=== PATIENT | female | born 1955 | race Caucasian/White ===

== ENCOUNTER → 2019-03-02 | Outpatient (CLI) | payer MEDICARE ==
--- NOTE | 2019-03-03 09:03 | P.ARTDOP ---
Arterial Doppler LOWER EXTREMITY ARTERIAL DOPPLER: DATE OF SERVICE: 03/02/2019 Reason for study: Right foot ulcer. Doppler waveforms: Multiphasic bilaterally throughout. Pulse volume recording: Normal configuration. Pressure gradients: None. Ankle-brachial indices: Greater than 1 bilaterally. Toe pressures: 148 on the right, 104 on the left Impression: Normal study.
== END | disposition home or self-care (01) ==
LOC: RADUSWWP 09:14
PROVIDERS: ATTEND Thoracic Surgery (Cardiothoracic Vascular Surgery)
DX: L89.892 Pressure ulcer of other site, stage 2 (principal); E66.09 Other obesity due to excess calories
CPT/HCPCS: 93923

== ENCOUNTER → 2019-03-11 | Outpatient (CLI) | payer MEDICARE ==
--- NOTE | 2019-03-11 15:10 | XR ---
EXAMINATION TYPE: XR foot complete RT DATE OF EXAM: 03/11/2019 CLINICAL HISTORY: Mid foot right ulcer. Cast material overlying the right foot. TECHNIQUE: Frontal, lateral, and oblique images of the right foot are obtained. COMPARISON: None FINDINGS: There is extremely limited exam of the right foot given overlying casting material. Evaluat ion for subcutaneous emphysema is nondiagnostic. No osseous erosion is grossly seen. Degenerative ainsley nges of the talonavicular joint with opposing surface sclerosis and bony proliferative change. Flexio n deformities of the digits also makes evaluation suboptimal. There appears to be mild diffuse osseou s demineralization. No gross evidence of displaced fracture. Subtalar joint arthropathy is also seen. Small plantar calcaneal enthesophyte. IMPRESSION: Overlying casting material extremely limits the examination. Examination for subcutaneous emphysema is nondiagnostic. No gross evidence of osseous laceration in this patient with mid foot ul cer. No displaced fracture.
== END | disposition home or self-care (01) ==
LOC: RADXRMAIN 14:13
PROVIDERS: ATTEND Nurse Practitioner Family
DX: L89.892 Pressure ulcer of other site, stage 2 (principal); E66.09 Other obesity due to excess calories

== ENCOUNTER 2019-09-03 19:08 | Observation (INO) | payer MEDICARE ==
--- NOTE | 2019-09-03 19:45 | ED ---
General Adult HPI - General Stated complaint: Weakness Time Seen by Provider: 09/03/19 19:10 Source: RN notes reviewed, old records reviewed - History of Present Illness Initial comments: This is a 63-year-old female with past medical history significant for bilateral knee replacements morbid obesity and high blood pressure. Patient states today she sat down BUT 1:00 and after that she was unable to get up from the couch. Patient states her legs were too weak. Patient denies any injury or trauma. Patient denies any areas of pain. Patient denies any areas of redness. Patient denies fever chills or cough per patient denies being lightheaded or dizzy. Patient denies any chest pain difficulty breathing shortness of breath. Patient denies any palpitations. Patient denies any abdominal pain patient denies any recent nausea vomiting or diarrhea. Patient states she normally gets up and uses a walker but today she was unable to even get to a standing position. Patient denies any upper body weakness she states it felt like was all in both of her legs. Patient states she's always had problems with both of her knees but it felt like his couldn't hold her today. Review of Systems ROS Statement: Those systems with pertinent positive or pertinent negative responses have been documented in the HPI. ROS Other: All systems not noted in ROS Statement are negative. General Exam - General Exam Comments Initial Comments: GENERAL: Patient is well-developed and well-nourished. Patient is nontoxic and well- hydrated and is in no acute distress. ENT: Neck is soft and supple. No significant lymphadenopathy is noted. Oropharynx is clear. Moist mucous membranes. Neck has full range of motion without eliciting any pain. EYES: The sclera were anicteric and conjunctiva were pink and moist. Extraocular movements were intact and pupils were equal round and reactive to light. Eyelids were unremarkable. PULMONARY: Unlabored respirations. Good breath sounds bilaterally. No audible rales rhonchi or wheezing was noted. CARDIOVASCULAR: Patient has an irregular heart rate ABDOMEN: patient is morbidly obese SKIN: Patient is stage I decubitus ulcer on her buttocks. Patient's right foot on the plantar surface has a chronic lesion no signs of infection noted NEUROLOGIC: Patient is alert and oriented x3. Cranial nerves II through XII are grossly intact. Motor and sensory are also intact. Normal speech, volume and content. Symmetrical smile. MUSCULOSKELETAL: Normal extremities with adequate strength and full range of motion. This full range of motion was according to the patient she stated she could still move her legs while lying bed normally and she denied any pain in any of the joints. LYMPHATICS: No significant lymphadenopathy is noted PSYCHIATRIC: Normal psychiatric evaluation. Course Vital Signs 09/03/19 19:33 Temperature 98.4 F Pulse Rate 98 Respiratory 20 Rate Blood Pressure 103/71 O2 Sat by Pulse 98 Oximetry Medical Decision Making - Medical Decision Making Patient's EKG shows atrial fibrillation with occasional PVC at a rate of 90 bpm QRS is 86 QT interval 360 QTC is 459. Patient's EKG shows no ST segment daniel vation or depression. Chest x-ray shows no acute abnormality. I spoke with Dr. Guzman she agreed to admit the patient admitted the patient wrote admitting orders. - Lab Data Result diagrams: 09/03/19 19:55 09/03/19 19:55 Lab Results 09/03/19 09/03/19 09/03/19 Range/Units 19:55 19:55 19:55 WBC 12.3 H (3.8-10.6) k/uL RBC 4.62 (3.80-5.40) m/uL Hgb 14.2 (11.4-16.0) gm/dL Hct 44.7 (34.0-46.0) % MCV 96.7 (80.0-100.0) fL MCH 30.8 (25.0-35.0) pg MCHC 31.8 (31.0-37.0) g/dL RDW 13.0 (11.5-15.5) % Plt Count 256 (150-450) k/uL Neutrophils % 83 % Lymphocytes % 10 % Monocytes % 5 % Eosinophils % 1 % Basophils % 1 % Neutrophils # 10.2 H (1.3-7.7) k/uL Lymphocytes # 1.2 (1.0-4.8) k/uL Monocytes # 0.6 (0-1.0) k/uL Eosinophils # 0.1 (0-0.7) k/uL Basophils # 0.1 (0-0.2) k/uL PT 11.0 (9.0-12.0) sec INR 1.1 (<1.2) APTT 26.3 (22.0-30.0) sec Sodium 140 (137-145) mmol/L Potassium 4.2 (3.5-5.1) mmol/L Chloride 104 (98-107) mmol/L Carbon Dioxide 29 (22-30) mmol/L Anion Gap 7 mmol/L BUN 13 (7-17) mg/dL Creatinine 0.61 (0.52-1.04) mg/dL Est GFR (CKD-EPI)AfAm >90 (>60 ml/min/1.73 sqM) Est GFR (CKD-EPI)NonAf >90 (>60 ml/min/1.73 sqM) Glucose 121 H (74-99) mg/dL Plasma Lactic Acid Oleg (0.7-2.0) mmol/L Calcium 9.4 (8.4-10.2) mg/dL Magnesium 1.9 (1.6-2.3) mg/dL Total Bilirubin 0.5 (0.2-1.3) mg/dL AST 22 (14-36) U/L ALT 13 (4-34) U/L Alkaline Phosphatase 53 (38-126) U/L Troponin I (0.000-0.034) ng/mL Total Protein 7.1 (6.3-8.2) g/dL Albumin 4.0 (3.5-5.0) g/dL Urine Color Urine Appearance (Clear) Urine pH (5.0-8.0) Ur Specific [place] (1.001-1.035) Urine Protein (Negative) Urine Glucose (UA) (Negative) Urine Ketones (Negative) Urine Blood (Negative) Urine Nitrite (Negative) Urine Bilirubin (Negative) Urine Urobilinogen (<2.0) mg/dL Ur Leukocyte Esterase (Negative) Urine RBC (0-5) /hpf Urine WBC (0-5) /hpf 09/03/19 09/03/19 09/03/19 Range/Units 19:55 19:55 19:55 WBC (3.8-10.6) k/uL RBC (3.80-5.40) m/uL Hgb (11.4-16.0) gm/dL Hct (34.0-46.0) % MCV (80.0-100.0) fL MCH (25.0-35.0) pg MCHC (31.0-37.0) g/dL RDW (11.5-15.5) % Plt Count (150-450) k/uL Neutrophils % % Lymphocytes % % Monocytes % % Eosinophils % % Basophils % % Neutrophils # (1.3-7.7) k/uL Lymphocytes # (1.0-4.8) k/uL Monocytes # (0-1.0) k/uL Eosinophils # (0-0.7) k/uL Basophils # (0-0.2) k/uL PT (9.0-12.0) sec INR (<1.2) APTT (22.0-30.0) sec Sodium (137-145) mmol/L Potassium (3.5-5.1) mmol/L Chloride (98-107) mmol/L Carbon Dioxide (22-30) mmol/L Anion Gap mmol/L BUN (7-17) mg/dL Creatinine (0.52-1.04) mg/dL Est GFR (CKD-EPI)AfAm (>60 ml/min/1.73 sqM) Est GFR (CKD-EPI)NonAf (>60 ml/min/1.73 sqM) Glucose (74-99) mg/dL Plasma Lactic Acid Oleg 1.1 (0.7-2.0) mmol/L Calcium (8.4-10.2) mg/dL Magnesium (1.6-2.3) mg/dL Total Bilirubin (0.2-1.3) mg/dL AST (14-36) U/L ALT (4-34) U/L Alkaline Phosphatase (38-126) U/L Troponin I 0.013 (0.000-0.034) ng/mL Total Protein (6.3-8.2) g/dL Albumin (3.5-5.0) g/dL Urine Color Yellow Urine Appearance Clear (Clear) Urine pH 6.5 (5.0-8.0) Ur Specific [place] 1.023 (1.001-1.035) Urine Protein Negative (Negative) Urine Glucose (UA) Negative (Negative) Urine Ketones Negative (Negative) Urine Blood Negative (Negative) Urine Nitrite Negative (Negative) Urine Bilirubin Negative (Negative) Urine Urobilinogen <2.0 (<2.0) mg/dL Ur Leukocyte Esterase Small H (Negative) Urine RBC 4 (0-5) /hpf Urine WBC <1 (0-5) /hpf Disposition Clinical Impression: Generalized weakness, New onset a-fib, Morbid obesity Disposition: ADMITTED IP TO THIS HOSP Referrals: Alvaro Roldan MD [Primary Care Provider] - 1-2 days Time of Disposition: 22:00
[2019-09-03 20:24] LABS: Basophils # (A) 0.1 k/uL (0-0.2); Basophils % (A) 1 %; Eosinophils # (A) 0.1 k/uL (0-0.7); Eosinophils % (A) 1 %; HCT 44.7 % (34.0-46.0); HGB 14.2 gm/dL (11.4-16.0); Lymphocytes # (A) 1.2 k/uL (1.0-4.8); Lymphocytes % (A) 10 %; MCH 30.8 pg (25.0-35.0); MCHC 31.8 g/dL (31.0-37.0); MCV 96.7 fL (80.0-100.0); Mean Platelet Volume 9.8; Monocytes # (A) 0.6 k/uL (0-1.0); Monocytes % (A) 5 %; Neutrophils # (A) 10.2 k/uL (1.3-7.7); Neutrophils % (A) 83 %; Platelet Count 256 k/uL (150-450); RBC 4.62 m/uL (3.80-5.40); WBC 12.3 k/uL (3.8-10.6)
[2019-09-03 20:25] LABS: Appearance,Urine Clear (Clear); Bilirubin,Urine Negative (Negative); Blood,Urine Negative (Negative); Color,Urine Yellow; Glucose,Urine (UA) Negative (Negative); Ketones,Urine Negative (Negative); Leukocyte Esterase,Urine Small (Negative); Nitrite,Urine Negative (Negative); PH, Urine 6.5 (5.0-8.0); Protein,Urine Negative (Negative); RBC,Urine 4 /hpf (0-5); Specific Gravity,Urine 1.023 (1.001-1.035); Urobilinogen,Urine <2.0 mg/dL (<2.0); WBC,Urine <1 /hpf (0-5)
[2019-09-03 20:32] LABS: INR 1.1 (<1.2); Partial Thromboplastin Time 26.3 sec (22.0-30.0)
[2019-09-03 20:36] LABS: ALT 13 U/L (4-34); AST 22 U/L (14-36); African American GFR (CKD) >90 (>60 ml/min/1.73 sqM); Alkaline Phosphatase 53 U/L (38-126); Anion Gap 7 mmol/L; Blood Urea Nitrogen 13 mg/dL (7-17); Calcium 9.4 mg/dL (8.4-10.2); Carbon Dioxide 29 mmol/L (22-30); Chloride 104 mmol/L (98-107); Glucose 121 mg/dL (74-99); Magnesium 1.9 mg/dL (1.6-2.3); Non-African American GFR(CKD) >90 (>60 ml/min/1.73 sqM); Potassium 4.2 mmol/L (3.5-5.1); Sodium 140 mmol/L (137-145); Total Bilirubin 0.5 mg/dL (0.2-1.3); Total Protein 7.1 g/dL (6.3-8.2)
--- NOTE | 2019-09-03 21:50 | XR ---
EXAMINATION TYPE: XR chest 2V DATE OF EXAM: 09/03/2019 COMPARISON: NONE HISTORY: Weakness TECHNIQUE: 2 views FINDINGS: There is no heart failure nor confluent pneumonic infiltrate. There is probably mild bilate ral subsegmental atelectasis. There is no pleural effusion. There are chest leads. Bony thorax appear s intact. IMPRESSION: There is probably a mild subsegmental atelectasis. No heart failure.
[2019-09-03] MEDS ORDERED: HEPARIN SODIUM,PORCINE 5,000 UNIT/ML 1 ML VIAL IV ONE (22:07)
[2019-09-03] MEDS ORDERED: HEPARIN SOD,PORK IN 0.45% NACL 25,000 UNIT in 0.45% NACL 1 250ML.BAG IV SCH (22:15)
[2019-09-04] MEDS: FUROSEMIDE 40 MG TAB PO SCH ×2 (08:47→16:15)
[2019-09-04] MEDS: PRAVASTATIN SODIUM 40 MG TAB PO SCH (08:47)
[2019-09-04] MEDS: ACETAMINOPHEN TAB 325 MG TAB PO PRN ×2 (08:47→16:19)
[2019-09-04] MEDS: APIXABAN 5 MG TAB PO SCH ×2 (08:57→20:12)
[2019-09-04] MEDS: METOPROLOL TARTRATE 50 MG TAB PO SCH (08:57)
[2019-09-04] MEDS ORDERED: METOPROLOL TARTRATE 25 MG TAB PO SCH (09:00)
[2019-09-04] MEDS ORDERED: LOSARTAN 50 MG TAB PO SCH (09:00)
[2019-09-04 11:07] VITALS: RESP 18
--- NOTE | 2019-09-04 11:43 | P.HPIM ---
History of Present Illness H&P Date: 09/04/19 Chief Complaint: Generalized weakness This is a 63-year-old female with past medical history of osteoarthritis status post bilateral knee replacement, hypertension. Patient states that she was in the living room sitting on the couch yesterday and wanted to get up to the bathroom but was unable to lift herself up. She sat on the couch for about 3 hours and then called EMS. She states sometimes her knees locked but this was different. She denies having any lightheadedness or dizziness. She denies any falls. She denies any lower extremity edema. 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 She currently lives at home with a sister and her mother lives next door. She uses a walker to ambulate. Patient came in in Hospital emergency center was found to be in atrial fibrillation at a heart rate of 98. Chest x-ray showed no heart failure no infiltrate. Probable mild atelectasis. WBC 12.3, electrolytes and renal function within normal limits, blood sugar 121. Patient denies history of diabetes. Liver function tests normal. Coban 19 testing negative. Urinalysis negative for infection. TSH 1.130. Patient was started on heparin drip and initially given dose of Lopressor 25 mg which was subsequently increased to 50 g by cardiology this morning. We have decreased her losartan dose for low blood pressure readings. Patient has been placed on the cardiac stepdown unit. Heparin has been transitioned to eliquis. Review of Systems Constitutional: Reports weakness, Denies anorexia, Denies chills, Denies fatigue, Denies fever, Denies lethargy, Denies malaise, Denies poor appetite, Denies weight loss Eyes: denies blurred vision, denies pain Ears, nose, mouth and throat: Denies headache, Denies nasal congestion, Denies nasal discharge, Denies sore throat Cardiovascular: Denies chest pain, Denies dyspnea on exertion, Denies edema, Denies leg edema, Denies lightheadedness, Denies shortness of breath, Denies syncope Respiratory: Denies cough, Denies cough with sputum, Denies dyspnea, Denies excessive sputum, Denies hemoptysis, Denies home oxygen, Denies sleep apnea, Denies wheezing Gastrointestinal: Denies abdominal pain, Denies diarrhea, Denies loss of appetite, Denies nausea, Denies vomiting Genitourinary: Denies dysuria, Denies hematuria, Denies urgency, Denies urinary frequency Musculoskeletal: Reports muscle weakness, Denies myalgias Integumentary: Reports wounds, Denies pruritus, Denies rash Neurological: Denies change in mentation, Denies change in speech, Denies numbness, Denies weakness Psychiatric: Denies anxiety, Denies depression Endocrine: Denies fatigue, Denies weight change Past Medical History Past Medical History: Hypertension History of Any Multi-Drug Resistant Organisms: None Reported Additional Past Surgical History / Comment(s): R shoulder, bilat knee replacement Smoking Status: Former smoker Additional Past Alcohol Use History / Comment(s): Patient was smoker as a teen ager only. No alcohol use or street drug use. Patient was at home with her sister and her mother lives next-door. She uses a walker for ambulation. - Past Family History Father Additional Family Medical History / Comment(s): Father from prostate cancer. Mother Additional Family Medical History / Comment(s): Mother is alive with history of PFO. Brother(s) Additional Family Medical History / Comment(s): Patient has one brother with history of gout. Patient's 2 sisters one with no major medical problems and one with generalized osteoarthritis. Patient does not have any children. Medications and Allergies Home Medications Medication Instructions Recorded Confirmed Type Baclofen 10 mg PO HS 09/03/19 09/03/19 History Furosemide [Lasix] 40 mg PO BID 09/03/19 09/03/19 History Losartan [Cozaar] 50 mg PO DAILY 09/03/19 09/03/19 History Meloxicam [Mobic] 7.5 mg PO DAILY 09/03/19 09/03/19 History Metoprolol Tartrate 25 mg PO DAILY 09/03/19 09/03/19 History Multivitamins, Thera [Multivitamin 1 tab PO DAILY 09/03/19 09/03/19 History (formulary)] Pravastatin Sodium [Pravachol] 40 mg PO DAILY 09/03/19 09/03/19 History Turmeric Root Extract [Turmeric] 500 mg PO DAILY 09/03/19 09/03/19 History Allergies Allergy/AdvReac Type Severity Reaction Status Date / Time morphine Allergy Nausea & Verified 09/03/19 22:09 Vomiting Poultry [Grulla] Allergy Swelling Verified 09/03/19 22:09 Sulfa (Sulfonamide Allergy Swelling Verified 09/03/19 22:09 Antibiotics) walnut Allergy Swelling Verified 09/03/19 22:09 Physical Exam Vitals: Vital Signs Temp Pulse Pulse Resp BP BP Pulse Ox 09/04/19 04:00 98.5 F 90 18 132/65 97 09/04/19 00:40 98.6 F 97 18 126/67 98 09/04/19 00:00 98.7 F 93 16 116/80 97 09/03/19 23:50 103 H 17 116/80 96 09/03/19 23:40 86 19 116/80 98 09/03/19 23:30 93 16 116/80 95 09/03/19 23:20 90 17 116/80 96 09/03/19 23:10 96 17 116/80 97 09/03/19 23:00 19 106/74 99 09/03/19 22:50 17 106/74 94 L 09/03/19 22:40 89 18 106/74 97 09/03/19 22:30 105 H 21 106/74 97 09/03/19 22:20 101 H 19 106/74 91 L 09/03/19 22:10 98 19 106/74 97 09/03/19 22:00 95 18 96/62 97 09/03/19 21:50 92 19 96/62 98 09/03/19 21:40 96/62 09/03/19 21:30 92 19 96/62 97 09/03/19 21:20 100 17 96/62 98 09/03/19 21:10 92 18 96/62 97 09/03/19 21:00 101 H 20 115/75 94 L 09/03/19 20:50 97 21 115/75 95 09/03/19 20:40 92 20 09/03/19 20:37 107 H 20 09/03/19 19:33 98.4 F 98 20 103/71 98 Intake and Output 09/03/19 09/04/19 09/04/19 22:59 06:59 14:59 Intake Total 67.595 Balance 67.595 Intake: Intake, IV Titration 67.595 Amount Heparin Sod,Pork in 0.45% 67.595 NaCl 25,000 unit In 0.45 % NaCl 1 250ml.bag @ 5.21 UNITS/KG/HR 10.014 mls/ hr IV .Q24H [facility] Rx#: [id number] Other: # Voids 1 Weight 192.2 kg 189.9 kg Gen: This is a 63-year-old morbidly obese female. She is sitting up in bed and appears to be comfortable and in no acute distress HEENT: Head is atraumatic, normocephalic. Pupils equal, round. Sclerae is anicteric. NECK: Supple. No JVD. No lymphadenopathy. No thyromegaly. LUNGS: Clear to auscultation. No wheezes or rhonchi. No intercostal retractions. HEART: Irregularly irregular rate and rhythm. No murmur. ABDOMEN: Morbidly obese Soft. Bowel sounds are present. No masses. No tenderness. EXTREMITIES: No pedal edema. No calf tenderness. NEUROLOGICAL: Patient is awake, alert and oriented x3. Cranial nerves 2 through 12 are grossly intact. Results CBC & Chem 7: 09/03/19 19:55 09/03/19 19:55 Labs: Abnormal Lab Results - Last 24 Hours (Table) 09/03/19 09/03/19 09/03/19 Range/Units 19:55 19:55 19:55 WBC 12.3 H (3.8-10.6) k/uL Neutrophils # 10.2 H (1.3-7.7) k/uL APTT (22.0-30.0) sec Glucose 121 H (74-99) mg/dL Ur Leukocyte Esterase Small H (Negative) 09/04/19 Range/Units 05:59 WBC (3.8-10.6) k/uL Neutrophils # (1.3-7.7) k/uL APTT 34.1 H (22.0-30.0) sec Glucose (74-99) mg/dL Ur Leukocyte Esterase (Negative) Thrombosis Risk Factor Assmnt - DVT/VTE Prophylaxis DVT/VTE Prophylaxis: Pharmacologic Prophylaxis ordered - Choose All That Apply Any of the Below Risk Factors Present?: Yes Each Factor Represents 1 point: Medical pt on bed rest, Obesity (BMI >25), Swollen legs (current) Other Risk Factors: Yes Each Risk Factor Represents 2 Points: Age 61-74 years Thrombosis Risk Factor Assessment Total Risk Factor Score: 5 Thrombosis Risk Factor Assessment Level: High Risk Assessment and Plan Plan: 1. New onset atrial fibrillation, recent and RVR, most likely paroxysmal atrial fibrillation. Cardiology consult appreciated. Patient's been on a heparin drip and transitioned to eliquis. Lopressor was started at 25 mg increased to 50 mg this morning for heart rate control. Echocardiogram is pending. 2. Hypertension. Continue Lasix 40 mg oral twice daily, Lopressor. 3. Hyperlipidemia. Continue pravastatin 40 mg daily. 4. Generalized osteoarthritis. Continue baclofen. 5. DVT prophylaxis. Eliquis. 6. GI prophylaxis. Pepcid. 7. COVID-19 infection not present. 8. Morbid obesity with BMI of 63. Patient placed as an observation status. Discharge plan: home tomorrow. PT and OT added. Impression and plan of care have been directed as dictated by the signing vijaya mondragon. Amrita Alfonso nurse practitioner acting as scribe for signing physician.
--- NOTE | 2019-09-04 11:56 | ECHOF ---
Referral Reason:New-onset A. fib MEASUREMENTS -------- HEIGHT: 172.7 cm WEIGHT: 189.6 kg BP: 132/65 LA Diam: 3.1 cm (2.7 - 3.8) IVSd: 1.5 cm (0.6 - 1.1) LVIDd: 5.9 cm (3.9 - 5.3) LVPWd: 1.3 cm (0.6 - 1.1) IVSs: 2.3 cm LVIDs: 4.3 cm LVPWs: 2.0 cm EDV(Teich): 170 ml ESV(Teich): 82 ml EF(Teich): 52 % %FS: 27 % SV(Teich): 88 ml Ao Diam: 3.0 cm (2.0 - 3.7) AV Cusp: 1.9 cm (1.5 - 2.6) MV E Hi: 0.71 m/s MV DecT: 182 ms MV A Hi: 0.77 m/s MV E/A Ratio: 0.91 FINDINGS -------- Sinus rhythm with extra systolic beats. This was a technically difficult study with suboptimal views. Morbid Obesity The left ventricular size is normal. There is moderate concentric left ventricular hypertrophy. O verall left ventricular systolic function is mild-moderately impaired with, an EF between 40 - 45 %. The RV was not well visualized. The left atrial size is normal. The right atrium was not well visualized. 5.0mg of Lumason was utilized for enhancement of images Interatrial and interventricular septum intact. The aortic valve was not well visualized. There is no evidence of aortic regurgitation. There is no evidence of aortic stenosis. The mitral valve was not well visualized. Mild mitral regurgitation is present. The tricuspid valve was not well visualized. Unable to estimate RVSP due to inadequate TR jet spect ral doppler profile. The pulmonic valve was not well visualized. The aortic root size is normal. IVC Not well visulized. There is no pericardial effusion. CONCLUSIONS -------- 1. Sinus rhythm with extra systolic beats. 2. This was a technically difficult study with suboptimal views. 3. Morbid Obesity 4. The left ventricular size is normal. 5. There is moderate concentric left ventricular hypertrophy. 6. Overall left ventricular systolic function is mild-moderately impaired with, an EF between 40 - 45 %. 7. The RV was not well visualized. 8. The left atrial size is normal. 9. The right atrium was not well visualized. 10. 5.0mg of Lumason was utilized for enhancement of images 11. Interatrial and interventricular septum intact. 12. The aortic valve was not well visualized. 13. There is no evidence of aortic regurgitation. 14. There is no evidence of aortic stenosis. 15. The mitral valve was not well visualized. 16. Mild mitral regurgitation is present. 17. The tricuspid valve was not well visualized. 18. Unable to estimate RVSP due to inadequate TR jet spectral doppler profile. 19. The pulmonic valve was not well visualized. 20. The aortic root size is normal. 21. IVC Not well visulized. 22. There is no pericardial effusion. E [employer] ARCHITECT: Linda Mcneil RDCS
--- NOTE | 2019-09-04 12:50 | P.CRDCN ---
History of Present Illness Consult date: 09/04/19 Requesting physician: Lawanda Guzman Consult reason: atrial fibrillation Chief complaint: Extreme weakness History of present illness: This is a pleasant 63-year-old female with documented history of hypertension, hyperlipidemia, morbid obesity, bilateral knee replacement, who presented to the hospital mainly with symptoms of extreme weakness, she states that she was sitting on the couch and so weak that she was unable to get up. She denied any palpitations or shortness of breath or chest discomfort. Her chest x-ray on presentation here showed mild atelectasis, EKG showed atrial fibrillation with a heart rate in the 90s, occasional PVC. Blood pressure 132/60 with a heart rate 90-106, respirations 18, 97% on room air. White blood cell count 12.3, hemoglobin 14.2, platelet count 256. Sodium 140, potassium 4.2, BUN 13, creatinine 0.6. Magnesium 1.9. Troponin 0.013, alas virus not detected. Patient was initiated here on IV heparin. She is also on Lasix 40 mg one tablet by mouth twice a day, losartan 50 mg daily, metoprolol 25 mg one tablet daily and Pravachol 40 mg daily. Past Medical History Past Medical History: Hypertension History of Any Multi-Drug Resistant Organisms: None Reported Additional Past Surgical History / Comment(s): R shoulder, bilat knee replacement Smoking Status: Former smoker Additional Past Alcohol Use History / Comment(s): Patient was smoker as a teenager only. No alcohol use or street drug use. Patient was at home with her sister and her mother lives next-door. She uses a walker for ambulation. - Past Family History Father Additional Family Medical History / Comment(s): Father from prostate cancer. Mother Additional Family Medical History / Comment(s): Mother is alive with history of PFO. Brother(s) Additional Family Medical History / Comment(s): Patient has one brother with history of gout. Patient's 2 sisters one with no major medical problems and one with generalized osteoarthritis. Patient does not have any children. Medications and Allergies Home Medications Medication Instructions Recorded Confirmed Type Baclofen 10 mg PO HS 09/03/19 09/03/19 History Furosemide [Lasix] 40 mg PO BID 09/03/19 09/03/19 History Losartan [Cozaar] 50 mg PO DAILY 09/03/19 09/03/19 History Meloxicam [Mobic] 7.5 mg PO DAILY 09/03/19 09/03/19 History Metoprolol Tartrate 25 mg PO DAILY 09/03/19 09/03/19 History Multivitamins, Thera [Multivitamin 1 tab PO DAILY 09/03/19 09/03/19 History (formulary)] Pravastatin Sodium [Pravachol] 40 mg PO DAILY 09/03/19 09/03/19 History Turmeric Root Extract [Turmeric] 500 mg PO DAILY 09/03/19 09/03/19 History Allergies Allergy/AdvReac Type Severity Reaction Status Date / Time morphine Allergy Nausea & Verified 09/03/19 22:09 Vomiting Poultry [[place]] Allergy Swelling Verified 09/03/19 22:09 Sulfa (Sulfonamide Allergy Swelling Verified 09/03/19 22:09 Antibiotics) walnut Allergy Swelling Verified 09/03/19 22:09 Physical Exam Vitals: Vital Signs Temp Pulse Pulse Resp BP BP Pulse Ox 09/04/19 11:03 98.2 F 68 18 99/66 99 09/04/19 08:00 98.4 F 92 20 96/61 96 09/04/19 04:00 98.5 F 90 18 132/65 97 09/04/19 00:40 98.6 F 97 18 126/67 98 09/04/19 00:00 98.7 F 93 16 116/80 97 09/03/19 23:50 103 H 17 116/80 96 09/03/19 23:40 86 19 116/80 98 09/03/19 23:30 93 16 116/80 95 09/03/19 23:20 90 17 116/80 96 09/03/19 23:10 96 17 116/80 97 09/03/19 23:00 19 106/74 99 09/03/19 22:50 17 106/74 94 L 09/03/19 22:40 89 18 106/74 97 09/03/19 22:30 105 H 21 106/74 97 09/03/19 22:20 101 H 19 106/74 91 L 09/03/19 22:10 98 19 106/74 97 09/03/19 22:00 95 18 96/62 97 09/03/19 21:50 92 19 96/62 98 09/03/19 21:40 96/62 09/03/19 21:30 92 19 96/62 97 09/03/19 21:20 100 17 96/62 98 09/03/19 21:10 92 18 96/62 97 09/03/19 21:00 101 H 20 115/75 94 L 09/03/19 20:50 97 21 115/75 95 09/03/19 20:40 92 20 09/03/19 20:37 107 H 20 09/03/19 19:33 98.4 F 98 20 103/71 98 Intake and Output 09/03/19 09/04/19 09/04/19 22:59 06:59 14:59 Intake Total 67.595 Balance 67.595 Intake: Intake, IV Titration 67.595 Amount Heparin Sod,Pork in 0.45% 67.595 NaCl 25,000 unit In 0.45 % NaCl 1 250ml.bag @ 5.21 UNITS/KG/HR 10.014 mls/ hr IV .Q24H [facility] Rx#: [id number] Other: # Voids 1 1 # Bowel Movements 1 Weight 192.2 kg 189.9 kg PHYSICAL EXAMINATION: GENERAL: 63-year-old morbidly obese female in no acute distress at the time of our examination. HEENT: Head is atraumatic, normocephalic. Pupils equal, round. Sclera anicteric. Conjunctiva are clear. Mucous membranes of the mouth are moist. Neck is supple. There is no elevated jugular venous pressure. No carotid bruit is heard. HEART EXAMINATION: S1 and S2 irregularly irregular CHEST EXAMINATION: Lungs are clear to auscultation and precussion. No chest wall tenderness is noted on palpation or with deep breathing. ABDOMEN: Soft, obese, nontender. Bowel sounds are heard. No organomegaly noted. EXTREMITIES: 2+ peripheral pulses with no evidence of peripheral edema and no calf tenderness noted. NEUROLOGIC patient is awake, alert and oriented 3 . . Results 09/03/19 19:55 09/03/19 19:55 Cardiac Enzymes 09/03/19 09/03/19 Range/Units 19:55 19:55 AST 22 (14-36) U/L Troponin I 0.013 (0.000-0.034) ng/mL Coagulation 09/03/19 09/04/19 Range/Units 19:55 05:59 PT 11.0 (9.0-12.0) sec APTT 26.3 34.1 H (22.0-30.0) sec CBC 09/03/19 Range/Units 19:55 WBC 12.3 H (3.8-10.6) k/uL RBC 4.62 (3.80-5.40) m/uL Hgb 14.2 (11.4-16.0) gm/dL Hct 44.7 (34.0-46.0) % Plt Count 256 (150-450) k/uL Comprehensive Metabolic Panel 09/03/19 Range/Units 19:55 Sodium 140 (137-145) mmol/L Potassium 4.2 (3.5-5.1) mmol/L Chloride 104 (98-107) mmol/L Carbon Dioxide 29 (22-30) mmol/L BUN 13 (7-17) mg/dL Creatinine 0.61 (0.52-1.04) mg/dL Glucose 121 H (74-99) mg/dL Calcium 9.4 (8.4-10.2) mg/dL AST 22 (14-36) U/L ALT 13 (4-34) U/L Alkaline Phosphatase 53 (38-126) U/L Total Protein 7.1 (6.3-8.2) g/dL Albumin 4.0 (3.5-5.0) g/dL Current Medications Generic Name Dose Route Start Last Admin Trade Name Freq PRN Reason Stop Dose Admin Acetaminophen 650 mg 09/04/19 08:32 09/04/19 08:47 Tylenol Tab PO 650 mg Q6HR PRN Administration Fever and/ or Pain Apixaban 5 mg 09/04/19 09:00 09/04/19 08:57 Eliquis PO 5 mg BID [facility] Administration Baclofen 10 mg 09/04/19 21:00 Lioresal PO HS [facility] Furosemide 40 mg 09/04/19 09:00 09/04/19 08:47 Lasix PO 40 mg BID@0900,1600 [facility] Administration Losartan Potassium 25 mg 09/05/19 09:00 Cozaar PO DAILY [facility] Metoprolol Tartrate 50 mg 09/04/19 09:00 09/04/19 08:57 Lopressor PO 50 mg DAILY [facility] Administration Pravastatin Sodium 40 mg 09/04/19 09:00 09/04/19 08:47 Pravachol PO 40 mg DAILY [facility] Administration Intake and Output 09/03/19 09/04/19 09/04/19 22:59 06:59 14:59 Intake Total 67.595 Balance 67.595 Intake: Intake, IV Titration 67.595 Amount Heparin Sod,Pork in 0.45% 67.595 NaCl 25,000 unit In 0.45 % NaCl 1 250ml.bag @ 5.21 UNITS/KG/HR 10.014 mls/ hr IV .Q24H [facility] Rx#: [id number] Other: # Voids 1 1 # Bowel Movements 1 Weight 192.2 kg 189.9 kg 09/03/19 19:55 09/03/19 19:55 EKG Interpretations (text) EKG shows atrial fibrillation with occasional PVC Assessment and Plan Plan: Assessment and plan #1 atrial fibrillation, appears to be of new onset, currently on IV heparin. #2 hypertension #3 hyperlipidemia #4 morbid obesity Plan We will discontinue the IV heparin and start the patient on Eliquis, we did check on coverage for Eliquis this morning and the patient's cost is approximately $40. We will also order an echocardiogram with Doppler study as well as a TSH level. Add metoprolol 50 mg by mouth daily to her medication regime. If the patient is discharged home today we will make her a follow-up appointment to see Dr. Pierce in the office post discharge. DNP note has been reviewed, I agree with a documented findings and plan of care. Patient was seen and examined.
[2019-09-04] MEDS ORDERED: BACLOFEN 10 MG TAB PO SCH (21:00)
[2019-09-05] MEDS: METOPROLOL TARTRATE 50 MG TAB PO SCH (08:50)
[2019-09-05] MEDS: FUROSEMIDE 40 MG TAB PO SCH (08:50)
[2019-09-05] MEDS: APIXABAN 5 MG TAB PO SCH (08:50)
[2019-09-05] MEDS: PRAVASTATIN SODIUM 40 MG TAB PO SCH (08:50)
[2019-09-05] MEDS ORDERED: LOSARTAN 25 MG TAB PO SCH (09:00)
[2019-09-05 09:01] VITALS: BP 100/73; PULSE 101; TEMP 98.2
--- NOTE | 2019-09-05 09:51 | P.DS ---
Providers Date of admission: 09/03/19 22:08 Expected date of discharge: 09/05/19 Attending physician: Lawanda Guzman Consults: 09/03/19 22:00 Consult Physician Urgent Consulting Provider: [facility] Consult Reason/Comments: New-onset A. fib Do you want consulting provider notified?: Yes Primary care physician: [facility] Course: This is a 63-year-old female with past medical history of osteoarthritis status post bilateral knee replacement, hypertension. Patient states that she was in the living room sitting on the couch yesterday and wanted to get up to the bathroom but was unable to lift herself up. She sat on the couch for about 3 hours and then called EMS. She states sometimes her knees locked but this was different. She denies having any lightheadedness or dizziness. She denies any falls. She denies any lower extremity edema. 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 She currently lives at home with a sister and her mother lives next door. She uses a walker to ambulate. Patient came in in Hospital emergency center was found to be in atrial fibrillation at a heart rate of 98. Chest x-ray showed no heart failure no infiltrate. Probable mild atelectasis. WBC 12.3, electrolytes and renal function within normal limits, blood sugar 121. Patient denies history of diabetes. Liver function tests normal. Coban 19 testing negative. Urinalysis negative for infection. TSH 1.130. Patient was started on heparin drip and initially given dose of Lopressor 25 mg which was subsequently increased to 50 g by cardiology this morning. We have decreased her losartan dose for low blood pressure readings. Patient has been placed on the cardiac stepdown unit. Heparin has been transitioned to eliquis. 09/04: Patient has been cleared for discharge by cardiology. Heart rate is currently controlled. Afebrile, heart rate mostly in the 60s and 70s. One reading this morning of 101. Blood pressure 132/71, pulse ox 95% on room air. Patient will be discharged home today in stable condition. Discharge diagnoses: 1. New onset atrial fibrillation, presented with RVR, most likely paroxysmal atrial fibrillation. 2. Hypertension. 3. Hyperlipidemia. 4. Generalized osteoarthritis. 5. COVID-19 infection not present. 6. Morbid obesity with BMI of 63. 7. Possible obstructive sleep apnea. Patient would benefit form outpatient sleep study. Discharge plan: home Impression and plan of care have been directed as dictated by the signing physician. Amrita Alfonso nurse practitioner acting as scribe for signing physician. Plan - Discharge Summary New Discharge Prescriptions: New Losartan [Cozaar] 25 mg PO DAILY #30 tab Apixaban [Eliquis] 5 mg PO BID tab Metoprolol Tartrate [Lopressor] 50 mg PO DAILY #30 tab Continue Meloxicam [Mobic] 7.5 mg PO DAILY Furosemide [Lasix] 40 mg PO BID Baclofen 10 mg PO HS Pravastatin Sodium [Pravachol] 40 mg PO DAILY Multivitamins, Thera [Multivitamin (formulary)] 1 tab PO DAILY Turmeric Root Extract [Turmeric] 500 mg PO DAILY Discontinued Losartan [Cozaar] 50 mg PO DAILY Metoprolol Tartrate 25 mg PO DAILY Discharge Medication List Baclofen 10 mg PO HS 09/03/19 [History] Furosemide [Lasix] 40 mg PO BID 09/03/19 [History] Meloxicam [Mobic] 7.5 mg PO DAILY 09/03/19 [History] Multivitamins, Thera [Multivitamin (formulary)] 1 tab PO DAILY 09/03/19 [History] Pravastatin Sodium [Pravachol] 40 mg PO DAILY 09/03/19 [History] Turmeric Root Extract [Turmeric] 500 mg PO DAILY 09/03/19 [History] Apixaban [Eliquis] 5 mg PO BID tab 09/05/19 [Rx] Losartan [Cozaar] 25 mg PO DAILY #30 tab 09/05/19 [Rx] Metoprolol Tartrate [Lopressor] 50 mg PO DAILY #30 tab 09/05/19 [Rx] Follow up Appointment(s)/Referral(s): Alvaro Roldan MD [Primary Care Provider] - 1 Week Grace Pierce MD [STAFF PHYSICIAN] - 2 Weeks Alphonso Noguera MD [STAFF PHYSICIAN] - 1 Week (OP sleep study) Activity/Diet/Wound Care/Special Instructions: Eliquis is in [facility] pharmacy, copay is $45 and free 30 day supply is applied. Discharge Disposition: HOME SELF-CARE
--- NOTE | 2019-09-05 12:19 | P.PN ---
Subjective Progress Note Date: 09/05/19 This is a pleasant 63-year-old female with documented history of hypertension, hyperlipidemia, morbid obesity, bilateral knee replacement, who presented to the hospital mainly with symptoms of extreme weakness, she states that she was sitting on the couch and so weak that she was unable to get up. She denied any palpitations or shortness of breath or chest discomfort. Her chest x-ray on presentation here showed mild atelectasis, EKG showed atrial fibrillation with a heart rate in the 90s, occasional PVC. Blood pressure 132/60 with a heart rate 90-106, respirations 18, 97% on room air. White blood cell count 12.3, hemoglobin 14.2, platelet count 256. Sodium 140, potassium 4.2, BUN 13, creatinine 0.6. Magnesium 1.9. Troponin 0.013, alas virus not detected. Patient was initiated here on IV heparin. She is also on Lasix 40 mg one tablet by mouth twice a day, losartan 50 mg daily, metoprolol 25 mg one tablet daily and Pravachol 40 mg daily. 09/05/2019 Patient seen and examined this morning, overall doing well. Echocardiogram with Doppler study revealed an ejection fraction of 44 -45%. Hemodynamically stable. Objective - Vital Signs Vital signs: Vital Signs Temp 98.2 F 09/05/19 08:00 Pulse 101 H 09/05/19 08:00 Resp 18 09/05/19 08:00 BP 100/73 09/05/19 08:00 Pulse Ox 93 L 09/05/19 08:00 Intake & Output 09/04/19 09/05/19 09/05/19 18:59 06:59 18:59 Intake Total 97.595 100 Balance 97.595 100 Weight 182 kg Intake: Intake, IV Titration 67.595 Amount Heparin Sod,Pork in 0.45% 67.595 NaCl 25,000 unit In 0.45 % NaCl 1 250ml.bag @ 5.21 UNITS/KG/HR 10.014 mls/ hr IV .Q24H [facility] Rx#: [id number] Oral 30 100 Other: # Voids 1 # Bowel Movements 1 - Exam PHYSICAL EXAMINATION: GENERAL: 63-year-old morbidly obese female in no acute distress at the time of our examination. HEENT: Head is atraumatic, normocephalic. Pupils equal, round. Sclera anicteric. Conjunctiva are clear. Mucous membranes of the mouth are moist. Neck is supple. There is no elevated jugular venous pressure. No carotid bruit is heard. HEART EXAMINATION: S1 and S2 irregularly irregular CHEST EXAMINATION: Lungs are clear to auscultation and precussion. No chest wall tenderness is noted on palpation or with deep breathing. ABDOMEN: Soft, obese, nontender. Bowel sounds are heard. No organomegaly noted. EXTREMITIES: 2+ peripheral pulses with no evidence of peripheral edema and no calf tenderness noted. NEUROLOGIC patient is awake, alert and oriented 3 . - Labs CBC & Chem 7: 09/03/19 19:55 09/03/19 19:55 Assessment and Plan Plan: Assessment and plan #1 atrial fibrillation, appears to be of new onset, currently on IV heparin. #2 hypertension #3 hyperlipidemia #4 morbid obesity Plan Echocardiogram with Doppler study was reviewed, revealed an ejection fraction of 40-45%. From our perspective the patient may be able to be discharged home today and follow-up with Dr. Pierce in the office post discharge. Continue current medications. DNP note has been reviewed, I agree with a documented findings and plan of care. Patient was seen and examined.
== END 2019-09-04 14:40 | disposition home or self-care (01) ==
LOC: EC 19:08 → 3SCARD 22:08
PROVIDERS: ADMIT Family Medicine; ATTEND Family Medicine
DX: I48.0 Paroxysmal atrial fibrillation (principal); E66.01 Morbid (severe) obesity due to excess calories; E78.5 Hyperlipidemia, unspecified; I10 Essential (primary) hypertension; I49.3 Ventricular premature depolarization; J98.11 Atelectasis; M15.9 Polyosteoarthritis, unspecified; Z68.44 Body mass index [BMI] 60.0-69.9, adult; L89.301 Pressure ulcer of unspecified buttock, stage 1; L98.9 Disorder of the skin and subcutaneous tissue, unspecified; Z79.1 Long term (current) use of non-steroidal anti-inflammatories (NSAID); Z79.899 Other long term (current) drug therapy; Z87.891 Personal history of nicotine dependence; Z96.653 Presence of artificial knee joint, bilateral; Z03.818 Encounter for observation for suspected exposure to other biological agents ruled out; R03.1 Nonspecific low blood-pressure reading; Z88.5 Allergy status to narcotic agent; Z91.018 Allergy to other foods; Z88.2 Allergy status to sulfonamides
CPT/HCPCS: 96365; 96366; 96376; 99285; 36415; 93005; 80053; 83605; 83735; 84443; 84484; 85025; 85610; 85730 ×2; 81001; 87635; 71046; G0378 ×2; C8929; J1644 ×2; Q9950; 93306; 96375

== ENCOUNTER 2019-09-25 05:15 | Inpatient (IN) | payer MEDICARE ==
[2019-09-25] MEDS ORDERED: SODIUM CHLORIDE 0.9% 1,000 ML IV ONE (06:28)
[2019-09-25] MEDS ORDERED: ORPHENADRINE 30 MG/ML 2 ML VIAL IVP STA (06:28)
[2019-09-25] MEDS ORDERED: KETOROLAC 30 MG/ML 1 ML VIAL IVP STA (06:28)
--- NOTE | 2019-09-25 06:37 | ED ---
Back Pain HPI - General Source: patient, EMS, RN notes reviewed, old records reviewed Limitations: physical limitation <KarlieqiansaúlRadha - Last Filed: 09/25/19 08:09> <Daniella Couch - Last Filed: 09/28/19 00:41> - General Chief Complaint: Back Pain/Injury Stated Complaint: Muscle Spasms Time Seen by Provider: 09/25/19 05:17 - History of Present Illness Initial Comments: Patient is a 63-year-old female who presents emergency Department via EMS with chief complaint of lower back muscle spasms. She reports that she has been having back spasms and reports that it was difficult for her to ambulate with her walker. She reports that her knees gave out and she fell onto her knee. Patient states that she was down for 15-20 minutes before EMS arrived to give the Patient a lift assist. Patient reports that she has a wound over her right plantar aspect of her foot. Patient states that she was told to be nonweightbearing however on her last hospital admission and wound care however this is very difficult for her age she is morbidly obese. Patient states that she has no loss of control of her urine or bowel habits. Patient denies any recent nausea or vomiting shortness of breath. Patient states that she is hoping to be placed in a detention as she has a difficult time taking care of herself and being nonambulatory with this right foot wound. She states she's not on any antibiotics currently. (Radha Underwood) - Related Data Home Medications Medication Instructions Recorded Confirmed Baclofen 10 mg PO HS 09/03/19 09/25/19 Furosemide [Lasix] 40 mg PO BID 09/03/19 09/25/19 Multivitamins, Thera [Multivitamin 1 tab PO DAILY 09/03/19 09/25/19 (formulary)] Pravastatin Sodium [Pravachol] 40 mg PO DAILY 09/03/19 09/25/19 Turmeric Root Extract [Turmeric] 500 mg PO DAILY 09/03/19 09/25/19 Collagenase [Santyl] 1 applic TOPICAL DAILY PRN 09/25/19 09/25/19 Previous Rx's Medication Instructions Recorded Apixaban [Eliquis] 5 mg PO BID #60 tab 09/05/19 Losartan [Cozaar] 25 mg PO DAILY #30 tab 09/05/19 Metoprolol Tartrate [Lopressor] 50 mg PO DAILY #30 tab 09/05/19 Allergies Allergy/AdvReac Type Severity Reaction Status Date / Time morphine Allergy Nausea & Verified 09/25/19 08:20 Vomiting Poultry [[place]] Allergy Swelling Verified 09/25/19 08:20 Sulfa (Sulfonamide Allergy Swelling Verified 09/25/19 08:20 Antibiotics) walnut Allergy Swelling Verified 09/25/19 08:20 Review of Systems ROS Other: All systems not noted in ROS Statement are negative. <Radha Underwood - Last Filed: 09/25/19 08:09> ROS Other: All systems not noted in ROS Statement are negative. <Daniella Couch - Last Filed: 09/28/19 00:41> ROS Statement: Those systems with pertinent positive or pertinent negative responses have been documented in the HPI. Past Medical History Past Medical History: Hypertension History of Any Multi-Drug Resistant Organisms: None Reported Additional Past Surgical History / Comment(s): R shoulder, bilat knee replacement Past Psychological History: No Psychological Hx Reported Smoking Status: Former smoker Past Alcohol Use History: None Reported Past Drug Use History: None Reported - Past Family History Father Additional Family Medical History / Comment(s): Father from prostate cancer. Mother Additional Family Medical History / Comment(s): Mother is alive with history of PFO. Brother(s) Additional Family Medical History / Comment(s): Patient has one brother with history of gout. Patient's 2 sisters one with no major medical problems and one with generalized osteoarthritis. Patient does not have any children. <Zaira Underwoodily - Last Filed: 09/25/19 08:09> General Exam Limitations: physical limitation General appearance: alert, in no apparent distress Head exam: Present: atraumatic, normocephalic, normal inspection Eye exam: Present: normal appearance, PERRL, EOMI. Absent: scleral icterus, conjunctival injection, periorbital swelling ENT exam: Present: mucous membranes moist. Absent: normal exam, normal oropharynx Neck exam: Present: normal inspection. Absent: tenderness, meningismus, lymphadenopathy Respiratory exam: Present: normal lung sounds bilaterally. Absent: respiratory distress, wheezes, rales, rhonchi, stridor Cardiovascular Exam: Present: regular rate, normal rhythm, normal heart sounds. Absent: systolic murmur, diastolic murmur, rubs, gallop, clicks GI/Abdominal exam: Present: soft, normal bowel sounds. Absent: distended, tenderness, guarding, rebound, rigid Extremities exam: Present: normal inspection, full ROM, normal capillary refill. Absent: tenderness, pedal edema, joint swelling, calf tenderness Back exam: Present: normal inspection, tenderness Neurological exam: Present: alert, oriented X3, CN II-XII intact Psychiatric exam: Present: normal affect, normal mood Skin exam: Present: warm, dry, intact, normal color. Absent: rash <KjRadha - Last Filed: 09/25/19 08:09> - General Exam Comments Initial Comments: Patient is a 63-year-old femal, appears deconditioned. Patient is morbidly obese. (Radha Underwood) Course Vital Signs 09/25/19 09/25/19 09/25/19 05:17 06:56 08:39 Temperature 98.2 F Pulse Rate 102 H 95 76 Respiratory 20 20 16 Rate Blood Pressure 135/80 119/73 136/86 O2 Sat by Pulse 94 L 98 99 Oximetry Medical Decision Making - Lab Data Result diagrams: 09/25/19 06:35 09/25/19 06:35 - Radiology Data Radiology results: report reviewed <Radha Underwood - Last Filed: 09/25/19 08:09> - Lab Data Result diagrams: 09/27/19 07:07 09/27/19 07:07 <Daniella Couch - Last Filed: 09/28/19 00:41> - Medical Decision Making 63 year old female presents today for R foot wound, , complains of back spasms and fall. Patient's right foot wound has been there for months. She reports that she's been following wound care however was told to be nonweightbearing. Due to patient's physical status she is having a difficult time remaining non- weightbearing. When she arrived her wound was covered but the dressing was soiled and Patient has a difficult time managing her own wound care at home. She is feeling better after the Norflex and Toradol for her back spasms. Due to general deconditioning weakness lab work is obtained. Blood work was otherwise unremarkable. I discussed the case with Dr. Couch recommended putting the Patient on antibiotic for the wound and discussed with Dr. Ziegler who agrees to admit. (Radha Underwood) I was available for consultation in the emergency department. The history and physical exam were done by the midlevel provider. I was consulted for this patients care. I reviewed the case with the midlevel provider and based on their presentation of the patient, I agree with the assessment, medical decision making and plan of care as documented. Chart was dictated using [employer] dictation software. Attempts were made to correct any dictation errors however some typographical errors may persist. Patient was seen during a national state of emergency due to the Covid-19 pandemic. (Daniella Couch) - Lab Data Lab Results 09/25/19 09/25/19 09/25/19 Range/Units 06:35 06:35 06:35 WBC 7.7 (3.8-10.6) k/uL RBC 4.66 (3.80-5.40) m/uL Hgb 14.0 (11.4-16.0) gm/dL Hct 44.3 (34.0-46.0) % MCV 95.1 (80.0-100.0) fL MCH 30.1 (25.0-35.0) pg MCHC 31.7 (31.0-37.0) g/dL RDW 13.1 (11.5-15.5) % Plt Count 189 (150-450) k/uL Neutrophils % 70 % Lymphocytes % 20 % Monocytes % 7 % Eosinophils % 2 % Basophils % 1 % Neutrophils # 5.4 (1.3-7.7) k/uL Lymphocytes # 1.5 (1.0-4.8) k/uL Monocytes # 0.5 (0-1.0) k/uL Eosinophils # 0.2 (0-0.7) k/uL Basophils # 0.0 (0-0.2) k/uL PT 11.0 (9.0-12.0) sec INR 1.1 (<1.2) APTT 29.1 (22.0-30.0) sec Sodium 140 (137-145) mmol/L Potassium 3.8 (3.5-5.1) mmol/L Chloride 102 (98-107) mmol/L Carbon Dioxide 31 H (22-30) mmol/L Anion Gap 7 mmol/L BUN 16 (7-17) mg/dL Creatinine 0.66 (0.52-1.04) mg/dL Est GFR (CKD-EPI)AfAm >90 (>60 ml/min/1.73 sqM) Est GFR (CKD-EPI)NonAf >90 (>60 ml/min/1.73 sqM) Glucose 118 H (74-99) mg/dL Plasma Lactic Acid Oleg (0.7-2.0) mmol/L Calcium 9.2 (8.4-10.2) mg/dL Magnesium 2.1 (1.6-2.3) mg/dL Total Bilirubin 0.6 (0.2-1.3) mg/dL AST 27 (14-36) U/L ALT 18 (4-34) U/L Alkaline Phosphatase 50 (38-126) U/L Troponin I (0.000-0.034) ng/mL NT-Pro-B Natriuret Pep pg/mL Total Protein 6.6 (6.3-8.2) g/dL Albumin 3.6 (3.5-5.0) g/dL Urine Color Urine Appearance (Clear) Urine pH (5.0-8.0) Ur Specific [place] (1.001-1.035) Urine Protein (Negative) Urine Glucose (UA) (Negative) Urine Ketones (Negative) Urine Blood (Negative) Urine Nitrite (Negative) Urine Bilirubin (Negative) Urine Urobilinogen (<2.0) mg/dL Ur Leukocyte Esterase (Negative) Urine RBC (0-5) /hpf Urine WBC (0-5) /hpf Urine Bacteria (None) /hpf 09/25/19 09/25/19 09/25/19 Range/Units 06:35 06:35 06:35 WBC (3.8-10.6) k/uL RBC (3.80-5.40) m/uL Hgb (11.4-16.0) gm/dL Hct (34.0-46.0) % MCV (80.0-100.0) fL MCH (25.0-35.0) pg MCHC (31.0-37.0) g/dL RDW (11.5-15.5) % Plt Count (150-450) k/uL Neutrophils % % Lymphocytes % % Monocytes % % Eosinophils % % Basophils % % Neutrophils # (1.3-7.7) k/uL Lymphocytes # (1.0-4.8) k/uL Monocytes # (0-1.0) k/uL Eosinophils # (0-0.7) k/uL Basophils # (0-0.2) k/uL PT (9.0-12.0) sec INR (<1.2) APTT (22.0-30.0) sec Sodium (137-145) mmol/L Potassium (3.5-5.1) mmol/L Chloride (98-107) mmol/L Carbon Dioxide (22-30) mmol/L Anion Gap mmol/L BUN (7-17) mg/dL Creatinine (0.52-1.04) mg/dL Est GFR (CKD-EPI)AfAm (>60 ml/min/1.73 sqM) Est GFR (CKD-EPI)NonAf (>60 ml/min/1.73 sqM) Glucose (74-99) mg/dL Plasma Lactic Acid Oleg 1.1 (0.7-2.0) mmol/L Calcium (8.4-10.2) mg/dL Magnesium (1.6-2.3) mg/dL Total Bilirubin (0.2-1.3) mg/dL AST (14-36) U/L ALT (4-34) U/L Alkaline Phosphatase (38-126) U/L Troponin I <0.012 (0.000-0.034) ng/mL NT-Pro-B Natriuret Pep pg/mL Total Protein (6.3-8.2) g/dL Albumin (3.5-5.0) g/dL Urine Color Yellow Urine Appearance Cloudy H (Clear) Urine pH 5.5 (5.0-8.0) Ur Specific [place] 1.021 (1.001-1.035) Urine Protein Negative (Negative) Urine Glucose (UA) Negative (Negative) Urine Ketones Negative (Negative) Urine Blood Negative (Negative) Urine Nitrite Negative (Negative) Urine Bilirubin Negative (Negative) Urine Urobilinogen <2.0 (<2.0) mg/dL Ur Leukocyte Esterase Negative (Negative) Urine RBC 3 (0-5) /hpf Urine WBC 2 (0-5) /hpf Urine Bacteria Rare H (None) /hpf 05/23/20 Range/Units 06:35 WBC (3.8-10.6) k/uL RBC (3.80-5.40) m/uL Hgb (11.4-16.0) gm/dL Hct (34.0-46.0) % MCV (80.0-100.0) fL MCH (25.0-35.0) pg MCHC (31.0-37.0) g/dL RDW (11.5-15.5) % Plt Count (150-450) k/uL Neutrophils % % Lymphocytes % % Monocytes % % Eosinophils % % Basophils % % Neutrophils # (1.3-7.7) k/uL Lymphocytes # (1.0-4.8) k/uL Monocytes # (0-1.0) k/uL Eosinophils # (0-0.7) k/uL Basophils # (0-0.2) k/uL PT (9.0-12.0) sec INR (<1.2) APTT (22.0-30.0) sec Sodium (137-145) mmol/L Potassium (3.5-5.1) mmol/L Chloride (98-107) mmol/L Carbon Dioxide (22-30) mmol/L Anion Gap mmol/L BUN (7-17) mg/dL Creatinine (0.52-1.04) mg/dL Est GFR (CKD-EPI)AfAm (>60 ml/min/1.73 sqM) Est GFR (CKD-EPI)NonAf (>60 ml/min/1.73 sqM) Glucose (74-99) mg/dL Plasma Lactic Acid O[place] (0.7-2.0) mmol/L Calcium (8.4-10.2) mg/dL Magnesium (1.6-2.3) mg/dL Total Bilirubin (0.2-1.3) mg/dL AST (14-36) U/L ALT (4-34) U/L Alkaline Phosphatase (38-126) U/L Troponin I (0.000-0.034) ng/mL NT-Pro-B Natriuret Pep 255 pg/mL Total Protein (6.3-8.2) g/dL Albumin (3.5-5.0) g/dL Urine Color Urine Appearance (Clear) Urine pH (5.0-8.0) Ur Specific [place] (1.001-1.035) Urine Protein (Negative) Urine Glucose (UA) (Negative) Urine Ketones (Negative) Urine Blood (Negative) Urine Nitrite (Negative) Urine Bilirubin (Negative) Urine Urobilinogen (<2.0) mg/dL Ur Leukocyte Esterase (Negative) Urine RBC (0-5) /hpf Urine WBC (0-5) /hpf Urine Bacteria (None) /hpf 09/25/19 06:57 EKG shows atrial fibrillation with a specific T wave abnormality. Ventricular rate 90 bpm. HI interval is undetectable. QRS duration is 92 ms. QT QTc is 392/508 ms. (Radha Underwood) - Radiology Data Chest x-ray is negative for any acute cardiac primary process. Likely borderline enlarged heart. No pneumothorax or pleural effusion. No evident pneumonia. Postop changes and right shoulder. General changes and lumbar spine. Scoliosis postop changes. (Radha Underwood) Disposition Is patient prescribed a controlled substance at d/c from ED?: No Time of Disposition: 08:16 <Radha Underwood - Last Filed: 09/25/19 08:09> <Daniella Couch - Last Filed: 09/28/19 00:41> Clinical Impression: Morbid obesity, Ulcer of right foot with fat layer exposed, Generalized weakness, Back spasm Disposition: ADMITTED IP TO THIS HOSP Condition: Stable
[2019-09-25] MEDS: SODIUM CHLORIDE 0.9% 1,000 ML IV SCH ×2 (06:54→18:22)
[2019-09-25 06:55] LABS: Basophils % (A) 1 %; Eosinophils # (A) 0.2 k/uL (0-0.7); Eosinophils % (A) 2 %; HCT 44.3 % (34.0-46.0); Lymphocytes # (A) 1.5 k/uL (1.0-4.8); Lymphocytes % (A) 20 %; MCH 30.1 pg (25.0-35.0); MCHC 31.7 g/dL (31.0-37.0); MCV 95.1 fL (80.0-100.0); Mean Platelet Volume 10.1; Monocytes # (A) 0.5 k/uL (0-1.0); Monocytes % (A) 7 %; Neutrophils # (A) 5.4 k/uL (1.3-7.7); Neutrophils % (A) 70 %; Platelet Count 189 k/uL (150-450); RBC 4.66 m/uL (3.80-5.40); RDW 13.1 % (11.5-15.5); WBC 7.7 k/uL (3.8-10.6)
[2019-09-25 06:59] LABS: Appearance,Urine Cloudy (Clear); Bacteria,Urine Rare /hpf; Bilirubin,Urine Negative (Negative); Blood,Urine Negative (Negative); Color,Urine Yellow; Glucose,Urine (UA) Negative (Negative); Ketones,Urine Negative (Negative); Leukocyte Esterase,Urine Negative (Negative); Nitrite,Urine Negative (Negative); PH, Urine 5.5 (5.0-8.0); Protein,Urine Negative (Negative); RBC,Urine 3 /hpf (0-5); Specific Gravity,Urine 1.021 (1.001-1.035); Urobilinogen,Urine <2.0 mg/dL (<2.0); WBC,Urine 2 /hpf (0-5)
[2019-09-25 07:04] LABS: INR 1.1 (<1.2); Partial Thromboplastin Time 29.1 sec (22.0-30.0)
[2019-09-25 07:05] LABS: ALT 18 U/L (4-34); AST 27 U/L (14-36); African American GFR (CKD) >90 (>60 ml/min/1.73 sqM); Albumin 3.6 g/dL (3.5-5.0); Alkaline Phosphatase 50 U/L (38-126); Anion Gap 7 mmol/L; Blood Urea Nitrogen 16 mg/dL (7-17); Calcium 9.2 mg/dL (8.4-10.2); Carbon Dioxide 31 mmol/L (22-30); Chloride 102 mmol/L (98-107); Glucose 118 mg/dL (74-99); Magnesium 2.1 mg/dL (1.6-2.3); Non-African American GFR(CKD) >90 (>60 ml/min/1.73 sqM); Potassium 3.8 mmol/L (3.5-5.1); Sodium 140 mmol/L (137-145); Total Bilirubin 0.6 mg/dL (0.2-1.3); Total Protein 6.6 g/dL (6.3-8.2)
--- NOTE | 2019-09-25 07:48 | XR ---
EXAMINATION TYPE: XR chest 2V DATE OF EXAM: 09/25/2019 COMPARISON: Prior chest x-ray 09/03/2019 HISTORY: Weakness, low back spasm, abnormal chest x-ray TECHNIQUE: Frontal and lateral views of the chest are obtained. FINDINGS: Heart is stable accounting for differences in technique, likely borderline enlarged. There is no pneumothorax or pleural effusion. There are overlying cardiac leads. No evident pneumonia. The re is likely some improvement in aeration. Postop changes are noted to the right shoulder. IMPRESSION: No acute cardiopulmonary process. Additional findings above.
--- NOTE | 2019-09-25 07:49 | XR ---
Lumbar spine HISTORY: Low back pain, spasm 4 views of lumbar spine There is a levoscoliosis present. Multilevel spondylosis is present. There is loss of disc height at intervertebral levels, multilevel vacuum phenomenon is present. Lumbar vertebral bodies show preserve d height. Bone mineralization is maintained. Lateral band is present. Exam somewhat limited by patien t body habitus. IMPRESSION: Degenerative disc disease, scoliosis. Postop changes.
[2019-09-25] MEDS ORDERED: PIPERACILLIN-TAZOBACTAM 3.375 GM in SODIUM CHLORIDE 0.9% 100 ML IVPB STA (08:16)
[2019-09-25] MEDS ORDERED: ONDANSETRON 4 MG/2 ML VIAL IVP PRN (08:16)
[2019-09-25] MEDS ORDERED: NALOXONE 0.4 MG/ML 1 ML VIAL IV PRN (08:16)
[2019-09-25] MEDS ORDERED: KETOROLAC 30 MG/ML 1 ML VIAL IVP PRN (08:16)
[2019-09-25] MEDS ORDERED: IBUPROFEN 400 MG TAB PO PRN (08:16)
[2019-09-25] MEDS ORDERED: oxyCODONE-APAP 5-325MG 1 EACH TAB PO PRN (08:16)
[2019-09-25] MEDS ORDERED: MELOXICAM 7.5 MG TAB PO SCH (09:00)
[2019-09-25] MEDS ORDERED: NON FORMULARY DRUG (Turmeric Root Extract [Turmeric] 500 MG) PO SCH (09:00)
[2019-09-25] MEDS: APIXABAN 5 MG TAB PO SCH ×2 (09:57→19:49)
[2019-09-25] MEDS: METOPROLOL TARTRATE 50 MG TAB PO SCH (09:59)
[2019-09-25] MEDS: MULTIVITAMINS, THERA 1 EACH TAB PO SCH (09:59)
[2019-09-25] MEDS: FUROSEMIDE 40 MG TAB PO SCH ×2 (09:59→17:38)
[2019-09-25] MEDS: LOSARTAN 25 MG TAB PO SCH (09:59)
[2019-09-25] MEDS: PRAVASTATIN SODIUM 40 MG TAB PO SCH (09:59)
[2019-09-25] MEDS ORDERED: COLLAGENASE 250 UNIT/GM OINTMENT 30 GM TUBE TOPICAL PRN (11:24)
[2019-09-25 11:49] VITALS: BMI 45.6
--- NOTE | 2019-09-25 14:37 | P.HPIM ---
History of Present Illness H&P Date: 09/25/19 Chief Complaint: Nonhealing ulcer on the right foot, severe debility, notable fall, A. fib w 63-year-old female one of Dr. Alvaro Roldan's patient with the past medical history of morbid obesity, severe arthritis, lymphedema, chronic anasarca, recent history of A. fib with RVR was hospitalized in September 02 till 09/05/2019 and treated has been doing well. Patient had nonhealing ulcer in the right foot has been for over year developed to have severe pain and discomfort with worsening infection has affected her mobility to ambulate and walk for the last few months. Apparently patient was seen podiatry was treated with the topical along with debridement not improving ended up going to see Dr. Daily orthopedic and conservative management had feel as well. Patient was referred to the wound clinic and was seen vascular as well and through all the management continue to have nonhealing ulcer affected her are she and mobility to ambulate and walk has been having significant difficulty time with walking and multiple fall in the last few weeks with significant worsening lymphedema and anasarca lately. She presented to the emergency department today she's not able to manage her infection at home and through the limited visit to the wound clinic. Patient is having worsening pain and discomfort and had recent fall had affected her back pick time with worsening spasm and discomfort. Patient was started on Zosyn consult infectious disease along with 1 to clinic she'll be hospitalized was start PTOT treat her back pain at this point continue to manage her A. fib as well. Review of Systems CONSTITUTIONAL: Well-developed no acute respiratory distress. EYES: No icterus sclerae, no conjunctivitis. EARS, NOSE, MOUTH, THROAT, and FACE: No sore throat, lymphadenopathy, carotid bruits or deformity. RESPIRATORY: No SOB cough or wheezes. CARDIOVASCULAR: No CP, Palpitation, PND, Orthopnea, or angina. A. fib with RVR GASTROINTESTINAL: No Abd pain, Nausea or vomiting, no Diarrhea or constipation, No GI Bleed, no distention or masses. GENITOURINARY: Negative for Hematuria or UTI, no kidney stones. Frequency and urgency INTEGUMENT/BREAST: Negative for any muscular injury with mild osteoarthritis.. HEMATOLOGIC/LYMPHATIC: Negative for bleed or purpura. MUSCULOSKELTAL: Negative for Myalgia or arthralgia. Nonhealing ulcer and infection of the right foot area along with worsening anasarca and lymphedema. NEURLOGICAL: No LOC, Sz or syncope, blurred vision dizziness or abnormality.. BEHAVIORAL/PSYCH: Negative. ENDOCRINE: Negative. Past Medical History Past Medical History: Hypertension History of Any Multi-Drug Resistant Organisms: None Reported Additional Past Surgical History / Comment(s): R shoulder, bilat knee replacement Past Psychological History: No Psychological Hx Reported Smoking Status: Former smoker Past Alcohol Use History: None Reported Additional Past Alcohol Use History / Comment(s): Patient was smoker as a teenager only. No alcohol use or street drug use. Patient was at home with her sister and her mother lives next-door. She uses a walker for ambulation. Past Drug Use History: None Reported - Past Family History Father Additional Family Medical History / Comment(s): Father from prostate cancer. Mother Additional Family Medical History / Comment(s): Mother is alive with history of PFO. Brother(s) Additional Family Medical History / Comment(s): Patient has one brother with history of gout. Patient's 2 sisters one with no major medical problems and one with generalized osteoarthritis. Patient does not have any children. Medications and Allergies Home Medications Medication Instructions Recorded Confirmed Type Baclofen 10 mg PO HS 09/03/19 09/25/19 History Furosemide [Lasix] 40 mg PO BID 09/03/19 09/25/19 History Multivitamins, Thera [Multivitamin 1 tab PO DAILY 09/03/19 09/25/19 History (formulary)] Pravastatin Sodium [Pravachol] 40 mg PO DAILY 09/03/19 09/25/19 History Turmeric Root Extract [Turmeric] 500 mg PO DAILY 09/03/19 09/25/19 History Apixaban [Eliquis] 5 mg PO BID #60 tab 09/05/19 09/25/19 Rx Losartan [Cozaar] 25 mg PO DAILY #30 tab 09/05/19 09/25/19 Rx Metoprolol Tartrate [Lopressor] 50 mg PO DAILY #30 tab 09/05/19 09/25/19 Rx Collagenase [Santyl] 1 applic TOPICAL DAILY PRN 09/25/19 09/25/19 History Allergies Allergy/AdvReac Type Severity Reaction Status Date / Time morphine Allergy Nausea & Verified 09/25/19 08:20 Vomiting Poultry [[place]] Allergy Swelling Verified 09/25/19 08:20 Sulfa (Sulfonamide Allergy Swelling Verified 09/25/19 08:20 Antibiotics) [place] Allergy Swelling Verified 09/25/19 08:20 Physical Exam Vitals: Vital Signs Temp Pulse Pulse Resp BP BP Pulse Ox 09/25/19 09:02 97.9 F 95 20 111/77 97 09/25/19 08:39 76 16 136/86 99 09/25/19 06:56 95 20 119/73 98 09/25/19 05:17 98.2 F 102 H 20 135/80 94 L Intake and Output 09/24/19 09/25/19 09/25/19 22:59 06:59 14:59 Other: Weight 136.078 kg 136.078 kg General Appearance: Alert, cooperative, no distress, appears stated age. Morbidly obese laying in bed in no distress. Neck HEENT: Supple, no lymphadenopathy, no thyroid enlargement, no carotid bruits. Lungs: Clear to auscultation without crackles or wheezes no rhonchi, no deformity. Chest Wall: decrease expansion with deep inspiration no tenderness and no deformity was found on exam, no costochondral pain or discomfort. Heart: Irregular rate and rhythm, S1, S2 positive S3 positive JVD. . Back: Symmetric, no curvature, ROM normal, no CVA tenderness. Significant spasm and discomfort in the L-spine area with no sign of injury with mild bruise. Abdomen: Soft, non-tender, bowel sounds active all four quadrants, no masses, no organomegaly. Extremities: Severe edema and anasarca with significant discoloration and vascular cellulitis from the knee down worsening carotene change on the surface part of the skin with worsening lymphedema as well slight cellulitis change on the lower extremity 5 inches below the knee all the way to the ankle area bilaterally. The sole part of the right foot had stage II ulcer with measurement of 0.75 time 1 inch with slight drainage around it with slight discoloration and Pulses: 2+ and symmetric. Skin: Skin color, texture, tugor normal, no rashes or lesions. Neurologic: Alert oriented x3 cranial nerves II through XII intact, no motor deficit, no abnormal balance or gait. Results CBC & Chem 7: 09/25/19 06:35 09/25/19 06:35 Labs: Abnormal Lab Results - Last 24 Hours (Table) 09/25/19 09/25/19 Range/Units 06:35 06:35 Carbon Dioxide 31 H (22-30) mmol/L Glucose 118 H (74-99) mg/dL Urine Appearance Cloudy H (Clear) Urine Bacteria Rare H (None) /hpf Microbiology - Last 24 Hours (Table) 09/25/19 06:35 Wound Culture - Preliminary Foot - Right Thrombosis Risk Factor Assmnt - DVT/VTE Prophylaxis DVT/VTE Prophylaxis: Pharmacologic Prophylaxis ordered, Mechanical Prophylaxis ordered - Choose All That Apply Any of the Below Risk Factors Present?: Yes Each Factor Represents 1 point: Obesity (BMI >25), Swollen legs (current) Other Risk Factors: Yes Each Risk Factor Represents 2 Points: Age 61-74 years Thrombosis Risk Factor Assessment Total Risk Factor Score: 4 Thrombosis Risk Factor Assessment Level: Moderate Risk Assessment and Plan Assessment: 1 nonhealing ulcer in the right foot area with prediabetic the patient and severe anasarca with lymphedema, patient will be seen in the wound clinic, with see infectious disease and continue management with Zosyn and topical care for now will have patient to take pressure off the area and 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 2 severe cellulitis and lymphangitis of the right foot and bilateral lower ext remity will continue to use topical products such as of the dynamic cream along with Zosyn for now infectious disease was consulted. 3 severe lymphedema and anasarca: Continue patient on furosemide 40 mg twice a day we will add spironolactone 25 mg daily. 4 A. fib with RVR: Continue anticoagulation and still on metoprolol. 5 cardiopathy: With ejection fraction of 40-45% only most likely A. fib related cardiopathy continue losartan and metoprolol furosemide and will add Aldactone for now. 6 most likely severe sleep apnea: Patient will need to have sleep study as an outpatient which is more stable and might benefit from CPAP down the road if observed to have any trouble watch his the hospital BiPAP can be supportive. 7 chronic lower back pain with worsening back discomfort post fall continue baclofen and add smaller dose of Tylenol No. 3. 8 hypertension: Remain on losartan and metoprolol continue both medication. 9 Hyperglycemia: Continue Accu-Chek with sliding scales coverage. 10 GI prophylaxis: Patient be on Pepcid 20 mg daily. 11 DVT prophylaxis: Patient is on anticoagulation already. CODE STATUS: DO NOT RESUSCITATE. Admit patient to inpatient status for more than 2 nights.
[2019-09-25] MEDS: SPIRONOLACTONE 25 MG TAB PO SCH (17:38)
[2019-09-25] MEDS: PIPERACILLIN-TAZOBACTAM 3.375 GM in SODIUM CHLORIDE 0.9% 100 ML IVPB SCH (17:38)
[2019-09-25] MEDS: BACLOFEN 10 MG TAB PO SCH (19:50)
[2019-09-26] MEDS: PIPERACILLIN-TAZOBACTAM 3.375 GM in SODIUM CHLORIDE 0.9% 100 ML IVPB SCH (00:22)
--- NOTE | 2019-09-26 01:40 | P.CONS ---
History of Present Illness - Reason for Consult Consult date: 09/25/19 right foot wound and leg cellulitis Requesting physician: Zain Ziegler - Chief Complaint fall and non healing wound to right foot - History of Present Illness Patient is a 63-year-old female morbidly obese with a history of lymphedema and chronic nonhealing wound on the plantar aspect of the right foot with the patient has for more than a year now and has been seen at the wound care center, patient has been brought into the ER by EMS after apparently the patient did have a fall at home patient mention there is difficult for her to ambulate with her walker she reports her knees give out and she fell onto her knee and was down for about 1520-minute before EMS came and brought her to the hospital patient did have chronic swelling to the lower extremity and some erythema she did have some dull aching pain to the right leg intensity 5-6 alert and had no radiation. No significant purulent drainage from her right foot wound area though patient was evaluated by ER physician on arrival to the ER patient has been afebrile patient did have a normal white count patient did have a chest x-ray that was negative for any acute findings also have x-rays of the l umbar spine which shows degenerative disc disease patient has been started on Zosyn has been admitted to the hospital infectious disease has been consulted for further management of antibiotic therapy. Review of Systems Positive point has been mentioned in HPI rest of the systems are negative Past Medical History Past Medical History: Hypertension History of Any Multi-Drug Resistant Organisms: None Reported Additional Past Surgical History / Comment(s): R shoulder, bilat knee replacement Past Psychological History: No Psychological Hx Reported Smoking Status: Former smoker Past Alcohol Use History: None Reported Additional Past Alcohol Use History / Comment(s): Patient was smoker as a teenager only. No alcohol use or street drug use. Patient was at home with her sister and her mother lives next-door. She uses a walker for ambulation. Past Drug Use History: None Reported - Past Family History Father Additional Family Medical History / Comment(s): Father from prostate cancer. Mother Additional Family Medical History / Comment(s): Mother is alive with history of PFO. Brother(s) Additional Family Medical History / Comment(s): Patient has one brother with history of gout. Patient's 2 sisters one with no major medical problems and one with generalized osteoarthritis. Patient does not have any children. Medications and Allergies Home Medications Medication Instructions Recorded Confirmed Type Baclofen 10 mg PO HS 09/03/19 09/25/19 History Furosemide [Lasix] 40 mg PO BID 09/03/19 09/25/19 History Multivitamins, Thera [Multivitamin 1 tab PO DAILY 09/03/19 09/25/19 History (formulary)] Pravastatin Sodium [Pravachol] 40 mg PO DAILY 09/03/19 09/25/19 History Turmeric Root Extract [Turmeric] 500 mg PO DAILY 09/03/19 09/25/19 History Apixaban [Eliquis] 5 mg PO BID #60 tab 09/05/19 09/25/19 Rx Losartan [Cozaar] 25 mg PO DAILY #30 tab 09/05/19 09/25/19 Rx Metoprolol Tartrate [Lopressor] 50 mg PO DAILY #30 tab 09/05/19 09/25/19 Rx Collagenase [Santyl] 1 applic TOPICAL DAILY PRN 09/25/19 09/25/19 History Allergies Allergy/AdvReac Type Severity Reaction Status Date / Time morphine Allergy Nausea & Verified 09/25/19 08:20 Vomiting Poultry [Jermyn] Allergy Swelling Verified 09/25/19 08:20 Sulfa (Sulfonamide Allergy Swelling Verified 09/25/19 08:20 Antibiotics) walnut Allergy Swelling Verified 09/25/19 08:20 Physical Exam Vitals: Vital Signs Temp Pulse Pulse Resp BP BP Pulse Ox 09/25/19 09:02 97.9 F 95 20 111/77 97 09/25/19 08:39 76 16 136/86 99 09/25/19 06:56 95 20 119/73 98 09/25/19 05:17 98.2 F 102 H 20 135/80 94 L Intake and Output 09/24/19 09/25/19 09/25/19 22:59 06:59 14:59 Other: Weight 136.078 kg 136.078 kg GENERAL DESCRIPTION: Middle-agedfe male lying in bed, no distress. No tachypnea or accessory muscle of respiration use. HEENT: Shows Pallor , no scleral icterus. Oral mucous membrane is dry. NECK: Trachea central, no thyromegaly. LUNGS: Unlabored breathing. Clear to auscultation anteriorly. No wheeze or crackle. HEART: S1, S2, regular rate and rhythm. ABDOMEN: Soft, no tenderness , guarding or rigidity EXTREMITIES: Bilateral lower extremity lymphedema with chronic nonhealing wound on the plantar aspect of the right foot with no significant slough tissue minimal erythema to the right leg slightly warm to touch no foul-smelling drainage sKIN: No rash, no masses palpable. NEUROLOGICAL: The patient is awake, alert, oriented x3, mood and affect normal. Results CBC & Chem 7: 09/25/19 06:35 09/25/19 06:35 Labs: Abnormal Lab Results - Last 24 Hours (Table) 09/25/19 09/25/19 Range/Units 06:35 06:35 Carbon Dioxide 31 H (22-30) mmol/L Glucose 118 H (74-99) mg/dL Urine Appearance Cloudy H (Clear) Urine Bacteria Rare H (None) /hpf Microbiology - Last 24 Hours (Table) 09/25/19 06:35 Wound Culture - Preliminary Foot - Right Assessment and Plan Assessment: 1-patient with a chronic nonhealing wound on the plantar aspect of the right foot now present to the hospital her with more swelling and redness to the right leg and pain with concern for possible secondary cellulitis and likely from gram-positive skin evy. 2-patient with antibiotic allergies that would limit the number of antibiotics safe to use (1) Cellulitis of right leg Current Visit: Yes Status: Acute Code(s): L03.115 - CELLULITIS OF RIGHT LOWER LIMB SNOMED Code(s): 440589422 (2) Ulcer of right foot with fat layer exposed Current Visit: Yes Status: Acute Code(s): L97.512 - NON-PRS CHRONIC ULCER OTH PRT RIGHT FOOT W FAT LAYER EXPOSED SNOMED Code(s): 68860139 Plan: 1-discontinue Zosyn 2-start the patient on Unasyn 3 g every 6 hours 3-local wound care to the right foot wound with a dry Aquacel silver dressing and then Cheo wrap from just above the toe to below the knee We will follow on clinical condition and cultures to further adjust medication if needed Thank you for this consultation we will follow the patient along with you Time with Patient: Greater than 30
[2019-09-26] MEDS: SODIUM CHLORIDE 0.9% 1,000 ML IV SCH ×3 (05:11→22:34)
[2019-09-26] MEDS: AMPICILLIN-SULBACTAM 3 GM in SODIUM CHLORIDE 0.9% 100 ML IVPB SCH ×3 (07:09→18:40)
[2019-09-26 08:44] LABS: Basophils # (A) 0.1 k/uL (0-0.2); Basophils % (A) 1 %; Eosinophils # (A) 0.3 k/uL (0-0.7); Eosinophils % (A) 5 %; HCT 40.3 % (34.0-46.0); HGB 12.6 gm/dL (11.4-16.0); Lymphocytes # (A) 1.6 k/uL (1.0-4.8); Lymphocytes % (A) 27 %; MCH 30.1 pg (25.0-35.0); MCHC 31.1 g/dL (31.0-37.0); MCV 96.7 fL (80.0-100.0); Monocytes # (A) 0.3 k/uL (0-1.0); Monocytes % (A) 6 %; Neutrophils # (A) 3.6 k/uL (1.3-7.7); Neutrophils % (A) 59 %; Platelet Count 182 k/uL (150-450); RBC 4.17 m/uL (3.80-5.40); RDW 13.3 % (11.5-15.5)
[2019-09-26 08:52] LABS: Calcium 8.3 mg/dL (8.4-10.2); Total Bilirubin 0.6 mg/dL (0.2-1.3); Total Protein 5.9 g/dL (6.3-8.2)
[2019-09-26] MEDS: FAMOTIDINE 20 MG TAB PO SCH (08:59)
[2019-09-26] MEDS: FUROSEMIDE 40 MG TAB PO SCH ×2 (08:59→16:26)
[2019-09-26] MEDS: MULTIVITAMINS, THERA 1 EACH TAB PO SCH (08:59)
[2019-09-26] MEDS: METOPROLOL TARTRATE 50 MG TAB PO SCH (08:59)
[2019-09-26] MEDS: LOSARTAN 25 MG TAB PO SCH (08:59)
[2019-09-26] MEDS: SPIRONOLACTONE 25 MG TAB PO SCH (08:59)
[2019-09-26] MEDS: PRAVASTATIN SODIUM 40 MG TAB PO SCH (08:59)
[2019-09-26] MEDS: APIXABAN 5 MG TAB PO SCH ×2 (08:59→22:33)
[2019-09-26 09:33] LABS: Erythrocyte Sedimentation Rate 15 mm/hr (0-20)
--- NOTE | 2019-09-26 12:33 | P.PN ---
Subjective Progress Note Date: 09/26/19 Principal diagnosis: Nonhealing ulcer on the right foot, severe debility, notable fall, A. fib w 63-year-old female one of Dr. Alvaro Roldan's patient with the past medical history of morbid obesity, severe arthritis, lymphedema, chronic anasarca, recent history of A. fib with RVR was hospitalized in September 02 till 09/05/2019 and treated has been doing well. Patient had nonhealing ulcer in the right foot has been for over year developed to have severe pain and discomfort with worsening infection has affected her mobility to ambulate and walk for the last few months. Apparently patient was seen podiatry was treated with the topical along with debridement not improving ended up going to see Dr. Daily orthopedic and conservative management had feel as well. Patient was referred to the wound clinic and was seen vascular as well and through all the management continue to have nonhealing ulcer affected her are she and mobility to ambulate and walk has been having significant difficulty time with walking and multiple fall in the last few weeks with significant worsening lymphedema and anasarca lately. She presented to the emergency department today she's not able to manage her infection at home and through the limited visit to the wound clinic. Patient is having worsening pain and discomfort and had recent fall had affected her back pick time with worsening spasm and discomfort. Patient was started on Zosyn consult infectious disease along with 1 to clinic she'll be hospitalized was start PTOT treat her back pain at this point continue to manage her A. fib as well. 09/25: Patient is doing much better she was seen infectious disease antibiotic was switched to Unasyn patient edema has improved some Aldactone was added and patient is feeling slightly better heart failure mcgraw. Patient will be doing PTOT continue wound care and consult social service assistant for possible intermediate rehab on Friday. Objective - Vital Signs Vital signs: Vital Signs Temp 98.1 F 09/26/19 07:15 Pulse 101 H 09/26/19 07:15 Resp 18 09/26/19 07:15 BP 109/70 09/26/19 07:15 Pulse Ox 93 L 09/26/19 07:15 Intake & Output 09/25/19 09/26/19 09/26/19 18:59 06:59 18:59 Intake Total 400 Balance 400 Weight 136.078 kg Intake: Oral 400 Other: Voiding Method Bedside Commode # Voids 1 1 - Exam Review of Systems CONSTITUTIONAL: Well-developed no acute respiratory distress. EYES: No icterus sclerae, no conjunctivitis. EARS, NOSE, MOUTH, THROAT, and FACE: No sore throat, lymphadenopathy, carotid bruits or deformity. RESPIRATORY: No SOB cough or wheezes. CARDIOVASCULAR: No CP, Palpitation, PND, Orthopnea, or angina. A. fib with RVR GASTROINTESTINAL: No Abd pain, Nausea or vomiting, no Diarrhea or constipation, No GI Bleed, no distention or masses. GENITOURINARY: Negative for Hematuria or UTI, no kidney stones. Frequency and urgency INTEGUMENT/BREAST: Negative for any muscular injury with mild osteoarthritis.. HEMATOLOGIC/LYMPHATIC: Negative for bleed or purpura. MUSCULOSKELTAL: Negative for Myalgia or arthralgia. Nonhealing ulcer and infection of the right foot area along with worsening anasarca and lymphedema. NEURLOGICAL: No LOC, Sz or syncope, blurred vision dizziness or abnormality.. BEHAVIORAL/PSYCH: Negative. ENDOCRINE: Negative. Physical Exam Vitals: General Appearance: Alert, cooperative, no distress, appears stated age. Morbidly obese laying in bed in no distress. Neck HEENT: Supple, no lymphadenopathy, no thyroid enlargement, no carotid bruits. Lungs: Clear to auscultation without crackles or wheezes no rhonchi, no deformity. Chest Wall: decrease expansion with deep inspiration no tenderness and no deformity was found on exam, no costochondral pain or discomfort. Heart: Irregular rate and rhythm, S1, S2 positive S3 positive JVD. . Back: Symmetric, no curvature, ROM normal, no CVA tenderness. Significant spasm and discomfort in the L-spine area with no sign of injury with mild bruise. Abdomen: Soft, non-tender, bowel sounds active all four quadrants, no masses, no organomegaly. Extremities: Severe edema and anasarca with significant discoloration and vascular cellulitis from the knee down worsening carotene change on the surface part of the skin with worsening lymphedema as well slight cellulitis change on the lower extremity 5 inches below the knee all the way to the ankle area bilaterally. The sole part of the right foot had stage II ulcer with measurement of 0.75 time 1 inch with slight drainage around it with slight discoloration and Pulses: 2+ and symmetric. Skin: Skin color, texture, tugor normal, no rashes or lesions. Neurologic: Alert oriented x3 cranial nerves II through XII intact, no motor deficit, no abnormal balance or gait. - Labs CBC & Chem 7: 09/26/19 08:31 09/26/19 08:31 Labs: Abnormal Lab Results - Last 24 Hours (Table) 09/26/19 Range/Units 08:31 Glucose 101 H (74-99) mg/dL Calcium 8.3 L (8.4-10.2) mg/dL Alkaline Phosphatase 34 L (38-126) U/L Total Protein 5.9 L (6.3-8.2) g/dL Albumin 3.0 L (3.5-5.0) g/dL Microbiology - Last 24 Hours (Table) 09/25/19 06:35 Blood Culture - Preliminary Blood No Growth after 24 hours 09/25/19 06:35 Gram Stain - Preliminary Foot - Right Wound Culture - Preliminary Assessment and Plan Assessment: 1 nonhealing ulcer in the right foot area with prediabetic the patient and severe anasarca with lymphedema, patient will be seen in the wound clinic, antibiotic was changed to Unasyn from Zosyn and continue topical care as well.. 2 severe cellulitis and lymphangitis of the right foot and bilateral lower extremity will continue to use topical products such as of the dynamic cream along with Unasyn IV. 3 severe lymphedema and anasarca: Continue patient on furosemide 40 mg twice a day we will add spironolactone 25 mg daily. 4 A. fib with RVR: Continue anticoagulation and still on metoprolol. 5 cardiopathy: With ejection fraction of 40-45% only most likely A. fib related cardiopathy continue losartan and metoprolol furosemide and will add Aldactone for now. 6 most likely severe sleep apnea: Patient will need to have sleep study as an outpatient which is more stable and might benefit from CPAP down the road if observed to have any trouble watch his the hospital BiPAP can be supportive. 7 chronic lower back pain with worsening back discomfort post fall continue baclofen and add smaller dose of Tylenol No. 3. 8 hypertension: Remain on losartan and metoprolol continue both medication. 9 Hyperglycemia: Continue Accu-Chek with sliding scales coverage. 10 GI prophylaxis: Patient be on Pepcid 20 mg daily. 11 DVT prophylaxis: Patient is on anticoagulation already. Debility: Patient will start PTOT and prepare for rehab when she is ready in the next 48 hours.
--- NOTE | 2019-09-26 22:17 | PN ---
PROGRESS NOTE DATE OF SERVICE: 09/26/2019 REASON FOR FOLLOWUP: Right foot plantar wound, right lower extremity cellulitis. INTERVAL HISTORY: The patient is currently afebrile. She is breathing comfortably. Denies having any chest pain. No shortness of breath or cough. Erythema to right leg has decreased. No nausea, vomiting or diarrhea. PHYSICAL EXAMINATION: Blood pressure 99/61, pulse of 77, temperature 98.2. She is 96% on room air. General description is a middle-aged female lying in bed in no distress. Respiratory system: Unlabored breathing, clear to auscultation anteriorly. Heart S1, S2. Regular rate and rhythm. Abdomen soft, no tenderness. Right leg did have some swelling. Erythema slightly decreased. Right foot plantar wound with slough tissue. LABS: Hemoglobin is 12.4, WBC 6.0. Wound cultures currently pending. DIAGNOSTIC IMPRESSION AND PLAN: Patient with chronic nonhealing wound to the right foot with secondary right lower extremity cellulitis. Continue with Unasyn. Local wound care with dry Aquacel dressing and Cheo wrap. Continue supportive care. MMODL / IJN: [id number] /
[2019-09-26] MEDS: BACLOFEN 10 MG TAB PO SCH (22:33)
[2019-09-27] MEDS: AMPICILLIN-SULBACTAM 3 GM in SODIUM CHLORIDE 0.9% 100 ML IVPB SCH ×5 (00:53→23:16)
[2019-09-27] MEDS: ACETAMINOPHEN TAB 325 MG TAB PO PRN (00:53)
[2019-09-27 07:39] LABS: Basophils # (A) 0.1 k/uL (0-0.2); Basophils % (A) 1 %; Eosinophils # (A) 0.4 k/uL (0-0.7); Eosinophils % (A) 5 %; HCT 40.2 % (34.0-46.0); HGB 12.4 gm/dL (11.4-16.0); Lymphocytes # (A) 1.8 k/uL (1.0-4.8); Lymphocytes % (A) 26 %; MCH 29.7 pg (25.0-35.0); MCHC 30.9 g/dL (31.0-37.0); MCV 96.1 fL (80.0-100.0); Monocytes # (A) 0.5 k/uL (0-1.0); Monocytes % (A) 7 %; Neutrophils # (A) 4.1 k/uL (1.3-7.7); Neutrophils % (A) 59 %; Platelet Count 179 k/uL (150-450); RBC 4.19 m/uL (3.80-5.40); RDW 13.2 % (11.5-15.5); WBC 6.9 k/uL (3.8-10.6)
[2019-09-27 07:56] LABS: ALT 15 U/L (4-34); AST 23 U/L (14-36); African American GFR (CKD) >90 (>60 ml/min/1.73 sqM); Albumin 3.1 g/dL (3.5-5.0); Alkaline Phosphatase 42 U/L (38-126); Anion Gap 7 mmol/L; Blood Urea Nitrogen 16 mg/dL (7-17); Calcium 8.6 mg/dL (8.4-10.2); Carbon Dioxide 30 mmol/L (22-30); Chloride 100 mmol/L (98-107); Glucose 93 mg/dL (74-99); Non-African American GFR(CKD) 82 (>60 ml/min/1.73 sqM); Potassium 3.8 mmol/L (3.5-5.1); Sodium 137 mmol/L (137-145); Total Bilirubin 0.5 mg/dL (0.2-1.3)
[2019-09-27] MEDS: FAMOTIDINE 20 MG TAB PO SCH (08:08)
[2019-09-27] MEDS: MULTIVITAMINS, THERA 1 EACH TAB PO SCH (08:08)
[2019-09-27] MEDS: METOPROLOL TARTRATE 50 MG TAB PO SCH (08:08)
[2019-09-27] MEDS: APIXABAN 5 MG TAB PO SCH ×2 (08:08→20:28)
[2019-09-27] MEDS: SPIRONOLACTONE 25 MG TAB PO SCH (08:08)
[2019-09-27] MEDS: FUROSEMIDE 40 MG TAB PO SCH ×2 (08:08→17:56)
[2019-09-27] MEDS: SODIUM CHLORIDE 0.9% 1,000 ML IV SCH ×2 (08:09→20:29)
[2019-09-27] MEDS: LOSARTAN 25 MG TAB PO SCH (08:09)
[2019-09-27] MEDS: PRAVASTATIN SODIUM 40 MG TAB PO SCH (08:09)
--- NOTE | 2019-09-27 11:11 | P.PN ---
Subjective Progress Note Date: 09/27/19 Principal diagnosis: Nonhealing ulcer on the right foot, severe debility, notable fall, A. fib w 63-year-old female one of Dr. Alvaro Roldan's patient with the past medical history of morbid obesity, severe arthritis, lymphedema, chronic anasarca, recent history of A. fib with RVR was hospitalized in September 02 till 09/05/2019 and treated has been doing well. Patient had nonhealing ulcer in the right foot has been for over year developed to have severe pain and discomfort with worsening infection has affected her mobility to ambulate and walk for the last few months. Apparently patient was seen podiatry was treated with the topical along with debridement not improving ended up going to see Dr. Daily orthopedic and conservative management had feel as well. Patient was referred to the wound clinic and was seen vascular as well and through all the management continue to have nonhealing ulcer affected her are she and mobility to ambulate and walk has been having significant difficulty time with walking and multiple fall in the last few weeks with significant worsening lymphedema and anasarca lately. She presented to the emergency department today she's not able to manage her infection at home and through the limited visit to the wound clinic. Patient is having worsening pain and discomfort and had recent fall had affected her back pick time with worsening spasm and discomfort. Patient was started on Zosyn consult infectious disease along with 1 to clinic she'll be hospitalized was start PTOT treat her back pain at this point continue to manage her A. fib as well. 09/25: Patient is doing much better she was seen infectious disease antibiotic was switched to Unasyn patient edema has improved some Aldactone was added and patient is feeling slightly better heart failure mcgraw. Patient will be doing PTOT continue wound care and consult social professionals for possible detention rehab on Friday. 09/26: Patient is doing slightly but better had more tiredness and fatigue today did well with Aldactone has not affected her kidney function so far, still on topical care and still on IV antibiotics continue wound care as well and infectious disease and prepare for rehab possibly tomorrow. Objective - Vital Signs Vital signs: Vital Signs Temp 98.4 F 09/27/19 07:19 Pulse 94 09/27/19 07:19 Resp 16 09/27/19 07:19 BP 122/75 09/27/19 07:19 Pulse Ox 95 09/27/19 07:19 Intake & Output 09/26/19 09/27/19 09/27/19 18:59 06:59 18:59 Intake Total 240 Balance 240 Intake: Oral 240 Other: Voiding Method Bedside Commode # Voids 2 3 - Exam Review of Systems CONSTITUTIONAL: Well-developed no acute respiratory distress. EYES: No icterus sclerae, no conjunctivitis. EARS, NOSE, MOUTH, THROAT, and FACE: No sore throat, lymphadenopathy, carotid bruits or deformity. RESPIRATORY: No SOB cough or wheezes. CARDIOVASCULAR: No CP, Palpitation, PND, Orthopnea, or angina. A. fib with RVR GASTROINTESTINAL: No Abd pain, Nausea or vomiting, no Diarrhea or constipation, No GI Bleed, no distention or masses. GENITOURINARY: Negative for Hematuria or UTI, no kidney stones. Frequency and urgency INTEGUMENT/BREAST: Negative for any muscular injury with mild osteoarthritis.. HEMATOLOGIC/LYMPHATIC: Negative for bleed or purpura. MUSCULOSKELTAL: Negative for Myalgia or arthralgia. Nonhealing ulcer and infection of the right foot area along with worsening anasarca and lymphedema. NEURLOGICAL: No LOC, Sz or syncope, blurred vision dizziness or abnormality.. BEHAVIORAL/PSYCH: Negative. ENDOCRINE: Negative. Physical Exam Vitals: General Appearance: Alert, cooperative, no distress, appears stated age. Morbidly obese laying in bed in no distress. Neck HEENT: Supple, no lymphadenopathy, no thyroid enlargement, no carotid bruits. Lungs: Clear to auscultation without crackles or wheezes no rhonchi, no deformity. Chest Wall: decrease expansion with deep inspiration no tenderness and no deformity was found on exam, no costochondral pain or discomfort. Heart: Irregular rate and rhythm, S1, S2 positive S3 positive JVD. . Back: Symmetric, no curvature, ROM normal, no CVA tenderness. Significant spasm and discomfort in the L-spine area with no sign of injury with mild bruise. Abdomen: Soft, non-tender, bowel sounds active all four quadrants, no masses, no organomegaly. Extremities: Severe edema and anasarca with significant discoloration and vascular cellulitis from the knee down worsening carotene change on the surface part of the skin with worsening lymphedema as well slight cellulitis change on the lower extremity 5 inches below the knee all the way to the ankle area bilaterally. The sole part of the right foot had stage II ulcer with measurement of 0.75 time 1 inch with slight drainage around it with slight discoloration and Pulses: 2+ and symmetric. Skin: Skin color, texture, tugor normal, no rashes or lesions. Neurologic: Alert oriented x3 cranial nerves II through XII intact, no motor deficit, no abnormal balance or gait. - Labs CBC & Chem 7: 09/27/19 07:07 09/27/19 07:07 Labs: Abnormal Lab Results - Last 24 Hours (Table) 09/26/19 09/27/19 09/27/19 Range/Units 08:31 07:07 07:07 MCHC 30.9 L (31.0-37.0) g/dL Glucose 101 H (74-99) mg/dL Calcium 8.3 L (8.4-10.2) mg/dL Alkaline Phosphatase 34 L (38-126) U/L Total Protein 5.9 L 6.0 L (6.3-8.2) g/dL Albumin 3.0 L 3.1 L (3.5-5.0) g/dL Microbiology - Last 24 Hours (Table) 09/25/19 06:35 Blood Culture - Preliminary Blood No Growth after 24 hours Assessment and Plan Assessment: 1 nonhealing ulcer in the right foot area with prediabetic the patient and severe anasarca with lymphedema, patient will be seen in the wound clinic, antibiotic was changed to Unasyn and possibly will be on IV antibiotic for 2 w eeks then oral and continue topical care patient will require probably longer term wound care follow-up whether it's in detention or [address] [place] [address]. 2 severe cellulitis and lymphangitis of the right foot and bilateral lower extremity will continue to use topical products such as of the dynamic cream along with Unasyn IV. 3 severe lymphedema and anasarca: Continue patient on furosemide 40 mg twice a day we will add spironolactone 25 mg daily. 4 A. fib with RVR: Continue anticoagulation and still on metoprolol. 5 cardiopathy: With ejection fraction of 40-45% only most likely A. fib related cardiopathy continue losartan and metoprolol furosemide and will add Aldactone for now. 6 most likely severe sleep apnea: Patient will need to have sleep study as an outpatient which is more stable and might benefit from CPAP down the road if observed to have any trouble watch his the hospital BiPAP can be supportive. 7 chronic lower back pain with worsening back discomfort post fall continue bacl ofen and add smaller dose of Tylenol No. 3. 8 hypertension: Remain on losartan and metoprolol continue both medication. 9 Hyperglycemia: Continue Accu-Chek with sliding scales coverage. 10 GI prophylaxis: Patient be on Pepcid 20 mg daily. 11 DVT prophylaxis: Patient is on anticoagulation already. Debility: Patient will start PTOT and prepare for rehab when she is ready in the next 48 hours.
--- NOTE | 2019-09-27 18:30 | PN ---
PROGRESS NOTE DATE OF SERVICE: 09/27/2019 REASON FOR FOLLOWUP: Right foot wound and lower extremity cellulitis. INTERVAL HISTORY: The patient is currently afebrile. She has been complaining of feeling weak today. The patient denies having any chest pain or shortness of breath or cough. No abdominal pain, vomiting or any diarrhea. PHYSICAL EXAMINATION: Blood pressure 110/70 with a pulse of 73, temperature 98. She is 94% on room air. General description: The patient is a middle-aged female lying in bed in no distress. Respiratory system: Unlabored breathing. Clear to auscultation anteriorly. HEART: S1, S2. Regular rate and rhythm. Right leg swelling and redness minimally decreased. LABS: Hemoglobin 12.4, white count 6.9, BUN of 16, creatinine 0.78. Wound culture with presumptive Staph aureus. DIAGNOSTIC IMPRESSION AND PLAN: Patient with right foot wound with secondary cellulitis, culture represent possibly. The patient is covered with Zosyn to continue. Will discharge on Meropenem depending upon the culture report. Continue supportive care. MMODL / IJN: [id number] /
[2019-09-27] MEDS: BACLOFEN 10 MG TAB PO SCH (20:28)
[2019-09-28] MEDS: SODIUM CHLORIDE 0.9% 1,000 ML IV SCH (05:55)
[2019-09-28 07:45] VITALS: BP 107/72; PULSE 85; RESP 16; TEMP 97.9
[2019-09-28] MEDS: MULTIVITAMINS, THERA 1 EACH TAB PO SCH (08:11)
[2019-09-28] MEDS: APIXABAN 5 MG TAB PO SCH (08:11)
[2019-09-28] MEDS: LOSARTAN 25 MG TAB PO SCH (08:11)
[2019-09-28] MEDS: SPIRONOLACTONE 25 MG TAB PO SCH (08:11)
[2019-09-28] MEDS: ACETAMINOPHEN TAB 325 MG TAB PO PRN (08:11)
[2019-09-28] MEDS: PRAVASTATIN SODIUM 40 MG TAB PO SCH (08:11)
[2019-09-28] MEDS: AMPICILLIN-SULBACTAM 3 GM in SODIUM CHLORIDE 0.9% 100 ML IVPB SCH (08:11)
[2019-09-28] MEDS: FAMOTIDINE 20 MG TAB PO SCH (08:11)
[2019-09-28] MEDS: FUROSEMIDE 40 MG TAB PO SCH (08:12)
[2019-09-28] MEDS: METOPROLOL TARTRATE 50 MG TAB PO SCH (08:12)
--- NOTE | 2019-09-28 09:41 | P.DS ---
Providers Date of admission: 09/25/19 08:00 Attending physician: Zain Ziegler Consults: 09/25/19 08:01 Consult Physician Stat Consulting Provider: Nando Leonardo Consult Reason/Comments: R foot wound Do you want consulting provider notified?: Yes Primary care physician: Alvaro Roldan [facility] Course: Principal diagnosis: Nonhealing ulcer on the right foot, severe debility, notable fall, A. fib w 63-year-old female one of Dr. Alvaro Roldan's patient with the past medical history of morbid obesity, severe arthritis, lymphedema, chronic anasarca, recent history of A. fib with RVR was hospitalized in September 02 till 09/05/2019 and treated has been doing well. Patient had nonhealing ulcer in the right foot has been for over year developed to have severe pain and discomfort with worsening infection has affected her mobility to ambulate and walk for the last few months. Apparently patient was seen podiatry was treated with the topical along with debridement not improving ended up going to see Dr. Daily orthopedic and conservative management had feel as well. Patient was referred to the wound clinic and was seen vascular as well and through all the management continue to have nonhealing ulcer affected her are she and mobility to ambulate and walk has been having significant difficulty time with walking and multiple fall in the last few weeks with significant worsening lymphedema and anasarca lately. She presented to the emergency department today she's not able to manage her infection at home and through the limited visit to the wound clinic. Patient is having worsening pain and discomfort and had recent fall had affected her back pick time with worsening spasm and discomfort. Patient was started on Zosyn consult infectious disease along with 1 to clinic she'll be hospitalized was start PTOT treat her back pain at this point continue to manage her A. fib as well. 09/25: Patient is doing much better she was seen infectious disease antibiotic was switched to Unasyn patient edema has improved some Aldactone was added and patient is feeling slightly better heart failure mcgraw. Patient will be doing PTOT continue wound care and consult social media campaign manager for possible halfway rehab on Friday. 09/26: Patient is doing slightly but better had more tiredness and fatigue today did well with Aldactone has not affected her kidney function so far, still on topical care and still on IV antibiotics continue wound care as well and infectious disease and prepare for rehab possibly tomorrow. Objective - Vital Signs Vital signs: Vital Signs Temp 98.4 F 09/27/19 07:19 Pulse 94 09/27/19 07:19 Resp 16 09/27/19 07:19 BP 122/75 09/27/19 07:19 Pulse Ox 95 09/27/19 07:19 Intake & Output 09/26/19 09/27/19 09/27/19 18:59 06:59 18:59 Intake Total 240 Balance 240 Intake: Oral 240 Other: Voiding Method Bedside Commode # Voids 2 3 - Exam Review of Systems CONSTITUTIONAL: Well-developed no acute respiratory distress. EYES: No icterus sclerae, no conjunctivitis. EARS, NOSE, MOUTH, THROAT, and FACE: No sore throat, lymphadenopathy, carotid bruits or deformity. RESPIRATORY: No SOB cough or wheezes. CARDIOVASCULAR: No CP, Palpitation, PND, Orthopnea, or angina. A. fib with RVR GASTROINTESTINAL: No Abd pain, Nausea or vomiting, no Diarrhea or constipation, No GI Bleed, no distention or masses. GENITOURINARY: Negative for Hematuria or UTI, no kidney stones. Frequency and urgency INTEGUMENT/BREAST: Negative for any muscular injury with mild osteoarthritis.. HEMATOLOGIC/LYMPHATIC: Negative for bleed or purpura. MUSCULOSKELTAL: Negative for Myalgia or arthralgia. Nonhealing ulcer and infection of the right foot area along with worsening anasarca and lymphedema. NEURLOGICAL: No LOC, Sz or syncope, blurred vision dizziness or abnormality.. BEHAVIORAL/PSYCH: Negative. ENDOCRINE: Negative. Physical Exam Vitals: General Appearance: Alert, cooperative, no distress, appears stated age. Morbidly obese laying in bed in no distress. Neck HEENT: Supple, no lymphadenopathy, no thyroid enlargement, no carotid bruits. Lungs: Clear to auscultation without crackles or wheezes no rhonchi, no deformity. Chest Wall: decrease expansion with deep inspiration no tenderness and no deformity was found on exam, no costochondral pain or discomfort. Heart: Irregular rate and rhythm, S1, S2 positive S3 positive JVD. . Back: Symmetric, no curvature, ROM normal, no CVA tenderness. Significant spasm and discomfort in the L-spine area with no sign of injury with mild bruise. Abdomen: Soft, non-tender, bowel sounds active all four quadrants, no masses, no organomegaly. Extremities: Severe edema and anasarca with significant discoloration and vascular cellulitis from the knee down worsening carotene change on the surface part of the skin with worsening lymphedema as well slight cellulitis change on the lower extremity 5 inches below the knee all the way to the ankle area bilaterally. The sole part of the right foot had stage II ulcer with measurement of 0.75 time 1 inch with slight drainage around it with slight discoloration and Pulses: 2+ and symmetric. Skin: Skin color, texture, tugor normal, no rashes or lesions. Neurologic: Alert oriented x3 cranial nerves II through XII intact, no motor deficit, no abnormal balance or gait. - Labs CBC & Chem 7: 09/27/19 07:07 09/27/19 07:07 Labs: Abnormal Lab Results - Last 24 Hours (Table) 09/26/19 09/27/19 09/27/19 Range/Units 08:31 07:07 07:07 MCHC 30.9 L (31.0-37.0) g/dL Glucose 101 H (74-99) mg/dL Calcium 8.3 L (8.4-10.2) mg/dL Alkaline Phosphatase 34 L (38-126) U/L Total Protein 5.9 L 6.0 L (6.3-8.2) g/dL Albumin 3.0 L 3.1 L (3.5-5.0) g/dL Microbiology - Last 24 Hours (Table) 09/25/19 06:35 Blood Culture - Preliminary Blood No Growth after 24 hours Assessment and Plan Assessment: 1 nonhealing ulcer in the right foot area with prediabetic the patient and severe anasarca with lymphedema, patient will be seen in the wound clinic, antibiotic was changed to Unasyn and possibly will be on IV antibiotic for 2 weeks then oral and continue topical care patient will require probably longer term wound care follow-up whether it's in halfway or [address] [place] [address]. 2 severe cellulitis and lymphangitis of the right foot and bilateral lower extremity will continue to use topical products such as of the dynamic cream along with Unasyn IV. 3 severe lymphedema and anasarca: Continue patient on furosemide 40 mg twice a day we will add spironolactone 25 mg daily. 4 A. fib with RVR: Continue anticoagulation and still on metoprolol. 5 cardiopathy: With ejection fraction of 40-45% only most likely A. fib related cardiopathy continue losartan and metoprolol furosemide and will add Aldactone for now. 6 most likely severe sleep apnea: Patient will need to have sleep study as an outpatient which is more stable and might benefit from CPAP down the road if observed to have any trouble watch his the hospital BiPAP can be supportive. 7 chronic lower back pain with worsening back discomfort post fall continue baclofen and add smaller dose of Tylenol No. 3. 8 hypertension: Remain on losartan and metoprolol continue both medication. 9 Hyperglycemia: Continue Accu-Chek with sliding scales coverage. 10 GI prophylaxis: Patient be on Pepcid 20 mg daily. 11 DVT prophylaxis: Patient is on anticoagulation already. Debility: Patient will start PTOT and prepare for rehab when she is ready in the next 48 hours. Switch patient to oral medication seen one to clinic for her nonhealing right foot ulcer continue 1 care in the halfway patient will be discharged to [facility] today. Patient Condition at Discharge: Stable Plan - Discharge Summary New Discharge Prescriptions: New Spironolactone [Aldactone] 25 mg PO DAILY tab Famotidine [Pepcid] 20 mg PO DAILY tab oxyCODONE-APAP 5-325MG [Percocet 5-325 mg] 1 each PO Q4HR PRN #12 tab PRN Reason: Severe Pain Acetaminophen Tab [Tylenol] 650 mg PO Q6HR PRN tab PRN Reason: Mild Pain Or Fever > 100.5 Amoxic-Pot Clav 875-125Mg [Augmentin 875-125] 1 tab PO Q12HR 7 Days #14 tab Continue Furosemide [Lasix] 40 mg PO BID Baclofen 10 mg PO HS Pravastatin Sodium [Pravachol] 40 mg PO DAILY Multivitamins, Thera [Multivitamin (formulary)] 1 tab PO DAILY Turmeric Root Extract [Turmeric] 500 mg PO DAILY Losartan [Cozaar] 25 mg PO DAILY #30 tab Metoprolol Tartrate [Lopressor] 50 mg PO DAILY #30 tab Apixaban [Eliquis] 5 mg PO BID #60 tab Collagenase [Santyl] 1 applic TOPICAL DAILY PRN PRN Reason: right foot Discharge Medication List Baclofen 10 mg PO HS 09/03/19 [History] Furosemide [Lasix] 40 mg PO BID 09/03/19 [History] Multivitamins, Thera [Multivitamin (formulary)] 1 tab PO DAILY 09/03/19 [History] Pravastatin Sodium [Pravachol] 40 mg PO DAILY 09/03/19 [History] Turmeric Root Extract [Turmeric] 500 mg PO DAILY 09/03/19 [History] Apixaban [Eliquis] 5 mg PO BID #60 tab 09/05/19 [Rx] Losartan [Cozaar] 25 mg PO DAILY #30 tab 09/05/19 [Rx] Metoprolol Tartrate [Lopressor] 50 mg PO DAILY #30 tab 09/05/19 [Rx] Collagenase [Santyl] 1 applic TOPICAL DAILY PRN 09/25/19 [History] Acetaminophen Tab [Tylenol] 650 mg PO Q6HR PRN tab 09/28/19 [Rx] Amoxic-Pot Clav 875-125Mg [Augmentin 875-125] 1 tab PO Q12HR 7 Days #14 tab 09/28/19 [Rx] Famotidine [Pepcid] 20 mg PO DAILY tab 09/28/19 [Rx] Spironolactone [Aldactone] 25 mg PO DAILY tab 09/28/19 [Rx] oxyCODONE-APAP 5-325MG [Percocet 5-325 mg] 1 each PO Q4HR PRN #12 tab 09/28/19 [Rx] Follow up Appointment(s)/Referral(s): MarceloLomaryjane núñez Oconto, [NON-STAFF] - As Needed Alvaro Roldan MD [Primary Care Provider] - 1-2 days Discharge Disposition: TRANSFER TO SNF/ECF
--- NOTE | 2019-09-28 13:02 | CDI ---
Documentation Clarification Form Date: 09/28/2019 12:52:22 PM From: Merry Hearn CCS, CCDS Admit Date: 09/25/2019 08:00:00 AM Patient Name: Beatriz Pena Visit Number: [id number] Discharge Date: ATTENTION: The Clinical Documentation Specialists (CDI) and [facility] Coding Staff appreciate your assistance in clarifying documentation. Please respond to the clarification below the line at the bottom and electronically sign. The CDI & [facility] Coding staff will review the response and follow-up if needed. Please note: Queries are made part of the Legal Health Record. If you have any questions, please contact the author of this message via ITS. Dr. Zain Ziegler: Per the 09/25 & 09/26 Progress Notes & the 09/27 Discharge Summary: " Patient is doing much better she was seen infectious disease antibiotic was switched to Unasyn patient edema has improved some Aldactone was added and patient is feeling slightly better heart failure mcgraw." Heart failure is not specified in the documentation. History/Risk Factors: Non-healing ulcer on right foot, Severe cellulitis & lymphangitis of the right foot, Severe Lymphedema & Anasarca, Atrial Fibrillation w/RVR on Metoprolol, Cardiomyopathy with documented EF 40-45%. Clinical Indicators: Presented from home via EMS on 09/24 after a fall at home with inability to walk due to non-healing ulcer on right foot & cellulitis & lymphangitis & severe lymphedema & anasarca as described above. VS 09/24: P 102^, R 20, BP 135/80, PO 94 RA BNP 09/24: 255 Echocardiogram Results (09/04/2019): Moderate concentric LVH, Left ventricular systolic function mild-moderately impaired w/EF 40-45%. Chest X Ray 09/24: No acute cardiopulmonary process. Treatment: IV Toradol, IV Norflex, IV fluid 1,000 mls @ 999 mls/hr, IV zosyn, po Eliquis, po Lasix 40 mg, po Lopressor. In your professional opinion, can you please clarify the acuity and type of CHF if known? Heart Failure ruled out Systolic Heart Failure: o Acute XXo Chronic o Acute on Chronic Unable to Determine Other, please specify (Last Revision: August 2017) MTDD
--- NOTE | 2019-09-28 16:54 | PN ---
PROGRESS NOTE DATE OF SERVICE: 09/28/2019 REASON FOR FOLLOWUP: Right heel wound with lower extremity cellulitis. INTERVAL HISTORY: The patient is currently afebrile, patient is breathing comfortably. The patient denies having any chest pain or shortness of breath. No nausea, vomiting, abdominal pain, overall discomfort to the leg has improved. PHYSICAL EXAMINATION: Blood pressure 107/72 with a pulse of 85, temperature 97.9. She is 94% on room air. General description is a middle-aged female lying in bed in no distress. RESPIRATORY SYSTEM: Unlabored breathing, clear to auscultation anteriorly. HEART: S1, S2. Regular rate and rhythm. ABDOMEN: Soft, no tenderness. Right leg swelling persists, redness has improved. LABS: Wound culture with MSSA. DIAGNOSTIC IMPRESSION AND PLAN: Patient with right heel wound with secondary cellulitis right lower extremity. Culture positive for MSSA. She did well on Unasyn to finish a short course of oral Augmentin. Local wound care with dry Aquacel dressing to the wound and Cheo wrap: Close outpatient followup. MMODL / IJN: [id number] /
== END 2019-09-28 13:39 | DRG 593 ==
LOC: EC 05:15 → 4SSUR 08:00
PROVIDERS: ADMIT Internal Medicine Geriatric Medicine; ATTEND Internal Medicine Geriatric Medicine
DX: L97.512 Non-pressure chronic ulcer of other part of right foot with fat layer exposed (principal); L03.115 Cellulitis of right lower limb; Z68.42 Body mass index [BMI] 45.0-49.9, adult; I42.9 Cardiomyopathy, unspecified; I50.22 Chronic systolic (congestive) heart failure; R73.03 Prediabetes; E66.01 Morbid (severe) obesity due to excess calories; G47.30 Sleep apnea, unspecified; I11.0 Hypertensive heart disease with heart failure; I48.91 Unspecified atrial fibrillation; R73.9 Hyperglycemia, unspecified; M54.5 Low back pain; W19.XXXA Unspecified fall, initial encounter; Y92.009 Unspecified place in unspecified non-institutional (private) residence as the place of occurrence of the external cause; Z66 Do not resuscitate; Z79.01 Long term (current) use of anticoagulants; Z79.899 Other long term (current) drug therapy; Z87.891 Personal history of nicotine dependence; Z88.5 Allergy status to narcotic agent; Z88.2 Allergy status to sulfonamides; Z11.59 Encounter for screening for other viral diseases; Z96.653 Presence of artificial knee joint, bilateral; Z88.1 Allergy status to other antibiotic agents; Z96.611 Presence of right artificial shoulder joint; Z82.49 Family history of ischemic heart disease and other diseases of the circulatory system; Z80.42 Family history of malignant neoplasm of prostate; Z82.61 Family history of arthritis; G89.29 Other chronic pain; Z91.018 Allergy to other foods; M19.90 Unspecified osteoarthritis, unspecified site
CPT/HCPCS: 36415; 71046; 72100; 80053; 81001; 83605; 83735; 83880; 84484; 85025; 85610; 85652; 85730; 87040; 87070; 87077; 87186; 87205; 87635; 93005; 96361; 96374; 96375; 99285

== ENCOUNTER 2020-09-19 10:16 | Inpatient (IN) | payer MEDICARE ==
[2020-09-19] MEDS ORDERED: ACETAMINOPHEN TAB 325 MG TAB PO STA (11:02)
--- NOTE | 2020-09-19 11:10 | ED ---
General Adult HPI - General Chief complaint: Extremity Injury, Lower Stated complaint: Rash Time Seen by Provider: 09/19/20 10:28 Source: patient, EMS, RN notes reviewed Mode of arrival: EMS Limitations: no limitations - History of Present Illness Initial comments: 64-year-old white female patient presents to the emergency room with complaints of bilateral extremity edema. Patient states has had this swelling for over a year after her right knee surgery. Patient states that the right side has weeping wounds and has been seen by wound care in the past. There are dried plaques noted to the right anterior surface of the right lower leg the patient is picking at. Also there is dried calluses that have been cut away patient states has had blisters or painful. Patient states that he has bilateral calf pain as well this past year. Patient has a history of A. fib and hypertension, surgical history of. To surgery in 2014, bilateral knees and right shoulder. Patient does take 40 mg Lasix twice a day. States is able to ambulate at home with a walker. -: year(s) (1) Location: left, right, lower extremity Radiation: non-radiation Severity scale (1-10): 5 Quality: aching Consistency: constant Improves with: none Worsens with: other (Weightbearing) Associated Symptoms: other (Blistering to right lower extremity and foot) Treatments Prior to Arrival: none - Related Data Home Medications Medication Instructions Recorded Confirmed Baclofen 10 mg PO HS@189909/03/19 09/19/20 Furosemide [Lasix] 40 mg PO BID@0700,189909/03/19 09/19/20 Pravastatin Sodium [Pravachol] 40 mg PO DAILY@69909/03/19 09/19/20 Apixaban [Eliquis] 5 mg PO BID@0700,189909/19/20 09/19/20 Biotin 5 mg PO DAILY@69909/19/20 09/19/20 Cranberry Fruit Concentrate [Azo 250 mg PO BID@0700,189909/19/20 09/19/20 Cranberry] Losartan [Cozaar] 25 mg PO DAILY@69909/19/20 09/19/20 Metoprolol Tartrate [Lopressor] 50 mg PO DAILY@69909/19/20 09/19/20 Previous Rx's Medication Instructions Recorded Cephalexin [Keflex] 500 mg PO Q6HR 1 Days #4 cap 09/19/20 Allergies Allergy/AdvReac Type Severity Reaction Status Date / Time morphine Allergy Nausea & Verified 09/25/19 08:20 Vomiting Poultry [[place]] Allergy Swelling Verified 09/25/19 08:20 Sulfa (Sulfonamide Allergy Swelling Verified 09/25/19 08:20 Antibiotics) walnut Allergy Swelling Verified 09/25/19 08:20 Review of Systems ROS Statement: Those systems with pertinent positive or pertinent negative responses have been documented in the HPI. ROS Other: All systems not noted in ROS Statement are negative. Past Medical History Past Medical History: Atrial Fibrillation, Hypertension History of Any Multi-Drug Resistant Organisms: None Reported Past Surgical History: Bariatric Surgery, Joint Replacement Additional Past Surgical History / Comment(s): R shoulder, bilat knee replacement, bariatric surgery 2014 Past Psychological History: No Psychological Hx Reported Smoking Status: Never smoker Past Alcohol Use History: None Reported Past Drug Use History: None Reported - Past Family History Father Additional Family Medical History / Comment(s): Father from prostate ca ncer. Mother Additional Family Medical History / Comment(s): Mother is alive with history of PFO. Brother(s) Additional Family Medical History / Comment(s): Patient has one brother with history of gout. Patient's 2 sisters one with no major medical problems and one with generalized osteoarthritis. Patient does not have any children. General Exam Limitations: no limitations General appearance: alert, in no apparent distress Head exam: Present: atraumatic, normocephalic, normal inspection Eye exam: Present: normal appearance, PERRL, EOMI. Absent: scleral icterus, conjunctival injection, periorbital swelling ENT exam: Present: normal exam, normal oropharynx, mucous membranes moist Neck exam: Present: normal inspection. Absent: tenderness, meningismus, lymphadenopathy Respiratory exam: Present: normal lung sounds bilaterally, decreased breath sounds (Diminished at left base). Absent: respiratory distress, wheezes, rales, rhonchi, stridor Cardiovascular Exam: Present: regular rate, irregular rhythm GI/Abdominal exam: Present: soft, normal bowel sounds. Absent: distended, tenderness, guarding, rebound, rigid Rectal exam: Present: deferred Extremities exam: Present: normal inspection, full ROM, normal capillary refill. Absent: tenderness, pedal edema, joint swelling, calf tenderness Left Lower Leg exam: Present: tenderness, swelling, erythema Ankle exam: Present: swelling (Thick calluses noted to calcaneus) Right Lower Leg exam: Present: tenderness, swelling, erythema (2 embolisms to the right lower extremity anterior surface approximately 2 cm with dry plaques the patient has been peeling off; blistering to the bottom of the right foot patient has been peeling dried) Back exam: Present: normal inspection, full ROM. Absent: tenderness, paraspinal tenderness, vertebral tenderness Neurological exam: Present: alert, oriented X3, CN II-XII intact Psychiatric exam: Present: normal affect, normal mood Skin exam: Present: warm, erythema (Bilateral lower extremities). Absent: intact, cyanosis, diaphoretic, urticaria, vesicles, pallor, mottled, abrasion Course Vital Signs 09/19/20 09/19/20 09/19/20 10:20 13:00 14:00 Temperature 98.0 F Pulse Rate 85 77 Respiratory 18 16 16 Rate Blood Pressure 119/72 120/80 O2 Sat by Pulse 98 98 Oximetry Medical Decision Making - Medical Decision Making Patient is negative for DVT to bilateral lower extremities, WBC count of 7.3. Patient will be treated for cellulitis of the right lower extremity with Keflex. Will ncrease dose of Lasix 40mg to 3 times a day for swelling. Dr. Packer at bedside to examine the patient. Will discharge patient home to follow up with primary care doctor this week. - Lab Data Result diagrams: 09/19/20 11:50 09/19/20 11:50 Lab Results 09/19/20 09/19/20 Range/Units 11:50 11:50 WBC 7.3 (3.8-10.6) k/uL RBC 4.59 (3.80-5.40) m/uL Hgb 13.8 (11.4-16.0) gm/dL Hct 43.7 (34.0-46.0) % MCV 95.2 (80.0-100.0) fL MCH 30.2 (25.0-35.0) pg MCHC 31.7 (31.0-37.0) g/dL RDW 13.2 (11.5-15.5) % Plt Count 208 (150-450) k/uL MPV 9.6 Neutrophils % 77 % Lymphocytes % 16 % Monocytes % 4 % Eosinophils % 1 % Basophils % 1 % Neutrophils # 5.6 (1.3-7.7) k/uL Lymphocytes # 1.2 (1.0-4.8) k/uL Monocytes # 0.3 (0-1.0) k/uL Eosinophils # 0.1 (0-0.7) k/uL Basophils # 0.1 (0-0.2) k/uL Sodium 140 (137-145) mmol/L Potassium 3.9 (3.5-5.1) mmol/L Chloride 104 (98-107) mmol/L Carbon Dioxide 29 (22-30) mmol/L Anion Gap 7 mmol/L BUN 19 H (7-17) mg/dL Creatinine 0.64 (0.52-1.04) mg/dL Est GFR (CKD-EPI)AfAm >90 (>60 ml/min/1.73 sqM) Est GFR (CKD-EPI)NonAf >90 (>60 ml/min/1.73 sqM) Glucose 119 H (74-99) mg/dL Calcium 9.0 (8.4-10.2) mg/dL Total Bilirubin 0.5 (0.2-1.3) mg/dL AST 23 (14-36) U/L ALT 12 (4-34) U/L Alkaline Phosphatase 56 (38-126) U/L Total Protein 7.1 (6.3-8.2) g/dL Albumin 3.9 (3.5-5.0) g/dL Disposition Clinical Impression: Cellulitis Disposition: HOME SELF-CARE Condition: Fair Instructions (If sedation given, give patient instructions): Cellulitis (ED) Additional Instructions: Increase your Lasix 40mg to 3 times a day (every 8 hours). Take antibiotics as prescribed. Follow-up with your primary care doctor next week. Prescriptions: Cephalexin [Keflex] 500 mg PO Q6HR 1 Days #4 cap Is patient prescribed a controlled substance at d/c from ED?: No Referrals: Alvaro Roldan MD [Primary Care Provider] - 1-2 days Time of Disposition: 15:25
[2020-09-19 11:56] LABS: Basophils # (A) 0.1 k/uL (0-0.2); Basophils % (A) 1 %; Eosinophils # (A) 0.1 k/uL (0-0.7); Eosinophils % (A) 1 %; HCT 43.7 % (34.0-46.0); HGB 13.8 gm/dL (11.4-16.0); Lymphocytes # (A) 1.2 k/uL (1.0-4.8); Lymphocytes % (A) 16 %; MCH 30.2 pg (25.0-35.0); MCHC 31.7 g/dL (31.0-37.0); MCV 95.2 fL (80.0-100.0); Mean Platelet Volume 9.6; Monocytes # (A) 0.3 k/uL (0-1.0); Monocytes % (A) 4 %; Neutrophils # (A) 5.6 k/uL (1.3-7.7); Neutrophils % (A) 77 %; Platelet Count 208 k/uL (150-450); RBC 4.59 m/uL (3.80-5.40); RDW 13.2 % (11.5-15.5); WBC 7.3 k/uL (3.8-10.6)
[2020-09-19 12:22] LABS: ALT 12 U/L (4-34); AST 23 U/L (14-36); African American GFR (CKD) >90 (>60 ml/min/1.73 sqM); Albumin 3.9 g/dL (3.5-5.0); Alkaline Phosphatase 56 U/L (38-126); Anion Gap 7 mmol/L; Blood Urea Nitrogen 19 mg/dL (7-17); Carbon Dioxide 29 mmol/L (22-30); Chloride 104 mmol/L (98-107); Glucose 119 mg/dL (74-99); Non-African American GFR(CKD) >90 (>60 ml/min/1.73 sqM); Potassium 3.9 mmol/L (3.5-5.1); Sodium 140 mmol/L (137-145); Total Bilirubin 0.5 mg/dL (0.2-1.3); Total Protein 7.1 g/dL (6.3-8.2)
--- NOTE | 2020-09-19 14:32 | US ---
EXAMINATION TYPE: US venous doppler duplex LE DATE OF EXAM: 09/19/2020 2:20 PM COMPARISON: Prior bilateral venous ultrasound 2013 CLINICAL HISTORY: pain swelling. SIDE PERFORMED: Bilateral TECHNIQUE: The lower extremity deep venous system is examined utilizing real time linear array sonog jorge with graded compression, doppler sonography and color-flow sonography. VESSELS IMAGED: Common Femoral Vein Deep Femoral Vein Greater Saphenous Vein * Femoral Vein Popliteal Vein Small Saphenous Vein * Proximal Calf Veins (* superficial vessels) Right Leg: Negative for DVT Left Leg: Negative for DVT Suboptimal exam overall due to patient large size. Grayscale, color doppler, spectral doppler imaging performed of the deep veins of the bilateral lower extremities. There is normal flow, compressibility, vascular waveforms. Mild distal subcutaneous e [place] noted bilaterally. IMPRESSION: Suboptimal study without acute DVT identified in either lower extremity.
[2020-09-19] MEDS ORDERED: NALOXONE 0.4 MG/ML 1 ML VIAL IV PRN (16:46)
--- NOTE | 2020-09-19 20:26 | XR ---
Result: History: Low back pain. Comparison: 09/25/2019. Technique: 3 views of the lumbar spine. Findings: The bone mineralization is normal. Images of the lumbar spine demonstrate 5 lumbar-type vertebrae. There is no acute fracture or sublux ation. The vertebral body heights are preserved. There is multilevel moderate to severe disc height narrowing with facet arthropathy. There is moderate levoconvex scoliosis centered at L2-L3. Partially imaged catheter with port overlying the left upper quadrant seen. Impression: Moderate to severe degenerative changes with levoconvex scoliosis and without acute osseous abnormal ity. No significant interval change.
[2020-09-19] MEDS: ACETAMINOPHEN TAB 325 MG TAB PO PRN (21:33)
[2020-09-20] MEDS ORDERED: FUROSEMIDE 10 MG/ML 4 ML VIAL IV SCH (09:00)
[2020-09-20] MEDS: PRAVASTATIN SODIUM 40 MG TAB PO SCH (09:31)
[2020-09-20] MEDS: METOPROLOL TARTRATE 50 MG TAB PO SCH (09:31)
[2020-09-20] MEDS: LOSARTAN 25 MG TAB PO SCH (09:31)
[2020-09-20] MEDS: APIXABAN 5 MG TAB PO SCH ×2 (09:31→18:19)
--- NOTE | 2020-09-20 11:30 | ECHOF ---
Referral Reason:BLLE edema MEASUREMENTS -------- HEIGHT: 172.7 cm WEIGHT: 182.3 kg BP: 92/53 RVIDd: 4.3 cm (< 3.3) IVSd: 1.5 cm (0.6 - 1.1) LVIDd: 4.4 cm (3.9 - 5.3) LVPWd: 1.3 cm (0.6 - 1.1) IVSs: 1.9 cm LVIDs: 3.3 cm LVPWs: 1.8 cm LA Diam: 3.4 cm (2.7 - 3.8) LAESV Index (A-L): 23.58 ml/m Ao Diam: 3.4 cm (2.0 - 3.7) AV Cusp: 2.1 cm (1.5 - 2.6) MV EXCURSION: 34.013 mm (> 18.000) MV EF SLOPE: 252 mm/s (70 - 150) EPSS: 1.3 cm RAP: 5.00 mmHg RVSP: 38.81 mmHg TAPSE: 23.43 mm FINDINGS -------- Atrial fibrillation. This was a technically adequate study. The left ventricular size is normal. There is moderate concentric left ventricular hypertrophy. O verall left ventricular systolic function is mildly impaired with, an EF between 45 - 50 %. The right ventricle is severely enlarged. The left atrium is normal in size. The right atrium is normal in size. The aortic valve is trileaflet, and appears structurally normal. No aortic stenosis or regurgitation. Mild mitral regurgitation is present. Mild tricuspid regurgitation present. There is mild pulmonary hypertension. The right ventricular systolic pressure, as measured by Doppler, is 38.81mmHg. Trace/mild (physiologic) pulmonic regurgitation. The aortic root size is normal. IVC Not well visulized. There is no pericardial effusion. CONCLUSIONS -------- 1. The left ventricular size is normal. 2. There is moderate concentric left ventricular hypertrophy. 3. The right ventricle is severely enlarged. 4. The aortic valve is trileaflet, and appears structurally normal. No aortic stenosis or regurgitati on. 5. Mild mitral regurgitation is present. 6. Mild tricuspid regurgitation present. 7. There is mild pulmonary hypertension. 8. The right ventricular systolic pressure, as measured by Doppler, is 38.81mmHg. 9. Trace/mild (physiologic) pulmonic regurgitation. 10. There is no pericardial effusion. [employer]CH[employer]ICAL ENGINEER: Bing Curry RDCS
--- NOTE | 2020-09-20 12:26 | P.HPIM ---
History of Present Illness H&P Date: 09/20/20 Chief Complaint: Weakness HISTORY OF PRESENT ILLNESS This is a 64-year-old female with past medical history of osteoarthritis status post bilateral knee replacement, hypertension, paroxysmal atrial fibrillation, morbid obesity. Patient is complaining of lower extremity edema, blisters on the bottom of the right foot, she states her right foot bleeds and gentle skin come off. She usually puts a 4 x 4 on her foot with her sock. She complains of right hip pain that has been going on for a couple years since she had a fall with no fracture at the time. Pain is on the right lateral hip. She complains of bilateral ankle pain. Patient complains of right lower extremity edema worse this been going on for one year. She states that ever since she had a partial knee arthroplasty done a year ago. She denies any shortness of breath, known nausea. No numbness or tingling. She states she occasionally have back pain. She usually walks with a walker. Patient came in in Hospital emergency center for further evaluation. 85, blood pressure 119/72, pulse ox 90% on room air. Afebrile. CBC was unremarkable. Sodium 140, potassium 3.9, chloride 104, CO2 29, BUN 19 and creatinine 0.64. Blood sugar 119. Liver function tests were normal. ProBNP 251. Echocardiogram reveals EF of 45-50%, moderate concentric left ventricular hypertrophy, mild mitral regurgitation, mild tricuspid regurgitation, mild pulmonary hypertension. Ultrasound of bilateral lower extremities negative for DVT. Lumbar x-ray showed moderate to severe degenerative changes with levoconvex scoliosis and without acute osseous abnormality. No significant interval change. Bilateral ankle and right ordered. Patient admitted to the [facility] floor. Consults in place with cardiology and podiatry added. Discussed discharge plan with the patient and she has been in contact with [facility] and would like to go there at the time of discharge. REVIEW OF SYSTEMS Constitutional: No fever, no chills, no night sweats. No weight change. Reports weakness, no fatigue or lethargy. No daytime sleepiness. EENT: No headache. No blurred vision or double vision, no loss of vision. No dizziness. No nasal drainage or congestion. No epistaxis. No sore throat. Lungs: No shortness of breath, cough, no sputum production. No wheezing. Cardiovascular: No chest pain, Reports lower extremity edema. No palpitations. No paroxysmal nocturnal dyspnea. No orthopnea. No lightheadedness or dizziness. No syncopal episodes. Abdominal: No abdominal pain. No nausea, vomiting. No diarrhea. No constipation. No bloody or tarry stools. No loss of appetite. Genitourinary: No dysuria, increased frequency, urgency. No urinary retention. Musculoskeletal: No myalgias. Reports muscle weakness, Reports gait dysfunction, no frequent falls. Occasional back pain. No neck pain. Integumentary: Reports wounds, no lesions. No rash or pruritus. No unusual bruising. No change in hair or nails. Neurologic: No aphasia. No facial droop. No change in mentation. No head injury. No headache. No paralysis. No paresthesia. Psychiatric: No depression. No anxiety. No mood swings. Endocrine: No abnormal blood sugars. SOCIAL HISTORY Patient was smoker as a teenager only. No alcohol use or street drug use. Patient was at home with her mother. She uses a walker for ambulation.. FAMILY HISTORY Father from prostate cancer. Mother is alive with history of PFO. Patient has one brother with history of gout. Patient's 2 sisters one with no major medical problems and one with generalized osteoarthritis. Patient does not have any children. PHYSICAL EXAMINATION Gen: This is a 64-year-old morbidly obese female. She is sitting up in bed and appears to be comfortable and in no acute distress. HEENT: Head is atraumatic, normocephalic. Pupils equal, round. Sclerae is anicteric. NECK: Supple. No JVD. No lymphadenopathy. No thyromegaly. LUNGS: Clear to auscultation. No wheezes or rhonchi. No intercostal retractions. HEART: Regular rate and rhythm. No murmur. ABDOMEN: Soft. Bowel sounds are present. No masses. No tenderness. EXTREMITIES: Bilat 2+ pedal edema and lymphedema. No calf tenderness. NEUROLOGICAL: Patient is awake, alert and oriented x3. Cranial nerves 2 through 12 are grossly intact. ASSESSMENT AND PLAN 1. Bilateral lower extremity cellulitis with edema and lymphedema. Patient started on ceftriaxone 1 g IV piggyback daily, continue Lasix 40 mg IV every 12 hours, local wound care with Silvadene wraps and elevation. Midodrine 10mg three times daily added due to low blood pressure in order to administer Lasix. 2. Paroxysmal atrial fibrillation. Continue eliquis 5 mg twice daily, Lopressor 50 mg daily. 3. Bilateral ankle pain and right foot pain, x-rays ordered. 4. Hypertension. Continue losartan 25 mg daily, Lopressor, Lasix. 5. Hyperlipidemia. Continue pravastatin 40 mg daily 6. Generalized osteoarthritis. Continue baclofen 10 mg at bedtime. 7. Generalized debility with difficulty ambulating. Consult with PT and OT. 8. GI prophylaxis. Pepcid. 9. DVT prophylaxis. Eliquis. 10. Morbid obesity with BMI of 61. 11. COVID-19 testing negative. Patient has been hospitalized during a pandemic. DISCHARGE PLAN Subacute rehab at [facility] area consult with PT, OT, social work. Impression and plan of care have been directed as dictated by the signing physician. Amrita Alfonso nurse practitioner acting as scribe for signing physician. Past Medical History Past Medical History: Atrial Fibrillation, Hypertension History of Any Multi-Drug Resistant Organisms: None Reported Past Surgical History: Bariatric Surgery, Joint Replacement Additional Past Surgical History / Comment(s): R shoulder, bilat knee replacement, bariatric surgery 2014 Past Anesthesia/Blood Transfusion Reactions: No Reported Reaction Past Psychological History: No Psychological Hx Reported Smoking Status: Never smoker Past Alcohol Use History: None Reported Additional Past Alcohol Use History / Comment(s): Patient was smoker as a teenager only. No alcohol use or street drug use. Patient was at home with her sister and her mother lives next-door. She uses a walker for ambulation. Past Drug Use History: None Reported - Past Family History Father Additional Family Medical History / Comment(s): Father from prostate cancer. Mother Additional Family Medical History / Comment(s): Mother is alive with history of PFO. Brother(s) Additional Family Medical History / Comment(s): Patient has one brother with history of gout. Patient's 2 sisters one with no major medical problems and one with generalized osteoarthritis. Patient does not have any children. Medications and Allergies Home Medications Medication Instructions Recorded Confirmed Type Baclofen 10 mg PO HS@1900 09/03/19 09/19/20 History Furosemide [Lasix] 40 mg PO BID@0700,1900 09/03/19 09/19/20 History Pravastatin Sodium [Pravachol] 40 mg PO DAILY@0700 09/03/19 09/19/20 History Apixaban [Eliquis] 5 mg PO BID@0700,189909/19/20 09/19/20 History Biotin 5 mg PO DAILY@0709/19/20 09/19/20 History Cephalexin [Keflex] 500 mg PO Q6HR 1 Days #4 cap 09/19/20 Rx Cranberry Fruit Concentrate [Azo 250 mg PO BID@0700,189909/19/20 09/19/20 History Cranberry] Losartan [Cozaar] 25 mg PO DAILY@69909/19/20 09/19/20 History Metoprolol Tartrate [Lopressor] 50 mg PO DAILY@69909/19/20 09/19/20 History Allergies Allergy/AdvReac Type Severity Reaction Status Date / Time morphine Allergy Nausea & Verified 09/25/19 08:20 Vomiting Poultry [Mittie] Allergy Swelling Verified 09/25/19 08:20 Sulfa (Sulfonamide Allergy Swelling Verified 09/25/19 08:20 Antibiotics) walnut Allergy Swelling Verified 09/25/19 08:20 Physical Exam Vitals: Vital Signs Temp Pulse Pulse Resp BP BP Pulse Ox 09/20/20 08:00 99.8 F H 85 18 98/56 93 L 09/20/20 02:00 98.3 F 83 17 92/53 98 09/19/20 23:25 77 17 09/19/20 23:00 97.8 F 77 17 109/71 95 09/19/20 21:00 73 20 111/94 98 09/19/20 15:50 98.0 F 77 16 117/76 98 09/19/20 14:00 77 16 120/80 98 09/19/20 13:00 16 09/19/20 10:20 98.0 F 85 18 119/72 98 Intake and Output 09/19/20 09/20/20 09/20/20 22:59 06:59 14:59 Intake Total 500 Balance 500 Intake: Oral 500 Other: # Voids 1 Weight 182.344 kg Results CBC & Chem 7: 09/19/20 11:50 09/19/20 11:50 Labs: Abnormal Lab Results - Last 24 Hours (Table) 09/19/20 Range/Units 11:50 BUN 19 H (7-17) mg/dL Glucose 119 H (74-99) mg/dL Thrombosis Risk Factor Assmnt - Choose All That Apply Each Risk Factor Represents 2 Points: Age 61-74 years Thrombosis Risk Factor Assessment Total Risk Factor Score: 2 Thrombosis Risk Factor Assessment Level: Low Risk
[2020-09-20] MEDS: MIDODRINE 5 MG TAB PO SCH ×2 (12:42→18:18)
--- NOTE | 2020-09-20 14:35 | P.CRDCN ---
History of Present Illness History of present illness: HISTORY OF PRESENTING ILLNESS This is a pleasant 64-year-old female past medical history significant for paroxysmal atrial fibrillation, dyslipidemia hypertension, bilateral knee replacements, bariatric surgery in 2015. 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 She states that her primary care provider manages her atrial fibrillation. We have been asked to see in consultation for atrial fibrillation and bilateral leg swelling. Patient presents to the emergency department with worsening bilateral lower extremity swelling. She has had swelling for over a year after her right knee surgery. She also has right sided leg weeping wounds have been getting worse. Patient usually can walk around her home with a walker. She has been noticing increased fatigue. She denies shortness of edith ath, chest pain, palpitations, lightheadedness, dizziness or any episodes of syncope. She denies any symptoms of orthopnea or PND. Denies history of diabetes, stroke, or MD. She states she is compliant with medication. She denies smoking or alcohol use. on admission patient was started on ceftriaxone, Lasix 40 mg IV twice a day, Midodrine 10mg TID, her home medications including losartan 25 mg daily, Eliquis 5 mg twice a day, and metoprolol titrate 50 mg daily. Echocardiogram revealed left ventricular systolic function is mildly impaired EF 45-50%, RV is severely enlarged, mild mitral regurgitation, mild tricuspid regurgitation, mild pulmonary hypertension, RVSP 38 mmHg. DIAGNOSTICS Venous Dopplers- bilaterally negative for DVT Prior echocardiogram 09/2019 revealed an EF of 40-45% Xray Lumbar spine- moderate to severe degenerative changes with a level, back scoliosis and without acute osseous abnormality. Laboratory reviewed, CBC unremarkable, sodium 140, potassium 3.9, serum crea tinine 0.64, pro-BNP to 51, COVID-19 negative Current home daily cardiac medications include pravastatin 40 mg daily, metoprolol titrate 50 mg daily, losartan 25 mg daily, Lasix 40 mg twice a day, Eliquis 5 mg twice a day REVIEW OF SYSTEMS At the time of my exam: CONSTITUTIONAL: Denies fever or chills. CARDIOVASCULAR: +lower extremity edema Denies chest pain, shortness of breath, orthopnea, PND or palpitations. RESPIRATORY: Denies cough. GASTROINTESTINAL: Denies abdominal pain, diarrhea, constipation, nausea or vomiting. MUSCULOSKELETAL: Denies myalgias. NEUROLOGIC: Denies numbness, tingling, headacbe or weakness. ENDOCRINE: +Fatigue +increase weight Denies polydipsia or polyurina. GENITOURINARY: Denies burning, hematuria or urgency with micturation. HEMATOLOGIC: Denies history of anemia or bleeding. PHYSICAL EXAMINATION CONSTITUTIONAL: No apparent distress. HEENT: Head is normocephalic. Pupils are equal, round. Sclerae anicteric. Mucous membranes of the mouth are moist. No JVD. No carotid bruit. CHEST EXAMINATION: Lungs are clear to auscultation. No chest wall tenderness is noted on palpation or with deep breathing. HEART EXAMINATION: Irregular rate and rhythm. S1, S2 heard. No murmurs, gallops or rub. ABDOMEN: Soft, nontender. Positive bowel sounds. EXTREMITIES: 2+ peripheral pulses,Severe bilateral lower extremity edema. Right is greater than left , bilateral leg pain with palpation. Bilateral foot pain with ambulation SKIN: Right leg/blanc wound open to air. NEUROLOGIC EXAMINATION: Patient is awake, alert and oriented x3. ASSESSMENT Acute on chronic diastolic heart failure Lower extremity edema Paroxysmal atrial fibrillation -[id number] score 2. Patient is on Eliquis History of Hypertension Dyslipidemia Morbid Obesity BMI 61 PLAN Continue patient's home medications- metoprolol tartrate 50 mg daily, losartan 25 mg daily, Eliquis 5 mg twice a day Will obtain EKG Increase IV Lasix to 40mg q6hr Further recommendations following clinical course Nurse Practitioner note has been reviewed, I agree with a documented findings and plan of care. Patient was seen and examined. Past Medical History Past Medical History: Atrial Fibrillation, Hypertension History of Any Multi-Drug Resistant Organisms: None Reported Past Surgical History: Bariatric Surgery, Joint Replacement Additional Past Surgical History / Comment(s): R shoulder, bilat knee replacement, bariatric surgery 2014 Past Anesthesia/Blood Transfusion Reactions: No Reported Reaction Past Psychological History: No Psychological Hx Reported Smoking Status: Never smoker Past Alcohol Use History: None Reported Additional Past Alcohol Use History / Comment(s): Patient was smoker as a teenager only. No alcohol use or street drug use. Patient was at home with her sister and her mother lives next-door. She uses a walker for ambulation. Past Drug Use History: None Reported - Past Family History Father Additional Family Medical History / Comment(s): Father from prostate cancer. Mother Additional Family Medical History / Comment(s): Mother is alive with history of PFO. Brother(s) Additional Family Medical History / Comment(s): Patient has one brother with history of gout. Patient's 2 sisters one with no major medical problems and one with generalized osteoarthritis. Patient does not have any children. Medications and Allergies Home Medications Medication Instructions Recorded Confirmed Type Baclofen 10 mg PO HS@1900 09/03/19 09/19/20 History Furosemide [Lasix] 40 mg PO BID@0700,189909/03/19 09/19/20 History Pravastatin Sodium [Pravachol] 40 mg PO DAILY@0709/03/19 09/19/20 History Apixaban [Eliquis] 5 mg PO BID@0700,189909/19/20 09/19/20 History Biotin 5 mg PO DAILY@69909/19/20 09/19/20 History Cephalexin [Keflex] 500 mg PO Q6HR 1 Days #4 cap 09/19/20 Rx Cranberry Fruit Concentrate [Azo 250 mg PO BID@0700,189909/19/20 09/19/20 History Cranberry] Losartan [Cozaar] 25 mg PO DAILY@0709/19/20 09/19/20 History Metoprolol Tartrate [Lopressor] 50 mg PO DAILY@0709/19/20 09/19/20 History Allergies Allergy/AdvReac Type Severity Reaction Status Date / Time morphine Allergy Nausea & Verified 09/25/19 08:20 Vomiting Poultry [[place]] Allergy Swelling Verified 09/25/19 08:20 Sulfa (Sulfonamide Allergy Swelling Verified 09/25/19 08:20 Antibiotics) walnut Allergy Swelling Verified 09/25/19 08:20 Physical Exam Vitals: Vital Signs Temp Pulse Pulse Resp BP BP Pulse Ox 09/20/20 08:00 99.8 F H 85 18 98/56 93 L 09/20/20 02:00 98.3 F 83 17 92/53 98 09/19/20 23:25 77 17 09/19/20 23:00 97.8 F 77 17 109/71 95 09/19/20 21:00 73 20 111/94 98 09/19/20 15:50 98.0 F 77 16 117/76 98 09/19/20 14:00 77 16 120/80 98 09/19/20 13:00 16 Intake and Output 09/19/20 09/20/20 09/20/20 22:59 06:59 14:59 Intake Total 500 Balance 500 Intake: Oral 500 Other: # Voids 1 Weight 182.344 kg Results 09/19/20 11:50 09/19/20 11:50 Cardiac Enzymes 09/19/20 Range/Units 11:50 AST 23 (14-36) U/L CBC 09/19/20 Range/Units 11:50 WBC 7.3 (3.8-10.6) k/uL RBC 4.59 (3.80-5.40) m/uL Hgb 13.8 (11.4-16.0) gm/dL Hct 43.7 (34.0-46.0) % Plt Count 208 (150-450) k/uL Comprehensive Metabolic Panel 09/19/20 Range/Units 11:50 Sodium 140 (137-145) mmol/L Potassium 3.9 (3.5-5.1) mmol/L Chloride 104 (98-107) mmol/L Carbon Dioxide 29 (22-30) mmol/L BUN 19 H (7-17) mg/dL Creatinine 0.64 (0.52-1.04) mg/dL Glucose 119 H (74-99) mg/dL Calcium 9.0 (8.4-10.2) mg/dL AST 23 (14-36) U/L ALT 12 (4-34) U/L Alkaline Phosphatase 56 (38-126) U/L Total Protein 7.1 (6.3-8.2) g/dL Albumin 3.9 (3.5-5.0) g/dL Current Medications Generic Name Dose Route Start Last Admin Trade Name Freq PRN Reason Stop Dose Admin Acetaminophen 650 mg 09/19/20 16:46 09/19/20 21:33 Acetaminophen Tab 325 Mg Tab PO 650 mg Q6HR PRN Administration Mild Pain or Fever > 100.5 Apixaban 5 mg 09/20/20 07:00 09/20/20 09:31 Apixaban 5 Mg Tab PO 5 mg BID@0700,1900 VINAY Administration Baclofen 10 mg 09/20/20 19:00 Baclofen 10 Mg Tab PO HS@1900 VINAY Furosemide 40 mg 09/20/20 09:00 09/20/20 09:31 Furosemide 10 Mg/Ml 4 Ml Vial IV 40 mg Q12HR VINAY Administration Ceftriaxone Sodium 1 gm/ 50 mls @ 100 mls/hr 09/20/20 09:00 09/20/20 09:32 Sodium Chloride IVPB 100 mls/hr Q12HR VINAY Administration Losartan Potassium 25 mg 09/20/20 07:00 09/20/20 09:31 Losartan 25 Mg Tab PO 25 mg DAILY@0700 VINAY Administration Metoprolol Tartrate 50 mg 09/20/20 07:00 09/20/20 09:31 Metoprolol Tartrate 50 Mg Tab PO 50 mg DAILY@0700 VINAY Administration Midodrine 10 mg 09/20/20 12:30 Midodrine 5 Mg Tab PO AC-TID VINAY Naloxone HCl 0.2 mg 09/19/20 16:46 Naloxone 0.4 Mg/Ml 1 Ml Vial IV Q2M PRN Opioid Reversal Pravastatin Sodium 40 mg 09/20/20 07:00 09/20/20 09:31 Pravastatin Sodium 40 Mg Tab PO 40 mg DAILY@0700 VINAY Administration Silver Sulfadiazine 1 applic 09/20/20 09:45 Silver Sulfadiazine 1% Cream 25 Gm Tube TOPICAL BID VINAY Intake and Output 09/19/20 09/20/20 09/20/20 22:59 06:59 14:59 Intake Total 500 Balance 500 Intake: Oral 500 Other: # Voids 1 Weight 182.344 kg 09/19/20 11:50 09/19/20 11:50
[2020-09-20] MEDS ORDERED: FUROSEMIDE 10 MG/ML 10 ML VIAL IV SCH (16:00)
--- NOTE | 2020-09-20 16:28 | XR ---
EXAMINATION TYPE: XR foot limited RT DATE OF EXAM: 09/20/2020 CLINICAL HISTORY: Wound at the bottom of right foot. TECHNIQUE: Frontal, lateral, and oblique images of the right foot are obtained. COMPARISON: 03/21/2019 FINDINGS: There is bony demineralization. There is a probable subacute fracture of the metatarsal ne ck of the fifth digit. Multiple hammertoe deformities. Pes planus deformity. Prominent plantar calcan eal spur. There is a subcutaneous ulceration at the plantar subcutaneous soft tissues measuring up to 1 cm. No definite evidence of underlying osteomyelitis on this radiographic study. IMPRESSION: 1. Probable subacute fracture of the metatarsal neck of the fifth digit in a region of osteopenia. 2. There is a soft tissue ulceration of the plantar soft tissues of the midfoot. No definite evidence of osteomyelitis. 3. Pes planus deformity.
--- NOTE | 2020-09-20 16:47 | P.CON ---
Consult Note - . Consult date: 09/20/20 Assessment/Plan:: This consultation was performed this date per the request of Amrita DELAROSA regarding elongated dystrophic mycoticly involved nails. This patient is a 64-year-old female with a past medical history of osteoarthritis status post bilateral knee replacements, hypertension, relation the city. Patient is complaining of lower extremity edema, blisters on the bottom of her right foot. She states that her right foot bleeds skin sloughs. States that she uses a 4 x 4 acting insulin right hip pain that's been going on for a couple of years since she had a fall with no fracture. Is on the right lateral hip. She complains of bilateral ankle pain. Patient complains of right lower extremity edema worse asked year and stated that her she'll need were her ago she's had these problems. Shortness of breath the patient denies numbness or tingling remedies and she states that she has occasional back pain the patient states that she usually walks using a walker Symptoms constitutional: No fever no chills no night sweats agents no fatigue or lethargy 9 ENT Kimo no blurred vision no double vision no loss of vision no dizziness no nasal drainage or congestion or throat Lungs no shortness of breath or cough no sputum production no wheezing Vascular: No chest pain it's lower extremity edema. No palpitations or through yoon no lightheadedness or dizziness no syncopal pedal episodes Nominal: Nominal pain no nausea or vomiting no diarrhea no constipation no bloody stools Rectal urinary no dysuria or increase in frequency or urgency tension. Skeletal: L Kd no reports of muscle weakness no gait dysfunction no frequent fallsoccasional back pain no neck pain Neurologic: No aphasia and no facial droop no changes in mentation no head injuries no headaches no paralysis Psychiatric: No depression no anxiety no mood swings history was a smoker as a teenager no alcohol use or street drug use patient lives at home with her mother she uses a walker for ambulation Lower extremity physical examination reveals Tita lower extremities bilaterally pulses and it could be due to edema blanc skin was intact I saw no visible blisters in the plantar aspect of her right foot clonus signs were negative capillary refill is less than 3 seconds to all digits of both feet at her lower extremity cellulitis with edema and lymphedema noted Since nails were thick deformed quite neglected and mycotic Zoran involved involvi ng the digits one through 5 bilaterally Assessment and plan: Bilateral lower extremity cellulitis with edema and lymphedema Paroxymal atrial fibrillation ankle and right foot pain x-rays ordered Hypertensiontention hyperlipidemia Generalized osteoarthritis Generalized debility with difficulty ambulating GI prophylaxisPepcid DVT prophylaxisEliquis Morbid obesity Covid 19 testing negative Onychomycosis 1 through 5 of both feet This date I reduce the patient's nails 1 through 5 bilaterally burring was performed and a septic was applied Thank you For considering me in the care of your patients (
--- NOTE | 2020-09-20 17:11 | XR ---
EXAMINATION TYPE: XR ankle limited bilateral DATE OF EXAM: 09/20/2020 CLINICAL HISTORY: Bilateral ankle pain. No trauma. TECHNIQUE: Frontal, lateral and oblique images of the bilateral ankle are obtained. COMPARISON: Right foot same date Impression:: Right ankle: There is a severe pes planus deformity of the right foot. Prominent plantar calcaneal sp ur. There is extensive osteoarthritis of the right ankle with deformity. There is a right distal mid foot ulceration at the plantar soft tissues measuring approximately 1 cm. No definite evidence of und erlying osteomyelitis. Please see right foot study same date. Left ankle: There is extensive osteoarthritic deformity of the left ankle. There is a severe pes plan us deformity of the left foot. In addition, there is severe hindfoot valgus deformity laterally . Giv en the degree, there is possible extra-articular lateral hindfoot impingement. There is likely a unde rlying fracture of the distal fibula. Correlate with CT or MRI if clinically indicated.
[2020-09-20] MEDS: FUROSEMIDE 10 MG/ML 4 ML VIAL IV SCH (18:18)
[2020-09-20] MEDS: BACLOFEN 10 MG TAB PO SCH (18:18)
[2020-09-21] MEDS: FUROSEMIDE 10 MG/ML 4 ML VIAL IV SCH ×4 (00:26→17:49)
[2020-09-21] MEDS: METOPROLOL TARTRATE 50 MG TAB PO SCH ×2 (09:04→09:05)
[2020-09-21] MEDS: APIXABAN 5 MG TAB PO SCH ×2 (09:05→17:48)
[2020-09-21] MEDS: MIDODRINE 5 MG TAB PO SCH ×3 (09:05→17:47)
[2020-09-21] MEDS: PRAVASTATIN SODIUM 40 MG TAB PO SCH (09:05)
[2020-09-21] MEDS: LOSARTAN 25 MG TAB PO SCH (09:05)
[2020-09-21] MEDS ORDERED: MAG HYDROX/AL HYDROX/SIMETH 30 ML CUP PO PRN (09:18)
[2020-09-21] MEDS ORDERED: ONDANSETRON 4 MG/2 ML VIAL IVP PRN (09:18)
--- NOTE | 2020-09-21 10:51 | XR ---
2 view abdomen HISTORY: Abdominal pain 2 views the abdomen on 4 images Exam somewhat limited by patient body habitus. There are overlying artifacts present. Patient is post lap band. No evident pneumoperitoneum. Gas-filled loops of bowel are noted. No pathologic calcificat ion evident. Is a spinal curvature. Degenerative disc changes are noted in the visualized spine. IMPRESSION: Postop changes. Limitations as described.
[2020-09-21] MEDS: PANTOPRAZOLE 40 MG TABLET PO SCH (11:54)
--- NOTE | 2020-09-21 12:53 | P.PN ---
Subjective This is a pleasant 64-year-old female past medical history significant for paroxysmal atrial fibrillation, dyslipidemia hypertension, bilateral knee replacements, bariatric surgery in 2015. She does not follow with a performance analyst. She states that her primary care provider manages her atrial fibrillation. We have been asked to see in consultation for atrial fibrillation and bilateral leg swelling. Patient presents to the emergency department with worsening bilateral lower extremity swelling. She has had swelling for over a year after her right knee surgery. She also has right sided leg weeping wounds have been getting worse. Patient usually can walk around her home with a walker. She has been noticing increased fatigue. She denies shortness of breath, chest pain, palpitations, lightheadedness, dizziness or any episodes of syncope. She denies any symptoms of orthopnea or PND. Denies history of diabetes, stroke, or [place]. She states she is compliant with medication. She denies smoking or alcohol use. on admission patient was started on ceftriaxone, Lasix 40 mg IV twice a day, Midodrine 10mg TID, her home medications including losartan 25 mg daily, Eliquis 5 mg twice a day, and metoprolol titrate 50 mg daily. Echocardiogram revealed left ventricular systolic function is mildly impaired EF 45-50%, RV is severely enlarged, mild mitral regurgitation, mild tricuspid regurgitation, mild pulmonary hypertension, RVSP 38 mmHg. DIAGNOSTICS Venous Dopplers- bilaterally negative for DVT Prior echocardiogram 09/2019 revealed an EF of 40-45% Xray Lumbar spine- moderate to severe degenerative changes with a level, back scoliosis and without acute osseous abnormality. Left Ankle Xrays- extensive has to direct permanent left ankle. There is severe pes planus deformity left foot. Severe hindfoot valgus deformity laterally. possible extra-articular lateral hindfoot impingement. Likely underlying fracutre of the distal fibula Left Foot Xray- probably subacute fracture of the metatarsal neck of the anisa digit. Pes Planus deformity 09/21/2020: Patient seen and examined at bedside. Complaints of nausea and abdominal pain, plan for xray abdomen today. No new lab data today. Currently being maintained on include pravastatin 40 mg daily, metoprolol titrate 50 mg daily, losartan 25 mg daily, IV Lasix 40mg Q6hr, Eliquis 5 mg twice a day. Vital signs are stable. Rate is controlled. BP 102/58 HR 73, afebrile SpO2 97% on room air PHYSICAL EXAMINATION CONSTITUTIONAL: No apparent distress. HEENT: Head is normocephalic. No JVD. No carotid bruit. CHEST EXAMINATION: Lungs are clear to auscultation. No chest wall tenderness is noted on palpation or with deep breathing. HEART EXAMINATION: Irregular rate and rhythm. S1, S2 heard. No murmurs, gallops or rub. ABDOMEN: Soft, nontender. Positive bowel sounds. EXTREMITIES: 2+ peripheral pulses,Severe bilateral lower extremity edema. Right is greater than left , bilateral leg pain with palpation. Bilateral foot pain with ambulation SKIN: Right leg/blanc wound open to air. NEUROLOGIC EXAMINATION: Patient is awake, alert and oriented x3. ASSESSMENT Lower extremity cellulitis and edema, does not appear to be in failure. Paroxysmal atrial fibrillation -[id number] score 2. Patient is on Eliquis History of Hypertension Dyslipidemia Morbid Obesity BMI 61 Possible left distal fibula fracture seen on xray Probable subacute fracture of the metatarsal neck of the fifth digit on xray PLAN Patient does not appear to be in heart failure, EF 45-50% Continue patient's home medications- metoprolol tartrate 50 mg daily, losartan 25 mg daily, Eliquis 5 mg twice a day IV diuretics per primary We will follow the patient as needed. Please reach out for further questions or concerns. Nurse Practitioner note has been reviewed, I agree with a documented findings and plan of care. Patient was seen and examined. Objective - Vital Signs Vital signs: Vital Signs Temp 98 F 09/21/20 07:26 Pulse 61 09/21/20 08:00 Resp 18 09/21/20 07:26 BP 102/58 09/21/20 07:26 Pulse Ox 97 09/21/20 07:26 Intake & Output 09/20/20 09/21/20 09/21/20 18:59 06:59 18:59 Intake Total 500 Balance 500 Weight 182.344 kg 177.5 kg Intake: Oral 500 Other: Voiding Method External Catheter # Voids 1 1 5 - Labs CBC & Chem 7: 09/19/20 11:50 09/19/20 11:50
--- NOTE | 2020-09-21 12:54 | P.PN ---
Subjective Progress Note Date: 09/21/20 HISTORY OF PRESENT ILLNESS This is a 64-year-old female with past medical history of osteoarthritis status post bilateral knee replacement, hypertension, paroxysmal atrial fibrillation, morbid obesity. Patient is complaining of lower extremity edema, blisters on the bottom of the right foot, she states her right foot bleeds and gentle skin come off. She usually puts a 4 x 4 on her foot with her sock. She complains of right hip pain that has been going on for a couple years since she had a fall with no fracture at the time. Pain is on the right lateral hip. She complains of bilateral ankle pain. Patient complains of right lower extremity edema worse this been going on for one year. She states that ever since she had a partial knee arthroplasty done a year ago. She denies any shortness of breath, known nausea. No numbness or tingling. She states she o ccasionally have back pain. She usually walks with a walker. Patient came in in Hospital emergency center for further evaluation. 85, blood pressure 119/72, pulse ox 90% on room air. Afebrile. CBC was unremarkable. Sodium 140, potassium 3.9, chloride 104, CO2 29, BUN 19 and creatinine 0.64. B lood sugar 119. Liver function tests were normal. ProBNP 251. Echocardiogram reveals EF of 45-50%, moderate concentric left ventricular hypertrophy, mild mitral regurgitation, mild tricuspid regurgitation, mild pulmonary hypertension. Ultrasound of bilateral lower extremities negative for DVT. Lumbar x-ray showed moderate to severe degenerative changes with levoconvex scoliosis and without acute osseous abnormality. No significant interval change. Bilateral ankle and right ordered. Patient admitted to the [facility] floor. Consults in place with cardiology and podiatry added. Discussed discharge plan with the patient and [facility] [place] and would like to go there at the time of discharge. 09/21: Echocardiogram reveals EF of 45-50%, moderate concentric left ventricular hypertrophy, right ventricle severely enlarged, mild mitral regurgitation, mild tricuspid regurgitation, mild pulmonary hypertension. Patient has been seen by cardiology with recommendations to continue her home medications and increase IV Lasix to 40 mg every 6 hours. Cardiology will sign off after today. X-ray of the bilateral ankles revealed extensive osteoarthritis in the right ankle but left ankle did show likely an underlying fracture of the distal fibula and correlate for CAT scan or MRI. CAT scan of the left ankle has been ordered. Right foot x-ray showed probable subacute fracture of metatarsal neck of the fifth digit in the region of osteopenia. There is soft tissue ulceration on the plantar soft tissue of the midfoot. No definite evidence of osteomyelitis. Patient has no tenderness at the fifth digit area. Patient has been seen by podiatry and the toenails have been trimmed. Consult with orthopedic surgery has been added to evaluate possible left fibula fracture. Patient denies shortness of breath, no chest pain. She does complain of nausea that started this morning and some mild right upper quadrant and left lower quadrant tenderness and a little bloating. Abdominal x-ray revealed postoperative changes and exam limited due to body habitus. Patient has been seen by PT and OT with recommendations for subacute rehab. Discharge to subacute rehab is in place and most likely patient will be ready for discharge tomorrow. REVIEW OF SYSTEMS Constitutional: No fever, no chills, no night sweats. No weight change. Reports weakness, no fatigue or lethargy. No daytime sleepiness. EENT: No headache. No blurred vision or double vision, no loss of vision. No dizziness. No nasal drainage or congestion. No epistaxis. No sore throat. Lungs: No shortness of breath, cough, no sputum production. No wheezing. Cardiovascular: No chest pain, Reports lower extremity edema. No palpitations. No paroxysmal nocturnal dyspnea. No orthopnea. No lightheadedness or dizziness. No syncopal episodes. Abdominal: No abdominal pain. No nausea, vomiting. No diarrhea. No constipation. No bloody or tarry stools. No loss of appetite. Genitourinary: No dysuria, increased frequency, urgency. No urinary retention. Musculoskeletal: No myalgias. Reports muscle weakness, Reports gait dysfunction, no frequent falls. Occasional back pain. No neck pain. Integumentary: Reports wounds, no lesions. No rash or pruritus. No unusual bruising. No change in hair or nails. Neurologic: No aphasia. No facial droop. No change in mentation. No head injury. No headache. No paralysis. No paresthesia. Psychiatric: No depression. No anxiety. No mood swings. Endocrine: No abnormal blood sugars. PHYSICAL EXAMINATION Gen: This is a 64-year-old morbidly obese female. She is sitting up in bed and appears to be comfortable and in no acute distress. HEENT: Head is atraumatic, normocephalic. Pupils equal, round. Sclerae is anicteric. NECK: Supple. No JVD. No lymphadenopathy. No thyromegaly. LUNGS: Clear to auscultation. No wheezes or rhonchi. No intercostal retractions. HEART: Regular rate and rhythm. No murmur. ABDOMEN: Soft. Bowel sounds are present. No masses. No tenderness. EXTREMITIES: Bilat 2+ pedal edema and lymphedema. No calf tenderness. NEUROLOGICAL: Patient is awake, alert and oriented x3. Cranial nerves 2 through 12 are grossly intact. ASSESSMENT AND PLAN 1. Bilateral lower extremity cellulitis with edema and lymphedema. Patient started on ceftriaxone 1 g IV piggyback daily, continue Lasix 40 mg IV every 6 hours, local wound care with Silvadene wraps and elevation. Midodrine 10mg three times daily added due to low blood pressure in order to administer Lasix. 2. Paroxysmal atrial fibrillation. Continue eliquis 5 mg twice daily, Lopressor 50 mg daily. 3. Bilateral ankle pain and right foot pain, x-rays ordered. 4. Hypertension. Continue losartan 25 mg daily, Lopressor, Lasix. 5. Hyperlipidemia. Continue pravastatin 40 mg daily 6. Generalized osteoarthritis. Continue baclofen 10 mg at bedtime. 7. Generalized debility with difficulty ambulating. Consult with PT and OT. 8. GI prophylaxis. Pepcid. 9. DVT prophylaxis. Eliquis. 10. Morbid obesity with BMI of 61. 11. COVID-19 testing negative. Patient has been hospitalized during a pandemic. DISCHARGE PLAN Subacute rehab at [facility] on Friday. Impression and plan of care have been directed as dictated by the signing physician. Amrita Alfonso nurse practitioner acting as scribe for signing physician. Objective - Vital Signs Vital signs: Vital Signs Temp 98 F 09/21/20 07:26 Pulse 61 09/21/20 08:00 Resp 18 09/21/20 07:26 BP 102/58 09/21/20 07:26 Pulse Ox 97 09/21/20 07:26 Intake & Output 09/20/20 09/21/20 09/21/20 18:59 06:59 18:59 Intake Total 500 Balance 500 Weight 182.344 kg 177.5 kg Intake: Oral 500 Other: Voiding Method External Catheter # Voids 1 1 5 - Labs CBC & Chem 7: 09/19/20 11:50 09/19/20 11:50
--- NOTE | 2020-09-21 13:18 | P.CNOR ---
History of Present Illness - [facility] Consult date: 09/21/20 Consult reason: joint pain (Bilateral ankle pain) History of present illness: Patient is a 64-year-old female who presented to [facility] a few days ago with regards to bilateral lower extremity pain, weakness and swelling. She has a very extensive history with regards to her bilateral lower extremities. Patient apparently lives in a trailer which has multiple steps to get into, she states that she's been staying with her mother recently. Patient states that she had swelling in the bilateral lower extremities for many years. She states that she had a recent revision knee replacement on the right side done by Dr. Carter, this was done last year. She also has history of a left total knee arthroplasty. Patient has chronic lymphedema in the bilateral lower extremities, she deals with weeping wounds mainly on the right side. She has been seen in the wound clinic previously for a wound on her right foot. She states that the bilateral ankles and feet along with the upper parts of the lower legs are painful. She states that the pain does come and go depending on her activity level. Patient states utilize a walker for ambulation. Patient denies any recent trauma, this too including falls. She states that about a year ago she had 3 separate falls. She was never diagnosed any fractures or dislocations of the bilateral lower extremities. Today bedside, she notes most discomfort in the ankles and feet bilaterally. She has general achiness in the bilateral lower extremities, this below the knee. She denies any hip pain bilaterally. She denies any knee pain bilaterally. She denies any new onset cervical, thoracic or lumbar pain. Review of Systems Constitutional: Reports as per [facility] Past Medical History Past Medical History: Atrial Fibrillation, Hypertension History of Any Multi-Drug Resistant Organisms: None Reported Past Surgical History: Bariatric Surgery, Joint Replacement Additional Past Surgical History / Comment(s): R shoulder, bilat knee replacement, bariatric surgery 2014 Past Anesthesia/Blood Transfusion Reactions: No Reported Reaction Past Psychological History: No Psychological Hx Reported Smoking Status: Never smoker Past Alcohol Use History: None Reported Additional Past Alcohol Use History / Comment(s): Patient was smoker as a teenager only. No alcohol use or street drug use. Patient was at home with her sister and her mother lives next-door. She uses a walker for ambulation. Past Drug Use History: None Reported - Past Family History Father Additional Family Medical History / Comment(s): Father from prostate cancer. Mother Additional Family Medical History / Comment(s): Mother is alive with history of PFO. Brother(s) Additional Family Medical History / Comment(s): Patient has one brother with history of gout. Patient's 2 sisters one with no major medical problems and one with generalized osteoarthritis. Patient does not have any children. Medications and Allergies Home Medications Medication Instructions Recorded Confirmed Type Baclofen 10 mg PO HS@1900 09/03/19 09/19/20 History Furosemide [Lasix] 40 mg PO BID@0700,1900 09/03/19 09/19/20 History Pravastatin Sodium [Pravachol] 40 mg PO DAILY@0700 09/03/19 09/19/20 History Apixaban [Eliquis] 5 mg PO BID@0700,189909/19/20 09/19/20 History Biotin 5 mg PO DAILY@0700 09/19/20 09/19/20 History Cephalexin [Keflex] 500 mg PO Q6HR 1 Days #4 cap 09/19/20 Rx Cranberry Fruit Concentrate [Azo 250 mg PO BID@0700,1900 09/19/20 09/19/20 History Cranberry] Losartan [Cozaar] 25 mg PO DAILY@0700 09/19/20 09/19/20 History Metoprolol Tartrate [Lopressor] 50 mg PO DAILY@0700 09/19/20 09/19/20 History Allergies Allergy/AdvReac Type Severity Reaction Status Date / Time morphine Allergy Nausea & Verified 09/25/19 08:20 Vomiting Poultry [[place]] Allergy Swelling Verified 09/20/20 15:49 Sulfa (Sulfonamide Allergy Swelling Verified 09/25/19 08:20 Antibiotics) walnut Allergy Swelling Verified 09/25/19 08:20 Physical Examination Right lower extremity: Severe lymphedema noted of the right lower extremity, there is an Cheo bandage present from the knee down to the ankle. There is a well-healed incision over the anterior aspect of the knee. There is no erythema appreciated around the knee. There is obvious deformity of the right foot and ankle. There is significant edema in the foot also. I'm unable to visualize any open wounds or lesions of the ankle or foot. Patient is able to wiggle the toes with no difficulty, plantarflexion, dorsiflexion are intact. Her sensation to light kareem ch is intact throughout the extremity. The skin is warm to touch, I was unable to appreciate a dorsalis pedis pulse due to body habitus. Patient had generalized tenderness with palpation throughout the midfoot, hindfoot and medial and lateral aspects of the ankle. No worsening tenderness with palpation over the metatarsal head of the fifth digit. Patient noted no pain with palpation of the calf . Her sensation to light touch left extremity is intact. Left lower extremity: Severe lymphedema noted of the left lower extremity. There is erythema present in the lower blanc area with chronic skin changes. Well-healed incision over the anterior aspect of the knee. Obvious deformity of the left foot and ankle. There is significant edema in the foot. I'm unable to visualize any open lesio ns or wounds of left foot. She is able to wiggle the toes no difficulty. Plantar fasciitis, dorsiflexion are intact. Sensation to light touch throughout the extremity is intact. Skin is warm to touch, unable to appreciate dorsalis pedis pulse due to body habitus. She again demonstrates generalized tenderness with palpation throughout the foot and ankle, including the midfoot and hindfoot. No worsening pain with palpation over the lateral malleolus. calf is soft, no tenderness with palpation. Sensation to light touch throughout the extremity is intact. Results - Labs Labs: H & H 09/19/20 Range/Units 11:50 Hgb 13.8 (11.4-16.0) gm/dL Hct 43.7 (34.0-46.0) % Result Diagrams: 09/19/20 11:50 09/19/20 11:50 - Diagnostic results Ankle/Foot x-ray: report reviewed, image reviewed Ankle/Foot MRI: report reviewed, image reviewed Assessment and Plan Assessment: Bilateral lower extremity/foot and ankle pain Bilateral foot/ankle arthritis Bilateral pes planus deformity Bilateral lower extremity lymphedema Plan: Imaging: Multiple imaging test were done of the left and right ankle and foot. A computed tomography scan was also reviewed of the right ankle along with reports. I'm unable to appreciate any acute fractures or dislocations of the bilateral foot/ankle. She has obvious severe arthritic changes of the bilateral ankles, hindfoot and midfoot. Severe pes planus deformity is appreciated. No other acute osseous abnormalities were appreciated Plan: I was able to discuss the case, including both physical exam findings and imaging studies might attending Dr. Harrell. No orthopedic surgical intervention recommended at this time With the patient's body habitus, she would not tolerate a Cam Walker boot or hina shoe. Noted at bedside are a good supportive athletic shoe. I recommend that the patient utilizes at all times when ambulating Recommend icing and elevating of the bilateral lower extremities Pain control, continue with nonsteroidals and Tylenol Other clinical laboratory medical director recommendations We'll be available for any further questions regarding this patient Time with Patient: Less than 30
--- NOTE | 2020-09-21 13:21 | CT ---
EXAMINATION TYPE: CT ankle RT wo con DATE OF EXAM: 09/21/2020 COMPARISON: Plain film radiographs 09/20/2020 HISTORY: right ankle pain with limited range of motion. CT DLP: 203.[address] of the right ankle with reconstruction imaging. TECHNIQUE: Unenhanced CT of the right ankle was performed with bone and soft tissue window settings s ubmitted in the axial coronal and sagittal planes. At a separate workstation [id number] TR imaging was obta ined. FINDINGS: There is nonacute fracture noted to involve the neck of the fifth metatarsal with callus fo rming seen. No additional fractures are identified at this time. There is a pes planus deformity note d of the right foot. Severe degenerative change noted of the midfoot and ankle mortise. Subchondral c yst formation and bony spur formation noted. There is soft tissue deformity and edema noted throughou t. Plantar calcaneal spur is identified. IMPRESSION: 1. Nonacute fracture involving the neck of the fifth metatarsal. 2. No acute fractures or dislocations seen. 3. Advanced degenerative changes as discussed above.
[2020-09-21 13:54] LABS: African American GFR (CKD) 106.9 (60.0-200.0); Anion Gap 10.1 mmol/L (4.00-12.00); Calcium 8.7 mg/dL (8.7-10.3); Carbon Dioxide 27.9 mmol/L (21.6-31.8); Magnesium 1.7 mg/dL (1.5-2.4); Non-African American GFR(CKD) 92.2 (60.0-200.0); Potassium 3.7 mmol/L (3.5-5.5)
[2020-09-21] MEDS ORDERED: Potassium Replacement Protocol 1 EACH MISC MISCELLANE PRN (17:03)
[2020-09-21] MEDS: BACLOFEN 10 MG TAB PO SCH (17:48)
[2020-09-21] MEDS ORDERED: POTASSIUM CHLORIDE ER 20 MEQ TAB.ER PO SCH (18:00)
[2020-09-22] MEDS: FUROSEMIDE 10 MG/ML 4 ML VIAL IV SCH ×3 (00:12→12:34)
[2020-09-22] MEDS: ACETAMINOPHEN TAB 325 MG TAB PO PRN (02:31)
[2020-09-22] MEDS: METOPROLOL TARTRATE 50 MG TAB PO SCH (07:50)
[2020-09-22] MEDS: PANTOPRAZOLE 40 MG TABLET PO SCH (07:50)
[2020-09-22] MEDS: APIXABAN 5 MG TAB PO SCH ×2 (07:51→20:11)
[2020-09-22] MEDS: PRAVASTATIN SODIUM 40 MG TAB PO SCH (07:51)
[2020-09-22] MEDS: LOSARTAN 25 MG TAB PO SCH (07:51)
[2020-09-22] MEDS: MIDODRINE 5 MG TAB PO SCH ×3 (07:51→17:37)
--- NOTE | 2020-09-22 09:23 | P.DS ---
Providers Date of admission: 09/19/20 17:53 Expected date of discharge: 09/22/20 Attending physician: Lawanda Guzman Consults: 09/19/20 16:56 Consult Physician Urgent Consulting Provider: Francisco Javier Leiva Consult Reason/Comments: afib, leg swelling Do you want consulting provider notified?: Yes 09/20/20 09:40 Consult Physician Routine Consulting Provider: Alvaro Morataya Consult Reason/Comments: toenails Do you want consulting provider notified?: Yes 09/21/20 09:16 Consult Physician Routine Consulting Provider: Blaine Harrell Consult Reason/Comments: poss right MT fx, left fib fx Do you want consulting provider notified?: Yes Primary care physician: [facility] Course: HISTORY OF PRESENT ILLNESS This is a 64-year-old female with past medical history of osteoarthritis status post bilateral knee replacement, hypertension, paroxysmal atrial fibrillation, morbid obesity. Patient is complaining of lower extremity edema, blisters on the bottom of the right foot, she states her right foot bleeds and gentle skin come off. She usually puts a 4 x 4 on her foot with her sock. She complains of right hip pain that has been going on for a couple years since she had a fall with no fracture at the time. Pain is on the right lateral hip. She complains of bilateral ankle pain. Patient complains of right lower extremity edema worse this been going on for one year. She states that ever since she had a partial knee arthroplasty done a year ago. She denies any shortness of breath, known nausea. No numbness or tingling. She states she occasionally have back pain. She usually walks with a walker. Patient came in in Hospital emergency center for further evaluation. 85, blood pressure 119/72, pulse ox 90% on room air. Afebrile. CBC was unremarkable. Sodium 140, potassium 3.9, chloride 104, CO2 29, BUN 19 and creatinine 0.64. Blood sugar 119. Liver function tests were normal. ProBNP 251. Echocardiogram reveals EF of 45-50%, moderate concentric left ventricular hypertrophy, mild mitral regurgitation, mild tricuspid regurgitation, mild pulmonary hypertension. Ultrasound of bilateral lower extremities negative for DVT. Lumbar x-ray showed moderate to severe degenerative changes with levoconvex scoliosis and without acute osseous abnormality. No significant interval change. Bilateral ankle and right ordered. Patient admitted to the [facility] floor. Consults in place with cardiology and podiatry added. Discussed discharge plan with the patient and she has been in contact with [facility] and would like to go there at the time of discharge. 09/21: Echocardiogram reveals EF of 45-50%, moderate concentric left ventricular hypertrophy, right ventricle severely enlarged, mild mitral regurgitation, mild tricuspid regurgitation, mild pulmonary hypertension. Patient has been seen by cardiology with recommendations to continue her home medications and increase IV Lasix to 40 mg every 6 hours. Cardiology will sign off after today. X-ray of the bilateral ankles revealed extensive osteoarthritis in the right ankle but left ankle did show likely an underlying fracture of the distal fibula and correlate for CAT scan or MRI. CAT scan of the left ankle has been ordered. Right foot x-ray showed probable subacute fracture of metatarsal neck of the fifth digit in the region of osteopenia. There is soft tissue ulceration on the plantar soft tissue of the midfoot. No definite evidence of osteomyelitis. Patient has no tenderness at the fifth digit area. Patient has been seen by podiatry and the toenails have been trimmed. Consult with orthopedic surgery has been added to evaluate possible left fibula fracture. Patient denies shortness of breath, no chest pain. She does complain of nausea that started this morning and some mild right upper quadrant and left lower quadrant tenderness and a little bloating. Abdominal x-ray revealed postoperative changes and exam limited due to body habitus. Patient has been seen by PT and OT with recommendations for subacute rehab. Discharge to subacute rehab is in place and most likely patient will be ready for discharge tomorrow. 09/22: Patient underwent CAT scan of the right ankle yesterday that found nonacute fracture involving the neck of the fifth metatarsal. No acute fractures or dislocations seen. Advanced degenerative changes. Patient has been seen by orthopedics with recommendations for total contact casting of the right lower extremity. No orthopedic surgical intervention. Patient denies any new complaints. CAT scan of the left lower leg revealed chronic deformity of the distal fibula. No acute fractures visible. This was reviewed by orthopedics and recommended weightbearing as tolerated and supportive shoe. She is on IV Lasix will be transitioned to oral Lasix and start metolazone once weekly. Vitamin C will be added, patient will be continued on Keflex for another 7 days. Patient will need follow-up with podiatry as an outpatient for surgical shoe and custom orthotics for charcot foot blateral and ulcers on the right along with callus formations. Patient will be discharged to rehab today in stable condition. ASSESSMENT AND PLAN 1. Bilateral lower extremity cellulitis with edema and lymphedema. 2. Paroxysmal atrial fibrillation. 3. Bilateral ankle pain and right foot pain, x-rays ordered. 4. Hypertension. 5. Hyperlipidemia. 6. Generalized osteoarthritis. 7. Generalized debility with difficulty ambulating. 8. Morbid obesity with BMI of 61. 9. COVID-19 testing negative. Patient has been hospitalized during a pandemic. DISCHARGE PLAN [facility] on Friday. Impression and plan of care have been directed as dictated by the signing physician. Amrita Alfonso nurse practitioner acting as scribe for signing physician. Patient Condition at Discharge: Good Plan - Discharge Summary Discharge Rx Participant: No New Discharge Prescriptions: New Potassium Chloride ER [K-Dur 20] 20 meq PO DAILY #30 tab Mag Hydrox/Al Hydrox/Simeth [Maalox] 30 ml PO Q4HR PRN ml PRN Reason: Gi Upset SILVER sulfADIAZINE CREAM [Silvadene Cream] 1 applic TOPICAL BID applic metOLazone [Zaroxolyn] 5 mg PO MO #30 tablet Cephalexin [Keflex] 500 mg PO Q8HR 7 Days #21 cap Midodrine [ProAmatine] 10 mg PO AC-TID tab Pantoprazole [Protonix] 40 mg PO AC-BRKFST tablet. Cholecalciferol (Vitamin D3) [Vitamin D3 (3000 Iu)] 75 mcg PO DAILY #30 tab Continue Furosemide [Lasix] 40 mg PO BID@0700,1900 Baclofen 10 mg PO HS@1900 Pravastatin Sodium [Pravachol] 40 mg PO DAILY@0700 Biotin 5 mg PO DAILY@0700 Cranberry Fruit Concentrate [Azo Cranberry] 250 mg PO BID@0700,1900 Metoprolol Tartrate [Lopressor] 50 mg PO DAILY@0700 Apixaban [Eliquis] 5 mg PO BID@0700,1900 Discontinued Losartan [Cozaar] 25 mg PO DAILY@0700 Discharge Medication List Baclofen 10 mg PO HS@1900 09/03/19 [History] Furosemide [Lasix] 40 mg PO BID@0700,1900 09/03/19 [History] Pravastatin Sodium [Pravachol] 40 mg PO DAILY@0700 09/03/19 [History] Apixaban [Eliquis] 5 mg PO BID@0700,1900 09/19/20 [History] Biotin 5 mg PO DAILY@0700 09/19/20 [History] Cranberry Fruit Concentrate [Azo Cranberry] 250 mg PO BID@0700,1900 09/19/20 [History] Metoprolol Tartrate [Lopressor] 50 mg PO DAILY@0700 09/19/20 [History] Cephalexin [Keflex] 500 mg PO Q8HR 7 Days #21 cap 09/22/20 [Rx] Cholecalciferol (Vitamin D3) [Vitamin D3 (3000 Iu)] 75 mcg PO DAILY #30 tab 09/22/20 [Rx] Mag Hydrox/Al Hydrox/Simeth [Maalox] 30 ml PO Q4HR PRN ml 09/22/20 [Rx] Midodrine [ProAmatine] 10 mg PO AC-TID tab 09/22/20 [Rx] Pantoprazole [Protonix] 40 mg PO AC-BRKFST tablet. 09/22/20 [Rx] Potassium Chloride ER [K-Dur 20] 20 meq PO DAILY #30 tab 09/22/20 [Rx] SILVER sulfADIAZINE CREAM [Silvadene Cream] 1 applic TOPICAL BID applic 09/22/20 [Rx] metOLazone [Zaroxolyn] 5 mg PO MO #30 tablet 09/22/20 [Rx] Follow up Appointment(s)/Referral(s): MarceloLomaryjane núñez [facility], [NON-STAFF] - As Needed Alvaro Roldan MD [Primary Care Provider] - 1 Week (after discharge from [facility]) Patient Instructions/Handouts: Cellulitis (ED) Activity/Diet/Wound Care/Special Instructions: Increase your Lasix 40mg to 3 times a day (every 8 hours). Take antibiotics as prescribed. Follow-up with your primary care doctor next week. Discharge Disposition: TRANSFER TO SNF/ECF
--- NOTE | 2020-09-22 10:50 | CT ---
EXAMINATION TYPE: CT lower leg LT wo con DATE OF EXAM: 09/22/2020 COMPARISON: 09/20/2020 plain films HISTORY: Fibula fracture, see plain films CT DLP: 1098 mGycm Automated exposure control for dose reduction was used. Unenhanced CT of the left lower extremity was performed from above the knee through the ankle mortise. Bone and soft tissue window settings are green bmitted. FINDINGS: There is chronic deformity of the distal fibula without acute fracture noted at this time. Multiple a djacent bony fragments noted likely reflecting chronic avulsions. The remainder of the fibula is inta ct. Total knee arthroplasty noted about the knee with femoral and tibial components appearing well se ated. No evidence for acute tibial fracture. There is severe pes planus deformity of the left foot. S evere lateral hindfoot valgus deformity noted. Advanced degenerative changes are noted about the ankl e and midfoot. IMPRESSION: CHRONIC DEFORMITY OF THE DISTAL FIBULA. NO ACUTE FRACTURE IS VISIBLE.
[2020-09-22 11:52] LABS: African American GFR (CKD) 90.9 (60.0-200.0); Anion Gap 7.7 mmol/L (4.00-12.00); BUN/Creat Ratio 16.25 Ratio (12.00-20.00); Calcium 8.7 mg/dL (8.7-10.3); Carbon Dioxide 31.3 mmol/L (21.6-31.8); Non-African American GFR(CKD) 78.5 (60.0-200.0); Potassium 3.6 mmol/L (3.5-5.5)
[2020-09-22] MEDS: FUROSEMIDE 40 MG TAB PO SCH ×2 (16:06→20:11)
[2020-09-22] MEDS: BACLOFEN 10 MG TAB PO SCH (20:11)
[2020-09-23] MEDS: ACETAMINOPHEN TAB 325 MG TAB PO PRN ×4 (02:44→23:32)
[2020-09-23] MEDS: FUROSEMIDE 40 MG TAB PO SCH ×3 (08:09→19:56)
[2020-09-23] MEDS: APIXABAN 5 MG TAB PO SCH ×2 (08:09→19:56)
[2020-09-23] MEDS: METOPROLOL TARTRATE 50 MG TAB PO SCH (08:09)
[2020-09-23] MEDS: LOSARTAN 25 MG TAB PO SCH (08:09)
[2020-09-23] MEDS: PRAVASTATIN SODIUM 40 MG TAB PO SCH (08:09)
[2020-09-23] MEDS: MIDODRINE 5 MG TAB PO SCH ×3 (08:09→17:08)
[2020-09-23] MEDS: PANTOPRAZOLE 40 MG TABLET PO SCH (08:10)
--- NOTE | 2020-09-23 11:04 | P.PN ---
Subjective Progress Note Date: 09/23/20 HISTORY OF PRESENT ILLNESS This is a 64-year-old female with past medical history of osteoarthritis status post bilateral knee replacement, hypertension, paroxysmal atrial fibrillation, morbid obesity. Patient is complaining of lower extremity edema, blisters on the bottom of the right foot, she states her right foot bleeds and gentle skin come off. She usually puts a 4 x 4 on her foot with her sock. She complains of right hip pain that has been going on for a couple years since she had a fall with no fracture at the time. Pain is on the right lateral hip. She complains of bilateral ankle pain. Patient complains of right lower extremity edema worse this been going on for one year. She states that ever since she had a partial knee arthroplasty done a year ago. She denies any shortness of breath, known nausea. No numbness or tingling. She states she o ccasionally have back pain. She usually walks with a walker. Patient came in in Hospital emergency center for further evaluation. 85, blood pressure 119/72, pulse ox 90% on room air. Afebrile. CBC was unremarkable. Sodium 140, potassium 3.9, chloride 104, CO2 29, BUN 19 and creatinine 0.64. B lood sugar 119. Liver function tests were normal. ProBNP 251. Echocardiogram reveals EF of 45-50%, moderate concentric left ventricular hypertrophy, mild mitral regurgitation, mild tricuspid regurgitation, mild pulmonary hypertension. Ultrasound of bilateral lower extremities negative for DVT. Lumbar x-ray showed moderate to severe degenerative changes with levoconvex scoliosis and without acute osseous abnormality. No significant interval change. Bilateral ankle and right ordered. Patient admitted to the [facility] floor. Consults in place with cardiology and podiatry added. Discussed discharge plan with the patient and she has been in contact [facility] [place] and would like to go there at the time of discharge. 09/21: Echocardiogram reveals EF of 45-50%, moderate concentric left ventricular hypertrophy, right ventricle severely enlarged, mild mitral regurgitation, mild tricuspid regurgitation, mild pulmonary hypertension. Patient has been seen by cardiology with recommendations to continue her home medications and increase IV Lasix to 40 mg every 6 hours. Cardiology will sign off after today. X-ray of the bilateral ankles revealed extensive osteoarthritis in the right ankle but left ankle did show likely an underlying fracture of the distal fibula and correlate for CAT scan or MRI. CAT scan of the left ankle has been ordered. Right foot x-ray showed probable subacute fracture of metatarsal neck of the fifth digit in the region of osteopenia. There is soft tissue ulceration on the plantar soft tissue of the midfoot. No definite evidence of osteomyelitis. Patient has no tenderness at the fifth digit area. Patient has been seen by podiatry and the toenails have been trimmed. Consult with orthopedic surgery has been added to evaluate possible left fibula fracture. Patient denies shortness of breath, no chest pain. She does complain of nausea that started this morning and some mild right upper quadrant and left lower quadrant tenderness and a little bloating. Abdominal x-ray revealed postoperative changes and exam limited due to body habitus. Patient has been seen by PT and OT with recommendations for subacute rehab. Discharge to subacute rehab is in place and most likely patient will be ready for discharge tomorrow. 09/22: Patient underwent CAT scan of the right ankle yesterday that found nonacute fracture involving the neck of the fifth metatarsal. No acute fractures or dislocations seen. Advanced degenerative changes. Patient has been seen by orthopedics with recommendations for total contact casting of the right lower extremity. No orthopedic surgical intervention. Patient denies any new complaints. CAT scan of the left lower leg revealed chronic deformity of the distal fibula. No acute fractures visible. This was reviewed by orthopedics and recommended weightbearing as tolerated and supportive shoe. She is on IV Lasix will be transitioned to oral Lasix and start metolazone once weekly. Vitamin C will be added, patient will be continued on Keflex for another 7 days. Patient will need follow-up with podiatry as an outpatient for surgical shoe and custom orthotics for charcot foot blateral and ulcers on the right along with callus formations. Patient will be discharged to rehab today in stable condition. Waiting for insurance authorization for rehab. 09/23: Insurance authorization has not yet been obtained. We will plan for patient to be discharged if this can be done today. She has a female catheter in place and Lasix has been changed to 40 mg oral 3 times daily and Zaroxolyn was added on Mondays. Patient denies any new complaints. She has been afebrile, heart rate 64, blood pressure 118/71, pulse ox 91% on room air. Anticipate possible discharge later today. REVIEW OF SYSTEMS Constitutional: No fever, no chills, no night sweats. No weight change. Reports weakness, no fatigue or lethargy. No daytime sleepiness. EENT: No headache. No blurred vision or double vision, no loss of vision. No dizziness. No nasal drainage or congestion. No epistaxis. No sore throat. Lungs: No shortness of breath, cough, no sputum production. No wheezing. Cardiovascular: No chest pain, Reports lower extremity edema. No palpitations. No paroxysmal nocturnal dyspnea. No orthopnea. No lightheadedness or dizziness. No syncopal episodes. Abdominal: No abdominal pain. No nausea, vomiting. No diarrhea. No constipation. No bloody or tarry stools. No loss of appetite. Genitourinary: No dysuria, increased frequency, urgency. No urinary retention. Musculoskeletal: No myalgias. Reports muscle weakness, Reports gait dysfunction, no frequent falls. Occasional back pain. No neck pain. Reports bilateral ankle pain. Integumentary: Reports wounds, no lesions. No rash or pruritus. No unusual bruising. No change in hair or nails. Neurologic: No aphasia. No facial droop. No change in mentation. No head injury. No headache. No paralysis. No paresthesia. Psychiatric: No depression. No anxiety. No mood swings. Endocrine: No abnormal blood sugars. PHYSICAL EXAMINATION Gen: This is a 64-year-old morbidly obese female. She is sitting up in bed and appears to be comfortable and in no acute distress. HEENT: Head is atraumatic, normocephalic. Pupils equal, round. Sclerae is anicteric. NECK: Supple. No JVD. No lymphadenopathy. No thyromegaly. LUNGS: Clear to auscultation. No wheezes or rhonchi. No intercostal retractions. HEART: Regular rate and rhythm. No murmur. ABDOMEN: Soft. Bowel sounds are present. No masses. No tenderness. Female catheter in place draining clear richmond urine. EXTREMITIES: Bilat 2+ pedal edema and lymphedema. No calf tenderness. NEUROLOGICAL: Patient is awake, alert and oriented x3. Cranial nerves 2 through 12 are grossly intact. ASSESSMENT AND PLAN 1. Bilateral lower extremity cellulitis with edema and lymphedema. Patient started on ceftriaxone 1 g IV piggyback daily, continue Lasix 40 mg oral 3 times daily, Zaroxolyn on Mondays, local wound care with Silvadene wraps and elevation. Midodrine 10mg three times daily added due to low blood pressure in order to administer Lasix. 2. Paroxysmal atrial fibrillation. Continue eliquis 5 mg twice daily, Lopressor 50 mg daily. 3. Bilateral ankle pain and right foot pain, x-rays as above. Consult with orthopedic surgeon appreciated. 4. Hypertension. Continue losartan 25 mg daily, Lopressor, Lasix. 5. Hyperlipidemia. Continue pravastatin 40 mg daily 6. Generalized osteoarthritis. Continue baclofen 10 mg at bedtime. 7. Generalized debility with difficulty ambulating. Consult with PT and OT. 8. GI prophylaxis. Pepcid. 9. DVT prophylaxis. Eliquis. 10. Morbid obesity with BMI of 61. 11. COVID-19 testing negative. Patient has been hospitalized during a pandemic. DISCHARGE PLAN Subacute rehab at [facility] on Friday if insurance authorization is obtained. Impression and plan of care have been directed as dictated by the signing physician. Amrita Alfonso nurse practitioner acting as scribe for signing physician. Objective - Vital Signs Vital signs: Vital Signs Temp 98.6 F 09/23/20 07:42 Pulse 64 09/23/20 07:42 Resp 16 09/23/20 07:42 BP 118/71 09/23/20 07:42 Pulse Ox 91 L 09/23/20 07:42 Intake & Output 09/22/20 09/23/20 09/23/20 18:59 06:59 18:59 Output Total 1800 450 Balance -1800 -450 Weight 173 kg Output: Urine 1800 450 Other: Voiding Method External Catheter - Labs CBC & Chem 7: 09/19/20 11:50 09/22/20 07:15
[2020-09-23] MEDS: BACLOFEN 10 MG TAB PO SCH (19:56)
[2020-09-24] MEDS: ACETAMINOPHEN TAB 325 MG TAB PO PRN ×2 (05:23→15:14)
[2020-09-24] MEDS: PANTOPRAZOLE 40 MG TABLET PO SCH (07:10)
[2020-09-24] MEDS: MIDODRINE 5 MG TAB PO SCH ×3 (07:10→16:25)
[2020-09-24] MEDS: APIXABAN 5 MG TAB PO SCH ×2 (07:10→19:51)
[2020-09-24] MEDS: PRAVASTATIN SODIUM 40 MG TAB PO SCH (07:10)
[2020-09-24] MEDS: FUROSEMIDE 40 MG TAB PO SCH ×3 (07:10→20:58)
[2020-09-24] MEDS: METOPROLOL TARTRATE 50 MG TAB PO SCH (07:10)
[2020-09-24] MEDS: LOSARTAN 25 MG TAB PO SCH (07:10)
--- NOTE | 2020-09-24 13:27 | P.PN ---
Subjective Progress Note Date: 09/24/20 HISTORY OF PRESENT ILLNESS This is a 64-year-old female with past medical history of osteoarthritis status post bilateral knee replacement, hypertension, paroxysmal atrial fibrillation, morbid obesity. Patient is complaining of lower extremity edema, blisters on the bottom of the right foot, she states her right foot bleeds and gentle skin come off. She usually puts a 4 x 4 on her foot with her sock. She complains of right hip pain that has been going on for a couple years since she had a fall with no fracture at the time. Pain is on the right lateral hip. She complains of bilateral ankle pain. Patient complains of right lower extremity edema worse this been going on for one year. She states that ever since she had a partial knee arthroplasty done a year ago. She denies any shortness of breath, known nausea. No numbness or tingling. She states she o ccasionally have back pain. She usually walks with a walker. Patient came in in Hospital emergency center for further evaluation. 85, blood pressure 119/72, pulse ox 90% on room air. Afebrile. CBC was unremarkable. Sodium 140, potassium 3.9, chloride 104, CO2 29, BUN 19 and creatinine 0.64. B lood sugar 119. Liver function tests were normal. ProBNP 251. Echocardiogram reveals EF of 45-50%, moderate concentric left ventricular hypertrophy, mild mitral regurgitation, mild tricuspid regurgitation, mild pulmonary hypertension. Ultrasound of bilateral lower extremities negative for DVT. Lumbar x-ray showed moderate to severe degenerative changes with levoconvex scoliosis and without acute osseous abnormality. No significant interval change. Bilateral ankle and right ordered. Patient admitted to the [facility] floor. Consults in place with cardiology and podiatry added. Discussed discharge plan with the patient and [facility] [place] and would like to go there at the time of discharge. 09/21: Echocardiogram reveals EF of 45-50%, moderate concentric left ventricular hypertrophy, right ventricle severely enlarged, mild mitral regurgitation, mild tricuspid regurgitation, mild pulmonary hypertension. Patient has been seen by cardiology with recommendations to continue her home medications and increase IV Lasix to 40 mg every 6 hours. Cardiology will sign off after today. X-ray of the bilateral ankles revealed extensive osteoarthritis in the right ankle but left ankle did show likely an underlying fracture of the distal fibula and correlate for CAT scan or MRI. CAT scan of the left ankle has been ordered. Right foot x-ray showed probable subacute fracture of metatarsal neck of the fifth digit in the region of osteopenia. There is soft tissue ulceration on the plantar soft tissue of the midfoot. No definite evidence of osteomyelitis. Patient has no tenderness at the fifth digit area. Patient has been seen by podiatry and the toenails have been trimmed. Consult with orthopedic surgery has been added to evaluate possible left fibula fracture. Patient denies shortness of breath, no chest pain. She does complain of nausea that started this morning and some mild right upper quadrant and left lower quadrant tenderness and a little bloating. Abdominal x-ray revealed postoperative changes and exam limited due to body habitus. Patient has been seen by PT and OT with recommendations for subacute rehab. Discharge to subacute rehab is in place and most likely patient will be ready for discharge tomorrow. 09/22: Patient underwent CAT scan of the right ankle yesterday that found nonacute fracture involving the neck of the fifth metatarsal. No acute fractures or dislocations seen. Advanced degenerative changes. Patient has been seen by orthopedics with recommendations for total contact casting of the right lower extremity. No orthopedic surgical intervention. Patient denies any new complaints. CAT scan of the left lower leg revealed chronic deformity of the distal fibula. No acute fractures visible. This was reviewed by orthopedics and recommended weightbearing as tolerated and supportive shoe. She is on IV Lasix will be transitioned to oral Lasix and start metolazone once weekly. Vitamin C will be added, patient will be continued on Keflex for another 7 days. Patient will need follow-up with podiatry as an outpatient for surgical shoe and custom orthotics for charcot foot blateral and ulcers on the right along with callus formations. Patient will be discharged to rehab today in stable condition. Waiting for insurance authorization for rehab. 09/23: Insurance authorization has not yet been obtained. We will plan for patient to be discharged if this can be done today. She has a female catheter in place and Lasix has been changed to 40 mg oral 3 times daily and Zaroxolyn was added on Mondays. Patient denies any new complaints. She has been afebrile, heart rate 64, blood pressure 118/71, pulse ox 91% on room air. Anticipate possible discharge later today. 09/24: Insurance authorization was not obtained yesterday for patient to be discharged to subacute rehab. Patient's breathing status is stable. We will transition IV Rocephin to oral Keflex as planned for discharge. She is currently on oral Lasix which will be continued. Repeat blood work will be ordered for tomorrow. She has been afebrile, heart rate 76, blood pressure 116/70, pulse ox 93% on room air. REVIEW OF SYSTEMS Constitutional: No fever, no chills, no night sweats. No weight change. Reports weakness, no fatigue or lethargy. No daytime sleepiness. EENT: No headache. No blurred vision or double vision, no loss of vision. No dizziness. No nasal drainage or congestion. No epistaxis. No sore throat. Lungs: No shortness of breath, cough, no sputum production. No wheezing. Cardiovascular: No chest pain, Reports lower extremity edema. No palpitations. No paroxysmal nocturnal dyspnea. No orthopnea. No lightheadedness or dizziness. No syncopal episodes. Abdominal: No abdominal pain. No nausea, vomiting. No diarrhea. No constipation. No bloody or tarry stools. No loss of appetite. Genitourinary: No dysuria, increased frequency, urgency. No urinary retention. Musculoskeletal: No myalgias. Reports muscle weakness, Reports gait dysfunction, no frequent falls. Occasional back pain. No neck pain. Reports bilateral ankle pain. Integumentary: Reports wounds, no lesions. No rash or pruritus. No unusual bruising. No change in hair or nails. Neurologic: No aphasia. No facial droop. No change in mentation. No head injury. No headache. No paralysis. No paresthesia. Psychiatric: No depression. No anxiety. No mood swings. Endocrine: No abnormal blood sugars. PHYSICAL EXAMINATION Gen: This is a 64-year-old morbidly obese female. She is sitting up in bed and appears to be comfortable and in no acute distress. HEENT: Head is atraumatic, normocephalic. Pupils equal, round. Sclerae is anicteric. NECK: Supple. No JVD. No lymphadenopathy. No thyromegaly. LUNGS: Clear to auscultation. No wheezes or rhonchi. No intercostal retractions. HEART: Regular rate and rhythm. No murmur. ABDOMEN: Soft. Bowel sounds are present. No masses. No tenderness. Female catheter in place draining clear richmond urine. EXTREMITIES: Bilat 2+ pedal edema and lymphedema. No calf tenderness. NEUROLOGICAL: Patient is awake, alert and oriented x3. Cranial nerves 2 through 12 are grossly intact. ASSESSMENT AND PLAN 1. Bilateral lower extremity cellulitis with edema and lymphedema. Continue antibiotics transitioned to oral Keflex, continue Lasix 40 mg oral 3 times daily, Zaroxolyn on Mondays, local wound care with Silvadene wraps and elevation. Midodrine 10mg three times daily added due to low blood pressure in order to administer Lasix. 2. Paroxysmal atrial fibrillation. Continue eliquis 5 mg twice daily, Lopressor 50 mg daily. 3. Bilateral ankle pain and right foot pain, x-rays as above. Consult with orthopedic surgeon appreciated. 4. Hypertension. Continue losartan 25 mg daily, Lopressor, Lasix. 5. Hyperlipidemia. Continue pravastatin 40 mg daily 6. Generalized osteoarthritis. Continue baclofen 10 mg at bedtime. 7. Generalized debility with difficulty ambulating. Consult with PT and OT. 8. GI prophylaxis. Pepcid. 9. DVT prophylaxis. Eliquis. 10. Morbid obesity with BMI of 61. 11. COVID-19 testing negative. Patient has been hospitalized during a [facility]. DISCHARGE PLAN Subacute rehab at [facility] on Friday. Impression and plan of care have been directed as dictated by the signing physician. Amrita Alfonso nurse practitioner acting as scribe for signing physician. Objective - Vital Signs Vital signs: Vital Signs Temp 98.4 F 09/24/20 08:00 Pulse 76 09/24/20 08:00 Resp 16 09/24/20 08:00 BP 116/70 09/24/20 08:00 Pulse Ox 93 L 09/24/20 08:00 Intake & Output 09/23/20 09/24/20 09/24/20 18:59 06:59 18:59 Output Total 3500 750 Balance -3500 -750 Weight 170.5 kg Output: Urine 3500 750 Other: Voiding Method External Catheter External Catheter - Labs CBC & Chem 7: 09/19/20 11:50 09/22/20 07:15
[2020-09-24] MEDS: CEPHALEXIN 500 MG CAP PO SCH ×2 (16:25→20:58)
[2020-09-24] MEDS: BACLOFEN 10 MG TAB PO SCH (19:51)
[2020-09-25] MEDS: ACETAMINOPHEN TAB 325 MG TAB PO PRN ×2 (03:15→07:15)
[2020-09-25] MEDS: PRAVASTATIN SODIUM 40 MG TAB PO SCH (06:52)
[2020-09-25] MEDS: MIDODRINE 5 MG TAB PO SCH (06:52)
[2020-09-25] MEDS: METOPROLOL TARTRATE 50 MG TAB PO SCH (06:52)
[2020-09-25] MEDS: PANTOPRAZOLE 40 MG TABLET PO SCH (06:52)
[2020-09-25] MEDS: LOSARTAN 25 MG TAB PO SCH (06:53)
[2020-09-25] MEDS: CEPHALEXIN 500 MG CAP PO SCH (06:53)
[2020-09-25] MEDS: APIXABAN 5 MG TAB PO SCH (06:53)
[2020-09-25] MEDS: FUROSEMIDE 40 MG TAB PO SCH (06:53)
[2020-09-25 08:00] VITALS: BP 112/73; PULSE 72; RESP 18; TEMP 98.4
--- NOTE | 2020-09-25 08:33 | P.DS ---
Providers Date of admission: 09/19/20 17:53 Expected date of discharge: 09/25/20 Attending physician: Lawanda Guzman Consults: 09/19/20 16:56 Consult Physician Urgent Consulting Provider: Francisco Javier Leiva Consult Reason/Comments: afib, leg swelling Do you want consulting provider notified?: Yes 09/20/20 09:40 Consult Physician Routine Consulting Provider: Alvaro Morataya Consult Reason/Comments: toenails Do you want consulting provider notified?: Yes 09/21/20 09:16 Consult Physician Routine Consulting Provider: Blaine Harrell Consult Reason/Comments: poss right MT fx, left fib fx Do you want consulting provider notified?: Yes Primary care physician: [facility] Course: HISTORY OF PRESENT ILLNESS This is a 64-year-old female with past medical history of osteoarthritis status post bilateral knee replacement, hypertension, paroxysmal atrial fibrillation, morbid obesity. Patient is complaining of lower extremity edema, blisters on the bottom of the right foot, she states her right foot bleeds and gentle skin come off. She usually puts a 4 x 4 on her foot with her sock. She complains of right hip pain that has been going on for a couple years since she had a fall with no fracture at the time. Pain is on the right lateral hip. She complains of bilateral ankle pain. Patient complains of right lower extremity edema worse this been going on for one year. She states that ever since she had a partial knee arthroplasty done a year ago. She denies any shortness of breath, known nausea. No numbness or tingling. She states she occasionally have back pain. She usually walks with a walker. Patient came in in Hospital emergency center for further evaluation. 85, blood pressure 119/72, pulse ox 90% on room air. Afebrile. CBC was unremarkable. Sodium 140, potassium 3.9, chloride 104, CO2 29, BUN 19 and creatinine 0.64. Blood sugar 119. Liver function tests were normal. ProBNP 251. Echocardiogram reveals EF of 45-50%, moderate concentric left ventricular hypertrophy, mild mitral regurgitation, mild tricuspid regurgitation, mild pulmonary hypertension. Ultrasound of bilateral lower extremities negative for DVT. Lumbar x-ray showed moderate to severe degenerative changes with levoconvex scoliosis and without acute osseous abnormality. No significant interval change. Bilateral ankle and right ordered. Patient admitted to the [facility] floor. Consults in place with cardiology and podiatry added. Discussed discharge plan with the patient and she has been in contact with [facility] and would like to go there at the time of discharge. 09/21: Echocardiogram reveals EF of 45-50%, moderate concentric left ventricular hypertrophy, right ventricle severely enlarged, mild mitral regurgitation, mild tricuspid regurgitation, mild pulmonary hypertension. Patient has been seen by cardiology with recommendations to continue her home medications and increase IV Lasix to 40 mg every 6 hours. Cardiology will sign off after today. X-ray of the bilateral ankles revealed extensive osteoarthritis in the right ankle but left ankle did show likely an underlying fracture of the distal fibula and correlate for CAT scan or MRI. CAT scan of the left ankle has been ordered. Right foot x-ray showed probable subacute fracture of metatarsal neck of the fifth digit in the region of osteopenia. There is soft tissue ulceration on the plantar soft tissue of the midfoot. No definite evidence of osteomyelitis. Patient has no tenderness at the fifth digit area. Patient has been seen by podiatry and the toenails have been trimmed. Consult with orthopedic surgery has been added to evaluate possible left fibula fracture. Patient denies shortness of breath, no chest pain. She does complain of nausea that started this morning and some mild right upper quadrant and left lower quadrant tenderness and a little bloating. Abdominal x-ray revealed postoperative changes and exam limited due to body habitus. Patient has been seen by PT and OT with recommendations for subacute rehab. Discharge to subacute rehab is in place and most likely patient will be ready for discharge tomorrow. 09/22: Patient underwent CAT scan of the right ankle yesterday that found nonacute fracture involving the neck of the fifth metatarsal. No acute fractures or dislocations seen. Advanced degenerative changes. Patient has been seen by orthopedics with recommendations for total contact casting of the right lower extremity. No orthopedic surgical intervention. Patient denies any new complaints. CAT scan of the left lower leg revealed chronic deformity of the distal fibula. No acute fractures visible. This was reviewed by orthopedics and recommended weightbearing as tolerated and supportive shoe. She is on IV Lasix will be transitioned to oral Lasix and start metolazone once weekly. Vitamin C will be added, patient will be continued on Keflex for another 7 days. Patient will need follow-up with podiatry as an outpatient for surgical shoe and custom orthotics for charcot foot blateral and ulcers on the right along with callus formations. Patient will be discharged to rehab today in stable condition. 09/23: Insurance authorization has not yet been obtained. We will plan for patient to be discharged if this can be done today. She has a female catheter in place and Lasix has been changed to 40 mg oral 3 times daily and Zaroxolyn was added on Mondays. Patient denies any new complaints. She has been afebrile, heart rate 64, blood pressure 118/71, pulse ox 91% on room air. Anticipate possible discharge later today. 09/24: Insurance authorization was not obtained yesterday for patient to be discharged to subacute rehab. Patient's breathing status is stable. We will transition IV Rocephin to oral Keflex as planned for discharge. She is currently on oral Lasix which will be continued. Repeat blood work will be ordered for tomorrow. She has been afebrile, heart rate 76, blood pressure 116/70, pulse ox 93% on room air. 09/25: Patient has been afebrile, heart rate 72, blood pressure 112/73, pulse ox 96% on room air. No repeat lab work. Minor adjustments made to her medication reconciliation patient will be discharged to rehab in stable condition. ASSESSMENT AND PLAN 1. Bilateral lower extremity cellulitis with edema and lymphedema. 2. Paroxysmal atrial fibrillation. 3. Bilateral ankle pain and right foot pain, x-rays ordered. 4. Hypertension. 5. Hyperlipidemia. 6. Generalized osteoarthritis. 7. Generalized debility with difficulty ambulating. 8. Morbid obesity with BMI of 61. 9. COVID-19 testing negative. Patient has been hospitalized during a pandemic. DISCHARGE PLAN [facility] [place]. Impression and plan of care have been directed as dictated by the signing physician. Amrita Alfonso nurse practitioner acting as scribe for signing physician. Patient Condition at Discharge: Good Plan - Discharge Summary Discharge Rx Participant: No New Discharge Prescriptions: New Mag Hydrox/Al Hydrox/Simeth [Maalox] 30 ml PO Q4HR PRN ml PRN Reason: Gi Upset SILVER sulfADIAZINE CREAM [Silvadene Cream] 1 applic TOPICAL BID applic metOLazone [Zaroxolyn] 5 mg PO MO #30 tablet Potassium Chloride ER [K-Dur 20] 20 meq PO BID #60 tab Cephalexin [Keflex] 500 mg PO Q8HR 7 Days #21 cap Midodrine [ProAmatine] 10 mg PO AC-TID tab Pantoprazole [Protonix] 40 mg PO AC-BRKFST tablet. Cholecalciferol (Vitamin D3) [Vitamin D3 (3000 Iu)] 75 mcg PO DAILY #30 tab Continue Baclofen 10 mg PO HS@1900 Pravastatin Sodium [Pravachol] 40 mg PO DAILY@0700 Biotin 5 mg PO DAILY@0700 Cranberry Fruit Concentrate [Azo Cranberry] 250 mg PO BID@0700,1900 Metoprolol Tartrate [Lopressor] 50 mg PO DAILY@0700 Apixaban [Eliquis] 5 mg PO BID@0700,1900 Changed Furosemide [Lasix] 40 mg PO TID #0 Discontinued Losartan [Cozaar] 25 mg PO DAILY@0700 Discharge Medication List Baclofen 10 mg PO HS@1900 09/03/19 [History] Pravastatin Sodium [Pravachol] 40 mg PO DAILY@0700 09/03/19 [History] Apixaban [Eliquis] 5 mg PO BID@0700,1900 09/19/20 [History] Biotin 5 mg PO DAILY@0700 09/19/20 [History] Cranberry Fruit Concentrate [Azo Cranberry] 250 mg PO BID@0700,1900 09/19/20 [History] Metoprolol Tartrate [Lopressor] 50 mg PO DAILY@0700 09/19/20 [History] Cephalexin [Keflex] 500 mg PO Q8HR 7 Days #21 cap 09/22/20 [Rx] Cholecalciferol (Vitamin D3) [Vitamin D3 (3000 Iu)] 75 mcg PO DAILY #30 tab 09/22/20 [Rx] Mag Hydrox/Al Hydrox/Simeth [Maalox] 30 ml PO Q4HR PRN ml 09/22/20 [Rx] Midodrine [ProAmatine] 10 mg PO AC-TID tab 09/22/20 [Rx] Pantoprazole [Protonix] 40 mg PO AC-BRKFST tablet. 09/22/20 [Rx] SILVER sulfADIAZINE CREAM [Silvadene Cream] 1 applic TOPICAL BID applic 09/22/20 [Rx] metOLazone [Zaroxolyn] 5 mg PO MO #30 tablet 09/22/20 [Rx] Furosemide [Lasix] 40 mg PO TID #0 09/25/20 [Rx] Potassium Chloride ER [K-Dur 20] 20 meq PO BID #60 tab 09/25/20 [Rx] Follow up Appointment(s)/Referral(s): Carmen, [NON-STAFF] - As Needed Alvaro Roldan MD [Primary Care Provider] - 1 Week (after discharge from ECF) Patient Instructions/Handouts: Cellulitis (ED) Discharge Disposition: TRANSFER TO SNF/ECF
[2020-09-25] MEDS ORDERED: metOLazone 5 MG TAB PO SCH (09:00)
[2020-09-25 11:16] LABS: African American GFR (CKD) 90.9 (60.0-200.0); Calcium 8.5 mg/dL (8.7-10.3); Non-African American GFR(CKD) 78.5 (60.0-200.0); Potassium 3.5 mmol/L (3.5-5.5)
== END 2020-09-25 09:16 | DRG 602 ==
LOC: EC 10:16 → 4SSUR 17:53
PROVIDERS: ADMIT Family Medicine; ATTEND Family Medicine
DX: L03.115 Cellulitis of right lower limb (principal); I50.33 Acute on chronic diastolic (congestive) heart failure; Z68.44 Body mass index [BMI] 60.0-69.9, adult; L97.419 Non-pressure chronic ulcer of right heel and midfoot with unspecified severity; I27.20 Pulmonary hypertension, unspecified; B35.1 Tinea unguium; I11.0 Hypertensive heart disease with heart failure; E66.01 Morbid (severe) obesity due to excess calories; I48.0 Paroxysmal atrial fibrillation; L03.116 Cellulitis of left lower limb; Z20.822 Contact with and (suspected) exposure to COVID-19; I89.0 Lymphedema, not elsewhere classified; M14.671 Charcot's joint, right ankle and foot; M14.672 Charcot's joint, left ankle and foot; M21.41 Flat foot [pes planus] (acquired), right foot; M21.42 Flat foot [pes planus] (acquired), left foot; M19.072 Primary osteoarthritis, left ankle and foot; M19.071 Primary osteoarthritis, right ankle and foot; M72.2 Plantar fascial fibromatosis; M21.072 Valgus deformity, not elsewhere classified, left ankle; M41.9 Scoliosis, unspecified; L84 Corns and callosities; E78.5 Hyperlipidemia, unspecified; M25.551 Pain in right hip; M54.9 Dorsalgia, unspecified; M85.80 Other specified disorders of bone density and structure, unspecified site; Z79.01 Long term (current) use of anticoagulants; Z79.899 Other long term (current) drug therapy; Z87.891 Personal history of nicotine dependence; Z96.653 Presence of artificial knee joint, bilateral; Z98.84 Bariatric surgery status; Z87.39 Personal history of other diseases of the musculoskeletal system and connective tissue; Z91.81 History of falling; Z98.890 Other specified postprocedural states; Z88.5 Allergy status to narcotic agent; Z91.018 Allergy to other foods; Z88.2 Allergy status to sulfonamides; Z80.42 Family history of malignant neoplasm of prostate; Z82.61 Family history of arthritis; Z82.49 Family history of ischemic heart disease and other diseases of the circulatory system; Z82.69 Family history of other diseases of the musculoskeletal system and connective tissue
CPT/HCPCS: 36415; 72100; 74019; 80048; 80053; 83690; 83735; 83880; 84550; 85025; 87635; 93005; 93306; 93970; 99285

== ENCOUNTER 2021-05-13 17:15 | Inpatient (IN) | payer MEDICARE ==
--- NOTE | 2021-05-13 17:58 | ED ---
General Adult HPI - General Chief complaint: Extremity Problem,Nontraumatic Stated complaint: pain/swelling bilat legs Time Seen by Provider: 05/13/21 17:28 Source: patient, EMS, RN notes reviewed, old records reviewed Mode of arrival: EMS Limitations: physical limitation - History of Present Illness Initial comments: 65-year-old female with pain and swelling in the right foot and bilateral lower extremities. Patient does have history of significant peripheral edema. She denies chest pain or dyspnea. Denies fever. Denies cough. Patient states that over the past several days she noted increased pain in the sole of her right foot with ambulation. She denies a specific injury. - Related Data Home Medications Medication Instructions Recorded Confirmed Baclofen 10 mg PO HS 09/03/19 05/13/21 Apixaban [Eliquis] 5 mg PO BID 09/19/20 05/13/21 Metoprolol Tartrate [Lopressor] 50 mg PO BID 09/19/20 05/13/21 Atorvastatin [Lipitor] 10 mg PO DAILY 05/13/21 05/13/21 Furosemide [Lasix] 60 mg PO BID 05/13/21 05/13/21 Magnesium Oxide [Mag-Ox] 400 mg PO DAILY 05/13/21 05/13/21 Previous Rx's Medication Instructions Recorded Potassium Chloride ER [K-Dur 20] 20 meq PO BID #60 tab 09/25/20 Allergies Allergy/AdvReac Type Severity Reaction Status Date / Time Poultry [[place]] Allergy Anaphylaxis Verified 05/13/21 19:24 Sulfa (Sulfonamide Allergy Swelling Verified 05/13/21 19:24 Antibiotics) walnut Allergy Swelling Verified 05/13/21 19:24 morphine AdvReac Nausea & Verified 05/13/21 19:24 Vomiting Review of Systems ROS Statement: Those systems with pertinent positive or pertinent negative responses have been documented in the HPI. ROS Other: All systems not noted in ROS Statement are negative. Past Medical History Past Medical History: Atrial Fibrillation, Hypertension History of Any Multi-Drug Resistant Organisms: None Reported Past Surgical History: Bariatric Surgery, Joint Replacement Additional Past Surgical History / Comment(s): R shoulder, bilat knee replacement, bariatric surgery 2014 Past Anesthesia/Blood Transfusion Reactions: No Reported Reaction Past Psychological History: No Psychological Hx Reported Smoking Status: Never smoker Past Alcohol Use History: None Reported Past Drug Use History: None Reported - Past Family History Father Additional Family Medical History / Comment(s): Father from prostate cancer. Mother Additional Family Medical History / Comment(s): Mother is alive with history of PFO. Brother(s) Additional Family Medical History / Comment(s): Patient has one brother with history of gout. Patient's 2 sisters one with no major medical problems and one with generalized osteoarthritis. Patient does not have any children. General Exam Limitations: physical limitation General appearance: alert, in no apparent distress Head exam: Present: atraumatic, normocephalic Eye exam: Present: normal appearance, PERRL ENT exam: Present: normal exam Neck exam: Present: normal inspection. Absent: tenderness, meningismus Respiratory exam: Present: normal lung sounds bilaterally. Absent: respiratory distress Cardiovascular Exam: Present: regular rate, normal rhythm GI/Abdominal exam: Present: soft. Absent: distended, tenderness Extremities exam: Present: pedal edema, other (15 bilateral swelling with superficial erythema. No crepitus in the bilateral lower extremities. She has erythema and tenderness to the sole of the right foot.) Neurological exam: Present: alert, oriented X3, CN II-XII intact. Absent: motor sensory deficit Psychiatric exam: Present: normal affect, normal mood Skin exam: Present: warm, dry Course Vital Signs 05/13/21 17:18 Temperature 97.0 F L Pulse Rate 64 Respiratory 18 Rate Blood Pressure 122/74 O2 Sat by Pulse 99 Oximetry Medical Decision Making - Medical Decision Making 65-year-old female presenting with right foot pain and bilateral lower extremity swelling. Patient has significant edema as well as erythema to the bilateral lower extremities and erythema and tenderness to the sole of the right foot. X- ray is concerning for possible osteomyelitis. There is no soft tissue gas. She has a normal white blood cell count, normal CMP. Her cultures are pending. IV antibiotics initiated. Case discussed with Dr. Ziegler who will admit. - Lab Data Result diagrams: 05/13/21 18:06 05/13/21 17:48 Lab Results 05/13/21 05/13/21 05/13/21 Range/Units 17:48 17:48 18:06 WBC 7.8 (3.8-10.6) k/uL RBC 4.49 (3.80-5.40) m/uL Hgb 14.0 (11.4-16.0) gm/dL Hct 43.2 (34.0-46.0) % MCV 96.2 (80.0-100.0) fL MCH 31.1 (25.0-35.0) pg MCHC 32.4 (31.0-37.0) g/dL RDW 12.9 (11.5-15.5) % Plt Count 239 (150-450) k/uL MPV 9.3 Neutrophils % 75 % Lymphocytes % 16 % Monocytes % 6 % Eosinophils % 2 % Basophils % 1 % Neutrophils # 5.9 (1.3-7.7) k/uL Lymphocytes # 1.2 (1.0-4.8) k/uL Monocytes # 0.4 (0-1.0) k/uL Eosinophils # 0.1 (0-0.7) k/uL Basophils # 0.1 (0-0.2) k/uL PT 11.7 (9.0-12.0) sec INR 1.1 (<1.2) APTT 27.8 (22.0-30.0) sec Sodium 140 (137-145) mmol/L Potassium 3.5 (3.5-5.1) mmol/L Chloride 103 (98-107) mmol/L Carbon Dioxide 30 (22-30) mmol/L Anion Gap 7 mmol/L BUN 23 H (7-17) mg/dL Creatinine 0.76 (0.52-1.04) mg/dL Est GFR (CKD-EPI)AfAm >90 (>60 ml/min/1.73 sqM) Est GFR (CKD-EPI)NonAf 84 (>60 ml/min/1.73 sqM) Glucose 118 H (74-99) mg/dL Calcium 9.2 (8.4-10.2) mg/dL Total Bilirubin 0.6 (0.2-1.3) mg/dL AST 23 (14-36) U/L ALT 13 (4-34) U/L Alkaline Phosphatase 67 (38-126) U/L Total Protein 6.9 (6.3-8.2) g/dL Albumin 3.8 (3.5-5.0) g/dL Disposition Clinical Impression: Cellulitis, Cellulitis of right leg Disposition: ADMITTED IP TO THIS HOSP Condition: Stable Is patient prescribed a controlled substance at d/c from ED?: No Referrals: Alvaro Roldan MD [Primary Care Provider] - 1-2 days Decision to Admit Reason: Admit from EC Decision Date: 05/13/21 Decision Time: 19:32
[2021-05-13 18:13] LABS: Basophils # (A) 0.1 k/uL (0-0.2); Basophils % (A) 1 %; Eosinophils # (A) 0.1 k/uL (0-0.7); Eosinophils % (A) 2 %; HCT 43.2 % (34.0-46.0); Lymphocytes # (A) 1.2 k/uL (1.0-4.8); Lymphocytes % (A) 16 %; MCH 31.1 pg (25.0-35.0); MCHC 32.4 g/dL (31.0-37.0); MCV 96.2 fL (80.0-100.0); Mean Platelet Volume 9.3; Monocytes # (A) 0.4 k/uL (0-1.0); Monocytes % (A) 6 %; Neutrophils # (A) 5.9 k/uL (1.3-7.7); Neutrophils % (A) 75 %; Platelet Count 239 k/uL (150-450); RBC 4.49 m/uL (3.80-5.40); RDW 12.9 % (11.5-15.5); WBC 7.8 k/uL (3.8-10.6)
[2021-05-13 18:24] LABS: INR 1.1 (<1.2); Partial Thromboplastin Time 27.8 sec (22.0-30.0); Prothrombin Time 11.7 sec (9.0-12.0)
[2021-05-13 18:31] LABS: ALT 13 U/L (4-34); AST 23 U/L (14-36); African American GFR (CKD) >90 (>60 ml/min/1.73 sqM); Albumin 3.8 g/dL (3.5-5.0); Alkaline Phosphatase 67 U/L (38-126); Anion Gap 7 mmol/L; Blood Urea Nitrogen 23 mg/dL (7-17); Calcium 9.2 mg/dL (8.4-10.2); Carbon Dioxide 30 mmol/L (22-30); Chloride 103 mmol/L (98-107); Glucose 118 mg/dL (74-99); Non-African American GFR(CKD) 84 (>60 ml/min/1.73 sqM); Potassium 3.5 mmol/L (3.5-5.1); Sodium 140 mmol/L (137-145); Total Bilirubin 0.6 mg/dL (0.2-1.3); Total Protein 6.9 g/dL (6.3-8.2)
--- NOTE | 2021-05-13 18:37 | XR ---
EXAMINATION TYPE: XR foot complete RT DATE OF EXAM: 05/13/2021 COMPARISON: NONE HISTORY: Pain and swelling TECHNIQUE: 3 views FINDINGS: There is soft tissue swelling of the forefoot. There is plantar calcaneal spurring. There i s some lucency at the fifth metatarsal head that could be a fracture or bone destruction. The toes ap pear intact. IMPRESSION: There is some deformity and lucency of the neck of the fifth metatarsal head. Osteomyelit is or fracture not excluded. Moderate soft tissue swelling.
[2021-05-13] MEDS ORDERED: cefTRIAXone IN SWFI 1,000 MG/10 ML SYRINGE IVP STA (18:57)
[2021-05-13] MEDS ORDERED: VANCOMYCIN IV PER PHARMACY 1 EACH MISC MISCELLANE PRN (18:58)
[2021-05-13] MEDS ORDERED: NALOXONE 0.4 MG/ML 1 ML VIAL IV PRN (19:29)
[2021-05-13] MEDS ORDERED: VANCOMYCIN 2,500 MG in SODIUM CHLORIDE 0.9% 500 ML 500 ML IVPB ONE (19:30)
[2021-05-13] MEDS: ACETAMINOPHEN TAB 325 MG TAB PO PRN (23:29)
[2021-05-14] MEDS: ACETAMINOPHEN TAB 325 MG TAB PO PRN ×2 (09:57→17:52)
[2021-05-14] MEDS: VANCOMYCIN 2,500 MG in SODIUM CHLORIDE 0.9% 500 ML 500 ML IVPB SCH ×2 (10:50→21:02)
--- NOTE | 2021-05-14 17:19 | P.HPIM ---
History of Present Illness H&P Date: 05/14/21 Chief Complaint: Leg swelling with bilateral redness, fungal changes, worsening edema This is a 64-year-old female with past medical history of , hypertension, paroxysmal atrial fibrillation, morbid obesity and bilateral leg edema, presenting with worsening lower extremity edema, blisters on the bottom of the right foot, she states her right foot bleeds pain in the plantar mid foot the right foot, bilateral leg swelling, which has progressed over the past 3 weeks, denies any trauma, patient ambulates with a walker, there is significant deformities on the bottom of the plantar arches, off from the mid ankle downward Suspicious of [place] She complains of bilateral ankle pain. Patient complains of right lower extremity edema worse this been going on for one year. She has worsening redness, in the mid tib-fib region, patient denies any diabetes, or trauma to the leg. Review of testing, in September 2020, she had an ejection fraction of 45-50%, moderate concentric LVH, right ventricle severely enlarged, mild MR, mild TR, mild pulmonary hypertension, based on echo, them at that time. In the emergency room x-rays of foot, shows moderate soft tissue swelling, there is some deformity and lucency of the neck of the fifth metatarsal head, osteomyelitis or fracture is not excluded. This is of the right foot, no x-rays were done of the left foot Review of Systems Constitutional: Reports as per HPI, Denies anorexia, Denies chills, Denies chronic headaches, Denies chronic pain, Denies daytime sleepiness, Denies fatigue, Denies fever, Denies lethargy, Denies malaise, Denies night sweats, Denies poor appetite, Denies sweats, Denies weakness, Denies weight gain, Denies weight loss Ears, nose, mouth and throat: Reports as per HPI, Denies ant. neck pain, Denies bleeding gums, Denies dental pain, Denies dysphagia, Denies epistaxis, Denies headache, Denies hoarseness, Denies mouth pain, Denies nasal congestion, Denies nasal discharge, Denies neck fullness/pressure, Denies neck lump, Denies nose pain, Denies odynophagia, Denies post-nasal drip, Denies sinus pain, Denies sinus pressure, Denies swelling in mouth, Denies swelling in throat, Denies sore throat, Denies vertigo, Denies voice changes Cardiovascular: Reports as per HPI, Reports decreased exercise tolerance, Reports dyspnea on exertion, Denies irregular heart beat, Denies orthopnea, Denies shortness of breath Respiratory: Denies congestion, Denies cough, Denies cough with sputum, Denies home oxygen, Denies pain on inspiration, Denies respiratory infections Gastrointestinal: Denies belching, Denies bloating, Denies diarrhea, Denies hematemesis, Denies hematochezia, Denies loss of appetite, Denies nausea, Denies vomiting Genitourinary: Reports as per HPI Menstruation: Reports as per HPI, Reports postmenopausal Musculoskeletal: Reports as per HPI, Reports gait dysfunction, Reports limitation of motion Integumentary: Reports as per HPI, Reports color changes (Bilateral mid tib-fib region, redness with minimal hypertrophic change, no open wound or sores, bilateral tib-fib area. The bottom of the right foot, has mid 2 cm by mid 2 cm, callus, with no tenderness, some FLUCTUANCY), Denies wounds Neurological: Reports as per HPI Psychiatric: Reports as per HPI Endocrine: Reports as per HPI Hematologic/Lymphatic: Reports as per HPI, Reports easy bruising Allergic/Immunologic: Reports as per HPI, Denies allergic rhinitis, Denies anaphylaxis, Denies angioedema, Denies gluten intolerance, Denies persistent in fections, Denies seasonal allergies, Denies urticaria, Denies wheezing Past Medical History Past Medical History: Atrial Fibrillation, Hypertension History of Any Multi-Drug Resistant Organisms: None Reported Past Surgical History: Bariatric Surgery, Joint Replacement Additional Past Surgical History / Comment(s): R shoulder, bilat knee replacement, bariatric surgery 2014 Past Anesthesia/Blood Transfusion Reactions: No Reported Reaction Past Psychological History: No Psychological Hx Reported Smoking Status: Never smoker Past Alcohol Use History: None Reported Past Drug Use History: None Reported - Past Family History Father Additional Family Medical History / Comment(s): Father from prostate cancer. Mother Additional Family Medical History / Comment(s): Mother is alive with history of PFO. Brother(s) Additional Family Medical History / Comment(s): Patient has one brother with history of gout. Patient's 2 sisters one with no major medical problems and one with generalized osteoarthritis. Patient does not have any children. Medications and Allergies Home Medications Medication Instructions Recorded Confirmed Type Baclofen 10 mg PO HS 09/03/19 05/13/21 History Apixaban [Eliquis] 5 mg PO BID 09/19/20 05/13/21 History Metoprolol Tartrate [Lopressor] 50 mg PO BID 09/19/20 05/13/21 History Potassium Chloride ER [K-Dur 20] 20 meq PO BID #60 tab 09/25/20 05/13/21 Rx Atorvastatin [Lipitor] 10 mg PO DAILY 05/13/21 05/13/21 History Furosemide [Lasix] 60 mg PO BID 05/13/21 05/13/21 History Magnesium Oxide [Mag-Ox] 400 mg PO DAILY 05/13/21 05/13/21 History Allergies Allergy/AdvReac Type Severity Reaction Status Date / Time Poultry [[place]] Allergy Anaphylaxis Verified 05/13/21 19:24 Sulfa (Sulfonamide Allergy Swelling Verified 05/13/21 19:24 Antibiotics) walnut Allergy Swelling Verified 05/13/21 19:24 morphine AdvReac Nausea & Verified 05/13/21 19:24 Vomiting Physical Exam Vitals: Vital Signs Temp Pulse Resp BP Pulse Ox 05/14/21 09:45 102 H 18 116/61 99 05/14/21 08:00 87 18 105/59 98 05/14/21 05:11 72 18 101/60 96 05/13/21 23:30 72 18 108/76 98 05/13/21 21:37 62 18 110/72 99 05/13/21 17:18 97.0 F L 64 18 122/74 99 Intake and Output 05/13/21 05/14/21 05/14/21 22:59 06:59 14:59 Other: Weight 175.994 kg - EENT Eyes: anicteric sclerae, dentition normal, normal appearance ENT: NA/AT, normal oropharynx - Neck Neck: normal ROM - Respiratory Respiratory: negative: CTA, diminished, dullness, rales, rhonchi - Cardiovascular Rhythm: regular Heart sounds: normal: S1, S2 Abnormal Heart Sounds: no systolic murmur, no diastolic murmur, no rub, no S3 Gallop, no S4 Gallop, no click, no other - Gastrointestinal General gastrointestinal: normal bowel sounds, soft - Integumentary 3+ edema, up to the thigh, with deformities in the foot, there is collapse of the metatarsal region and ankle deformities, related to the foot, suspicious of charcoal's, has significant pes planus Integumentary: cellulitis - Neurologic Neurologic: CNII-XII intact - Musculoskeletal Musculoskeletal: strength equal bilaterally - Psychiatric Psychiatric: A&O x's 3, appropriate affect, intact judgment & insight Results CBC & Chem 7: 05/13/21 18:06 05/13/21 17:48 Labs: Abnormal Lab Results - Last 24 Hours (Table) 05/13/21 Range/Units 17:48 BUN 23 H (7-17) mg/dL Glucose 118 H (74-99) mg/dL Laboratory Results WBC 7.8 k/uL (3.8-10.6) 05/13/21 18:06 RBC 4.49 m/uL (3.80-5.40) 05/13/21 18:06 Hgb 14.0 gm/dL (11.4-16.0) 05/13/21 18:06 Hct 43.2 % (34.0-46.0) 05/13/21 18:06 MCV 96.2 fL (80.0-100.0) 05/13/21 18:06 MCH 31.1 pg (25.0-35.0) 05/13/21 18:06 MCHC 32.4 g/dL (31.0-37.0) 05/13/21 18:06 RDW 12.9 % (11.5-15.5) 05/13/21 18:06 Plt Count 239 k/uL (150-450) 05/13/21 18:06 MPV 9.3 05/13/21 18:06 Neutrophils % 75 % 05/13/21 18:06 Lymphocytes % 16 % 05/13/21 18:06 Monocytes % 6 % 05/13/21 18:06 Eosinophils % 2 % 05/13/21 18:06 Basophils % 1 % 05/13/21 18:06 Neutrophils # 5.9 k/uL (1.3-7.7) 05/13/21 18:06 Lymphocytes # 1.2 k/uL (1.0-4.8) 05/13/21 18:06 Monocytes # 0.4 k/uL (0-1.0) 05/13/21 18:06 Eosinophils # 0.1 k/uL (0-0.7) 05/13/21 18:06 Basophils # 0.1 k/uL (0-0.2) 05/13/21 18:06 PT 11.7 sec (9.0-12.0) 05/13/21 17:48 INR 1.1 (<1.2) 05/13/21 17:48 APTT 27.8 sec (22.0-30.0) 05/13/21 17:48 Sodium 140 mmol/L (137-145) 05/13/21 17:48 Potassium 3.5 mmol/L (3.5-5.1) 05/13/21 17:48 Chloride 103 mmol/L (98-107) 05/13/21 17:48 Carbon Dioxide 30 mmol/L (22-30) 05/13/21 17:48 Anion Gap 7 mmol/L 05/13/21 17:48 BUN 23 mg/dL (7-17) H 05/13/21 17:48 Creatinine 0.76 mg/dL (0.52-1.04) 05/13/21 17:48 Est GFR (CKD-EPI)AfAm >90 (>60 ml/min/1.73 sqM) 05/13/21 17:48 Est GFR (CKD-EPI)NonAf 84 (>60 ml/min/1.73 sqM) 05/13/21 17:48 Glucose 118 mg/dL (74-99) H 05/13/21 17:48 Calcium 9.2 mg/dL (8.4-10.2) 05/13/21 17:48 Total Bilirubin 0.6 mg/dL (0.2-1.3) 05/13/21 17:48 AST 23 U/L (14-36) 05/13/21 17:48 ALT 13 U/L (4-34) 05/13/21 17:48 Alkaline Phosphatase 67 U/L (38-126) 05/13/21 17:48 Total Protein 6.9 g/dL (6.3-8.2) 05/13/21 17:48 Albumin 3.8 g/dL (3.5-5.0) 05/13/21 17:48 Coronavirus (PCR) Not Detected (Not Detectd) 05/13/21 21:25 Thrombosis Risk Factor Assmnt - DVT/VTE Prophylaxis DVT/VTE Prophylaxis: Pharmacologic Prophylaxis ordered Assessment and Plan Plan: 1. Bilateral lower extremity cellulitis with edema and lymphedema significant pes planus, ankle and foot deformity, tinea pedis with severe onychomycosis. Carlos padilla started on ceftriaxone 1 g IV piggyback daily, vancomycin pharmacy to dose continue Lasix 40 mg IV every 6 hours, local wound care clotrimazole betamethasone cream, twice a day for 10-14 days 2. Paroxysmal atrial fibrillation. Continue eliquis 5 mg twice daily, Lopressor 50 mg daily. 3. Right plantar midfoot pain, along with fluctuant soft tissue swelling and callus formation and Bilateral ankle pain and right foot pain , computed tomography scan, of the foot right leg 4. Hypertension. Continue losartan 25 mg daily, Lopressor, Lasix. 5. Hyperlipidemia. Continue pravastatin 40 mg daily 6. Generalized osteoarthritis. Continue baclofen 10 mg at bedtime. 7. Generalized debility with difficulty ambulating. Consult with PT and OT. 8. GI prophylaxis. Pepcid. 9. DVT prophylaxis. Eliquis. 10. Morbid obesity with BMI of 61. 11. COVID-19 testing negative. Patient has been hospitalized during a pandemic.
[2021-05-14] MEDS: FUROSEMIDE 10 MG/ML 4 ML VIAL IV SCH ×2 (17:53→23:20)
[2021-05-14] MEDS: APIXABAN 5 MG TAB PO SCH (21:02)
[2021-05-14] MEDS: METOPROLOL TARTRATE 50 MG TAB PO SCH (21:02)
[2021-05-14] MEDS: CLOTRIMAZOLE/BETAMETH 1-0.05% CREAM 45 GM TUBE TOPICAL SCH (21:03)
[2021-05-14] MEDS: POTASSIUM CHLORIDE ER 20 MEQ TAB.ER PO SCH (21:03)
[2021-05-14] MEDS: BACLOFEN 10 MG TAB PO SCH (21:03)
--- NOTE | 2021-05-14 21:45 | CT ---
CT LEFT FOOT W CON HISTORY: Nonhealing cellulitis COMPARISON: 09/22/2020 TECHNIQUE: Axial CT images of the left foot was performed following the administration of 100 mL Isov [place]-300 intravenous contrast. Imaging dose reduction technique was utilized per protocol. FINDINGS: There is diffuse moderate to marked soft tissue edema about the imaged left distal leg through the an kle. There are scattered areas of confluent edema. No definite fluid collection or soft tissue gas se en. There is no acute fracture or dislocation. No CT evidence of osseous erosions or destruction. There i s moderate osteoarthritis of the hindfoot is suggestion of pes planus. Partially imaged proximal tibi al hardware is seen. IMPRESSION: Diffuse soft tissue edema about the imaged left lower extremity, consistent with cellulitis in the ap propriate clinical setting. No definitive fluid collection soft tissue gas seen. No acute osseous abnormality.
--- NOTE | 2021-05-14 21:49 | CT ---
CT RIGHT FOOT W CON HISTORY: Nonhealing cellulitis COMPARISON: 09/21/2020 TECHNIQUE: Axial CT images of the right foot was performed following the administration of 100 mL Iso [place]-300 intravenous contrast. Imaging dose reduction technique was utilized per protocol. FINDINGS: There is diffuse moderate to marked soft tissue edema about the imaged right distal leg through the a nkle. There are scattered areas of confluent edema. No definite fluid collection or soft tissue gas s een. There is no acute fracture or dislocation. No CT evidence of osseous erosions or destruction. There i s moderate osteoarthritis of the hindfoot is suggestion of pes planus. IMPRESSION: Diffuse soft tissue edema about the imaged right lower extremity, consistent with cellulitis in the a ppropriate clinical setting. No definitive fluid collection soft tissue gas seen. No acute osseous abnormality.
--- NOTE | 2021-05-15 00:11 | P.CONS ---
History of Present Illness - Reason for Consult Consult date: 05/14/21 right foot cellultis Requesting physician: Lawanda Guzman - Chief Complaint right foot pain and leg redness x days - History of Present Illness History of Present Illness : Patient is a 65-year-old female morbidly obese and this patient have diffuse swelling of the lower extremity patient presenting to the hospital last evening for evaluation of significant right foot pain and swelling that apparently has been getting worse for the last few days patient denies any history of any trauma patient describes the pain to the right foot on the plantar aspect attributing it to her ulceration or sore describing the pain to be more of a sharp in nature almost certainly severity when she walks on it and the patient also developed diffuse swelling and redness to the lower extremity with the symptom the patient was evaluated by the ER physician on arrival to the ER patient was afebrile patient did have a normal white count kidney function was normal COVID PCR was negative patient did have x-ray of the foot which did show some deformity and lucency of the neck of the fifth metatarsal head osteomyelitis or fracture not excluded patient was started on vancomycin has been admitted to the hospital infectious disease was consulted for further management of antibiotic therapy Review of system: CONSTITUTIONAL: Positive for weakness denies high-grade fever. EYES: No complaint. ENT: No complaint. RESPIRATORY: No complaint. CARDIOVASCULAR: No complaint. GENITOURINARY: No complaint. GASTROINTESTINAL: No complaint. MUSCULOSKELETAL: As per history of present illness. INTEGUMENTARY : As per history of present illness. PSYCHOLOGIC: No complaint. ENDOCRINE: No complaint. NEUROLOGIC: No complaint. Past medical history : Reviewed, documented below Past surgical history : Reviewed, documented below Social history: Reviewed, documented below Medications: Reviewed, as documented below EXAMINATION: Vital sigans= Reviewed and documented below GENERAL DESCRIPTION: Middle-aged female lying in bed, no distress. No tachypnea or accessory muscle of respiration use. HEENT: Shows Pallor , no scleral icterus. Oral mucous membrane is dry. NECK: Trachea central, no thyromegaly. LUNGS: Unlabored breathing. Clear to auscultation anteriorly. No wheeze or cr ackle. HEART: S1, S2, regular rate and rhythm. ABDOMEN: Soft, no tenderness , guarding or rigidity EXTREMITIES: Diffuse swelling of bilateral lower extremity with redness and warmth to touch patient did have a tender spot on the plantar aspect of the right foot with no open wound or any drainage SKIN: No rash, no masses palpable. NEUROLOGICAL: The patient is awake, alert, oriented x3, mood and affect normal. LABS AND RADIOLOGY: Reviewed results see below Assessment : Patient presented to hospital with pain to the right foot along with diffuse swelling redness of bilateral lower extremity and this patient did have evidence of bilateral lower extremity cellulitis patient did have a right foot plantar tenderness and some callus formation with a question of possible infected callus or underlying abscess and x-ray of the foot has been suspicious for possible osteomyelitis of the fifth metatarsal Plan: 1-we will obtain CT of the right foot to make sure no evidence of any abscess or osteomyelitis 2-vancomycin pharmacy to dose target trough of 15 while watching kidney function and vancomycin trough closely 3-Marked area of the redness of both legs and Cheo wrap to the legs from just above the toe to below the knee We will follow on clinical condition and cultures to further adjust medication if needed Thank you for this consultation we will follow the patient along with you Past Medical History Past Medical History: Atrial Fibrillation, Hypertension History of Any Multi-Drug Resistant Organisms: None Reported Past Surgical History: Bariatric Surgery, Joint Replacement Additional Past Surgical History / Comment(s): R shoulder, bilat knee replacement, bariatric surgery 2014 Past Anesthesia/Blood Transfusion Reactions: No Reported Reaction Past Psychological History: No Psychological Hx Reported Smoking Status: Never smoker Past Alcohol Use History: None Reported Past Drug Use History: None Reported - Past Family History Father Additional Family Medical History / Comment(s): Father from prostate cancer. Mother Additional Family Medical History / Comment(s): Mother is alive with history of PFO. Brother(s) Additional Family Medical History / Comment(s): Patient has one brother with history of gout. Patient's 2 sisters one with no major medical problems and one with generalized osteoarthritis. Patient does not have any children. Medications and Allergies Home Medications Medication Instructions Recorded Confirmed Type Baclofen 10 mg PO HS 09/03/19 05/13/21 History Apixaban [Eliquis] 5 mg PO BID 09/19/20 05/13/21 History Metoprolol Tartrate [Lopressor] 50 mg PO BID 09/19/20 05/13/21 History Potassium Chloride ER [K-Dur 20] 20 meq PO BID #60 tab 09/25/20 05/13/21 Rx Atorvastatin [Lipitor] 10 mg PO DAILY 05/13/21 05/13/21 History Furosemide [Lasix] 60 mg PO BID 05/13/21 05/13/21 History Magnesium Oxide [Mag-Ox] 400 mg PO DAILY 05/13/21 05/13/21 History Allergies Allergy/AdvReac Type Severity Reaction Status Date / Time Poultry [[place]] Allergy Anaphylaxis Verified 05/13/21 19:24 Sulfa (Sulfonamide Allergy Swelling Verified 05/13/21 19:24 Antibiotics) [place] Allergy Swelling Verified 05/13/21 19:24 morphine AdvReac Nausea & Verified 05/13/21 19:24 Vomiting Physical Exam Vitals: Vital Signs Temp Pulse Resp BP Pulse Ox 05/14/21 09:45 102 H 18 116/61 99 05/14/21 08:00 87 18 105/59 98 05/14/21 05:11 72 18 101/60 96 05/13/21 23:30 72 18 108/76 98 05/13/21 21:37 62 18 110/72 99 05/13/21 17:18 97.0 F L 64 18 122/74 99 Intake and Output 05/13/21 05/14/21 05/14/21 22:59 06:59 14:59 Other: Weight 175.994 kg Results CBC & Chem 7: 05/13/21 18:06 05/13/21 17:48 Labs: Abnormal Lab Results - Last 24 Hours (Table) 05/13/21 Range/Units 17:48 BUN 23 H (7-17) mg/dL Glucose 118 H (74-99) mg/dL
[2021-05-15] MEDS: ceFAZolin 3 GM in SODIUM CHLORIDE 0.9% 100 ML IVPB SCH ×4 (00:52→23:30)
[2021-05-15 06:07] LABS: Basophils % (A) 1 %; Eosinophils # (A) 0.2 k/uL (0-0.7); Eosinophils % (A) 3 %; HCT 39.7 % (34.0-46.0); HGB 12.5 gm/dL (11.4-16.0); Lymphocytes # (A) 1.8 k/uL (1.0-4.8); Lymphocytes % (A) 28 %; MCH 31.2 pg (25.0-35.0); MCHC 31.6 g/dL (31.0-37.0); MCV 98.9 fL (80.0-100.0); Mean Platelet Volume 9.4; Monocytes # (A) 0.4 k/uL (0-1.0); Monocytes % (A) 6 %; Neutrophils # (A) 3.8 k/uL (1.3-7.7); Neutrophils % (A) 60 %; Platelet Count 211 k/uL (150-450); RBC 4.01 m/uL (3.80-5.40); RDW 13.5 % (11.5-15.5); WBC 6.3 k/uL (3.8-10.6)
[2021-05-15 06:30] LABS: Calcium 8.4 mg/dL (8.4-10.2); Potassium 3.4 mmol/L (3.5-5.1)
[2021-05-15] MEDS: FUROSEMIDE 10 MG/ML 4 ML VIAL IV SCH ×3 (08:51→23:30)
[2021-05-15] MEDS: ATORVASTATIN 10 MG TAB PO SCH (08:51)
[2021-05-15] MEDS: APIXABAN 5 MG TAB PO SCH ×2 (08:51→20:17)
[2021-05-15] MEDS: POTASSIUM CHLORIDE ER 20 MEQ TAB.ER PO SCH ×2 (08:52→20:17)
[2021-05-15] MEDS: CLOTRIMAZOLE/BETAMETH 1-0.05% CREAM 45 GM TUBE TOPICAL SCH ×2 (08:52→20:17)
[2021-05-15] MEDS: MAGNESIUM OXIDE 400 MG TAB PO SCH (08:52)
[2021-05-15] MEDS: METOPROLOL TARTRATE 50 MG TAB PO SCH ×2 (08:52→20:17)
--- NOTE | 2021-05-15 16:42 | P.PN ---
Subjective Progress Note Date: 05/15/21 HISTORY OF PRESENT ILLNESS This is a 64-year-old female with past medical history of , hyperte nsion, paroxysmal atrial fibrillation, morbid obesity and bilateral leg edema, presenting with worsening lower extremity edema, blisters on the bottom of the right foot, she states her right foot bleeds pain in the plantar mid foot the right foot, bilateral leg swelling, which has progressed over the past 3 weeks, denies any trauma, patient ambulates with a walker, there is significant deformities on the bottom of the plantar arches, off from the mid ankle downward Suspicious of CHARCOTS She complains of bilateral ankle pain. Patient complains of right lower extremity edema worse this been going on for one year. She has worsening redness, in the mid tib-fib region, patient denies any di abetes, or trauma to the leg. Review of testing, in September 2020, she had an ejection fraction of 45-50%, moderate concentric LVH, right ventricle severely enlarged, mild MR, mild TR, mild pulmonary hypertension, based on echo, them at that time. In the emergency room x-rays of foot, shows moderate soft tissue swelling, there is some deformity and lucency of the neck of the fifth metatarsal head, osteomyelitis or fracture is not excluded. This is of the right foot, no x-rays were done of the left foot 05/15: She has less edema on the left, continues to have significant redness to the right lower extremity and edema although softer. Blood culture will be ordered. Repeat lab work ordered for tomorrow. Patient is continued on cefazolin and vancomycin per Dr. jimenes and local wound care. CAT scan of the bilateral foot shows diffuse soft tissue edema consistent with cellulitis. No definitive fluid collection, soft tissue gas seen. No acute osseous abnormality. REVIEW OF SYSTEMS Constitutional: Reports as per HPI, Denies anorexia, Denies chills, Denies chronic headaches, Denies chronic pain, Denies daytime sleepiness, Denies fatigue, Denies fever, Denies lethargy, Denies malaise, Denies night sweats, Denies poor appetite, Denies sweats, Denies weakness, Denies weight gain, Denies weight loss Ears, nose, mouth and throat: Reports as per HPI, Denies ant. neck pain, Denies bleeding gums, Denies dental pain, Denies dysphagia, Denies epistaxis, Denies headache, Denies hoarseness, Denies mouth pain, Denies nasal congestion, Denies nasal discharge, Denies neck fullness/pressure, Denies neck lump, Denies nose pain, Denies odynophagia, Denies post-nasal drip, Denies sinus pain, Denies sinus pressure, Denies swelling in mouth, Denies swelling in throat, Denies sore throat, Denies vertigo, Denies voice changes Cardiovascular: Reports as per HPI, Reports decreased exercise tolerance, Reports dyspnea on exertion, Denies irregular heart beat, Denies orthopnea, Denies shortness of breath Respiratory: Denies congestion, Denies cough, Denies cough with sputum, Denies home oxygen, Denies pain on inspiration, Denies respiratory infections Gastrointestinal: Denies belching, Denies bloating, Denies diarrhea, Denies hematemesis, Denies hematochezia, Denies loss of appetite, Denies nausea, Denies vomiting Genitourinary: Reports as per HPI Menstruation: Reports as per HPI, Reports postmenopausal Musculoskeletal: Reports as per HPI, Reports gait dysfunction, Reports limitation of motion Integumentary: Reports as per HPI, Reports color changes (Bilateral mid tib-fib region, redness with minimal hypertrophic change, no open wound or sores, bilateral tib-fib area. The bottom of the right foot, has mid 2 cm by mid 2 cm, callus, with no tenderness, some FLUCTUANCY), Denies wounds Neurological: Reports as per HPI Psychiatric: Reports as per HPI Endocrine: Reports as per HPI Hematologic/Lymphatic: Reports as per HPI, Reports easy bruising PHYSICAL EXAMINATION - EENT Eyes: anicteric sclerae, dentition normal, normal appearance ENT: NA/AT, normal oropharynx - Neck Neck: normal ROM - Respiratory Respiratory: negative: CTA, diminished, dullness, rales, rhonchi - Cardiovascular Rhythm: regular Heart sounds: normal: S1, S2 Abnormal Heart Sounds: no systolic murmur, no diastolic murmur, no rub, no S3 Gallop, no S4 Gallop, no click, no other - Gastrointestinal General gastrointestinal: normal bowel sounds, soft - Integumentary 3+ edema, up to the thigh, with deformities in the foot, there is collapse of the metatarsal region and ankle deformities, related to the foot, suspicious of charcoal's, has significant pes planus Integumentary: cellulitis - Neurologic Neurologic: CNII-XII intact - Musculoskeletal Musculoskeletal: strength equal bilaterally - Psychiatric Psychiatric: A&O x's 3, appropriate affect, intact judgment & insight ASSESSMENT AND PLAN 1. Bilateral lower extremity cellulitis with edema and lymphedema significant pes planus, ankle and foot deformity, tinea pedis with severe onychomycosis. Continue ceftriaxone 1 g IV piggyback daily, vancomycin pharmacy to dose continue Lasix 40 mg IV every 8 hours, local wound care clotrimazole betamethasone cream, twice a day for 10-14 days, consult with Dr. Leonardo appr eciated 2. Paroxysmal atrial fibrillation. Continue eliquis 5 mg twice daily, Lopressor 50 mg daily. 3. Right plantar midfoot pain, along with fluctuant soft tissue swelling and callus formation and Bilateral ankle pain and right foot pain , computed tomography scan, of the foot right leg 4. Hypertension. Continue losartan 25 mg daily, Lopressor, Lasix. 5. Hyperlipidemia. Continue pravastatin 40 mg daily 6. Generalized osteoarthritis. Continue baclofen 10 mg at bedtime. 7. Generalized debility with difficulty ambulating. Consult with PT and OT. 8. GI prophylaxis. Pepcid. 9. DVT prophylaxis. Eliquis. 10. Morbid obesity with BMI of 61. 11. COVID-19 testing negative. Patient has been hospitalized during a pandemic. DISCHARGE PLAN To be determined. Impression and plan of care have been directed as dictated by the signing physician. Amrita Alfonso nurse practitioner acting as scribe for signing physician. Objective - Vital Signs Vital signs: Vital Signs Temp 98.1 F 05/15/21 08:15 Pulse 65 05/15/21 08:15 Resp 16 05/15/21 08:15 BP 125/68 05/15/21 08:15 Pulse Ox 95 05/15/21 08:15 Intake & Output 05/14/21 05/15/21 05/15/21 18:59 06:59 18:59 Output Total 3150 Balance -3150 Weight 175.994 kg Output: Urine 3150 Other: # Voids 1 # Bowel Movements 1 - Labs CBC & Chem 7: 05/15/21 05:20 05/15/21 05:20 Labs: Abnormal Lab Results - Last 24 Hours (Table) 05/15/21 Range/Units 05:20 Potassium 3.4 L (3.5-5.1) mmol/L Carbon Dioxide 33 H (22-30) mmol/L Microbiology - Last 24 Hours (Table) 05/13/21 20:55 Blood Culture - Preliminary Blood No Growth after 24 hours 05/13/21 21:10 Blood Culture - Preliminary Blood No Growth after 24 hours
--- NOTE | 2021-05-15 19:08 | PN ---
PROGRESS NOTE DATE OF SERVICE: 05/15/2021 REASON FOR FOLLOWUP VISIT: Bilateral lower extremity cellulitis. INTERVAL HISTORY: The patient is afebrile. The patient is breathing comfortably. Still complaining of pain to the right foot plantar area. No chest pain, shortness of breath or cough. No abdominal pain or diarrhea. PHYSICAL EXAMINATION: Blood pressure is 94/61 with a pulse of 73, temperature 98.7. She is 97% on room air. General description is a middle-aged female lying in bed in no distress. Respiratory system: Unlabored breathing, clear to auscultation anteriorly. Heart S1, S2. Regular rate and rhythm. Abdomen soft, no tenderness. Bilateral lower extremities with swelling and redness, mildly decreased. Has tenderness to the right foot plantar aspect. LABS: Hemoglobin is 12.5, white count 6.3, creatinine 0.83. Blood culture negative. CT was negative for any abscess. DIAGNOSTIC IMPRESSION AND PLAN: Patient with bilateral lower extremity cellulitis and concern for possible infected callus on the plantar aspect of the right foot. However, CT did not show any abscess. Patient to continue Cefazolin. Cheo wrap to the legs to keep the swelling down and monitor clinical course closely. MMODL / IJN: [id number] /
[2021-05-15] MEDS: BACLOFEN 10 MG TAB PO SCH (20:17)
[2021-05-16] MEDS: ACETAMINOPHEN TAB 325 MG TAB PO PRN (06:24)
[2021-05-16] MEDS: APIXABAN 5 MG TAB PO SCH ×2 (08:02→21:01)
[2021-05-16] MEDS: POTASSIUM CHLORIDE ER 20 MEQ TAB.ER PO SCH ×2 (08:02→21:01)
[2021-05-16] MEDS: FUROSEMIDE 10 MG/ML 4 ML VIAL IV SCH ×3 (08:02→23:33)
[2021-05-16] MEDS: METOPROLOL TARTRATE 50 MG TAB PO SCH ×2 (08:02→21:01)
[2021-05-16] MEDS: ATORVASTATIN 10 MG TAB PO SCH (08:02)
[2021-05-16] MEDS: MAGNESIUM OXIDE 400 MG TAB PO SCH (08:02)
[2021-05-16] MEDS: ceFAZolin 3 GM in SODIUM CHLORIDE 0.9% 100 ML IVPB SCH ×3 (08:03→23:33)
[2021-05-16] MEDS: CLOTRIMAZOLE/BETAMETH 1-0.05% CREAM 45 GM TUBE TOPICAL SCH ×2 (08:03→21:02)
[2021-05-16] MEDS ORDERED: BUTALB/APAP/CAFF 50-325-40MG TAB PO PRN (09:30)
--- NOTE | 2021-05-16 12:18 | P.PN ---
Subjective Progress Note Date: 05/16/21 HISTORY OF PRESENT ILLNESS This is a 64-year-old female with past medical history of , hyperte nsion, paroxysmal atrial fibrillation, morbid obesity and bilateral leg edema, presenting with worsening lower extremity edema, blisters on the bottom of the right foot, she states her right foot bleeds pain in the plantar mid foot the right foot, bilateral leg swelling, which has progressed over the past 3 weeks, denies any trauma, patient ambulates with a walker, there is significant deformities on the bottom of the plantar arches, off from the mid ankle downward Suspicious of [place]ARCOT[place] She complains of bilateral ankle pain. Patient complains of right lower extremity edema worse this been going on for one year. She has worsening redness, in the mid tib-fib region, patient denies any di abetes, or trauma to the leg. Review of testing, in September 2020, she had an ejection fraction of 45-50%, moderate concentric LVH, right ventricle severely enlarged, mild MR, mild TR, mild pulmonary hypertension, based on echo, them at that time. In the emergency room x-rays of foot, shows moderate soft tissue swelling, there is some deformity and lucency of the neck of the fifth metatarsal head, osteomyelitis or fracture is not excluded. This is of the right foot, no x-rays were done of the left foot 05/15: She has less edema on the left, continues to have significant redness to the right lower extremity and edema although softer. Blood culture will be ordered. Repeat lab work ordered for tomorrow. Patient is continued on cefazolin and vancomycin per Dr. Leonardo and local wound care. CAT scan of the bilateral foot shows diffuse soft tissue edema consistent with cellulitis. No definitive fluid collection, soft tissue gas seen. No acute osseous abnormality. 05/16: The patient has decreased edema and redness to the lower extremities. She can complains of a headache today and Fioricet will be added. Physical therapy has recommended subacute rehab and patient is set to go to [facility] probably tomorrow. REVIEW OF SYSTEMS Constitutional: Reports as per HPI, Denies anorexia, Denies chills, Denies chronic headaches, Denies chronic pain, Denies daytime sleepiness, Denies fatigue, Denies fever, Denies lethargy, Denies malaise, Denies night sweats, Denies poor appetite, Denies sweats, Denies weakness, Denies weight gain, Denies weight loss Ears, nose, mouth and throat: Reports as per HPI, Denies ant. neck pain, Denies bleeding gums, Denies dental pain, Denies dysphagia, Denies epistaxis, Denies headache, Denies hoarseness, Denies mouth pain, Denies nasal congestion, Denies nasal discharge, Denies neck fullness/pressure, Denies neck lump, Denies nose pain, Denies odynophagia, Denies post-nasal drip, Denies sinus pain, Denies sinus pressure, Denies swelling in mouth, Denies swelling in throat, Denies sore throat, Denies vertigo, Denies voice changes Cardiovascular: Reports as per HPI, Reports decreased exercise tolerance, Reports dyspnea on exertion, Denies irregular heart beat, Denies orthopnea, Denies shortness of breath Respiratory: Denies congestion, Denies cough, Denies cough with sputum, Denies home oxygen, Denies pain on inspiration, Denies respiratory infections Gastrointestinal: Denies belching, Denies bloating, Denies diarrhea, Denies hematemesis, Denies hematochezia, Denies loss of appetite, Denies nausea, Denies vomiting Genitourinary: Reports as per HPI Menstruation: Reports as per HPI, Reports postmenopausal Musculoskeletal: Reports as per HPI, Reports gait dysfunction, Reports limitation of motion Integumentary: Reports as per HPI, Reports color changes (Bilateral mid tib-fib region, redness with minimal hypertrophic change, no open wound or sores, bilateral tib-fib area. The bottom of the right foot, has mid 2 cm by mid 2 cm, callus, with no tenderness, some FLUCTUANCY), Denies wounds Neurological: Reports as per HPI Psychiatric: Reports as per HPI Endocrine: Reports as per HPI Hematologic/Lymphatic: Reports as per HPI, Reports easy bruising PHYSICAL EXAMINATION - EENT Eyes: anicteric sclerae, dentition normal, normal appearance ENT: NA/AT, normal oropharynx - Neck Neck: normal ROM - Respiratory Respiratory: negative: CTA, diminished, dullness, rales, rhonchi - Cardiovascular Rhythm: regular Heart sounds: normal: S1, S2 Abnormal Heart Sounds: no systolic murmur, no diastolic murmur, no rub, no S3 Gallop, no S4 Gallop, no click, no other - Gastrointestinal General gastrointestinal: normal bowel sounds, soft - Integumentary 2+ edema, up to the thigh, with deformities in the foot, there is collapse of the metatarsal region and ankle deformities, related to the foot, has significant pes planus Integumentary: cellulitis - Neurologic Neurologic: CNII-XII intact - Musculoskeletal Musculoskeletal: strength equal bilaterally - Psychiatric Psychiatric: A&O x's 3, appropriate affect, intact judgment & insight ASSESSMENT AND PLAN 1. Bilateral lower extremity cellulitis with edema and lymphedema significant pes planus, ankle and foot deformity, tinea pedis with severe onychomycosis. Continue ceftezole, continue Lasix 40 mg IV every 8 hours, local wound care clotrimazole betamethasone cream, twice a day for 10-14 days, consult with Dr. Jorden graf 2. Paroxysmal atrial fibrillation. Continue eliquis 5 mg twice daily, Lopressor 50 mg daily. 3. Right plantar midfoot pain, along with fluctuant soft tissue swelling and callus formation and Bilateral ankle pain and right foot pain , computed tomography scan, of the foot right leg 4. Hypertension. Continue losartan 25 mg daily, Lopressor, Lasix. 5. Hyperlipidemia. Continue pravastatin 40 mg daily 6. Generalized osteoarthritis. Continue baclofen 10 mg at bedtime. 7. Generalized debility with difficulty ambulating. Consult with PT and OT. 8. GI prophylaxis. Pepcid. 9. DVT prophylaxis. Eliquis. 10. Morbid obesity with BMI of 61. 11. COVID-19 testing negative. Patient has been hospitalized during a pandemic. DISCHARGE PLAN [facility] on Impression and plan of care have been directed as dictated by the signing physician. Amrita Alfonso nurse practitioner acting as scribe for signing physician. Objective - Vital Signs Vital signs: Vital Signs Temp 98.7 F 05/16/21 04:47 Pulse 89 05/16/21 04:47 Resp 18 05/16/21 04:47 BP 112/77 05/16/21 04:47 Pulse Ox 96 05/16/21 04:47 Intake & Output 05/15/21 05/16/21 05/16/21 18:59 06:59 18:59 Intake Total 100 200 Output Total 1600 600 Balance 100 -1400 -600 Intake: Intake, IV Titration 100 Amount ceFAZolin 3 gm In Sodium 100 Chloride 0.9% 100 ml @ 200 mls/hr IVPB Q8HR [facility] Rx#:[id number] Oral 200 Output: Urine 1600 600 Other: Voiding Method External Catheter # Voids 3 - Labs CBC & Chem 7: 05/15/21 05:20 05/16/21 07:21 Labs: Microbiology - Last 24 Hours (Table) 05/13/21 21:10 Blood Culture - Preliminary Blood No Growth after 48 hours 05/13/21 20:55 Blood Culture - Preliminary Blood No Growth after 48 hours
[2021-05-16] MEDS ORDERED: MELATONIN 3 MG TABLET PO SCH (21:00)
[2021-05-16] MEDS: BACLOFEN 10 MG TAB PO SCH (21:01)
--- NOTE | 2021-05-16 22:47 | PN ---
PROGRESS NOTE DATE OF SERVICE: 05/16/2021 REASON FOR FOLLOWUP: Bilateral lower extremity cellulitis. INTERVAL HISTORY: The patient is afebrile. The patient is breathing comfortably. Denies having any chest pain, shortness of breath or cough. No abdominal pain. No diarrhea or any worsening pain to the lower extremity. PHYSICAL EXAMINATION: Her blood pressure is 100/70 with a pulse of 73, temperature 98.6, she is 98% on room air. General description is a middle-aged female lying in bed in no distress. Respiratory system: Unlabored breathing, clear to auscultation anteriorly. Heart S1, S2. Regular rate and rhythm. Abdomen soft, no tenderness. Legs are currently covered with Cheo wrap. No drainage on the dressing. LABS: Creatinine 0.86. DIAGNOSTIC IMPRESSION AND PLAN: This patient with bilateral lower extremity cellulitis with diffuse swelling and redness. CT of the foot was negative for any abscess. Patient is covered with cefazolin to continue. Transition to oral Keflex on discharge to finish course of therapy and continue supportive care. MMODL / IJN: [id number] /
[2021-05-17 07:55] VITALS: TEMP 97.9
[2021-05-17 08:16] LABS: HCT 42.7 % (34.0-46.0); HGB 13.4 gm/dL (11.4-16.0); MCHC 31.4 g/dL (31.0-37.0); MCV 98.6 fL (80.0-100.0); Platelet Count 240 k/uL (150-450); RBC 4.33 m/uL (3.80-5.40); RDW 13.4 % (11.5-15.5); WBC 7.7 k/uL (3.8-10.6)
[2021-05-17 08:26] LABS: ALT 7 U/L (4-34); AST 19 U/L (14-36); African American GFR (CKD) >90 (>60 ml/min/1.73 sqM); Albumin 3.1 g/dL (3.5-5.0); Alkaline Phosphatase 53 U/L (38-126); Anion Gap 6 mmol/L; Blood Urea Nitrogen 14 mg/dL (7-17); Calcium 8.3 mg/dL (8.4-10.2); Carbon Dioxide 33 mmol/L (22-30); Chloride 99 mmol/L (98-107); Glucose 92 mg/dL (74-99); Non-African American GFR(CKD) 81 (>60 ml/min/1.73 sqM); Potassium 3.7 mmol/L (3.5-5.1); Sodium 138 mmol/L (137-145); Total Bilirubin 0.6 mg/dL (0.2-1.3); Total Protein 6.2 g/dL (6.3-8.2)
[2021-05-17] MEDS: POTASSIUM CHLORIDE ER 20 MEQ TAB.ER PO SCH (08:38)
[2021-05-17] MEDS: MAGNESIUM OXIDE 400 MG TAB PO SCH (08:38)
[2021-05-17] MEDS: ceFAZolin 3 GM in SODIUM CHLORIDE 0.9% 100 ML IVPB SCH (08:38)
[2021-05-17] MEDS: APIXABAN 5 MG TAB PO SCH (08:38)
[2021-05-17] MEDS: ATORVASTATIN 10 MG TAB PO SCH (08:38)
[2021-05-17] MEDS: CLOTRIMAZOLE/BETAMETH 1-0.05% CREAM 45 GM TUBE TOPICAL SCH (08:38)
[2021-05-17] MEDS: FUROSEMIDE 10 MG/ML 4 ML VIAL IV SCH (08:38)
[2021-05-17] MEDS: METOPROLOL TARTRATE 50 MG TAB PO SCH (08:38)
--- NOTE | 2021-05-17 09:53 | P.DS ---
Providers Date of admission: 05/15/21 08:16 Expected date of discharge: 05/17/21 Attending physician: Zain Ziegler Consults: 05/13/21 19:30 Consult Physician Routine Consulting Provider: Nando Leonardo Consult Reason/Comments: foot infection Do you want consulting provider notified?: Yes Primary care physician: [facility] Course: HISTORY OF PRESENT ILLNESS This is a 64-year-old female with past medical history of , hypertension, paroxysmal atrial fibrillation, morbid obesity and bilateral leg edema, presenting with worsening lower extremity edema, blisters on the bottom of the right foot, she states her right foot bleeds pain in the plantar mid foot the right foot, bilateral leg swelling, which has progressed over the past 3 weeks, denies any trauma, patient ambulates with a walker, there is significant deformities on the bottom of the plantar arches, off from the mid ankle downward Suspicious of [place]ARCOT[place] She complains of bilateral ankle pain. Patient complains of right lower extremity edema worse this been going on for one year. She has worsening redness, in the mid tib-fib region, patient denies any diabetes, or trauma to the leg. Review of testing, in September 2020, she had an ejection fraction of 45-50%, moderate concentric LVH, right ventricle severely enlarged, mild MR, mild TR, mild pulmonary hypertension, based on echo, them at that time. In the emergency room x-rays of foot, shows moderate soft tissue swelling, there is some deformity and lucency of the neck of the fifth metatarsal head, osteomyelitis or fracture is not excluded. This is of the right foot, no x-rays were done of the left foot 05/15: She has less edema on the left, continues to have significant redness to the right lower extremity and edema although softer. Blood culture will be ordered. Repeat lab work ordered for tomorrow. Patient is continued on cefazolin and vancomycin per Dr. Leonardo and local wound care. CAT scan of the bilateral foot shows diffuse soft tissue edema consistent with cellulitis. No definitive fluid collection, soft tissue gas seen. No acute osseous abnormality. 05/16: The patient has decreased edema and redness to the lower extremities. She can complains of a headache today and Fioricet will be added. Physical therapy has recommended subacute rehab and patient is set to go to [facility] probably tomorrow. 05/17: Continues to have improvement of lower extremity edema and erythema. We will start transitioning Lasix to 60 mg twice daily oral and 9 and 3. Patient is complaining of constipation and Senokot added. She will be discharged to [facility] regimens are completed. DISCHARGE DIAGNOSES 1. Bilateral lower extremity cellulitis with edema and lymphedema significant pes planus, ankle and foot deformity, tinea pedis with severe onychomycosis. 2. Paroxysmal atrial fibrillation. 3. Right plantar midfoot pain, along with fluctuant soft tissue swelling and callus formation and Bilateral ankle pain and right foot pain 4. Hypertension. 5. Hyperlipidemia. 6. Generalized osteoarthritis. 7. Generalized debility with difficulty ambulating. 8. Morbid obesity with BMI of 61. 9. COVID-19 testing negative. Patient has been hospitalized during a pandemic. DISCHARGE PLAN [facility] Greater than 35 minutes was utilized and coordinating patient's discharge. Impression and plan of care have been directed as dictated by the signing physician. Amrita Alfonso nurse practitioner acting as scribe for signing physician. Patient Condition at Discharge: Stable Plan - Discharge Summary Discharge Rx Participant: No New Discharge Prescriptions: New Cephalexin [Keflex] 500 mg PO Q6HR 7 Days #28 cap Sennosides-Docusate Sodium [Senokot-S] 2 tab PO DAILY #60 tablet Clotrimazole/Betameth Cream [Lotrisone] 1 applic TOPICAL BID cream Melatonin 6 mg PO HS tablet Continue Baclofen 10 mg PO HS Potassium Chloride ER [K-Dur 20] 20 meq PO BID #60 tab Magnesium Oxide [Mag-Ox] 400 mg PO DAILY Metoprolol Tartrate [Lopressor] 50 mg PO BID Apixaban [Eliquis] 5 mg PO BID Atorvastatin [Lipitor] 10 mg PO DAILY Furosemide [Lasix] 60 mg PO BID #0 Discharge Medication List Baclofen 10 mg PO HS 09/03/19 [History] Apixaban [Eliquis] 5 mg PO BID 09/19/20 [History] Metoprolol Tartrate [Lopressor] 50 mg PO BID 09/19/20 [History] Potassium Chloride ER [K-Dur 20] 20 meq PO BID #60 tab 09/25/20 [Rx] Atorvastatin [Lipitor] 10 mg PO DAILY 05/13/21 [History] Magnesium Oxide [Mag-Ox] 400 mg PO DAILY 05/13/21 [History] Cephalexin [Keflex] 500 mg PO Q6HR 7 Days #28 cap 05/17/21 [Rx] Clotrimazole/Betameth Cream [Lotrisone] 1 applic TOPICAL BID cream 05/17/21 [Rx] Furosemide [Lasix] 60 mg PO BID #0 05/17/21 [Rx] Melatonin 6 mg PO HS tablet 05/17/21 [Rx] Sennosides-Docusate Sodium [Senokot-S] 2 tab PO DAILY #60 tablet 05/17/21 [Rx] Follow up Appointment(s)/Referral(s): Alvaro Roldan MD [Primary Care Provider] - 1 Week Elder Vaughn DPM [STAFF PHYSICIAN] - 1 Week Discharge Disposition: TRANSFER TO SNF/ECF
[2021-05-17 12:18] VITALS: BP 92/58; PULSE 63; RESP 17
== END 2021-05-17 15:26 | DRG 603 ==
LOC: EC 17:15 → 6NMEDSUR 19:30 → 3NCARDOBS 05-14 06:46 → OBSVTOIN 05-15 08:16
PROVIDERS: ADMIT Internal Medicine Geriatric Medicine; ATTEND Internal Medicine Geriatric Medicine
DX: L03.116 Cellulitis of left lower limb (principal); Z68.44 Body mass index [BMI] 60.0-69.9, adult; L03.115 Cellulitis of right lower limb; B35.1 Tinea unguium; E66.01 Morbid (severe) obesity due to excess calories; B35.3 Tinea pedis; Z20.822 Contact with and (suspected) exposure to COVID-19; M21.969 Unspecified acquired deformity of unspecified lower leg; R60.0 Localized edema; I48.0 Paroxysmal atrial fibrillation; M21.42 Flat foot [pes planus] (acquired), left foot; M21.41 Flat foot [pes planus] (acquired), right foot; M15.9 Polyosteoarthritis, unspecified; I10 Essential (primary) hypertension; R26.2 Difficulty in walking, not elsewhere classified; R53.81 Other malaise; E78.5 Hyperlipidemia, unspecified; I27.20 Pulmonary hypertension, unspecified; K59.00 Constipation, unspecified; Z79.01 Long term (current) use of anticoagulants; Z79.899 Other long term (current) drug therapy; Z96.653 Presence of artificial knee joint, bilateral; Z98.84 Bariatric surgery status; Z88.2 Allergy status to sulfonamides; Z91.02 Food additives allergy status; Z91.018 Allergy to other foods; Z88.5 Allergy status to narcotic agent; I08.1 Rheumatic disorders of both mitral and tricuspid valves
CPT/HCPCS: 36415; 80048; 80053; 82565; 83036; 85025; 85027; 85610; 85730; 87040; 87635

== ENCOUNTER 2021-07-07 09:18 | Inpatient (IN) | payer MEDICARE ==
--- NOTE | 2021-07-07 10:09 | ED ---
General Adult HPI - General Chief complaint: Skin/Abscess/Foreign Body Stated complaint: Leg infection Time Seen by Provider: 07/07/21 09:43 Source: patient, EMS, RN notes reviewed Mode of arrival: EMS Limitations: no limitations - History of Present Illness Initial comments: Patient is a pleasant 55-year-old female presenting to the emergency Department with infection to the right leg. Patient states symptoms have slowly progressed over the past 3 weeks. Patient was in the hospital round that time. Patient was on antibiotics when she left however only for 3 days. Symptoms have progressively worsened. Patient has redness and discomfort and swelling, more so anterior. Patient does have history of similar symptoms previously associated with cellulitis. - Related Data Home Medications Medication Instructions Recorded Confirmed Baclofen 10 mg PO HS@1900 09/03/19 07/07/21 Apixaban [Eliquis] 5 mg PO BID@0700,189909/19/20 07/07/21 Metoprolol Tartrate [Lopressor] 50 mg PO BID@0700,19009/19/20 07/07/21 Atorvastatin [Lipitor] 10 mg PO DAILY@0700 05/13/21 07/07/21 Magnesium Oxide [Mag-Ox] 400 mg PO DAILY@0700 05/13/21 07/07/21 Furosemide [Lasix] 60 mg PO BID@0700,1900 07/07/21 07/07/21 Potassium Chloride ER [K-Dur 20] 20 meq PO BID@0700,1900 07/07/21 07/07/21 Allergies Allergy/AdvReac Type Severity Reaction Status Date / Time Poultry [[place]] Allergy Anaphylaxis Verified 07/07/21 12:10 Sulfa (Sulfonamide Allergy Anaphylaxis Verified 07/07/21 12:10 Antibiotics) [place] Allergy Anaphylaxis Verified 07/07/21 12:10 morphine AdvReac Nausea & Verified 07/07/21 12:10 Vomiting Review of Systems ROS Statement: Those systems with pertinent positive or pertinent negative responses have been documented in the HPI. ROS Other: All systems not noted in ROS Statement are negative. Constitutional: Denies: fever Eyes: Denies: eye pain ENT: Denies: ear pain Respiratory: Denies: cough Cardiovascular: Denies: chest pain Endocrine: Denies: fatigue Gastrointestinal: Denies: abdominal pain Genitourinary: Denies: dysuria Skin: Reports: as per HPI, rash Past Medical History Past Medical History: Atrial Fibrillation, Hypertension Additional Past Medical History / Comment(s): Bilateral leg lymphedema, past cellulitis bilateral legs, arthritis in multiple joints, paroxysmal Afib. History of Any Multi-Drug Resistant Organisms: None Reported Past Surgical History: Bariatric Surgery, Joint Replacement Additional Past Surgical History / Comment(s): R shoulder, bilat knee replacement, bariatric surgery 2015 Past Anesthesia/Blood Transfusion Reactions: No Reported Reaction Past Psychological History: No Psychological Hx Reported Smoking Status: Never smoker Past Alcohol Use History: None Reported Past Drug Use History: None Reported - Past Family History Father Family Medical History: Cancer Additional Family Medical History / Comment(s): Father from prostate cancer. Mother Additional Family Medical History / Comment(s): Mother is alive with history of PFO. Brother(s) Additional Family Medical History / Comment(s): Patient has one brother with history of gout. Patient's 2 sisters one with no major medical problems and one with generalized osteoarthritis. Patient does not have any children. General Exam Limitations: no limitations General appearance: alert, in no apparent distress Head exam: Present: normocephalic Eye exam: Present: normal appearance Respiratory exam: Present: normal lung sounds bilaterally Cardiovascular Exam: Present: regular rate, normal rhythm GI/Abdominal exam: Present: soft. Absent: tenderness Extremities exam: Present: pedal edema, other (Right lower leg with warmth and erythema from the foot to the knee. Swelling and tenderness anterior.) Neurological exam: Present: alert Psychiatric exam: Present: normal affect, normal mood Skin exam: Present: erythema, other (Small ulcer bottom of right foot.) Course Vital Signs 07/07/21 07/07/21 09:23 11:49 Temperature 97.9 F Pulse Rate 94 90 Respiratory 18 18 Rate Blood Pressure 111/81 99/65 O2 Sat by Pulse 97 98 Oximetry Medical Decision Making - Medical Decision Making Patient reevaluated and updated. Case was discussed with Dr. Underwood, who will admit covering for Dr. Roldan, time - Lab Data Result diagrams: 07/07/21 10:22 07/07/21 10:22 Lab Results 07/07/21 07/07/21 07/07/21 Range/Units 10:22 10:22 10:22 WBC 6.3 (3.8-10.6) k/uL RBC 4.36 (3.80-5.40) m/uL Hgb 13.7 (11.4-16.0) gm/dL Hct 42.1 (34.0-46.0) % MCV 96.6 (80.0-100.0) fL MCH 31.5 (25.0-35.0) pg MCHC 32.6 (31.0-37.0) g/dL RDW 13.6 (11.5-15.5) % Plt Count 250 (150-450) k/uL MPV 9.9 Neutrophils % 79 % Lymphocytes % 12 % Monocytes % 6 % Eosinophils % 1 % Basophils % 1 % Neutrophils # 5.0 (1.3-7.7) k/uL Lymphocytes # 0.8 L (1.0-4.8) k/uL Monocytes # 0.4 (0-1.0) k/uL Eosinophils # 0.0 (0-0.7) k/uL Basophils # 0.0 (0-0.2) k/uL PT 12.0 (9.0-12.0) sec INR 1.1 (<1.2) APTT 29.5 (22.0-30.0) sec Sodium 140 (137-145) mmol/L Potassium 3.7 (3.5-5.1) mmol/L Chloride 103 (98-107) mmol/L Carbon Dioxide 27 (22-30) mmol/L Anion Gap 10 mmol/L BUN 18 H (7-17) mg/dL Creatinine 0.69 (0.52-1.04) mg/dL Est GFR (CKD-EPI)AfAm >90 (>60 ml/min/1.73 sqM) Est GFR (CKD-EPI)NonAf >90 (>60 ml/min/1.73 sqM) Glucose 114 H (74-99) mg/dL Plasma Lactic Acid Oleg (0.7-2.0) mmol/L Calcium 8.8 (8.4-10.2) mg/dL Total Bilirubin 1.2 (0.2-1.3) mg/dL AST 19 (14-36) U/L ALT 10 (4-34) U/L Alkaline Phosphatase 71 (38-126) U/L Total Protein 7.1 (6.3-8.2) g/dL Albumin 3.8 (3.5-5.0) g/dL 07/07/21 Range/Units 10:22 WBC (3.8-10.6) k/uL RBC (3.80-5.40) m/uL Hgb (11.4-16.0) gm/dL Hct (34.0-46.0) % MCV (80.0-100.0) fL MCH (25.0-35.0) pg MCHC (31.0-37.0) g/dL RDW (11.5-15.5) % Plt Count (150-450) k/uL MPV Neutrophils % % Lymphocytes % % Monocytes % % Eosinophils % % Basophils % % Neutrophils # (1.3-7.7) k/uL Lymphocytes # (1.0-4.8) k/uL Monocytes # (0-1.0) k/uL Eosinophils # (0-0.7) k/uL Basophils # (0-0.2) k/uL PT (9.0-12.0) sec INR (<1.2) APTT (22.0-30.0) sec Sodium (137-145) mmol/L Potassium (3.5-5.1) mmol/L Chloride (98-107) mmol/L Carbon Dioxide (22-30) mmol/L Anion Gap mmol/L BUN (7-17) mg/dL Creatinine (0.52-1.04) mg/dL Est GFR (CKD-EPI)AfAm (>60 ml/min/1.73 sqM) Est GFR (CKD-EPI)NonAf (>60 ml/min/1.73 sqM) Glucose (74-99) mg/dL Plasma Lactic Acid Oleg 1.5 (0.7-2.0) mmol/L Calcium (8.4-10.2) mg/dL Total Bilirubin (0.2-1.3) mg/dL AST (14-36) U/L ALT (4-34) U/L Alkaline Phosphatase (38-126) U/L Total Protein (6.3-8.2) g/dL Albumin (3.5-5.0) g/dL Disposition Clinical Impression: Cellulitis of right leg Disposition: ADMITTED IP TO THIS HOSP Is patient prescribed a controlled substance at d/c from ED?: No Referrals: Alvaro Roldan MD [Primary Care Provider] - 1-2 days Decision Time: 13:43
[2021-07-07] MEDS: SODIUM CHLORIDE 0.9% 1,000 ML IV SCH ×2 (10:30→18:13)
[2021-07-07 10:49] LABS: ALT 10 U/L (4-34); AST 19 U/L (14-36); African American GFR (CKD) >90 (>60 ml/min/1.73 sqM); Albumin 3.8 g/dL (3.5-5.0); Alkaline Phosphatase 71 U/L (38-126); Anion Gap 10 mmol/L; Blood Urea Nitrogen 18 mg/dL (7-17); Calcium 8.8 mg/dL (8.4-10.2); Carbon Dioxide 27 mmol/L (22-30); Chloride 103 mmol/L (98-107); Glucose 114 mg/dL (74-99); Non-African American GFR(CKD) >90 (>60 ml/min/1.73 sqM); Potassium 3.7 mmol/L (3.5-5.1); Sodium 140 mmol/L (137-145); Total Bilirubin 1.2 mg/dL (0.2-1.3); Total Protein 7.1 g/dL (6.3-8.2)
[2021-07-07 10:52] LABS: INR 1.1 (<1.2); Partial Thromboplastin Time 29.5 sec (22.0-30.0)
[2021-07-07 10:59] LABS: Basophils % (A) 1 %; Eosinophils % (A) 1 %; HCT 42.1 % (34.0-46.0); HGB 13.7 gm/dL (11.4-16.0); Lymphocytes # (A) 0.8 k/uL (1.0-4.8); Lymphocytes % (A) 12 %; MCH 31.5 pg (25.0-35.0); MCHC 32.6 g/dL (31.0-37.0); MCV 96.6 fL (80.0-100.0); Mean Platelet Volume 9.9; Monocytes # (A) 0.4 k/uL (0-1.0); Monocytes % (A) 6 %; Neutrophils % (A) 79 %; Platelet Count 250 k/uL (150-450); RBC 4.36 m/uL (3.80-5.40); RDW 13.6 % (11.5-15.5); WBC 6.3 k/uL (3.8-10.6)
[2021-07-07] MEDS ORDERED: ACETAMINOPHEN TAB 500 MG TAB PO STA (13:11)
[2021-07-07] MEDS ORDERED: VANCOMYCIN IV PER PHARMACY 1 EACH MISC MISCELLANE PRN (13:45)
[2021-07-07] MEDS ORDERED: NALOXONE 0.4 MG/ML 1 ML VIAL IV PRN (13:46)
[2021-07-07] MEDS ORDERED: VANCOMYCIN 2,000 MG in SODIUM CHLORIDE 0.9% 500 ML 500 ML IVPB ONE (14:00)
[2021-07-07] MEDS: POTASSIUM CHLORIDE ER 20 MEQ TAB.ER PO SCH (19:23)
[2021-07-07] MEDS: BACLOFEN 10 MG TAB PO SCH (19:23)
[2021-07-07] MEDS: FUROSEMIDE 20 MG TAB PO SCH (19:23)
[2021-07-07] MEDS: APIXABAN 5 MG TAB PO SCH (19:23)
[2021-07-07] MEDS: METOPROLOL TARTRATE 50 MG TAB PO SCH (19:23)
[2021-07-07] MEDS: ACETAMINOPHEN TAB 325 MG TAB PO PRN (19:32)
--- NOTE | 2021-07-08 00:33 | P.CONS ---
History of Present Illness - Reason for Consult Consult date: 07/07/21 Cellulitis/foot ulcer Requesting physician: Rad Soto - Chief Complaint Right leg swelling and redness x few days - History of Present Illness Patient is a 65-year-old female with a past medical his significant for morbid obesity history of atrial fibrillation and hypertension presenting to the ER for evaluation of the right lower extremity swelling and redness that apparently has been getting worse for the last 3 weeks patient was admitted to the hospital in the middle of May 2021 at that point the patient did have a CT of the right foot that was negative for any abscess she was treated with cefazolin subsequent discharged home on oral Keflex patient mentioning the right leg is getting more swollen and red over the last few days she has been compl aining of pain to the right leg to be sharp almost 10 out of 10 the patient did have a superficial wound on the plantar aspect of the right foot but denies any foul-smelling drainage, with the symptom the patient has been evaluated by the ER physician on arrival to the ER patient was afebrile and no fever has been recorded subsequently patient did have a normal white count kidney function has been normal patient was started on vancomycin did receive a dose of Rocephin infectious disease was consulted for further management of antibiotic therapy Review of Systems Positive point has been mentioned in the HPI rest of the systems are negative Past Medical History Past Medical History: Atrial Fibrillation, Hypertension Additional Past Medical History / Comment(s): Bilateral leg lymphedema, past cellulitis bilateral legs, arthritis in multiple joints, paroxysmal Afib. History of Any Multi-Drug Resistant Organisms: None Reported Past Surgical History: Bariatric Surgery, Joint Replacement Additional Past Surgical History / Comment(s): R shoulder, bilat knee replacement, bariatric surgery 2014 Past Anesthesia/Blood Transfusion Reactions: No Reported Reaction Past Psychological History: No Psychological Hx Reported Additional Psychological History / Comment(s): pt lives next to her mother, she has been taking care of her. pt lives alone in her home. Pt uses a walker to ambulate. She can drive. Smoking Status: Never smoker Past Alcohol Use History: None Reported Additional Past Alcohol Use History / Comment(s): Patient was smoker as a teenager only. Past Drug Use History: None Reported - Past Family History Father Family Medical History: Cancer Additional Family Medical History / Comment(s): Father from prostate cancer. Mother Additional Family Medical History / Comment(s): Mother is alive with history of PFO. Brother(s) Additional Family Medical History / Comment(s): Patient has one brother with history of gout. Patient's 2 sisters one with no major medical problems and one with generalized osteoarthritis. Patient does not have any children. Medications and Allergies Home Medications Medication Instructions Recorded Confirmed Type Baclofen 10 mg PO HS@1900 09/03/19 07/07/21 History Apixaban [Eliquis] 5 mg PO BID@0700,189909/19/20 07/07/21 History Metoprolol Tartrate [Lopressor] 50 mg PO BID@0700,1900 09/19/20 07/07/21 History Atorvastatin [Lipitor] 10 mg PO DAILY@0700 05/13/21 07/07/21 History Magnesium Oxide [Mag-Ox] 400 mg PO DAILY@0700 05/13/21 07/07/21 History Furosemide [Lasix] 60 mg PO BID@0700,189907/07/21 07/07/21 History Potassium Chloride ER [K-Dur 20] 20 meq PO BID@0700,189907/07/21 07/07/21 History Allergies Allergy/AdvReac Type Severity Reaction Status Date / Time Poultry [[place]] Allergy Anaphylaxis Verified 07/07/21 12:10 Sulfa (Sulfonamide Allergy Anaphylaxis Verified 07/07/21 12:10 Antibiotics) [place] Allergy Anaphylaxis Verified 07/07/21 12:10 morphine AdvReac Nausea & Verified 07/07/21 12:10 Vomiting Physical Exam Vitals: Vital Signs Temp Pulse Resp BP Pulse Ox 07/07/21 14:44 98.9 F 87 18 99/63 97 07/07/21 11:49 90 18 99/65 98 07/07/21 09:23 97.9 F 94 18 111/81 97 Intake and Output 07/07/21 07/07/21 07/07/21 06:59 14:59 22:59 Other: Weight 145.15 kg 145.15 kg GENERAL DESCRIPTION: Middle-aged female lying in bed, no distress. No tachypnea or accessory muscle of respiration use. HEENT: Shows Pallor , no scleral icterus. Oral mucous membrane is dry. No pharyngeal erythema or thrush NECK: Trachea central, no thyromegaly. LUNGS: Unlabored breathing. Clear to auscultation anteriorly. No wheeze or crackle. HEART: S1, S2, regular rate and rhythm. No loud murmur ABDOMEN: Soft, no tenderness , guarding or rigidity, no organomegaly EXTREMITIES: Right leg with diffuse swelling redness warmth and tender to touch with a wound on the plantar side of the right foot which was cultured SKIN: No rash, no masses palpable. NEUROLOGICAL: The patient is awake, alert, oriented x3, mood and affect normal. Results CBC & Chem 7: 07/07/21 10:22 07/07/21 10:22 Labs: Abnormal Lab Results - Last 24 Hours (Table) 07/07/21 07/07/21 Range/Units 10: 10:22 Lymphocytes # 0.8 L (1.0-4.8) k/uL BUN 18 H (7-17) mg/dL Glucose 114 H (74-99) mg/dL Assessment and Plan (1) Cellulitis of right leg Current Visit: Yes Status: Acute Code(s): L03.115 - CELLULITIS OF RIGHT LOWER LIMB SNOMED Code(s): 585941370 Plan: 1patient presented to hospital with diffuse swelling redness of the right lower extremity and this patient did have a chronic swelling to the leg and history of recurrent cellulitis likely from gram-positive skin evy in this patient did have wound on the plantar aspect of the right foot good with the initiating factor of the cellulitis, in view of the patient exposure to antibiotics will need to cover for the MRSA while waiting for the culture to finalize. 2vancomycin pharmacy to dose target trough of 15 while watching kidney function and vancomycin trough closely 3-Marked area of the redness and Cheo wrap to the right leg to keep the swelling down We will follow on clinical condition and cultures to further adjust medication if needed Thank you for this consultation will follow this patient along with you Time with Patient: Greater than 30
[2021-07-08] MEDS: SODIUM CHLORIDE 0.9% 1,000 ML IV SCH ×2 (01:19→13:17)
[2021-07-08] MEDS: ACETAMINOPHEN TAB 325 MG TAB PO PRN (01:23)
[2021-07-08] MEDS: VANCOMYCIN 2,000 MG in SODIUM CHLORIDE 0.9% 500 ML 500 ML IVPB SCH ×2 (02:27→15:05)
[2021-07-08 07:08] LABS: African American GFR (CKD) >90 (>60 ml/min/1.73 sqM); Non-African American GFR(CKD) >90 (>60 ml/min/1.73 sqM)
[2021-07-08] MEDS: APIXABAN 5 MG TAB PO SCH ×2 (07:57→20:26)
[2021-07-08] MEDS: POTASSIUM CHLORIDE ER 20 MEQ TAB.ER PO SCH ×2 (07:58→20:26)
[2021-07-08] MEDS: FUROSEMIDE 20 MG TAB PO SCH ×2 (07:58→20:26)
[2021-07-08] MEDS: ATORVASTATIN 10 MG TAB PO SCH (07:58)
[2021-07-08] MEDS: MAGNESIUM OXIDE 400 MG TAB PO SCH (07:58)
[2021-07-08] MEDS: METOPROLOL TARTRATE 50 MG TAB PO SCH ×2 (07:58→20:26)
[2021-07-08 09:25] LABS: Basophils # (A) 0.1 k/uL (0-0.2); Basophils % (A) 1 %; Eosinophils # (A) 0.2 k/uL (0-0.7); Eosinophils % (A) 2 %; HCT 34.9 % (34.0-46.0); HGB 11.5 gm/dL (11.4-16.0); Lymphocytes # (A) 1.3 k/uL (1.0-4.8); Lymphocytes % (A) 19 %; MCV 96.9 fL (80.0-100.0); Mean Platelet Volume 9.5; Monocytes # (A) 0.5 k/uL (0-1.0); Monocytes % (A) 7 %; Neutrophils # (A) 4.8 k/uL (1.3-7.7); Neutrophils % (A) 69 %; Platelet Count 219 k/uL (150-450); RDW 13.1 % (11.5-15.5)
--- NOTE | 2021-07-08 09:27 | P.HPIM ---
History of Present Illness H&P Date: 07/08/21 History of present illness This is a 65-year-old female patient of Dr. Bonifacio lopez with past medical history of hypertension, paroxysmal atrial fibrillation, morbid obesity and bilateral leg edema, presenting with worsening lower extremity edema on the right, redness and erythema to the right lower extremity, open ulceration on the bottom of the right foot, she states her right foot bleeds pain in the plantar mid foot the right foot, bilateral leg swelling, which has progressed over the past 1 weeks, denies any trauma, patient ambulates with a walker, there is significant deformities on the bottom of the plantar arches, off from the mid ankle downward Suspicious of [place]ARCOTS. Patient complains of right lower extremity edema worse this been going on for one year. She has worsening redness, in the mid tib-fib region, patient denies any diabetes, or trauma to the leg. At this time patient is found sitting up in bed complaining of nausea with 1 emesis. Patient states that the swelling and redness to the right lower extremity has worsened over the past week. She is finding it difficult to care for herself and ambulates utilizing her walker. Patient remained afebrile, blood pressure 102/55, heart rate 77 respiration 17 pulse ox 95 on room air. WBC 7.0, hemoglobin 11.5, potassium 3.7, BUN 13, creatinine 0.62 Review Of Systems: Constitutional: No fever, no chills, no night sweats. No weight change. No weakness, fatigue or lethargy. No daytime sleepiness. EENT: No headache. No blurred vision or double vision, no loss of vision. No loss of Hearing, no ringing in the ears, no dizziness. No nasal drainage or c ongestion. No epistaxis. No sore throat. Lungs: No shortness of breath, cough, no sputum production. No wheezing. Cardiovascular: No chest pain, no lower extremity edema. No palpitations. No paroxysmal nocturnal dyspnea. No orthopnea. No lightheadedness or dizziness. No syncopal episodes. Abdominal: no abdominal discomfort. No nausea, vomiting. no diarrhea. No constipation. No bloody or tarry stools. no loss of appetite. Genitourinary: No dysuria, increased frequency, urgency. No urinary retention. Musculoskeletal: No myalgias. No muscle weakness, no gait dysfunction, no frequent falls. No back pain. No neck pain. Integumentary: No wounds, no lesions. No rash or pruritus. No unusual bruising. No change in hair or nails. Neurologic: No aphasia. No facial droop. No change in mentation. No head injury. No headache. No paralysis. No paresthesia. Psychiatric: No depression. No anxiety. No mood swings. Endocrine: No abnormal blood sugars. No weight change. No excessive sweating or thirst. Social history: Patient lives next-door to her mother. She is her mother's caregiver. Patient utilizes a walker to ambulate. She can drive. Lifelong nonsmoker. Denies EtOH or illicit drug use. Family history: Father of prostate cancer, mother is alive with history of PFO, has 1 brother with history of gout, 2 sisters one with no major medical problems and the other with generalized osteoarthritis. Does not have any children. Physical examination General Appearance: Alert, cooperative, no distress, 65-year-old pleasant obese female appears stated age assessed at the bedside sitting up in bed. Neck HEENT: Supple, no lymphadenopathy, no thyroid enlargement, no carotid bruit s. Lungs: Clear to auscultation without crackles or wheezes no rhonchi, no deformity. Chest Wall: Chest wall normal expansion with deep inspiration no tenderness and no deformity was found on exam, no costochondral pain or discomfort. Heart: Regular rate and rhythm, S1, S2 normal, no murmur, rub or gallop. Back: Symmetric, no curvature, ROM normal, no CVA tenderness. Abdomen: Soft, non-tender, no rebound or rigidity, no hepatosplenomegaly. Extremities: 3+ pitting edema to right lower extremity, 2+ pitting edema to left lower extremity Extremities normal, atraumatic, Pulses: 2+ and symmetric. Skin: Nonhealing ulceration right plantar foot with fatty layer exposure, induration and erythema to right lower extremity all other Skin color, texture, tugor normal, Neurologic: Alert oriented x3 cranial nerves II through XII intact, no motor deficit, no abnormal balance or gait Assessment and plan 1. Right lower extremity cellulitis with edema and lymphedema significant with pes planus, ankle and foot deformity, tinea pedis with severe onychomycosis. Vancomycin, infectious disease Consult, venous Doppler, blood cultures pending, procalcitonon order. May 2021 patient had a left and right foot CT impression: No osseous. 2. Paroxysmal atrial fibrillation. Continue eliquis 5 mg twice daily, Lopressor 50 mg daily. 3. Right plantar foot open ulceration with fatty layer exposure. Wound dressing ordered with collagen 4. Hypertension. Continue losartan 25 mg daily, Lopressor, Lasix. 5. Hyperlipidemia. Continue pravastatin 40 mg daily 6. Generalized osteoarthritis. Continue baclofen 10 mg at bedtime. 7. Generalized debility with difficulty ambulating. Consult with PT and OT. 8. Morbid obesity with BMI of 61. 9. Nausea. Zofran, Pepcid 10. DVT prophylaxis. Eliquis. 11. GI prophylaxis. Pepcid. Patient be admitted for minimum 2 nights day Discharge plan: To be determined PT/OT consults added Impression and plan of care have been directed as dictated by the signing physician. Stephany Hairston nurse practitioner acting as scribe for signing physician. Past Medical History Past Medical History: Atrial Fibrillation, Hypertension Additional Past Medical History / Comment(s): Bilateral leg lymphedema, past cellulitis bilateral legs, arthritis in multiple joints, paroxysmal Afib. History of Any Multi-Drug Resistant Organisms: None Reported Past Surgical History: Bariatric Surgery, Joint Replacement Additional Past Surgical History / Comment(s): R shoulder, bilat knee replac ement, bariatric surgery 2014 Past Anesthesia/Blood Transfusion Reactions: No Reported Reaction Past Psychological History: No Psychological Hx Reported Additional Psychological History / Comment(s): pt lives next to her mother, she has been taking care of her. pt lives alone in her home. Pt uses a walker to ambulate. She can drive. Smoking Status: Never smoker Past Alcohol Use History: None Reported Additional Past Alcohol Use History / Comment(s): Patient was smoker as a teenager only. Past Drug Use History: None Reported - Past Family History Father Family Medical History: Cancer Additional Family Medical History / Comment(s): Father from prostate cancer. Mother Additional Family Medical History / Comment(s): Mother is alive with history of PFO. Brother(s) Additional Family Medical History / Comment(s): Patient has one brother with history of gout. Patient's 2 sisters one with no major medical problems and one with generalized osteoarthritis. Patient does not have any children. Medications and Allergies Home Medications Medication Instructions Recorded Confirmed Type Baclofen 10 mg PO HS@0 09/03/19 07/07/21 History Apixaban [Eliquis] 5 mg PO BID@0700,189909/19/20 07/07/21 History Metoprolol Tartrate [Lopressor] 50 mg PO BID@0700,1900 09/19/20 07/07/21 History Atorvastatin [Lipitor] 10 mg PO DAILY@0700 05/13/21 07/07/21 History Magnesium Oxide [Mag-Ox] 400 mg PO DAILY@0700 05/13/21 07/07/21 History Furosemide [Lasix] 60 mg PO BID@0700,19007/07/21 07/07/21 History Potassium Chloride ER [K-Dur 20] 20 meq PO BID@0700,189907/07/21 07/07/21 History Allergies Allergy/AdvReac Type Severity Reaction Status Date / Time Poultry [[place]] Allergy Anaphylaxis Verified 07/07/21 12:10 Sulfa (Sulfonamide Allergy Anaphylaxis Verified 07/07/21 12:10 Antibiotics) [place] Allergy Anaphylaxis Verified 07/07/21 12:10 morphine AdvReac Nausea & Verified 07/07/21 12:10 Vomiting Physical Exam Vitals: Vital Signs Temp Pulse Pulse Resp BP BP Pulse Ox 07/08/21 08:00 99 17 07/08/21 07:55 102/55 07/08/21 07:00 98.1 F 99 17 94/50 95 07/08/21 01:25 98.6 F 77 18 113/68 98 07/07/21 19:34 89 14 07/07/21 19:18 98.3 F 89 14 102/65 98 07/07/21 16:20 18 07/07/21 14:44 98.9 F 87 18 99/63 97 07/07/21 11:49 90 18 99/65 98 Intake and Output 07/07/21 07/08/21 07/08/21 22:59 06:59 14:59 Intake Total 300 118 Output Total 900 Balance 300 -900 118 Intake: Oral 300 118 Output: Urine 900 Other: Voiding Method External Catheter External Catheter Weight 145.15 kg Results CBC & Chem 7: 07/08/21 06:37 07/08/21 06:37 Labs: Abnormal Lab Results - Last 24 Hours (Table) 07/07/21 07/07/21 07/08/21 Range/Units 10:22 10:22 06:37 RBC 3.60 L (3.80-5.40) m/uL Lymphocytes # 0.8 L (1.0-4.8) k/uL BUN 18 H (7-17) mg/dL Glucose 114 H (74-99) mg/dL Microbiology - Last 24 Hours (Table) 07/07/21 15:34 Gram Stain - Preliminary Leg - Right Wound Culture - Preliminary 07/07/21 17:45 Anaerobic Culture - Preliminary Leg - Right Thrombosis Risk Factor Assmnt - Choose All That Apply Any of the Below Risk Factors Present?: Yes Each Factor Represents 1 point: Obesity (BMI >25), Swollen legs (current) Other Risk Factors: Yes Each Risk Factor Represents 2 Points: Age 61-74 years Other congenital or acquired thrombophilia - If yes, enter type in comment: No Thrombosis Risk Factor Assessment Total Risk Factor Score: 4 Thrombosis Risk Factor Assessment Level: Moderate Risk
[2021-07-08 09:33] LABS: ALT 8 U/L (4-34); AST 16 U/L (14-36); African American GFR (CKD) >90 (>60 ml/min/1.73 sqM); Albumin 2.6 g/dL (3.5-5.0); Alkaline Phosphatase 54 U/L (38-126); Anion Gap 4 mmol/L; Blood Urea Nitrogen 13 mg/dL (7-17); Calcium 7.6 mg/dL (8.4-10.2); Carbon Dioxide 26 mmol/L (22-30); Chloride 108 mmol/L (98-107); Globulin 2.7 g/dL; Glucose 87 mg/dL (74-99); Non-African American GFR(CKD) >90 (>60 ml/min/1.73 sqM); Potassium 3.7 mmol/L (3.5-5.1); Sodium 138 mmol/L (137-145); Total Bilirubin 0.8 mg/dL (0.2-1.3); Total Protein 5.3 g/dL (6.3-8.2)
[2021-07-08] MEDS ORDERED: ONDANSETRON 4 MG/2 ML VIAL IVP PRN (09:37)
[2021-07-08 11:30] LABS: Erythrocyte Sedimentation Rate 39 mm/hr (0-20)
--- NOTE | 2021-07-08 12:13 | US ---
EXAMINATION TYPE: US venous doppler duplex LE DATE OF EXAM: 07/08/2021 11:57 AM COMPARISON: NONE CLINICAL HISTORY: right leg edema. Known right leg cellulitis in 320lb patient, no h/o dvt SIDE PERFORMED: Bilateral TECHNIQUE: The lower extremity deep venous system is examined utilizing real time linear array sonog jorge with graded compression, doppler sonography and color-flow sonography. VESSELS IMAGED: Common Femoral Vein Deep Femoral Vein Greater Saphenous Vein * Femoral Vein Popliteal Vein Small Saphenous Vein * Proximal Calf Veins (* superficial vessels) very limited due to patients habitus, inability to move her right leg and extensive edema artifact noted on images due to other equipment interference Right Leg: Negative for DVT Left Leg: Portions scanned were negative for DVT, unable to even view popiteal vessels due to habitu s and edema IMPRESSION: No evidence for DVT at this time. Limited study.
--- NOTE | 2021-07-08 17:57 | P.PN ---
Subjective Progress Note Date: 07/08/21 Principal diagnosis: Right lower extremity cellulitis Patient is a 65-year-old female, morbidly obese presented to the hospital with increasing swelling and redness of the right lower extremity has been diagnosed with a cellulitis and wound on the plantar aspect of the right foot with a questionable site of entry. On today's evaluation that is 07/08/2021, the patient denies having any fever or any chills, the patient is breathing comfortably on nasal cannula oxygen still having significant pain swelling redness the right lower extremity no significant drainage from the right foot wound and no chest pain and no abdominal pain and no diarrhea Objective - Vital Signs Vital signs: Vital Signs Temp 99.4 F 07/08/21 14:21 Pulse 84 07/08/21 14:21 Resp 17 07/08/21 14:21 BP 93/56 07/08/21 14:21 Pulse Ox 94 L 07/08/21 14:21 Intake & Output 07/07/21 07/08/21 07/08/21 18:59 06:59 18:59 Intake Total 300 418 Output Total 900 1700 Balance 300 -900 -1282 Weight 145.15 kg Intake: Oral 300 418 Output: Urine 900 1700 Other: Voiding Method External Catheter External Catheter External Catheter # Bowel Movements 0 - Exam GENERAL DESCRIPTION: A middle-aged female lying in bed in no distress RESPIRATORY SYSTEM: Unlabored breathing , decreased breath sounds at bases HEART: S1 S2 regular rate and rhythm , ABDOMEN: Soft , no tenderness EXTREMITIES: Diffuse swelling redness of right lower extremity with minimal improvement - Labs CBC & Chem 7: 07/08/21 06:37 07/08/21 06:37 Labs: Abnormal Lab Results - Last 24 Hours (Table) 07/08/21 07/08/21 Range/Units 06:37 06:37 RBC 3.60 L (3.80-5.40) m/uL ESR 39 H (0-20) mm/hr Chloride 108 H (98-107) mmol/L Calcium 7.6 L (8.4-10.2) mg/dL C-Reactive Protein 6.0 H (<1.0) mg/dL Total Protein 5.3 L (6.3-8.2) g/dL Albumin 2.6 L (3.5-5.0) g/dL Microbiology - Last 24 Hours (Table) 07/07/21 10:05 Blood Culture - Preliminary Blood No Growth after 24 hours 07/07/21 10:05 Blood Culture - Preliminary Blood No Growth after 24 hours 07/07/21 15:34 Gram Stain - Preliminary Leg - Right Wound Culture - Preliminary 07/07/21 17:45 Anaerobic Culture - Preliminary Leg - Right Assessment and Plan (1) Cellulitis of right leg Current Visit: Yes Status: Acute Code(s): L03.115 - CELLULITIS OF RIGHT LOWER LIMB SNOMED Code(s): 284442977 Plan: 1patient presented to hospital with diffuse swelling redness of the right lower extremity and this patient did have a chronic swelling to the leg and history of recurrent cellulitis likely from gram-positive skin evy in this patient did have wound on the plantar aspect of the right foot good with the initiating factor of the cellulitis, in view of the patient exposure to antibiotics will need to cover for the MRSA while waiting for the culture to finalize. 2vancomycin pharmacy to dose target trough of 15 while watching kidney function and vancomycin trough closely, 3- Cheo wrap to the right leg to keep the swelling down, adjusted antibiotic further on the basis of culture report and clinical response Time with Patient: Less than 30
[2021-07-08] MEDS: BACLOFEN 10 MG TAB PO SCH (20:26)
[2021-07-09] MEDS: ACETAMINOPHEN TAB 325 MG TAB PO PRN ×2 (03:21→09:41)
[2021-07-09] MEDS: VANCOMYCIN 2,000 MG in SODIUM CHLORIDE 0.9% 500 ML 500 ML IVPB SCH ×2 (03:21→16:06)
[2021-07-09 06:59] LABS: Basophils # (A) 0.1 k/uL (0-0.2); Basophils % (A) 1 %; Eosinophils # (A) 0.2 k/uL (0-0.7); Eosinophils % (A) 2 %; HCT 37.9 % (34.0-46.0); HGB 12.1 gm/dL (11.4-16.0); Lymphocytes # (A) 1.6 k/uL (1.0-4.8); Lymphocytes % (A) 22 %; MCH 31.6 pg (25.0-35.0); MCHC 31.9 g/dL (31.0-37.0); Mean Platelet Volume 8.8; Monocytes # (A) 0.7 k/uL (0-1.0); Monocytes % (A) 9 %; Neutrophils # (A) 4.8 k/uL (1.3-7.7); Neutrophils % (A) 65 %; Platelet Count 172 k/uL (150-450); RBC 3.83 m/uL (3.80-5.40); WBC 7.5 k/uL (3.8-10.6)
[2021-07-09 07:52] LABS: ALT 7 U/L (4-34); AST 19 U/L (14-36); African American GFR (CKD) >90 (>60 ml/min/1.73 sqM); Albumin 2.6 g/dL (3.5-5.0); Albumin/Globulin Ratio 0.9; Alkaline Phosphatase 44 U/L (38-126); Anion Gap 3 mmol/L; Blood Urea Nitrogen 12 mg/dL (7-17); Calcium 7.4 mg/dL (8.4-10.2); Carbon Dioxide 25 mmol/L (22-30); Chloride 107 mmol/L (98-107); Globulin 2.9 g/dL; Glucose 86 mg/dL (74-99); Non-African American GFR(CKD) >90 (>60 ml/min/1.73 sqM); Potassium 3.8 mmol/L (3.5-5.1); Sodium 135 mmol/L (137-145); Total Bilirubin 1.1 mg/dL (0.2-1.3); Total Protein 5.5 g/dL (6.3-8.2)
[2021-07-09] MEDS: MAGNESIUM OXIDE 400 MG TAB PO SCH (08:01)
[2021-07-09] MEDS: APIXABAN 5 MG TAB PO SCH ×2 (08:01→20:51)
[2021-07-09] MEDS: ATORVASTATIN 10 MG TAB PO SCH (08:01)
[2021-07-09] MEDS: METOPROLOL TARTRATE 50 MG TAB PO SCH ×2 (08:01→20:51)
[2021-07-09] MEDS: FAMOTIDINE 20 MG/2 ML VIAL IV SCH (08:01)
[2021-07-09] MEDS: FUROSEMIDE 20 MG TAB PO SCH ×2 (08:01→20:51)
[2021-07-09] MEDS: POTASSIUM CHLORIDE ER 20 MEQ TAB.ER PO SCH ×2 (08:02→20:52)
--- NOTE | 2021-07-09 13:29 | P.PN ---
Subjective Progress Note Date: 07/09/21 History of present illness This is a 65-year-old female patient of Dr. Bonifacio lopez with past medical history of hypertension, paroxysmal atrial fibrillation, morbid obesity and bilateral leg edema, presenting with worsening lower extremity edema on the right, redness and erythema to the right lower extremity, open ulceration on the bottom of the right foot, she states her right foot bleeds pain in the plantar mid foot the right foot, bilateral leg swelling, which has progressed over the past 1 weeks, denies any trauma, patient ambulates with a walker, there is si gnificant deformities on the bottom of the plantar arches, off from the mid ankle downward Suspicious of CHARCOTS. Patient complains of right lower extremity edema worse this been going on for one year. She has worsening redness, in the mid tib-fib region, patient denies any diabetes, or trauma to the leg. At this time patient is found sitting up in bed complaining of nausea with 1 emesis. Patient states that the swelling and redness to the right lower extremity has worsened over the past week. She is finding it difficult to care for herself and ambulates utilizing her walker. Patient remained afebrile, blood pressure 102/55, heart rate 77 respiration 17 pulse ox 95 on room air. WBC 7.0, hemoglobin 11.5, potassium 3.7, BUN 13, creatinine 0.62 07/09: She is doing slightly better, was seen infectious disease decided to continue vancomycin to treat this as an MRSA till the final culture is back, dressing is done daily and patient stayed off her legs at this point to reduce the amount of swelling and edema knowing the patient still on anticoagulation with Eliquis 5 mg twice a day. Review Of Systems: Constitutional: No fever, no chills, no night sweats. No weight change. No weakness, fatigue or lethargy. No daytime sleepiness. EENT: No headache. No blurred vision or double vision, no loss of vision. No loss of Hearing, no ringing in the ears, no dizziness. No nasal drainage or congestion. No epistaxis. No sore throat. Lungs: No shortness of breath, cough, no sputum production. No wheezing. Cardiovascular: No chest pain, no lower extremity edema. No palpitations. No paroxysmal nocturnal dyspnea. No orthopnea. No lightheadedness or dizziness. No syncopal episodes. Abdominal: no abdominal discomfort. No nausea, vomiting. no diarrhea. No constipation. No bloody or tarry stools. no loss of appetite. Genitourinary: No dysuria, increased frequency, urgency. No urinary retention. Musculoskeletal: No myalgias. No muscle weakness, no gait dysfunction, no frequent falls. No back pain. No neck pain. Integumentary: No wounds, no lesions. No rash or pruritus. No unusual bruising. No change in hair or nails. Neurologic: No aphasia. No facial droop. No change in mentation. No head injury. No headache. No paralysis. No paresthesia. Psychiatric: No depression. No anxiety. No mood swings. Endocrine: No abnormal blood sugars. No weight change. No excessive sweating or thirst. Physical examination General Appearance: Alert, cooperative, no distress, 65-year-old pleasant obese female appears stated age assessed at the bedside sitting up in bed. Neck HEENT: Supple, no lymphadenopathy, no thyroid enlargement, no carotid bruits. Lungs: Clear to auscultation without crackles or wheezes no rhonchi, no deformity. Chest Wall: Chest wall normal expansion with deep inspiration no tenderness and no deformity was found on exam, no costochondral pain or discomfort. Heart: Regular rate and rhythm, S1, S2 normal, no murmur, rub or gallop. Back: Symmetric, no curvature, ROM normal, no CVA tenderness. Abdomen: Soft, non-tender, no rebound or rigidity, no hepatosplenomegaly. Extremities: 3+ pitting edema to right lower extremity, 2+ pitting edema to left lower extremity Extremities normal, atraumatic, Pulses: 2+ and symmetric. Skin: Nonhealing ulceration right plantar foot with fatty layer exposure, induration and erythema to right lower extremity all other Skin color, texture, tugor normal, Neurologic: Alert oriented x3 cranial nerves II through XII intact, no motor deficit, no abnormal balance or gait Assessment and plan 1. Right lower extremity cellulitis with edema and lymphedema significant with pes planus, ankle and foot deformity, tinea pedis with severe onychomycosis. Patient will continue vancomycin, continue topical care and wound care for now. 2 anasarca and severe edema: Continue furosemide 60 mg twice a day if needed can add spironolactone 25 mg daily. Continue fluid and salt restriction. 3. Paroxysmal atrial fibrillation. Continue eliquis 5 mg twice daily, Lopressor 50 mg daily. 4. Right plantar foot open ulceration with fatty layer exposure. Wound dressing ordered with collagen 5. Hypertension. Well controlled on metoprolol tartrate 50 mg twice a day has been off losartan. 5. Hyperlipidemia. Continue pravastatin 40 mg daily 6. Generalized osteoarthritis. Continue baclofen 10 mg at bedtime. 7. Generalized debility with difficulty ambulating. Consult with PT and OT. Patient might need to go to rehab. 8. Morbid obesity with BMI of 61. 9. Nausea. Zofran, Pepcid and continue better coverage for gastritis. 10. DVT prophylaxis. Eliquis. 11. GI prophylaxis. Pepcid. CODE STATUS: Full code. Discharge planning: After finalizing the plan for cellulitis and continue PTOT patient might and if it from going to rehab. Objective - Vital Signs Vital signs: Vital Signs Temp 98.2 F 07/09/21 07:00 Pulse 80 07/09/21 07:00 Resp 18 07/09/21 07:00 BP 119/73 07/09/21 07:00 Pulse Ox 94 L 07/09/21 07:00 Intake & Output 07/08/21 07/09/21 07/09/21 18:59 06:59 18:59 Intake Total 718 118 Output Total 1700 500 Balance -982 -500 118 Intake: Oral 718 118 Output: Urine 1700 500 Other: Voiding Method External Catheter External Catheter # Voids 1,000 # Bowel Movements 0 - Labs CBC & Chem 7: 07/09/21 06:37 07/09/21 06:37 Labs: Abnormal Lab Results - Last 24 Hours (Table) 07/08/21 07/09/21 Range/Units 06:37 06:37 ESR 39 H (0-20) mm/hr Sodium 135 L (137-145) mmol/L Calcium 7.4 L (8.4-10.2) mg/dL Total Protein 5.5 L (6.3-8.2) g/dL Albumin 2.6 L (3.5-5.0) g/dL Microbiology - Last 24 Hours (Table) 07/07/21 10:05 Blood Culture - Preliminary Blood No Growth after 24 hours 07/07/21 10:05 Blood Culture - Preliminary Blood No Growth after 24 hours 07/07/21 15:34 Gram Stain - Preliminary Leg - Right Wound Culture - Preliminary
[2021-07-09] MEDS ORDERED: VANCOMYCIN TROUGH DUE 1 EACH MISC MISCELLANE ONE (14:00)
[2021-07-09 16:06] LABS: African American GFR (CKD) >90 (>60 ml/min/1.73 sqM); Non-African American GFR(CKD) 81 (>60 ml/min/1.73 sqM)
[2021-07-09 17:12] LABS: Glucose,Whole Blood 115 mg/dL (75-99)
[2021-07-09 20:11] LABS: Glucose,Whole Blood 120 mg/dL (75-99)
[2021-07-09] MEDS: BACLOFEN 10 MG TAB PO SCH (20:51)
[2021-07-10] MEDS: ACETAMINOPHEN TAB 325 MG TAB PO PRN ×2 (01:44→19:47)
[2021-07-10] MEDS: VANCOMYCIN 2,000 MG in SODIUM CHLORIDE 0.9% 500 ML 500 ML IVPB SCH ×2 (06:55→16:08)
[2021-07-10 07:21] LABS: Glucose,Whole Blood 94 mg/dL (75-99)
--- NOTE | 2021-07-10 09:16 | P.PN ---
Subjective Progress Note Date: 07/10/21 History of present illness This is a 65-year-old female patient of Dr. Bonifacio lopez with past medical history of hypertension, paroxysmal atrial fibrillation, morbid obesity and bilateral leg edema, presenting with worsening lower extremity edema on the right, redness and erythema to the right lower extremity, open ulceration on the bottom of the right foot, she states her right foot bleeds pain in the plantar mid foot the right foot, bilateral leg swelling, which has progressed over the past 1 weeks, denies any trauma, patient ambulates with a walker, there is si gnificant deformities on the bottom of the plantar arches, off from the mid ankle downward Suspicious of CHARCOTS. Patient complains of right lower extremity edema worse this been going on for one year. She has worsening redness, in the mid tib-fib region, patient denies any diabetes, or trauma to the leg. At this time patient is found sitting up in bed complaining of nausea with 1 emesis. Patient states that the swelling and redness to the right lower extremity has worsened over the past week. She is finding it difficult to care for herself and ambulates utilizing her walker. Patient remained afebrile, blood pressure 102/55, heart rate 77 respiration 17 pulse ox 95 on room air. WBC 7.0, hemoglobin 11.5, potassium 3.7, BUN 13, creatinine 0.62 3: She is doing slightly better, was seen infectious disease decided to continue vancomycin to treat this as an MRSA till the final culture is back, dressing is done daily and patient stayed off her legs at this point to reduce the amount of swelling and edema knowing the patient still on anticoagulation with Eliquis 5 mg twice a day. : Patient is laying in bed doing well today or discomfort at this point. patient was seen infectious disease yesterday for final culture came back negative for no growth out of the site. the topical part of her right leg is much better so far with decreased redness discomfort was still using dressing and compression she still on vancomycin iv. patient is seen social insurance adviser will plan to [facility] a [facility] for tomorrow. Review Of Systems: Constitutional: No fever, no chills, no night sweats. No weight change. No weakness, fatigue or lethargy. No daytime sleepiness. EENT: No headache. No blurred vision or double vision, no loss of vision. No loss of Hearing, no ringing in the ears, no dizziness. No nasal drainage or congestion. No epistaxis. No sore throat. Lungs: No shortness of breath, cough, no sputum production. No wheezing. Cardiovascular: No chest pain, no lower extremity edema. No palpitations. No paroxysmal nocturnal dyspnea. No orthopnea. No lightheadedness or dizziness. No syncopal episodes. Abdominal: no abdominal discomfort. No nausea, vomiting. no diarrhea. No constipation. No bloody or tarry stools. no loss of appetite. Genitourinary: No dysuria, increased frequency, urgency. No urinary retention. Musculoskeletal: No myalgias. No muscle weakness, no gait dysfunction, no frequent falls. No back pain. No neck pain. Integumentary: No wounds, no lesions. No rash or pruritus. No unusual bruising. No change in hair or nails. Neurologic: No aphasia. No facial droop. No change in mentation. No head injury. No headache. No paralysis. No paresthesia. Psychiatric: No depression. No anxiety. No mood swings. Endocrine: No abnormal blood sugars. No weight change. No excessive sweating or thirst. Physical examination General Appearance: Alert, cooperative, no distress, 65-year-old pleasant obese female appears stated age assessed at the bedside sitting up in bed. Neck HEENT: Supple, no lymphadenopathy, no thyroid enlargement, no carotid bruits. Lungs: Clear to auscultation without crackles or wheezes no rhonchi, no deformity. Chest Wall: Chest wall normal expansion with deep inspiration no tenderness and no deformity was found on exam, no costochondral pain or discomfort. Heart: Regular rate and rhythm, S1, S2 normal, no murmur, rub or gallop. Back: Symmetric, no curvature, ROM normal, no CVA tenderness. Abdomen: Soft, non-tender, no rebound or rigidity, no hepatosplenomegaly. Extremities: 3+ pitting edema to right lower extremity, 2+ pitting edema to left lower extremity Extremities normal, atraumatic, Pulses: 2+ and symmetric. Skin: Nonhealing ulceration right plantar foot with fatty layer exposure, induration and erythema to right lower extremity all other Skin color, texture, tugor normal, Neurologic: Alert oriented x3 cranial nerves II through XII intact, no motor deficit, no abnormal balance or gait Assessment and plan 1. Right lower extremity cellulitis with edema and lymphedema significant with pes planus, ankle and foot deformity, tinea pedis with severe onychomycosis. Patient will continue vancomycin, continue topical care and wound care for now. All cultures negative at this point patient remain on vancomycin IV along with topical care she will probably be doing one to care for the next week to 10 days and subacute rehab. 2 anasarca and severe edema: Continue furosemide 60 mg twice a day if needed can add spironolactone 25 mg daily. Continue fluid and salt restriction. Fluid retention is much better so far. He might have improved significantly. 3. Paroxysmal atrial fibrillation. Continue eliquis 5 mg twice daily, Lopressor 50 mg daily. 4. Right plantar foot open ulceration with fatty layer exposure. Wound dressing ordered with collagen. Improve with the current treatment management. Patient should be able to put more pressure on her foot. 5. Hypertension. Well controlled on metoprolol tartrate 50 mg twice a day has been off losartan. systolic blood pressure remained well-controlled. 5. Hyperlipidemia. Continue pravastatin 40 mg daily, 6. Generalized osteoarthritis. Continue baclofen 10 mg at bedtime. 7. Generalized debility with difficulty ambulating. Consult with PT and OT. Patient might need to go to rehab. 8. Morbid obesity with BMI of 61. 9. Nausea. Zofran, Pepcid and continue better coverage for gastritis. 10. DVT prophylaxis. Eliquis. 11. GI prophylaxis. Pepcid. CODE STATUS: Full code. Discharge planning: Running for subacute rehab tomorrow. Objective - Vital Signs Vital signs: Vital Signs Temp 98.3 F 07/10/21 07:20 Pulse 68 07/10/21 07:20 Resp 17 07/10/21 07:20 BP 94/64 07/10/21 07:20 Pulse Ox 96 07/10/21 07:20 Intake & Output 07/09/21 07/10/21 07/10/21 18:59 06:59 18:59 Intake Total 598 Output Total 2420 3400 Balance -1822 -3400 Intake: Oral 598 Output: Urine 2420 3400 Other: Voiding Method External Catheter # Voids 1,000 # Bowel Movements 1 - Labs CBC & Chem 7: 07/09/21 06:37 07/09/21 15:29 Labs: Abnormal Lab Results - Last 24 Hours (Table) 07/09/21 07/09/21 Range/Units 17:08 20:10 POC Glucose (mg/dL) 115 H 120 H (75-99) mg/dL Microbiology - Last 24 Hours (Table) 07/07/21 17:45 Anaerobic Culture - Preliminary Leg - Right 07/07/21 15:34 Gram Stain - Final Leg - Right Wound Culture - Final 07/07/21 10:05 Blood Culture - Preliminary Blood No Growth after 48 hours 07/07/21 10:05 Blood Culture - Preliminary Blood No Growth after 48 hours
[2021-07-10] MEDS: APIXABAN 5 MG TAB PO SCH ×2 (09:35→19:48)
[2021-07-10] MEDS: METOPROLOL TARTRATE 50 MG TAB PO SCH ×2 (09:35→19:48)
[2021-07-10] MEDS: POTASSIUM CHLORIDE ER 20 MEQ TAB.ER PO SCH ×2 (09:35→19:48)
[2021-07-10] MEDS: FUROSEMIDE 20 MG TAB PO SCH ×2 (09:35→19:49)
[2021-07-10] MEDS: MAGNESIUM OXIDE 400 MG TAB PO SCH (09:35)
[2021-07-10] MEDS: FAMOTIDINE 20 MG/2 ML VIAL IV SCH (09:36)
[2021-07-10] MEDS: ATORVASTATIN 10 MG TAB PO SCH (09:36)
[2021-07-10 12:03] LABS: Glucose,Whole Blood 124 mg/dL (75-99)
--- NOTE | 2021-07-10 15:39 | CDI ---
Documentation Clarification Form Date: 07/10/2021 03:13:24 PM From: Bill Sumner, YOHANNES, RN, CCDS, CDIP Admit Date: 07/09/2021 11:03:00 AM Patient Name: Beatriz Pena Visit Number: [id number] Discharge Date: ATTENTION: The Clinical Documentation Specialists (CDI) and [facility] Coding Staff appreciate your assistance in clarifying documentation. Please respond to the clarification below the line at the bottom and electronically sign. The CDI & [facility] Coding staff will review the response and follow-up if needed. Please note: Queries are made part of the Legal Health Record. If you have any questions, please contact the author of this message via ITS. Dr. Linda Benjamin There is documentation of non-healing ulceration right plantar foot with fatty layer exposure in the H&P dated 07/08. Additional specificity regarding the etiology of the wound is requested. 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
[2021-07-10 17:23] LABS: Glucose,Whole Blood 102 mg/dL (75-99)
[2021-07-10] MEDS: ceFAZolin 3 GM in SODIUM CHLORIDE 0.9% 100 ML IVPB SCH (17:47)
[2021-07-10] MEDS: BACLOFEN 10 MG TAB PO SCH (19:48)
--- NOTE | 2021-07-10 22:35 | P.PN ---
Subjective Progress Note Date: 07/09/21 Principal diagnosis: Right lower extremity cellulitis Patient is a 65-year-old female, morbidly obese presented to the hospital with increasing swelling and redness of the right lower extremity has been diagnosed with a cellulitis and wound on the plantar aspect of the right foot with a questionable site of entry. On today's evaluation that is 07/09/2021, the patient remains to be afebrile, the patient is breathing comfortably on nasal cannula oxygen, the patient pain swelling redness the right lower extremity has decreased in intensity, the patient denies chest pain no abdominal pain no diarrhea Objective - Vital Signs Vital signs: Vital Signs Temp 98.2 F 07/09/21 07:00 Pulse 80 07/09/21 07:00 Resp 18 07/09/21 07:00 BP 119/73 07/09/21 07:00 Pulse Ox 94 L 07/09/21 07:00 Intake & Output 07/08/21 07/09/21 07/09/21 18:59 06:59 18:59 Intake Total 718 358 Output Total 5874 612 8862 Balance -982 -500 -1062 Intake: Oral 718 358 Output: Urine 5283 202 9863 Other: Voiding Method External Catheter External Catheter # Voids 1,000 # Bowel Movements 0 - Exam GENERAL DESCRIPTION: A middle-aged female lying in bed in no distress RESPIRATORY SYSTEM: Unlabored breathing , decreased breath sounds at bases HEART: S1 S2 regular rate and rhythm , ABDOMEN: Soft , no tenderness EXTREMITIES: Diffuse swelling redness of right lower extremity with minimal improvement - Labs CBC & Chem 7: 07/09/21 06:37 07/09/21 15:29 Labs: Abnormal Lab Results - Last 24 Hours (Table) 07/09/21 Range/Units 06:37 Sodium 135 L (137-145) mmol/L Calcium 7.4 L (8.4-10.2) mg/dL Total Protein 5.5 L (6.3-8.2) g/dL Albumin 2.6 L (3.5-5.0) g/dL Microbiology - Last 24 Hours (Table) 07/07/21 10:05 Blood Culture - Preliminary Blood No Growth after 48 hours 07/07/21 10:05 Blood Culture - Preliminary Blood No Growth after 48 hours Assessment and Plan (1) Cellulitis of right leg Current Visit: Yes Status: Acute Code(s): L03.115 - CELLULITIS OF RIGHT LOWER LIMB SNOMED Code(s): 406887507 Plan: 1patient presented to hospital with diffuse swelling redness of the right lower extremity and this patient did have a chronic swelling to the leg and history of recurrent cellulitis likely from gram-positive skin evy in this patient did have wound on the plantar aspect of the right foot good with the initiating factor of the cellulitis, in view of the patient exposure to antibiotics will need to cover for the MRSA while waiting for the culture to finalize. 2patient to continue with vancomycin pharmacy to dose target trough of 15 while watching kidney function closely 3- Cheo wrap to the right leg to keep the swelling down, antibiotics will be adjusted further on the basis of culture report and clinical response
--- NOTE | 2021-07-10 22:37 | P.PN ---
Subjective Progress Note Date: 07/10/21 Principal diagnosis: Right lower extremity cellulitis Patient is a 65-year-old female, morbidly obese presented to the hospital with increasing swelling and redness of the right lower extremity has been diagnosed with a cellulitis and wound on the plantar aspect of the right foot with a questionable site of entry. On today's evaluation that is 07/10/2021, the patient continues to be afebrile, the patient is breathing comfortably on nasal cannula oxygen, the patient pain swelling redness the right lower extremity has decreased in intensity, the patient denies chest pain shortness of breath or cough no abdominal pain and no diarrhea with antibiotic therapy Objective - Vital Signs Vital signs: Vital Signs Temp 99.5 F 07/10/21 19:24 Pulse 83 07/10/21 19:24 Resp 20 07/10/21 19:24 BP 118/82 07/10/21 19:24 Pulse Ox 97 07/10/21 19:24 Intake & Output 07/10/21 07/10/21 07/11/21 06:59 18:59 06:59 Intake Total 118 Output Total 3400 2500 600 Balance -3400 2382 -600 Intake: Oral 118 Output: Urine 3400 2500 600 Other: # Bowel Movements 1 1 - Exam GENERAL DESCRIPTION: A middle-aged female lying in bed in no distress RESPIRATORY SYSTEM: Unlabored breathing , decreased breath sounds at bases HEART: S1 S2 regular rate and rhythm , ABDOMEN: Soft , no tenderness EXTREMITIES: Diffuse swelling redness of right lower extremity with minimal improvement - Labs CBC & Chem 7: 07/09/21 06:37 07/09/21 15:29 Labs: Abnormal Lab Results - Last 24 Hours (Table) 07/10/21 07/10/21 Range/Units 12:02 17:22 POC Glucose (mg/dL) 124 H 102 H (75-99) mg/dL Microbiology - Last 24 Hours (Table) 07/07/21 10:05 Blood Culture - Preliminary Blood No Growth after 72 hours 07/07/21 10:05 Blood Culture - Preliminary Blood No Growth after 72 hours 07/07/21 17:45 Anaerobic Culture - Preliminary Leg - Right 07/07/21 15:34 Gram Stain - Final Leg - Right Wound Culture - Final Assessment and Plan (1) Cellulitis of right leg Current Visit: Yes Status: Acute Code(s): L03.115 - CELLULITIS OF RIGHT LOWER LIMB SNOMED Code(s): 015780487 Plan: 1patient presented to hospital with diffuse swelling redness of the right lower extremity and this patient did have a chronic swelling to the leg and history of recurrent cellulitis likely from gram-positive skin evy in this patient did have wound on the plantar aspect of the right foot good with the initiating factor of the cellulitis, 2patient blood as well as local cultures came back negative 3-vancomycin discontinued patient started on cefazolin 3 g every 8 hours with a plan to finish therapy with oral Keflex 3- Cheo wrap to the right leg to keep the swelling down
[2021-07-11] MEDS: ceFAZolin 3 GM in SODIUM CHLORIDE 0.9% 100 ML IVPB SCH ×2 (00:54→08:04)
[2021-07-11] MEDS: ACETAMINOPHEN TAB 325 MG TAB PO PRN ×2 (05:19→11:38)
[2021-07-11 07:34] VITALS: BP 94/63; RESP 20; TEMP 98.4
[2021-07-11] MEDS: APIXABAN 5 MG TAB PO SCH (08:04)
[2021-07-11] MEDS: FAMOTIDINE 20 MG/2 ML VIAL IV SCH (08:04)
[2021-07-11] MEDS: MAGNESIUM OXIDE 400 MG TAB PO SCH (08:05)
[2021-07-11] MEDS: METOPROLOL TARTRATE 50 MG TAB PO SCH (08:05)
[2021-07-11] MEDS: FUROSEMIDE 20 MG TAB PO SCH (08:05)
[2021-07-11] MEDS: ATORVASTATIN 10 MG TAB PO SCH (08:05)
[2021-07-11] MEDS: POTASSIUM CHLORIDE ER 20 MEQ TAB.ER PO SCH (08:06)
[2021-07-11 08:08] VITALS: PULSE 78
[2021-07-11 08:51] LABS: HCT 37.9 % (37.2-46.3); HGB 12.1 g/dL (12.0-15.0); MCH 30.3 pg (27.0-32.0); MCHC 31.9 g/dL (32.0-37.0); MCV 94.8 fL (80.0-97.0); Mean Platelet Volume 11.2 fL (9.5-12.2); NRBC Per 100 WBC 0 /100 WBCS (0.0-0.0); Platelet Count 241 X 10*3/uL (140-440); RDW 13.2 % (11.5-14.5); WBC 7.05 X 10*3/uL (4.50-10.00)
[2021-07-11 09:03] LABS: African American GFR (CKD) 92.1 (60.0-200.0); Albumin 3.1 g/dL (3.8-4.9); Albumin/Globulin Ratio 1.19 (1.60-3.17); Anion Gap 11.9 mmol/L (10.00-18.00); BUN/Creat Ratio 14.99 Ratio (12.00-20.00); Blood Urea Nitrogen 11.8 mg/dL (9.0-27.0); Calcium 8.5 mg/dL (8.7-10.3); Carbon Dioxide 25.3 mmol/L (20.0-27.5); Globulin 2.6 g/dL (1.6-3.3); Non-African American GFR(CKD) 79.5 (60.0-200.0); Potassium 3.7 mmol/L (3.5-5.5); Total Bilirubin 0.5 mg/dL (0.30-1.20); Total Protein 5.6 g/dL (6.2-8.2)
--- NOTE | 2021-07-11 10:39 | P.PN ---
Subjective Progress Note Date: 07/11/21 History of present illness This is a 65-year-old female patient of Dr. Bonifacio lopez with past medical history of hypertension, paroxysmal atrial fibrillation, morbid obesity and bilateral leg edema, presenting with worsening lower extremity edema on the right, redness and erythema to the right lower extremity, open ulceration on the bottom of the right foot, she states her right foot bleeds pain in the plantar mid foot the right foot, bilateral leg swelling, which has progressed over the past 1 weeks, denies any trauma, patient ambulates with a walker, there is si gnificant deformities on the bottom of the plantar arches, off from the mid ankle downward Suspicious of CHARCOTS. Patient complains of right lower extremity edema worse this been going on for one year. She has worsening redness, in the mid tib-fib region, patient denies any diabetes, or trauma to the leg. At this time patient is found sitting up in bed complaining of nausea with 1 emesis. Patient states that the swelling and redness to the right lower extremity has worsened over the past week. She is finding it difficult to care for herself and ambulates utilizing her walker. Patient remained afebrile, blood pressure 102/55, heart rate 77 respiration 17 pulse ox 95 on room air. WBC 7.0, hemoglobin 11.5, potassium 3.7, BUN 13, creatinine 0.62 07/09: She is doing slightly better, was seen infectious disease decided to continue vancomycin to treat this as an MRSA till the final culture is back, dressing is done daily and patient stayed off her legs at this point to reduce the amount of swelling and edema knowing the patient still on anticoagulation with Eliquis 5 mg twice a day. 07/10: Patient is laying in bed doing well today or discomfort at this point. patient was seen infectious disease yesterday for final culture came back negative for no growth out of the site. the topical part of her right leg is much better so far with decreased redness discomfort was still using dressing and compression she still on vancomycin iv. patient is seen psychiatric social worker supervisor will plan to medlodge a Yal for tomorrow. 07/11: Patient is sitting up in a chair doing much better today psychiatric social worker supervisor is trying to do preauthorization to go [facility], ID had finalize her IV antibiotic for cefazolin 3 times a day for total of 7 days then will be doing Keflex 500 mg 3 times a day for 7 more days. Patient to increase and titrate physical therapy gradually. Otherwise she stable to be discharged today. Review Of Systems: Constitutional: No fever, no chills, no night sweats. No weight change. No weakness, fatigue or lethargy. No daytime sleepiness. EENT: No headache. No blurred vision or double vision, no loss of vision. No loss of Hearing, no ringing in the ears, no dizziness. No nasal drainage or congestion. No epistaxis. No sore throat. Lungs: No shortness of breath, cough, no sputum production. No wheezing. Cardiovascular: No chest pain, no lower extremity edema. No palpitations. No paroxysmal nocturnal dyspnea. No orthopnea. No lightheadedness or dizziness. No syncopal episodes. Abdominal: no abdominal discomfort. No nausea, vomiting. no diarrhea. No constipation. No bloody or tarry stools. no loss of appetite. Genitourinary: No dysuria, increased frequency, urgency. No urinary retention. Musculoskeletal: No myalgias. No muscle weakness, no gait dysfunction, no frequent falls. No back pain. No neck pain. Integumentary: No wounds, no lesions. No rash or pruritus. No unusual bruising. No change in hair or nails. Neurologic: No aphasia. No facial droop. No change in mentation. No head injury. No headache. No paralysis. No paresthesia. Psychiatric: No depression. No anxiety. No mood swings. Endocrine: No abnormal blood sugars. No weight change. No excessive sweating or thirst. Physical examination General Appearance: Alert, cooperative, no distress, 65-year-old [facility] obese female appears stated age assessed at the bedside sitting up in bed. Neck HEENT: Supple, no lymphadenopathy, no thyroid enlargement, no carotid bruits. Lungs: Clear to auscultation without crackles or wheezes no rhonchi, no deformity. Chest Wall: Chest wall normal expansion with deep inspiration no tenderness and no deformity was found on exam, no costochondral pain or discomfort. Heart: Regular rate and rhythm, S1, S2 normal, no murmur, rub or gallop. Back: Symmetric, no curvature, ROM normal, no CVA tenderness. Abdomen: Soft, non-tender, no rebound or rigidity, no hepatosplenomegaly. Extremities: 3+ pitting edema to right lower extremity, 2+ pitting edema to left lower extremity Extremities normal, atraumatic, Pulses: 2+ and symmetric. Skin: Nonhealing ulceration right plantar foot with fatty layer exposure, induration and erythema to right lower extremity all other Skin color, texture, tugor normal, Neurologic: Alert oriented x3 cranial nerves II through XII intact, no motor deficit, no abnormal balance or gait Assessment and plan 1. Right lower extremity cellulitis with edema and lymphedema significant with pes planus, ankle and foot deformity, tinea pedis with severe onychomycosis. Patient will continue vancomycin, continue topical care and wound care for now. All cultures negative at this point patient remain on vancomycin IV along with topical care she will probably be doing one to care for the next week to 10 days and subacute rehab. Final antibiotic was to do cefazolin 3 g 3 times a day for total of 1 week and Keflex 500 mg 3 times a day for total of 1 week. 2 anasarca and severe edema: Continue furosemide 60 mg twice a day if needed can add spironolactone 25 mg daily. Continue fluid and salt restriction. Fluid retention is much better so far. He might have improved significantly. 3. Paroxysmal atrial fibrillation. Continue eliquis 5 mg twice daily, Lopressor 50 mg daily. 4. Right plantar foot open ulceration with fatty layer exposure. Wound dressing ordered with collagen. Improve with the current treatment management. Patient should be able to put more pressure on her foot. 5. Hypertension. Well controlled on metoprolol tartrate 50 mg twice a day has been off losartan. systolic blood pressure remained well-controlled. 5. Hyperlipidemia. Continue pravastatin 40 mg daily, 6. Generalized osteoarthritis. Continue baclofen 10 mg at bedtime. 7. Generalized debility with difficulty ambulating. Consult with PT and OT. Patient might need to go to rehab. 8. Morbid obesity with BMI of 61. 9. Nausea. Zofran, Pepcid and continue better coverage for gastritis. 10. DVT prophylaxis. Eliquis. 11. GI prophylaxis. Pepcid. CODE STATUS: Full code. Discharge planning: Discharge to subacute rehab today. Objective - Vital Signs Vital signs: Vital Signs Temp 98.4 F 07/11/21 07:31 Pulse 78 07/11/21 08:08 Resp 20 07/11/21 07:31 BP 94/63 07/11/21 07:31 Pulse Ox 97 07/11/21 07:31 Intake & Output 07/10/21 07/11/21 07/11/21 18:59 06:59 18:59 Intake Total 118 Output Total 2500 2800 Balance -5282 -2800 Intake: Oral 118 Output: Urine 2500 2800 Other: Voiding Method External Catheter # Bowel Movements 1 - Labs CBC & Chem 7: 07/11/21 06:24 07/11/21 06:24 Labs: Abnormal Lab Results - Last 24 Hours (Table) 07/10/21 07/10/21 07/11/21 Range/Units 12:02 17:22 06:24 RBC 4.00 L (4.10-5.20) X 10*6/uL MCHC 31.9 L (32.0-37.0) g/dL POC Glucose (mg/dL) 124 H 102 H (75-99) mg/dL Calcium (8.7-10.3) mg/dL AST (13-35) U/L ALT (8-44) U/L Total Protein (6.2-8.2) g/dL Albumin (3.8-4.9) g/dL Albumin/Globulin Ratio (1.60-3.17) g/dL 07/11/21 Range/Units 06:24 RBC (4.10-5.20) X 10*6/uL MCHC (32.0-37.0) g/dL POC Glucose (mg/dL) (75-99) mg/dL Calcium 8.5 L (8.7-10.3) mg/dL AST 12 L (13-35) U/L ALT 6 L (8-44) U/L Total Protein 5.6 L (6.2-8.2) g/dL Albumin 3.1 L (3.8-4.9) g/dL Albumin/Globulin Ratio 1.19 L (1.60-3.17) g/dL Microbiology - Last 24 Hours (Table) 07/07/21 10:05 Blood Culture - Preliminary Blood No Growth after 72 hours 07/07/21 10:05 Blood Culture - Preliminary Blood No Growth after 72 hours
--- NOTE | 2021-07-11 10:42 | P.DS ---
Providers Date of admission: 07/09/21 11:03 Attending physician: Linda Benjamin MD Consults: 07/07/21 13:49 Consult Physician Routine Consulting Provider: Nando Leonardo Consult Reason/Comments: Cellulitis, foot ulcer Do you want consulting provider notified?: Yes [facility] Course: History of present illness This is a 65-year-old female patient of Dr. Bonifacio lopez with past medical history of hypertension, paroxysmal atrial fibrillation, morbid obesity and bilateral leg edema, presenting with worsening lower extremity edema on the right, redness and erythema to the right lower extremity, open ulceration on the bottom of the right foot, she states her right foot bleeds pain in the plantar mid foot the right foot, bilateral leg swelling, which has progressed over the past 1 weeks, denies any trauma, patient ambulates with a walker, there is significant deformities on the bottom of the plantar arches, off from the mid ankle downward Suspicious of CHARCOTS. Patient complains of right lower extremity edema worse this been going on for one year. She has worsening redness, in the mid tib-fib region, patient denies any diabetes, or trauma to the leg. At this time patient is found sitting up in bed complaining of nausea with 1 emesis. Patient states that the swelling and redness to the right lower extremity has worsened over the past week. She is finding it difficult to care for herself and ambulates utilizing her walker. Patient remained afebrile, blood pressure 102/55, heart rate 77 respiration 17 pulse ox 95 on room air. WBC 7.0, hemoglobin 11.5, potassium 3.7, BUN 13, creatinine 0.62 07/09: She is doing slightly better, was seen infectious disease decided to continue vancomycin to treat this as an MRSA till the final culture is back, dressing is done daily and patient stayed off her legs at this point to reduce the amount of swelling and edema knowing the patient still on anticoagulation with Eliquis 5 mg twice a day. 07/10: Patient is laying in bed doing well today or discomfort at this point. patient was seen infectious disease yesterday for final culture came back negative for no growth out of the site. the topical part of her right leg is much better so far with decreased redness discomfort was still using dressing and compression she still on vancomycin iv. patient is seen social insurance adviser will plan to medlodge a Yal for tomorrow. 07/11: Patient is sitting up in a chair doing much better today social insurance adviser is trying to do preauthorization to [facility], ID had finalize her IV antibiotic for cefazolin 3 times a day for total of 7 days then will be doing Keflex 500 mg 3 times a day for 7 more days. Patient to increase and titrate physical therapy gradually. Otherwise she stable to be discharged today. Review Of Systems: Constitutional: No fever, no chills, no night sweats. No weight change. No weakness, fatigue or lethargy. No daytime sleepiness. EENT: No headache. No blurred vision or double vision, no loss of vision. No loss of Hearing, no ringing in the ears, no dizziness. No nasal drainage or congestion. No epistaxis. No sore throat. Lungs: No shortness of breath, cough, no sputum production. No wheezing. Cardiovascular: No chest pain, no lower extremity edema. No palpitations. No paroxysmal nocturnal dyspnea. No orthopnea. No lightheadedness or dizziness. No syncopal episodes. Abdominal: no abdominal discomfort. No nausea, vomiting. no diarrhea. No constipation. No bloody or tarry stools. no loss of appetite. Genitourinary: No dysuria, increased frequency, urgency. No urinary retention. Musculoskeletal: No myalgias. No muscle weakness, no gait dysfunction, no frequent falls. No back pain. No neck pain. Integumentary: No wounds, no lesions. No rash or pruritus. No unusual bruising. No change in hair or nails. Neurologic: No aphasia. No facial droop. No change in mentation. No head injury. No headache. No paralysis. No paresthesia. Psychiatric: No depression. No anxiety. No mood swings. Endocrine: No abnormal blood sugars. No weight change. No excessive sweating or thirst. Physical examination General Appearance: Alert, cooperative, no distress, 65-year-old pleasant obese female appears stated age assessed at the bedside sitting up in bed. Neck HEENT: Supple, no lymphadenopathy, no thyroid enlargement, no carotid bruits. Lungs: Clear to auscultation without crackles or wheezes no rhonchi, no deformity. Chest Wall: Chest wall normal expansion with deep inspiration no tenderness and no deformity was found on exam, no costochondral pain or discomfort. Heart: Regular rate and rhythm, S1, S2 normal, no murmur, rub or gallop. Back: Symmetric, no curvature, ROM normal, no CVA tenderness. Abdomen: Soft, non-tender, no rebound or rigidity, no hepatosplenomegaly. Extremities: 3+ pitting edema to right lower extremity, 2+ pitting edema to left lower extremity Extremities normal, atraumatic, Pulses: 2+ and symmetric. Skin: Nonhealing ulceration right plantar foot with fatty layer exposure, induration and erythema to right lower extremity all other Skin color, texture, tugor normal, Neurologic: Alert oriented x3 cranial nerves II through XII intact, no motor deficit, no abnormal balance or gait Assessment and plan 1. Right lower extremity cellulitis with edema and lymphedema significant with pes planus, ankle and foot deformity, tinea pedis with severe onychomycosis. Patient will continue vancomycin, continue topical care and wound care for now. All cultures negative at this point patient remain on vancomycin IV along with topical care she will probably be doing one to care for the next week to 10 days and subacute rehab. Final antibiotic was to do cefazolin 3 g 3 times a day for total of 1 week and Keflex 500 mg 3 times a day for total of 1 week. 2 anasarca and severe edema: Continue furosemide 60 mg twice a day if needed can add spironolactone 25 mg daily. Continue fluid and salt restriction. Fluid retention is much better so far. He might have improved significantly. 3. Paroxysmal atrial fibrillation. Continue eliquis 5 mg twice daily, Lopressor 50 mg daily. 4. Right plantar foot open ulceration with fatty layer exposure. Wound dressing ordered with collagen. Improve with the current treatment management. Patient should be able to put more pressure on her foot. 5. Hypertension. Well controlled on metoprolol tartrate 50 mg twice a day has been off losartan. systolic blood pressure remained well-controlled. 5. Hyperlipidemia. Continue pravastatin 40 mg daily, 6. Generalized osteoarthritis. Continue baclofen 10 mg at bedtime. 7. Generalized debility with difficulty ambulating. Consult with PT and OT. Patient might need to go to rehab. 8. Morbid obesity with BMI of 61. 9. Nausea. Zofran, Pepcid and continue better coverage for gastritis. 10. DVT prophylaxis. Eliquis. 11. GI prophylaxis. Pepcid. CODE STATUS: Full code. Discharge planning: Discharge to subacute rehab today. Hospital course: She has done very well with IV antibiotic, originally was started on vancomycin and then switched to cefazolin 3 g 3 times a day, culture came back to be negative. Patient seen and evaluated by infectious disease multiple time and decided to continue cefazolin for total of 1 week then 1 week of Keflex thereafter. Also patient was seen physical therapy advance physical therapy from here on gradually which is a reason for continuing subacute rehab. Patient will be discharge to subacute rehab today. Time spent in patient's care for her discharge was: 37 minutes. Plan - Discharge Summary Discharge Rx Participant: No New Discharge Prescriptions: New Famotidine [Pepcid] 20 mg PO DAILY tab ceFAZolin [Kefzol] 3 gm IVP Q8HR #21 ml Continue Baclofen 10 mg PO HS@1900 Magnesium Oxide [Mag-Ox] 400 mg PO DAILY@0700 Furosemide [Lasix] 60 mg PO BID@0700,1900 Apixaban [Eliquis] 5 mg PO BID@0700,1900 Atorvastatin [Lipitor] 10 mg PO DAILY@0700 Potassium Chloride ER [K-Dur 20] 20 meq PO BID@0700,1900 Metoprolol Tartrate [Lopressor] 50 mg PO BID@0700,1900 #0 Discharge Medication List Baclofen 10 mg PO HS@1900 09/03/19 [History] Apixaban [Eliquis] 5 mg PO BID@0700,1900 09/19/20 [History] Atorvastatin [Lipitor] 10 mg PO DAILY@0700 05/13/21 [History] Magnesium Oxide [Mag-Ox] 400 mg PO DAILY@0700 05/13/21 [History] Furosemide [Lasix] 60 mg PO BID@0700,1900 07/07/21 [History] Potassium Chloride ER [K-Dur 20] 20 meq PO BID@0700,1900 07/07/21 [History] Famotidine [Pepcid] 20 mg PO DAILY tab 07/11/21 [Rx] Metoprolol Tartrate [Lopressor] 50 mg PO BID@0700,1900 #0 07/11/21 [Rx] ceFAZolin [Kefzol] 3 gm IVP Q8HR #21 ml 07/11/21 [Rx] Follow up Appointment(s)/Referral(s): Alvaro Lopez MD [Primary Care Provider] - 1-2 days Discharge Disposition: TRANSFER TO SNF/ECF
[2021-07-12] MEDS ORDERED: FAMOTIDINE 20 MG TAB PO SCH (09:00)
== END 2021-07-11 14:06 | DRG 603 ==
LOC: EC 09:18 → 6NMEDSUR 13:49 → OBSVTOIN 07-09 11:03
PROVIDERS: ADMIT Internal Medicine; ATTEND Internal Medicine
DX: L03.115 Cellulitis of right lower limb (principal); Z68.44 Body mass index [BMI] 60.0-69.9, adult; A52.16 Charcot's arthropathy (tabetic); B35.1 Tinea unguium; B35.3 Tinea pedis; I48.0 Paroxysmal atrial fibrillation; B96.89 Other specified bacterial agents as the cause of diseases classified elsewhere; E66.01 Morbid (severe) obesity due to excess calories; E78.5 Hyperlipidemia, unspecified; L97.512 Non-pressure chronic ulcer of other part of right foot with fat layer exposed; I10 Essential (primary) hypertension; I89.0 Lymphedema, not elsewhere classified; M15.9 Polyosteoarthritis, unspecified; M21.42 Flat foot [pes planus] (acquired), left foot; M21.41 Flat foot [pes planus] (acquired), right foot; Z79.01 Long term (current) use of anticoagulants; M21.969 Unspecified acquired deformity of unspecified lower leg; Z79.899 Other long term (current) drug therapy; R53.1 Weakness; Z80.42 Family history of malignant neoplasm of prostate; Z87.891 Personal history of nicotine dependence; Z96.653 Presence of artificial knee joint, bilateral; Z98.84 Bariatric surgery status; Z91.018 Allergy to other foods; Z88.2 Allergy status to sulfonamides; Z88.5 Allergy status to narcotic agent
CPT/HCPCS: 36415; 80053; 80202; 82565; 83605; 84145; 85025; 85027; 85610; 85652; 85730; 86140; 87040; 87070; 87075; 87205; 93970; 96365; 96366; 96367; 99285

== ENCOUNTER 2021-07-31 11:43 | Emergency (ER) | payer MEDICARE ==
[2021-07-31 11:53] VITALS: TEMP 97.1
[2021-07-31 11:58] VITALS: RESP 18
[2021-07-31] MEDS ORDERED: HYDROmorphone 1 MG/ML 1 ML SYRINGE IM STA (12:15)
--- NOTE | 2021-07-31 12:18 | ED ---
General Adult HPI - General Chief complaint: Fall Stated complaint: Fall-L leg pain Time Seen by Provider: 07/31/21 12:04 Source: patient, EMS, RN notes reviewed Mode of arrival: EMS Limitations: no limitations - History of Present Illness Initial comments: Patient is a pleasant [age]-year-old female presenting to the emergency Department with complaints of left knee pain. Patient was walking out of her doctor's office. Patient slipped and fell. Patient was using her walker. Patient landed on her left knee. Discomfort is somewhat severe there. No head injury or loss of consciousness. No neck or back pain. No chest pain or dyspnea. No abdominal pain. Patient also landed little bit on her left elbow however has no significant discomfort there. - Related Data Home Medications Medication Instructions Recorded Confirmed Baclofen 10 mg PO HS@1900 09/03/19 07/31/21 Apixaban [Eliquis] 5 mg PO BID@0700,1900 09/19/20 07/31/21 Atorvastatin [Lipitor] 10 mg PO DAILY@0700 05/13/21 07/31/21 Magnesium Oxide [Mag-Ox] 400 mg PO DAILY@0700 05/13/21 07/31/21 Furosemide [Lasix] 60 mg PO BID@0700,1900 07/07/21 07/31/21 Potassium Chloride ER [K-Dur 20] 20 meq PO BID@0700,1900 07/07/21 07/31/21 Previous Rx's Medication Instructions Recorded Famotidine [Pepcid] 20 mg PO DAILY tab 07/11/21 Metoprolol Tartrate [Lopressor] 50 mg PO BID@0700,1900 #0 07/11/21 Allergies Allergy/AdvReac Type Severity Reaction Status Date / Time Poultry [[place]] Allergy Anaphylaxis Verified 07/31/21 14:07 Sulfa (Sulfonamide Allergy Anaphylaxis Verified 07/31/21 14:07 Antibiotics) walnut Allergy Anaphylaxis Verified 07/31/21 14:07 morphine AdvReac Nausea & Verified 07/31/21 14:07 Vomiting Review of Systems ROS Statement: Those systems with pertinent positive or pertinent negative responses have been documented in the HPI. ROS Other: All systems not noted in ROS Statement are negative. Constitutional: Denies: fever Eyes: Denies: eye pain ENT: Denies: ear pain Respiratory: Denies: cough Cardiovascular: Denies: chest pain Endocrine: Denies: fatigue Gastrointestinal: Denies: abdominal pain Genitourinary: Denies: urgency Musculoskeletal: Reports: as per HPI Skin: Denies: rash Neurological: Denies: weakness Past Medical History Past Medical History: Atrial Fibrillation, Hypertension Additional Past Medical History / Comment(s): Bilateral leg lymphedema, past cellulitis bilateral legs, arthritis in multiple joints, paroxysmal Afib. History of Any Multi-Drug Resistant Organisms: None Reported Past Surgical History: Bariatric Surgery, Joint Replacement Additional Past Surgical History / Comment(s): R shoulder, bilat knee replacement, bariatric surgery 2015 Past Anesthesia/Blood Transfusion Reactions: No Reported Reaction Past Psychological History: No Psychological Hx Reported Additional Psychological History / Comment(s): pt lives next to her mother, she has been taking care of her. pt lives alone in her home. Pt uses a walker to ambulate. She can drive. Smoking Status: Never smoker Past Alcohol Use History: None Reported Additional Past Alcohol Use History / Comment(s): Patient was smoker as a teenager only. Past Drug Use History: None Reported - Past Family History Father Family Medical History: Cancer Additional Family Medical History / Comment(s): Father from prostate cancer. Mother Additional Family Medical History / Comment(s): Mother is alive with history of PFO. Brother(s) Additional Family Medical History / Comment(s): Patient has one brother with history of gout. Patient's 2 sisters one with no major medical problems and one with generalized osteoarthritis. Patient does not have any children. General Exam Limitations: no limitations General appearance: alert, in no apparent distress Head exam: Present: normocephalic Eye exam: Present: normal appearance Neck exam: Present: normal inspection. Absent: tenderness Respiratory exam: Present: normal lung sounds bilaterally Cardiovascular Exam: Present: regular rate, normal rhythm Expanded Peripheral pulses: 2+: Posterior Tibialis (L), Dorsalis Pedis (L) GI/Abdominal exam: Present: soft. Absent: tenderness Extremities exam: Present: tenderness (Tenderness left patella. No other area of bony tenderness.) Neurological exam: Present: alert. Absent: motor sensory deficit Psychiatric exam: Present: normal affect, normal mood Skin exam: Present: normal color Course Vital Signs 07/31/21 07/31/21 07/31/21 11:46 11:53 14:09 Temperature 97.1 F L 97.1 F L Pulse Rate 58 L 56 L Respiratory 18 18 Rate Blood Pressure 131/75 104/65 O2 Sat by Pulse 97 Oximetry Medical Decision Making - Medical Decision Making Patient evaluated. Patient and family updated. Patient resting comfortably in bed with improvement of symptoms. - Radiology Data Radiology results: image reviewed (Left knee x-ray reveals no acute process) Disposition Clinical Impression: Fall, Knee injury Disposition: HOME SELF-CARE Condition: Stable Instructions (If sedation given, give patient instructions): Fall Prevention f or Older Adults (ED), Knee Pain (ED) Additional Instructions: [id number] Motrin as needed. Please do follow-up with her primary care physician as well as orthopedics in the next day or 2 for recheck. Return for unable to walk, worsening or change in symptoms, or other concerns. Is patient prescribed a controlled substance at d/c from ED?: No Referrals: Alvaro Roldan MD [Primary Care Provider] - 1-2 days Richard Amin MD [STAFF PHYSICIAN] - 1-2 days Time of Disposition: 14:15
--- NOTE | 2021-07-31 13:19 | XR ---
EXAMINATION TYPE: XR knee 4V LT DATE OF EXAM: 07/31/2021 COMPARISON: None HISTORY: Fall, pain TECHNIQUE: 4 view left knee FINDINGS: Tibial femoral components are present. No acute fractures are evident. No significant joint effusion is evident. IMPRESSION: 1. No acute osseous abnormality post trauma left knee. 2. Left knee prosthesis remains in position.
[2021-07-31 14:13] VITALS: BP 104/65; PULSE 56
[2021-07-31] MEDS ORDERED: ACET/COD 300 MG/30 MG STARTER PACK 6 TAB BTL PO STA (14:13)
[2021-07-31] MEDS ORDERED: KETOROLAC 15 MG/ML 1 ML VIAL IM STA (14:13)
== END 2021-07-31 15:02 | disposition home or self-care (01) ==
LOC: EC 11:43
DX: S89.92XA Unspecified injury of left lower leg, initial encounter (principal); I10 Essential (primary) hypertension; I48.0 Paroxysmal atrial fibrillation; Z79.01 Long term (current) use of anticoagulants; Z79.899 Other long term (current) drug therapy; W01.0XXA Fall on same level from slipping, tripping and stumbling without subsequent striking against object, initial encounter
CPT/HCPCS: 73564; 99284; 96372 ×2; J1170; J1885

== ENCOUNTER 2021-10-29 15:25 | Inpatient (IN) | payer MEDICARE ==
--- NOTE | 2021-10-29 16:18 | ED ---
General Adult HPI - General Chief complaint: Chest Pain Stated complaint: N Stemi Time Seen by Provider: 10/29/21 15:28 Source: patient, EMS, RN notes reviewed, old records reviewed (Reviewed reports from [facility] [employer]) Mode of arrival: EMS Limitations: no limitations - History of Present Illness Initial comments: Patient is a pleasant [age]-year-old female presenting to the emergency Department with transfer concerns for non-ST elevation myocardial infarction. Patient admits yesterday she did have mild discomfort left chest, she states it felt like a pulled muscle. No radiation. No chest discomfort today. Patient has had some nausea and vomiting over the past few days. Occasional abdominal cramping. Patient was seen and [facility] and had elevated troponin. Patient was not started on anticoagulation secondary to being on eliquis. Patient does have some leg swelling however this is chronic and unchanged. - Related Data Home Medications Medication Instructions Recorded Confirmed Baclofen 10 mg PO HS@1900 09/03/19 07/31/21 Apixaban [Eliquis] 5 mg PO BID@0700,1900 09/19/20 07/31/21 Atorvastatin [Lipitor] 10 mg PO DAILY@0700 05/13/21 07/31/21 Magnesium Oxide [Mag-Ox] 400 mg PO DAILY@0700 05/13/21 07/31/21 Furosemide [Lasix] 60 mg PO BID@0700,1900 07/07/21 07/31/21 Potassium Chloride ER [K-Dur 20] 20 meq PO BID@0700,1900 07/07/21 07/31/21 Previous Rx's Medication Instructions Recorded Famotidine [Pepcid] 20 mg PO DAILY tab 07/11/21 Metoprolol Tartrate [Lopressor] 50 mg PO BID@0700,1900 #0 07/11/21 Allergies Allergy/AdvReac Type Severity Reaction Status Date / Time Poultry [[place]] Allergy Anaphylaxis Verified 07/31/21 14:07 Sulfa (Sulfonamide Allergy Anaphylaxis Verified 07/31/21 14:07 Antibiotics) walnut Allergy Anaphylaxis Verified 07/31/21 14:07 morphine AdvReac Nausea & Verified 07/31/21 14:07 Vomiting Review of Systems ROS Statement: Those systems with pertinent positive or pertinent negative responses have been documented in the HPI. ROS Other: All systems not noted in ROS Statement are negative. Constitutional: Denies: fever Eyes: Denies: eye pain ENT: Denies: ear pain Respiratory: Denies: cough Cardiovascular: Reports: as per HPI Endocrine: Denies: fatigue Gastrointestinal: Reports: as per HPI, nausea, vomiting Genitourinary: Denies: dysuria Musculoskeletal: Denies: back pain Skin: Denies: rash Neurological: Denies: weakness Past Medical History Past Medical History: Atrial Fibrillation, Hypertension Additional Past Medical History / Comment(s): Bilateral leg lymphedema, past cellulitis bilateral legs, arthritis in multiple joints, paroxysmal Afib. History of Any Multi-Drug Resistant Organisms: None Reported Past Surgical History: Bariatric Surgery, Joint Replacement Additional Past Surgical History / Comment(s): R shoulder, bilat knee replacement, bariatric surgery 2014 Past Anesthesia/Blood Transfusion Reactions: No Reported Reaction Past Psychological History: No Psychological Hx Reported Smoking Status: Never smoker Past Alcohol Use History: None Reported Past Drug Use History: None Reported - Past Family History Father Family Medical History: Cancer Additional Family Medical History / Comment(s): Father from prostate cancer. Mother Additional Family Medical History / Comment(s): Mother is alive with history of PFO. Brother(s) Additional Family Medical History / Comment(s): Patient has one brother with history of gout. Patient's 2 sisters one with no major medical problems and one with generalized osteoarthritis. Patient does not have any children. General Exam Limitations: no limitations General appearance: alert, in no apparent distress Head exam: Present: normocephalic Eye exam: Present: normal appearance Neck exam: Present: normal inspection Respiratory exam: Present: normal lung sounds bilaterally. Absent: chest wall tenderness Cardiovascular Exam: Present: irregular rhythm GI/Abdominal exam: Present: soft, normal bowel sounds. Absent: distended, tenderness, guarding, rebound, rigid, pulsatile mass Extremities exam: Present: pedal edema. Absent: calf tenderness Neurological exam: Present: alert Psychiatric exam: Present: normal affect, normal mood Skin exam: Present: normal color Course Vital Signs 10/29/21 15:28 Temperature 97.8 F Pulse Rate 80 Respiratory 18 Rate Blood Pressure 122/81 O2 Sat by Pulse 98 Oximetry - Reevaluation(s) Reevaluation #1: 10/29/21 16:20 Case was discussed with Dr. Randall, who will consult and see the patient. He does agree with heparin however recommends no bolus secondary to receiving her eliquis this morning. EKG Findings - EKG Comments: EKG Findings:: A. fib with rate of 81. QRS 109. QT 414. QTC 451. Left axis. Borderline ST changes, less than 1 mm the fourth through V6 as well as inferior Medical Decision Making - Medical Decision Making Case was also discussed with Dr. Roldan, who will admit his patient. He will come see her. Patient is aware of plan. Disposition Clinical Impression: Acute non-ST elevation myocardial infarction (NSTEMI) Disposition: ADMITTED IP TO THIS HOSP Is patient prescribed a controlled substance at d/c from ED?: No Time of Disposition: 16:18
[2021-10-29] MEDS ORDERED: ASPIRIN 81 MG PO STA (16:21)
[2021-10-29] MEDS ORDERED: NITROGLYCERIN SL TABS 0.4 MG TAB SUBLINGUAL PRN ×2 (16:21→17:02)
[2021-10-29] MEDS ORDERED: HEPARIN SOD,PORK IN 0.45% NACL 25,000 UNIT in 0.45% NACL 1 250ML.BAG IV SCH (16:30)
[2021-10-29] MEDS ORDERED: ASPIRIN 325 MG TAB PO STA (17:02)
[2021-10-29] MEDS ORDERED: ALPRAZolam 0.5 MG TAB PO PRN (17:02)
[2021-10-29] MEDS ORDERED: ALPRAZolam 0.25 MG TAB PO PRN (17:02)
[2021-10-29 17:09] LABS: Glucose,Whole Blood 90 mg/dL (70-110)
--- NOTE | 2021-10-29 17:12 | P.CRDCN ---
History of Present Illness Consult date: 10/29/21 History of present illness: History of Present Illness: The patient is a 65-year-old female was transferred from [facility] with symptoms of dyspnea, nausea, vomiting and abdominal cramping she was noted to be in atrial fibrillation which has been documented in the past was elevation of her troponin up to 4.7. 2 days ago according to the patient she had chest discomfort that subsequently resolves. She is not active physically because of severe osteoarthritis. She has the history of atrial fibrillation has been anticoagulated but no documented history of CAD or CHF. Her echocardiogram in the past showed a preserved systolic function. Her EKG showed atrial fibrillation with T-wave inversion in the inferolateral leads consistent with ischemia. She is having no chest discomfort at the time of evaluation. She has chronic peripheral edema, unchanged. She denies any PND or orthopnea. She has no palpitations or syncope but she feels dizzy time. She has been progressively fatigued with lack of energy and sleeping more. Her coronary risk factor are positive for hypertension and hyperlipidemia, she is a nondiabetic nonsmoker. Her medications include Lasix 60 mg twice a day, potassium, metoprolol tartrate 50 mg twice a day, atorvastatin 10 mg daily, baclofen, Eliquis 5 mg twice a day Review of Systems: Respiratory: She has chronic dyspnea on exertion with limited physical activity GI: She had nausea and vomiting and abdominal cramping today. : No hematuria or dysuria. Nervous System: No stroke or seizure. Physical Examination: 65-year-old female alert and oriented, no apparent distress, morbidly obese. Blood pressure 122/80 with a heart rate in the 80s Head: Normocephalic. Eyes: Sclerae nonicteric. Neck: Good carotid upstroke, no bruit, no jugular venous distention. Lungs: Clear to auscultation. Heart: Irregular rate and rhythm, S1-S2, no S3, no rub. Systolic ejection murmur. Abdomen: Soft nontender, positive bowel sounds no organomegaly, obese. Extremities: +1-2 edema, chronic skin changes with mild erythema, intact distal pulses. Labs: NT proBNP 2020, hemoglobin 13.3, potassium 3.8, BUN 13 creatinine 0.6 Impression: 1. Acute non-STEMI, the patient has been having pain 2 days ago, it is possible that her event started at that time. It appears to be involving the inferolateral wall. 2. Atrial fibrillation, persistent, anticoagulated 3. History of hypertension 4. Morbid obesity 5. Severe arthritis Plan: 1. Resume beta kobe, statin and diuretics 2. Start IV heparin with no bolus and hold oral anticoagulation 3. Obtain an echocardiogram with Doppler 4. Follow serial enzymes 5. Have recommended to proceed with coronary angiography to further assess her status and guide her treatment. The procedure as well as the risks and the complications were discussed with the patient who is in full understanding and agreement. Depending on the results of the testing further recommendations will be made. Thank you for this consult we will follow with you. Past Medical History Past Medical History: Atrial Fibrillation, Hypertension Additional Past Medical History / Comment(s): Bilateral leg lymphedema, past cellulitis bilateral legs, arthritis in multiple joints, paroxysmal Afib. History of Any Multi-Drug Resistant Organisms: None Reported Past Surgical History: Bariatric Surgery, Joint Replacement Additional Past Surgical History / Comment(s): R shoulder, bilat knee replacement, bariatric surgery 2014 Past Anesthesia/Blood Transfusion Reactions: No Reported Reaction Past Psychological History: No Psychological Hx Reported Smoking Status: Never smoker Past Alcohol Use History: None Reported Past Drug Use History: None Reported - Past Family History Father Family Medical History: Cancer Additional Family Medical History / Comment(s): Father from prostate cancer. Mother Additional Family Medical History / Comment(s): Mother is alive with history of PFO. Brother(s) Additional Family Medical History / Comment(s): Patient has one brother with history of gout. Patient's 2 sisters one with no major medical problems and one with generalized osteoarthritis. Patient does not have any children. Medications and Allergies Home Medications Medication Instructions Recorded Confirmed Type Baclofen 10 mg PO HS 09/03/19 10/29/21 History Apixaban [Eliquis] 5 mg PO BID 09/19/20 10/29/21 History Atorvastatin [Lipitor] 10 mg PO DAILY 05/13/21 10/29/21 History Magnesium Oxide [Mag-Ox] 400 mg PO DAILY 05/13/21 10/29/21 History Furosemide [Lasix] 60 mg PO BID 07/07/21 10/29/21 History Potassium Chloride ER [K-Dur 20] 20 meq PO BID 07/07/21 10/29/21 History HYDROcodone/APAP 5-325MG [[place] 1 tab PO Q4HR PRN 10/29/21 10/29/21 History 5-325] Metoprolol Tartrate [Lopressor] 50 mg PO BID 10/29/21 10/29/21 History Sertraline [Zoloft] 50 mg PO DAILY 10/29/21 10/29/21 History Allergies Allergy/AdvReac Type Severity Reaction Status Date / Time Poultry [[place]] Allergy Anaphylaxis Verified 10/29/21 16:44 Sulfa (Sulfonamide Allergy Anaphylaxis Verified 10/29/21 16:44 Antibiotics) walnut Allergy Anaphylaxis Verified 10/29/21 16:44 morphine AdvReac Nausea & Verified 10/29/21 16:44 Vomiting Physical Exam Vitals: Vital Signs Temp Pulse Resp BP Pulse Ox 10/29/21 15:28 97.8 F 80 18 122/81 98 Intake and Output 10/29/21 10/29/21 10/29/21 06:59 14:59 22:59 Other: Weight 165 kg Results Coagulation 10/29/21 Range/Units 16:30 APTT 27.4 (22.0-30.0) sec Current Medications Generic Name Dose Route Start Last Admin Trade Name Freq PRN Reason Stop Dose Admin Alprazolam 0.25 mg 10/29/21 17:02 Alprazolam 0.25 Mg Tab PO Q6HR PRN Mild Anxiety Alprazolam 0.5 mg 10/29/21 17:02 Alprazolam 0.5 Mg Tab PO Q6HR PRN Moderate Anxiety Aspirin 81 mg 10/30/21 09:00 Aspirin 325 Mg Tab PO DAILY [facility] Aspirin 325 mg 10/29/21 17:02 Aspirin 325 Mg Tab PO 10/29/21 17:03 ONCE STA Atorvastatin Calcium 40 mg 10/30/21 07:00 Atorvastatin 10 Mg Tab PO DAILY@0700 [facility] Atorvastatin Calcium 80 mg 10/29/21 17:02 Atorvastatin 80 Mg Tab PO 10/29/21 17:03 ONCE STA Famotidine 20 mg 10/30/21 09:00 Famotidine 20 Mg Tab PO DAILY [facility] Furosemide 60 mg 10/29/21 19:00 Furosemide 20 Mg Tab PO BID@0700,1900 [facility] Heparin Sodium/Sodium Chloride 250 mls @ 9.999 mls/hr 10/29/21 16:30 10/29/21 16:37 25,000 unit/ Sodium Chloride IV 6.06 units/kg/hr .Q24H VINAY 9.999 mls/hr Administration Protocol 6.06 UNITS/KG/HR Heparin Sodium (Porcine) 10, 1,001 mls @ 999 mls/hr 10/30/21 07:00 000 unit/ Sodium Chloride IRRIGATION 10/30/21 23:00 ONCE PRN INTRA-OP Heparin Sodium (Porcine) 2,500 250.5 mls @ 250 mls/hr 10/30/21 07:00 unit/ Sodium Chloride IRRIGATION 10/30/21 23:00 ONCE PRN INTRA-OP Metoprolol Tartrate 50 mg 10/29/21 19:00 Metoprolol Tartrate 50 Mg Tab PO BID@0700,1900 VINAY Nitroglycerin 0.4 mg 10/29/21 16:21 Nitroglycerin Sl Tabs 0.4 Mg Tab SUBLINGUAL Q5M PRN Chest Pain Nitroglycerin 0.4 mg 10/29/21 17:02 Nitroglycerin Sl Tabs 0.4 Mg Tab SUBLINGUAL Q5M PRN Chest Pain Sodium Chloride 10 ml 10/29/21 21:00 Sodium Chloride 0.9% Flush 10 Ml Syringe IV BID VINAY Intake and Output 10/29/21 10/29/21 10/29/21 06:59 14:59 22:59 Other: Weight 165 kg Patient Weight 10/30/21 06:59 Weight 165 kg
[2021-10-29] MEDS: METOPROLOL TARTRATE 50 MG TAB PO SCH ×2 (18:48→18:51)
[2021-10-29] MEDS: FUROSEMIDE 20 MG TAB PO SCH (18:48)
--- NOTE | 2021-10-29 19:02 | HP ---
HISTORY AND PHYSICAL This 65-year-old white female came in from [facility] with dyspnea, nausea, vomiting. She has been in atrial fibrillation in the past. Troponin was up at 4.7. She was given aspirin and started on heparin drip due to elevated troponin. She has a history of being on Eliquis at home already, documented history of coronary artery disease. CHF has been negative. Echo recently showed normal ejection fraction. She is having chronic peripheral edema. No chest discomfort. No PND, orthopnea. She has hypertension, dyslipidemia. No diabetes. No smoking. At home she takes metoprolol 50 b.i.d., Lasix 60 b.i.d., potassium, atorvastatin 10 mg daily, baclofen, Eliquis. Fourteen-point review of systems: Chronic shortness of breath on any exertion. She has had nausea, vomiting, abdominal cramping today. GI no hematuria. She is a 65-year-old white female, morbidly obese. Blood pressure 120s over 80s, heart rate in the 80s. Head normocephalic, atraumatic. Neck is supple. No mass. Lungs are clear. Heart irregularly regular rhythm. Abdomen soft. Extremities 2+ edema. BNP 2020, hemoglobin 13.3, potassium 3.8, creatinine 0.6. ASSESSMENT: 1. Acute [id number] myocardial infarction. 2. Atrial fibrillation. 3. Hypertension. 4. Morbid obesity. 5. Arthritis. Beta kobe, statins, diuretics, heparin . Cardiology consulted to heart catheterization. Prognosis guarded. Please see further orders. MMODL / IJN: [id number] /
[2021-10-29] MEDS: BACLOFEN 10 MG TAB PO SCH (21:14)
[2021-10-30] MEDS ORDERED: ASPIRIN 325 MG TAB PO ONE (05:00)
[2021-10-30] MEDS ORDERED: ATORVASTATIN 80 MG TAB PO ONE (05:00)
[2021-10-30] MEDS: FUROSEMIDE 20 MG TAB PO SCH ×2 (06:29→18:52)
[2021-10-30] MEDS: FAMOTIDINE 20 MG TAB PO SCH (06:42)
[2021-10-30] MEDS: SERTRALINE 50 MG TAB PO SCH (06:42)
[2021-10-30] MEDS: MAGNESIUM OXIDE 400 MG TAB PO SCH (06:42)
[2021-10-30] MEDS ORDERED: HEPARIN SODIUM,PORCINE 2,500 UNIT in SODIUM CHLORIDE 0.9% 250 ML IRRIGATION PRN (07:00)
[2021-10-30] MEDS ORDERED: ATORVASTATIN 10 MG TAB PO SCH (07:00)
[2021-10-30] MEDS ORDERED: HEPARIN SODIUM,PORCINE 10,000 UNIT in SODIUM CHLORIDE 0.9% 1,000 ML IRRIGATION PRN (07:00)
[2021-10-30] MEDS: METOPROLOL TARTRATE 50 MG TAB PO SCH ×2 (07:38→18:52)
[2021-10-30] MEDS: SODIUM CHLORIDE 0.9% 1,000 ML IV SCH ×2 (07:49→22:04)
[2021-10-30] MEDS ORDERED: ASPIRIN 325 MG TAB PO SCH (09:00)
[2021-10-30] MEDS ORDERED: VERAPAMIL 2.5 MG/ML 2 ML AMP ONE (09:25)
[2021-10-30] MEDS ORDERED: IV FLUID CONTINUATION 1,000 ML IV ONE (09:44)
[2021-10-30] MEDS ORDERED: fentaNYL (PF) 50 MCG/ML 2 ML AMP ONE (09:45)
[2021-10-30] MEDS ORDERED: HEPARIN SODIUM 1,000 UN/ML (10ML VL) ONE (09:45)
[2021-10-30] MEDS ORDERED: fentaNYL (PF) 50 MCG/ML 2 ML AMP IV ONE (10:09)
[2021-10-30] MEDS ORDERED: LIDOCAINE 1% INJ 10MG/ML (5 ML VIAL-PF) SQ ONE (10:13)
[2021-10-30] MEDS: VERAPAMIL SYRINGE (5 MG/10 ML) INTRAARTER ONE ×2 (10:15→10:34)
[2021-10-30] MEDS ORDERED: MIDAZOLAM 2 MG/2 ML VIAL IV ONE (10:29)
[2021-10-30] MEDS ORDERED: IOPAMIDOL-370 125ML BTL INJ ONE (10:35)
[2021-10-30] MEDS ORDERED: RX INFO: IV CONTRAST WAS GIVEN 1 EACH MISC MISCELLANE PRN (10:43)
[2021-10-30] MEDS ORDERED: SODIUM CHLORIDE 0.9% 1,000 ML IV SCH (10:45)
--- NOTE | 2021-10-30 10:51 | P.CARDCATH ---
Date of Procedure: 10/30/21 Description of Procedure: Cardiac Catheterization: The patient is a 65-year-old female with history of atrial fibrillation who presented with chest and abdominal discomfort and was noted to have an elevated troponin. Recommendations were made regarding cardiac catheterization, the risks and the complications were discussed with the patient who is in full understanding and agreement. Procedure Description: Patient was brought to builder's labourer in fasting semi-sedated state after receiving Fentanyl and Benadryl achieiving moderate conscious sedated state. Using Xylocaine Anesthesia and Seldinger technique, a 6-Wallisian sheath was introduced in the right radial artery . Subsequently, selective coronary angiography performed using a 5-Wallisian 0.5 bend Ynes catheter. Multiple views of the coronary artery including hemiaxial views were obtained. Following that, catheter and sheath were removed. Hemostas is was obtained with deployment of TR band . There was no immediate complication. Patient was returned to room in stable condition. Of note, the patient received a total of 5000 units of intravenous heparin as well as intra- arterial verapamil. There was no immediate complications. Findings: Left main: Short sized vessel, trifurcating into LAD, ramus intermedius and left circumflex, left main has no high-grade stenosis LAD: This is a sized vessel giving rise to a large diagonal branch and mid segment in the distal segment there is slow flow with appearance suggestive of spontaneous dissection. Left circumflex: This is a large dominant vessel, giving rise to 2 obtuse marginal branch and distally bifurcating into PDA and PLV, the left circumflex has no high-grade stenosis. Ramus intermedius this is a moderate size vessel that has no evidence of high- grade stenosis RCA this is a small nondominant vessel that gives rise to an acute marginal, the vessel has no high-grade stenosis. Left Ventriculogram: Was not performed Conclusion: 1. 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 Left dominance Recommendations: Her anatomy is suggestive of spontaneous dissection of the distal apical LAD. I would recommend to maximize medical therapy. She will restart anticoagulation. The findings and recommendations were discussed with the patient and her family over the phone. Duration of sedation is 20 minutes.
--- NOTE | 2021-10-30 11:36 | CA ---
Transthoracic Echo Report Name: Beatriz Pena Age: 65 Gender: F : 1955 Exam Date: 10/30/2021 08:45 Exam Location: [place] [facility] Ht (in): 68 Wt (lb): 342 Ordering Physician: Rad Soto DO Attending/Referring Phys: Wood Bucker Kendy Burton RDCS Procedure CPT: Indications: nstemi Cardiac Hx: Morbid Obesity Technical Quality: Fair Contrast 1: Total Dose (mL): Contrast 2: Total Dose (mL): MEASUREMENTS (Male / Female) Normal Values 2D ECHO LV Diastolic Diameter PLAX 5.5 cm 4.2 - 5.9 / 3.9 - 5.3 cm LV Systolic Diameter PLAX 4.2 cm IVS Diastolic Thickness 1.4 cm 0.6 - 1.0 / 0.6 - 0.9 cm LVPW Diastolic Thickness 1.3 cm 0.6 - 1.0 / 0.6 - 0.9 cm LV Relative Wall Thickness 0.5 RV Internal Dim ED PLAX 4.4 cm M-MODE MV E Point Septal Separation 1.5 cm DOPPLER MV Area PHT 4.1 cm??? Mitral E Point Velocity 97.6 cm/s Mitral A Point Velocity 22.7 cm/s Mitral E to A Ratio 4.3 MV Deceleration Time 183.2 ms TR Peak Velocity 246.6 cm/s TR Peak Gradient 24.3 mmHg Right Ventricular Systolic Press 29.3 mmHg FINDINGS Left Ventricle Left ventricular ejection fraction is estimated at 30-35%. Moderately increased left ventricular wall thickness. Moderately reduced global left ventricular systolic function. Right Ventricle Normal right ventricular size and function. Right ventricular systolic pressure within normal limits. Right Atrium Normal right atrial size. Left Atrium Left atrial dilatation. Mitral Valve Structurally normal mitral valve. Mild mitral regurgitation. Aortic Valve Aortic valve not well visualized. Tricuspid Valve Structurally normal tricuspid valve. Pulmonic Valve Pulmonic valve not well visualized. Pericardium Normal pericardium. Aorta Normal size aortic root and proximal ascending aorta. CONCLUSIONS Moderate to severe LV systolic dysfunction with an ejection fraction of 30-35% Inferior wall is hypokinetic Mild mitral regurgitation Previewed by: Dr. Francisco Javier Leiva MD (Electronically Signed) Final Date: 30 October 2021 11:35
[2021-10-30 11:55] LABS: Mean Platelet Volume 8.9; Platelet Count 204 k/uL (150-450)
[2021-10-30 12:21] LABS: African American GFR (CKD) >90 (>60 ml/min/1.73 sqM); Anion Gap 6 mmol/L; Blood Urea Nitrogen 11 mg/dL (7-17); Calcium 7.8 mg/dL (8.4-10.2); Carbon Dioxide 25 mmol/L (22-30); Chloride 106 mmol/L (98-107); Glucose 87 mg/dL (74-99); Non-African American GFR(CKD) >90 (>60 ml/min/1.73 sqM); Potassium 3.8 mmol/L (3.5-5.1); Sodium 137 mmol/L (137-145)
[2021-10-30] MEDS: HYDROcodone/APAP 5-325MG 1 EACH TAB PO PRN (14:19)
[2021-10-30] MEDS ORDERED: traMADol 50 MG TAB PO STA (15:58)
[2021-10-30] MEDS ORDERED: HYDROcodone/APAP 5-325MG 1 EACH TAB PO PRN (15:58)
--- NOTE | 2021-10-30 18:06 | CT ---
EXAMINATION TYPE: CT brain wo con DATE OF EXAM: 10/30/2021 COMPARISON: 10/29/2021 HISTORY: Headache CT DLP: 1104.4 mGycm Automated exposure control for dose reduction was used. There is cerebral cortical atrophy. There is no mass effect or midline shift. No sign of intracranial hemorrhage. Calvarium is intact. There is normal aeration of the mastoid sinuses. Skull base is inta ct. IMPRESSION: Mild atrophy. No acute intracranial abnormality. No change compared to exam yesterday.
[2021-10-30 18:24] LABS: Chol/HDL Ratio 3.23 Ratio; LDL Cholesterol,Calculated 64.3 mg/dL (0.0-131.0); VLDL Calculation 15.78 mg/dL (5.00-40.00)
[2021-10-30] MEDS: BACLOFEN 10 MG TAB PO SCH (20:12)
[2021-10-30] MEDS: APIXABAN 5 MG TAB PO SCH (20:12)
[2021-10-31] MEDS: FUROSEMIDE 20 MG TAB PO SCH (06:53)
[2021-10-31] MEDS: ATORVASTATIN 40 MG TAB PO SCH (06:53)
[2021-10-31 09:23] LABS: Mean Platelet Volume 9.5; Platelet Count 239 k/uL (150-450)
[2021-10-31 09:31] LABS: African American GFR (CKD) >90 (>60 ml/min/1.73 sqM); Anion Gap 6 mmol/L; Blood Urea Nitrogen 14 mg/dL (7-17); Calcium 8.1 mg/dL (8.4-10.2); Carbon Dioxide 28 mmol/L (22-30); Chloride 103 mmol/L (98-107); Glucose 113 mg/dL (74-99); Non-African American GFR(CKD) 78 (>60 ml/min/1.73 sqM); Potassium 3.6 mmol/L (3.5-5.1); Sodium 137 mmol/L (137-145)
[2021-10-31] MEDS: SERTRALINE 50 MG TAB PO SCH (09:54)
[2021-10-31] MEDS: APIXABAN 5 MG TAB PO SCH ×2 (09:54→20:18)
[2021-10-31] MEDS: MAGNESIUM OXIDE 400 MG TAB PO SCH (09:54)
[2021-10-31] MEDS: ASPIRIN 81 MG PO SCH (09:54)
[2021-10-31] MEDS: SPIRONOLACTONE 25 MG TAB PO SCH (09:54)
[2021-10-31] MEDS: FAMOTIDINE 20 MG TAB PO SCH (09:54)
--- NOTE | 2021-10-31 12:59 | P.PN ---
Subjective The patient is a 65-year-old female with past medical history of persistent atrial fibrillation on Eliquis, hypertension, hyperlipidemia. 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 Patient transferred from [facility] with symptoms of dyspnea, nausea, vomiting and abdominal cramping she was noted to be in atrial fibrillation which has been documented in the past was elevation of her troponin up to 4.7. 2 days ago according to the patient she had chest discomfort that subsequently resolved. She is not active physically because of severe osteoarthritis. She has been progressively fatigued with lack of energy and sleeping more. She underwent cardiac catheterization on 10/30/[address] 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 Echocardiogram revealed an EF 3035%, inferior wall is hypokinetic, mild mitral regurgitation 10/31/2021 Patient seen and examined at bedside, no acute distress. She denies any chest pain or shortness of breath. Blood pressure 97/68, HR 70, afebrile, 96% on room air. She is maintained on Eliquis 5mg BID, aspirin 81mg daily, atorvastatin 40mg daily, Lasix 40 mg twice a day, metoprolol titrate 50 mg twice a day GENERAL: Well-appearing, well-nourished and in no acute distress. NECK: Supple without JVD or thyromegaly. LUNGS: Breath sounds clear to auscultation bilaterally. Respiration equal and unlabored. No wheezes, rales or rhonchi. HEART: Irregular rate and rhythm systolic ejection murmur, no gallops. S1 and S2 heard. EXTREMITIES: Normal range of motion, no edema. No clubbing or cyanosis. Peripheral pulses intact. SKIN: Right radial cath site dressing clean dry intact no hematoma 2+ pulses ASSESSMENT Acute non-STEMI, the patient has been having pain 2 days ago, it is possible that her event started at that time. It appears to be involving the inferolateral wall. Status post cardiac catheterization revealed appearance of spontaneous coronary dissection of the distal apical LAD Cardiomyopathy with EF 30-35% Atrial fibrillation, persistent, anticoagulated History of hypertension Morbid obesity Severe arthritis PLAN Monitor blood pressure, unable to start ACEI secondary to hypotension Start spironolactone 25mg daily Continue Eliquis Continue aspirin, statin, lasix, beta kobe Further recommendations based on clinical course Nurse practitioner note has been reviewed by physician. Signing provider agrees with the documented findings, assessment, and plan of care. Objective - Vital Signs Vital signs: Vital Signs Temp 98.2 F 10/31/21 08:00 Pulse 72 10/31/21 08:00 Resp 18 10/31/21 08:00 BP 106/67 10/31/21 08:00 Pulse Ox 96 10/31/21 08:00 FiO2 Intake & Output 10/30/21 10/31/21 10/31/21 18:59 06:59 18:59 Intake Total 415.887 Balance 415.887 Intake: IV 50 Intake, IV Titration 129.887 Amount Heparin Sod,Pork in 0.45% 129.887 NaCl 25,000 unit In 0.45 % NaCl 1 250ml.bag @ 6.06 UNITS/KG/HR 9.999 mls/hr IV .Q24H VINAY Rx#: [id number] Oral 236 Other: Voiding Method Bedside Commode Bedside Commode Bedside Commode # Voids 1 3 1 - Labs CBC & Chem 7: 10/31/21 08:37 10/31/21 08:37 Labs: Abnormal Lab Results - Last 24 Hours (Table) 10/30/21 10/31/21 Range/Units 11:01 08:37 Glucose 113 H (74-99) mg/dL Calcium 8.1 L (8.4-10.2) mg/dL HDL Cholesterol 35.90 L (40.00-60.00) mg/dL
--- NOTE | 2021-10-31 17:19 | PN ---
PROGRESS NOTE She is status post heart catheterization. She is doing well. She remains on Eliquis 5 mg b.i.d., Lipitor 40 mg daily, Lasix 40 b.i.d., Pepcid 20 mg daily, Lopressor 50 b.i.d. She is on Zoloft for depression 50 mg daily, Aldactone 25 mg daily. She is being treated for CHF. As mentioned above, she had a heart catheterization showed aortic possible LAD distal dissection treated medically. She is in no acute distress. No shortness of breath. Blood pressure 97/68, heart rate 70, afebrile, 96. She is acute non STEMI, spontaneous coronary dissection at the distal LAD, EF 30 to 35% ejection fraction, cardiomyopathy, atrial fibrillation, treated with Eliquis, hypertension, systolic CHF. Medications treated. Depression is being treated. Start spironolactone to help with systolic CHF. She unable to start the [place] due to hypotension. Beta kobe, Lasix, statin, aspirin, Eliquis. PROGNOSIS: Guarded. Please see further orders. MMODL / IJN: [id number] /
--- NOTE | 2021-10-31 17:25 | PN ---
PROGRESS NOTE DATE OF SERVICE: 10/30/2021 65-year-old white female who had heart catheterization, which showed a distal LAD possible dissection. Medical management recommended. She had a postop headache, possibly due to anesthesia. Headache slowly resolving at this time. Increased her pain medications for this and added tramadol. Possible headache. We ordered a CT scan of the brain, but as her headaches are getting better she probably does not need that. Get a neurology consult just to double-check as nurse said it was a headache she has ever had before ever in her life, so with the severe nature for I order a CT scan which is pending. Vital signs reviewed. Blood pressure not high, it is at about 100 or 110 systolic over 60s. She says her headache is getting better. She is talking appropriately. Cardiovascular S1, S2. Lungs clear. GI soft. Hematologic negative Homans. She has right wrist band for heart catheterization. ASSESSMENT: 1. Coronary artery disease. 2. Atypical chest pain. 3. Status post heart catheterization. 4. She has a cardiomyopathy, unclear etiology. 5. Systolic ejection fraction on heart catheterization 30 to 35, confirmed on echo. PLAN: Stabilize from a cardiac standpoint. Treat for headache which is probably due to anesthesia or trauma from her heart catheterization. She wants to go to ECF placement at [facility]. Acute generalized weakness. She has history of CHF. She has osteoarthritis of the knees. Possible lymphedema. Prognosis guarded. Please see further orders. MMODL / IJN: [id number] /
--- NOTE | 2021-10-31 17:44 | P.CNNES ---
History of Present Illness Consult date: 10/31/21 Requesting physician: Zain Roldan Reason for Consult: Headache History of Present Illness: Patient is a 65-year-old female came to the hospital on 10/29/2021 as a transfer from [facility] for possible PR. Patient states that she has been having stomach cramps, throwing up, dry heaving. She called 911, went to [facility] where she was diagnosed with PR, therefore transferred to [facility]. Patient states that she underwent cardiac catheterization yesterday, and went for the procedure at 10:30 AM without headache. After the procedure when she woke up, she had a headache, pointing to the bifrontal region, 10/10 without any nausea or vomiting. She was having photophobia but denies any phonophobia. It was a pressure headache, no neck stiffness, fever or chills. The headache lasted all day. However before she went to sleep last night, the headache has completely gone. At present she has no headache. She denies any history of headaches or migraines. She denied any focal symptoms with it like numbness, tingling, focal weakness, visual disturbance, speech disturbance or facial droop. At present she feels fine, 0/[address] head revealed mild atrophy. No acute process. No change compared to the previous exam. I personally reviewed CT head, and agree with the findings. No acute process. Visualized paranasal sinuses are clear. There is some cerumen mildly impacted in the right external auditory canal. 2-D echo revealed moderate to severe left ventricle systolic dysfunction with EF of 30-35%. Inferior wall is hypokinetic. Mild MR. Patient is currently on Eliquis 5 mg twice a day, aspirin 81 mg, Lipitor 40 mg, baclofen, Pepcid, Lasix, Venus, sertraline 50 mg. Patient does have atrial fibrillation on anticoagulation. Also has bilateral lymphedema of the lower extremities. Patient denies any tobacco or alcohol use. Denies diabetes. She does have history of right shoulder arthritis, and had torn ligaments in the past. Also has arthritis of both hips and knees. Patient denies any family history of cerebral aneurysms. Patient states that she has been using walker for last 2 years. She uses wheelchair when she goes outside. Review of Systems Denies any chest pain nausea vomiting. No abdominal pain. No headache. No fever or chills. Please refer to HPI for pertinent positives and negatives. All other 14 points of uses reviewed and noncontributory. Past Medical History Past Medical History: Atrial Fibrillation, Hypertension Additional Past Medical History / Comment(s): Bilateral leg lymphedema, past cellulitis bilateral legs, arthritis in multiple joints, paroxysmal Afib. History of Any Multi-Drug Resistant Organisms: None Reported Past Surgical History: Bariatric Surgery, Joint Replacement Additional Past Surgical History / Comment(s): R shoulder, bilat knee replacement, bariatric surgery 2014 Past Anesthesia/Blood Transfusion Reactions: No Reported Reaction Past Psychological History: No Psychological Hx Reported Smoking Status: Never smoker Past Alcohol Use History: None Reported Past Drug Use History: None Reported - Past Family History Father Family Medical History: Cancer Additional Family Medical History / Comment(s): Father from prostate cancer. Mother Additional Family Medical History / Comment(s): Mother is alive with history of PFO. Brother(s) Additional Family Medical History / Comment(s): Patient has one brother with history of gout. Patient's 2 sisters one with no major medical problems and one with generalized osteoarthritis. Patient does not have any children. Medications and Allergies Home Medications Medication Instructions Recorded Confirmed Type Baclofen 10 mg PO HS 09/03/19 10/29/21 History Apixaban [Eliquis] 5 mg PO BID 09/19/20 10/29/21 History Atorvastatin [Lipitor] 10 mg PO DAILY 05/13/21 10/29/21 History Magnesium Oxide [Mag-Ox] 400 mg PO DAILY 05/13/21 10/29/21 History Furosemide [Lasix] 60 mg PO BID 07/07/21 10/29/21 History Potassium Chloride ER [K-Dur 20] 20 meq PO BID 07/07/21 10/29/21 History HYDROcodone/APAP 5-325MG [Venus 1 tab PO Q4HR PRN 10/29/21 10/29/21 History 5-325] Metoprolol Tartrate [Lopressor] 50 mg PO BID 10/29/21 10/29/21 History Sertraline [Zoloft] 50 mg PO DAILY 10/29/21 10/29/21 History Allergies Allergy/AdvReac Type Severity Reaction Status Date / Time Poultry [[place]] Allergy Anaphylaxis Verified 10/29/21 16:44 Sulfa (Sulfonamide Allergy Anaphylaxis Verified 10/29/21 16:44 Antibiotics) walnut Allergy Anaphylaxis Verified 10/29/21 16:44 morphine AdvReac Nausea & Verified 10/29/21 16:44 Vomiting Physical Examination - Vital Signs Vital Signs: Vital Signs Temp Pulse Pulse Resp BP BP Pulse Ox 10/31/21 12:00 96.9 F L 70 16 97/68 96 10/31/21 08:00 98.2 F 72 18 106/67 96 10/31/21 03:42 97.6 F 66 16 86/54 97 10/31/21 00:00 97.6 F 67 16 89/57 97 10/30/21 19:53 97.7 F 61 16 91/56 98 10/30/21 18:51 63 102/66 10/30/21 15:27 98.3 F 66 18 110/66 97 10/30/21 14:28 64 98/65 10/30/21 13:28 64 98/63 Intake and Output 10/30/21 10/31/21 10/31/21 22:59 06:59 14:59 Intake Total 118 Balance 118 Intake: Oral 118 Other: Voiding Method Bedside Commode Bedside Commode Bedside Commode # Voids 1 3 1 Patient is an elderly female, moderately obese, in no distress. Patient is alert awake oriented to time place and person. Speech and language functions are normal. Attention, concentration and fund of knowledge is adequate. Patient can name and repeat very well. On cranial examination, pupils are round and reacting to light, visual villafana are full on confrontation, with no neglect on double simultaneous volition. Her extraocular muscles are intact with no nystagmus. Face is symmetric, tongue protrudes to the midline. Palatal elevation and sensation normal, hearing and shoulder shrug normal, facial sensation normal. Shoulder shrug normal. On muscle strength testing, there is no pronator drift and the strength is normal in arms distally and proximally, except deltoid on the left which is 4+5- , and the right appears normal but has pain. Patient has bilateral shoulder arthritis. In the lower extremities her ankle dorsiflexion are normal bilaterally. Hip flexion is 4 on the left, 2 on the right. Deep tendon reflexes are 1 in the upper limbs, absent in the lower limbs and plantars are flat. Sensory to touch is equal with no neglect. Cerebellar function showed no ataxia for [id number] testing. No dysdiadochokinesia. Tone and bulk of muscles normal. Gait not checked. Patient not ambulatory, uses walker. On general examination, there is no carotid bruit or murmur, S1-S2 audible. Abdomen is soft nontender. No organomegaly, bowel sounds present. Chest is clear. Peripheral pulses not felt, patient has lymphedema of bilateral lower extremities. Some redness of the skin of the blanc anteriorly. Results - Laboratory Findings CBC and BMP: 10/31/21 08:37 10/31/21 08:37 Abnormal Lab Findings: Abnormal Labs 10/29/21 10/29/21 10/29/21 16:30 19:06 22:15 APTT 35.6 H Glucose Calcium Troponin I 4.650 H* 4.510 H* HDL Cholesterol 10/30/21 10/30/21 10/30/21 11:01 11:01 11:01 APTT 142.5 H* Glucose Calcium 7.8 L Troponin I HDL Cholesterol 35.90 L 10/31/21 08:37 APTT Glucose 113 H Calcium 8.1 L Troponin I HDL Cholesterol Assessment and Plan Assessment: * Cephalalgia, that occurred post cardiac cath, now seems to have completely resolved (lasted several hours). Patient's neurological examination is nonfocal. Exact cause of cephalgia unclear. The head CT is normal. No p aranasal sinus disease. Uncertain if it was an adverse effect of some medication given for cardiac cath. At present headache is completely resolved. 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 * Morbid obesity * Cardiomyopathy * Hypertension * Bilateral lower extremity lymphedema Plan: * Patient's headache has resolved. Exact cause is uncertain. CT head is completely normal. I discussed with patient about pursuing CTA of head and neck to rule out cerebral aneurysm (very low yield, with negative CT head and negative family history), but as the headache has resolved, patient declined further testing. * Continue present management. * Please reconsult neurology if the headache reappears. We will sign off. * Thank you for the consult.
[2021-10-31] MEDS: METOPROLOL TARTRATE 50 MG TAB PO SCH ×2 (20:06→20:17)
[2021-10-31] MEDS: SODIUM CHLORIDE 0.9% 1,000 ML IV SCH (20:07)
[2021-10-31] MEDS: BACLOFEN 10 MG TAB PO SCH (20:18)
[2021-10-31] MEDS: FUROSEMIDE 40 MG TAB PO SCH (20:18)
[2021-11-01] MEDS: SODIUM CHLORIDE 0.9% 1,000 ML IV SCH ×2 (01:40→19:23)
[2021-11-01 08:28] LABS: Mean Platelet Volume 8.6; Platelet Count 226 k/uL (150-450)
[2021-11-01] MEDS: FAMOTIDINE 20 MG TAB PO SCH (08:39)
[2021-11-01] MEDS: ATORVASTATIN 40 MG TAB PO SCH (08:39)
[2021-11-01] MEDS: MAGNESIUM OXIDE 400 MG TAB PO SCH (08:39)
[2021-11-01] MEDS: ASPIRIN 81 MG PO SCH (08:39)
[2021-11-01] MEDS: APIXABAN 5 MG TAB PO SCH ×2 (08:40→20:37)
[2021-11-01] MEDS: SERTRALINE 50 MG TAB PO SCH (08:40)
[2021-11-01 08:47] LABS: African American GFR (CKD) >90 (>60 ml/min/1.73 sqM); Anion Gap 4 mmol/L; Blood Urea Nitrogen 12 mg/dL (7-17); Calcium 8.2 mg/dL (8.4-10.2); Carbon Dioxide 32 mmol/L (22-30); Chloride 101 mmol/L (98-107); Glucose 112 mg/dL (74-99); Non-African American GFR(CKD) 78 (>60 ml/min/1.73 sqM); Potassium 3.7 mmol/L (3.5-5.1); Sodium 137 mmol/L (137-145)
[2021-11-01] MEDS: SPIRONOLACTONE 25 MG TAB PO SCH (08:48)
[2021-11-01] MEDS: FUROSEMIDE 40 MG TAB PO SCH ×2 (08:49→18:20)
[2021-11-01] MEDS: METOPROLOL TARTRATE 50 MG TAB PO SCH (08:49)
[2021-11-01] MEDS: METOPROLOL TARTRATE 25 MG TAB PO SCH ×2 (09:07→18:20)
--- NOTE | 2021-11-01 11:17 | P.PN ---
Subjective The patient is a 65-year-old female with past medical history of persistent atrial fibrillation on Eliquis, hypertension, hyperlipidemia. She does not follow with a clinical lab specialist. Patient transferred from [facility] with symptoms of dyspnea, nausea, vomiting and abdominal cramping she was noted to be in atrial fibrillation which has been documented in the past was elevation of her troponin up to 4.7. 2 days ago according to the patient she had chest discomfort that subsequently resolved. She is not active physically because of severe osteoarthritis. She has been progressively fatigued with lack of energy and sleeping more. She underwent cardiac catheterization on 10/30/[address] 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 Echocardiogram revealed an EF 3035%, inferior wall is hypokinetic, mild mitral regurgitation 11/01/2021 Patient seen and examined at bedside, no acute distress. She has some nausea this morning, no other complaints. She is not ambulating often. She denies any chest pain or shortness of breath. Blood pressure low this morning 81/54 She is maintained on Eliquis 5mg BID, aspirin 81mg daily, atorvastatin 40mg daily, Lasix 40 mg twice a day, metoprolol tartrate 50 mg twice a day, spironolactone 25mg daily GENERAL: Well-appearing, well-nourished and in no acute distress. NECK: Supple without JVD or thyromegaly. LUNGS: Breath sounds clear to auscultation bilaterally. Respiration equal and unlabored. No wheezes, rales or rhonchi. HEART: Irregular rate and rhythm systolic ejection murmur, no gallops. S1 and S2 heard. EXTREMITIES: Normal range of motion, no edema. No clubbing or cyanosis. Peripheral pulses intact. SKIN: Right radial cath site dressing clean dry intact no hematoma 2+ pulses ASSESSMENT Acute non-STEMI, the patient has been having pain 2 days ago, it is possible that her event started at that time. It appears to be involving the inferolateral wall. 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 Follow up with Dr. Randall outpatient. Nurse practitioner note has been reviewed by physician. Signing provider agrees with the documented findings, assessment, and plan of care. Objective - Vital Signs Vital signs: Vital Signs Temp 98.1 F 11/01/21 03:58 Pulse 59 L 11/01/21 03:58 Resp 16 11/01/21 03:58 BP 81/54 11/01/21 03:58 Pulse Ox 95 11/01/21 03:58 FiO2 Intake & Output 10/31/21 11/01/21 11/01/21 18:59 06:59 18:59 Intake Total 240 Balance 240 Intake: Oral 240 Other: Voiding Method Bedside Commode Bedside Commode # Voids 1 1 - Labs CBC & Chem 7: 11/01/21 08:08 11/01/21 08:08 Labs: Abnormal Lab Results - Last 24 Hours (Table) 11/01/21 Range/Units 08:08 Carbon Dioxide 32 H (22-30) mmol/L Glucose 112 H (74-99) mg/dL Calcium 8.2 L (8.4-10.2) mg/dL
[2021-11-01] MEDS ORDERED: ONDANSETRON 4 MG/2 ML VIAL IVP PRN (14:44)
--- NOTE | 2021-11-01 20:32 | PN ---
PROGRESS NOTE Patient was seen by Neurology for cephalgia. Head CT is normal. Headaches are pretty much gone. She is status post acute non-STEMI with cardiomyopathy, possible dissection of the distal LAD, cardiomyopathy, hypertension, lymphedema, awaiting fpc placement. PT/OT has been ordered. Cardiology saw the patient today. Vital signs are stable. She had some nausea today, for which Zofran was given, and we got Colace going for constipation. She has history of atrial fibrillation, on Eliquis, hypertension, dyslipidemia, lymphedema. Medications were reviewed with her in person. Heart with irregular regular rhythm. Lungs with no wheezes. Neck is supple. No mass. well nourished, in no acute distress. ASSESSMENT: 1. 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 2. Atrial fibrillation, persistent. They cut her metoprolol to 25 b.i.d. for hypotension and cut down spironolactone. Continue on Eliquis, aspirin, statin and Lasix. Possible discharge home. Awaiting fpc placement. Please see further orders. MMODL / IJN: [id number] /
[2021-11-01] MEDS: DOCUSATE 100 MG CAP PO SCH (20:37)
[2021-11-01] MEDS: BACLOFEN 10 MG TAB PO SCH (20:37)
[2021-11-02] MEDS: SODIUM CHLORIDE 0.9% 1,000 ML IV SCH ×2 (04:52→20:34)
[2021-11-02] MEDS: FUROSEMIDE 40 MG TAB PO SCH ×2 (06:16→18:02)
[2021-11-02] MEDS: ATORVASTATIN 40 MG TAB PO SCH (06:16)
[2021-11-02] MEDS: MAGNESIUM OXIDE 400 MG TAB PO SCH (08:44)
[2021-11-02] MEDS: FAMOTIDINE 20 MG TAB PO SCH (08:44)
[2021-11-02] MEDS: SPIRONOLACTONE 25 MG TAB PO SCH (08:44)
[2021-11-02] MEDS: ASPIRIN 81 MG PO SCH (08:44)
[2021-11-02] MEDS: SERTRALINE 50 MG TAB PO SCH (08:45)
[2021-11-02] MEDS: DOCUSATE 100 MG CAP PO SCH ×2 (08:45→20:35)
[2021-11-02] MEDS: APIXABAN 5 MG TAB PO SCH ×2 (08:45→20:35)
[2021-11-02] MEDS: HYDROcodone/APAP 5-325MG 1 EACH TAB PO PRN (08:47)
[2021-11-02 08:54] VITALS: BMI 52.1
[2021-11-02 08:58] LABS: Calcium 8.7 mg/dL (8.4-10.2)
--- NOTE | 2021-11-02 13:28 | P.PN ---
Subjective The patient is a 65-year-old female with past medical history of persistent atrial fibrillation on Eliquis, hypertension, hyperlipidemia. She does not follow with a data report analyst. Patient transferred from [facility] with symptoms of dyspnea, nausea, vomiting and abdominal cramping she was noted to be in atrial fibrillation which has been documented in the past was elevation of her troponin up to 4.7. 2 days ago according to the patient she had chest discomfort that subsequently resolved. She is not active physically because of severe osteoarthritis. She has been progressively fatigued with lack of energy and sleeping more. She underwent cardiac catheterization on 10/30/[address] 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 Echocardiogram revealed an EF 3035%, inferior wall is hypokinetic, mild mitral regurgitation 11/02/2021 Patient seen and examined at bedside, no acute distress. No complaints this morning. She is not ambulating often. She denies any chest pain or shortness of breath. Blood pressure improved from yesterday. BP 97/56. She is in afib with controlled rates. She is maintained on Eliquis 5mg BID, aspirin 81mg daily, atorvastatin 40mg daily, Lasix 40 mg twice a day, metoprolol tartrate 25 mg twice a day, spironolactone 12.5mg daily GENERAL: Well-appearing, well-nourished and in no acute distress. NECK: Supple without JVD or thyromegaly. LUNGS: Breath sounds clear to auscultation bilaterally. Respiration equal and unlabored. No wheezes, rales or rhonchi. HEART: Irregular rate and rhythm systolic ejection murmur, no gallops. S1 and S2 heard. EXTREMITIES: Normal range of motion, no edema. No clubbing or cyanosis. Peripheral pulses intact. SKIN: Right radial cath site dressing clean dry intact no hematoma 2+ pulses ASSESSMENT Acute non-STEMI, the patient has been having pain 2 days ago, it is possible that her event started at that time. It appears to be involving the inferolateral wall. 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 Follow up with Dr. Randall outpatient. Nurse practitioner note has been reviewed by physician. Signing provider agrees with the documented findings, assessment, and plan of care. Objective - Vital Signs Vital signs: Vital Signs Temp 97.8 F 11/02/21 08:45 Pulse 84 11/02/21 08:45 Resp 16 11/02/21 08:45 BP 97/56 11/02/21 08:45 Pulse Ox 97 11/02/21 08:45 FiO2 21 11/01/21 19:35 Intake & Output 11/01/21 11/02/21 11/02/21 18:59 06:59 18:59 Intake Total 480 240 118 Output Total 400 Balance 480 -160 118 Weight 155.5 kg Intake: Oral 480 240 118 Output: Urine 400 Other: Voiding Method Bedside Commode Bedside Commode # Voids 2 # Bowel Movements 1 - Labs CBC & Chem 7: 11/01/21 08:08 11/02/21 07:52 Labs: Abnormal Lab Results - Last 24 Hours (Table) 11/02/21 Range/Units 07:52 Carbon Dioxide 31 H (22-30) mmol/L Glucose 114 H (74-99) mg/dL
[2021-11-02] MEDS: METOPROLOL TARTRATE 25 MG TAB PO SCH (18:02)
[2021-11-02] MEDS: BACLOFEN 10 MG TAB PO SCH (20:35)
--- NOTE | 2021-11-02 20:50 | DS ---
DISCHARGE SUMMARY This 65-year-old white female was transferred from the other hospital in [facility] for an acute non-STEMI, back spasm, lumbar disk disease, lymphedema, cellulitis of the right leg. Heart catheterization was done and showed distal a LAD artery dissection. Medical management was given. The patient was found to have ejection fraction 30% to 35%. She is being treated for systolic CHF, possibly has nonischemic cardiomyopathy. With medication blood pressure became hypotensive. Over the last few days blood pressure medicines have been cut down by Cardiology. On the day prior to discharge her blood pressure were maintaining in the low 90s over 50s to 60s. She may need some midodrine to keep her blood pressure up in the near future due to necessary cardiac medications. She will need PT/OT in the rehab center and monitoring of her blood pressure in the rehab center and check for orthostatic changes. Prognosis is guarded. Condition stable. Ambulate as tolerated. Appears to involve the inferolateral wall of the non-STEMI. Atrial fibrillation. She has been anticoagulated with Eliquis. Continue current therapy. Possibly midodrine will have to be given, as she is too weak or her blood pressure drops too low. She may have to go on midodrine 5 mg t.i.d. in the detention. Please follow closely in the detention. Please see further orders. Medications include: 1. Lipitor 40 mg at bedtime. 2. Lopressor 25 b.i.d. 3. Pepcid 20 mg daily. 4. 0.25 q.6 p.r.n. for anxiety. 5. Aldactone 12.5 mg daily. 6. Aspirin 81 mg daily. 7. Lasix 40 mg b.i.d. 8. Nitroglycerin sublingual tablets p.r.n. 0.4 mg. 9. She takes baclofen 10 mg at bedtime. 10.Mag oxide 400 mg daily. 11.Eliquis 5 mg b.i.d. 12.Potassium chloride 20 mEq b.i.d. 13.[place] 5/325 every 4 to 6 hours p.r.n. for pain. 14.Zoloft 50 mg daily. Prognosis guarded. Ambulate as tolerated. Physical therapy. Watch for orthostatic changes. MMODL / IJN: [id number] /
[2021-11-03] MEDS: SODIUM CHLORIDE 0.9% 1,000 ML IV SCH (06:17)
[2021-11-03] MEDS: ATORVASTATIN 40 MG TAB PO SCH (06:25)
[2021-11-03] MEDS: FUROSEMIDE 40 MG TAB PO SCH (06:25)
[2021-11-03] MEDS: METOPROLOL TARTRATE 25 MG TAB PO SCH (06:25)
[2021-11-03] MEDS: FAMOTIDINE 20 MG TAB PO SCH (09:30)
[2021-11-03] MEDS: SPIRONOLACTONE 25 MG TAB PO SCH (09:30)
[2021-11-03] MEDS: ASPIRIN 81 MG PO SCH (09:30)
[2021-11-03] MEDS: MAGNESIUM OXIDE 400 MG TAB PO SCH (09:30)
[2021-11-03] MEDS: SERTRALINE 50 MG TAB PO SCH (09:30)
[2021-11-03] MEDS: HYDROcodone/APAP 5-325MG 1 EACH TAB PO PRN (09:31)
[2021-11-03] MEDS: APIXABAN 5 MG TAB PO SCH (09:31)
[2021-11-03] MEDS: DOCUSATE 100 MG CAP PO SCH (09:36)
[2021-11-03 10:27] VITALS: TEMP 97.8
--- NOTE | 2021-11-03 11:47 | P.PN ---
Subjective Progress Note Date: 11/03/21 PROGRESS NOTE The patient presented with chest discomfort and non-STEMI, underwent cardiac catheterization and had findings consistent with spontaneous coronary artery dissection in the distal LAD with impairment of the systolic function. She has a known history of persistent atrial fibrillation. She is complaining of a headache that has no chest discomfort, her breathing is stable. She denies any dizziness or palpitations. She is awaiting transfer to extended care facility. Her ventricular response is controlled. Medications: Aspirin 81 mg daily, Lipitor 40 mg daily, Lasix 40 mg daily, metoprolol 25 mg daily, spironolactone 12-1/2 mg daily, Eliquis 5 mg twice a day PHYSICAL EXAMINATION: Blood pressure 101/69 heart rate 59, obese LUNGS: Clear to auscultation HEART: Irregular rate and rhythm, S1, S2. No S3. systolic ejection murmur ABDOMEN: Soft, nontender, no organomegaly EXTREMETIES: No significant edema IMPRESSION: 1. [id number] with spontaneous coronary artery dissection 2. History of persistent atrial fibrillation, anticoagulated 3. Ischemic cardiomyopathy 4. Severe osteoarthritis PLAN: 1. Continue present therapy 2. Follow blood pressure as outpatient and if stable add KALYN inhibitor 3. Probable transfer to extended care facility 4. Depending on her progress further recommendations will be made as outpatient, her systolic function will be followed. Objective - Vital Signs Vital signs: Vital Signs Temp 97.8 F 11/03/21 10:23 Pulse 59 L 11/03/21 10:23 Resp 21 11/03/21 10:23 BP 101/69 11/03/21 10:23 Pulse Ox 93 L 11/03/21 10:23 FiO2 21 11/01/21 19:35 Intake & Output 11/02/21 11/03/21 11/03/21 18:59 06:59 18:59 Intake Total 1314 240 Balance 1314 240 Weight 155.5 kg Intake: Oral 1314 240 Other: Voiding Method Bedside Commode # Voids 1 1 # Bowel Movements 1 - Labs CBC & Chem 7: 11/01/21 08:08 11/02/21 07:52
[2021-11-03 12:07] VITALS: BP 110/74; PULSE 73; RESP 16
== END 2021-11-03 12:36 | DRG 280 ==
LOC: EC 15:25 → 3SCARD 16:21
PROVIDERS: ADMIT Family Medicine; ATTEND Family Medicine
PROC: B2151ZZ Fluoroscopy of Left Heart using Low Osmolar Contrast (ICD-10-PCS; 2021-10-30)
PROC: B2111ZZ Fluoroscopy of Multiple Coronary Arteries using Low Osmolar Contrast (ICD-10-PCS; 2021-10-30)
PROC: 4A023N7 Measurement of Cardiac Sampling and Pressure, Left Heart, Percutaneous Approach (ICD-10-PCS; principal; 2021-10-30 07:30)
DX: I21.4 Non-ST elevation (NSTEMI) myocardial infarction (principal); I25.42 Coronary artery dissection; I48.19 Other persistent atrial fibrillation; I50.20 Unspecified systolic (congestive) heart failure; I11.0 Hypertensive heart disease with heart failure; F32.A Depression, unspecified; E66.01 Morbid (severe) obesity due to excess calories; I95.9 Hypotension, unspecified; M79.89 Other specified soft tissue disorders; I25.10 Atherosclerotic heart disease of native coronary artery without angina pectoris; E78.5 Hyperlipidemia, unspecified; R01.1 Cardiac murmur, unspecified; I89.0 Lymphedema, not elsewhere classified; I34.0 Nonrheumatic mitral (valve) insufficiency; M19.011 Primary osteoarthritis, right shoulder; M16.0 Bilateral primary osteoarthritis of hip; I25.5 Ischemic cardiomyopathy; G44.40 Drug-induced headache, not elsewhere classified, not intractable; T41.45XA Adverse effect of unspecified anesthetic, initial encounter; R53.1 Weakness; K59.00 Constipation, unspecified; H53.149 Visual discomfort, unspecified; H61.21 Impacted cerumen, right ear; M17.0 Bilateral primary osteoarthritis of knee; Z79.01 Long term (current) use of anticoagulants; Z96.653 Presence of artificial knee joint, bilateral; Z79.899 Other long term (current) drug therapy; Z91.018 Allergy to other foods; Z88.2 Allergy status to sulfonamides; Z88.5 Allergy status to narcotic agent; Z98.84 Bariatric surgery status; Z80.42 Family history of malignant neoplasm of prostate; Z82.79 Family history of other congenital malformations, deformations and chromosomal abnormalities; Z82.69 Family history of other diseases of the musculoskeletal system and connective tissue; Z82.61 Family history of arthritis; Z75.1 Person awaiting admission to adequate facility elsewhere
CPT/HCPCS: 70450; 80048; 80061; 83036; 84443; 84484; 85049; 85730; 87635; 93005; 93306; 93454; 94760; 96365; 99285

== ENCOUNTER 2023-05-07 23:47 | Inpatient (IN) | payer MEDICARE ==
--- NOTE | 2023-05-08 00:03 | ED ---
SOB HPI - General Source: patient, EMS, RN notes reviewed <Nida Roblero - Last Filed: 05/08/23 00:01> <Mitch Michel - Last Filed: 05/08/23 04:17> - General Source: patient, RN notes reviewed Limitations: no limitations <Rad Soto - Last Filed: 05/08/23 07:39> - General Stated Complaint: WEST Time Seen by Provider: 05/08/23 00:01 - History of Present Illness Initial Comments: Patient is a 67-year-old female presented ER with a chief complaint of dyspnea. Per EMS, patient has not been taking any of her medication including Lasix for the past week. Patient is endorsing shortness of breath but denies chest pain. Patient also reports that her right leg is extremely swollen compared to normal. Patient is not normally on oxygen at home but is currently on 2 L satting at 96 per EMS. (Nida Roblero) Patient is a pleasant 67-year-old female presenting to the emergency department with concerns with difficulty breathing. Patient does have history of similar s ymptoms a couple times previously associated with CHF. Patient does have some leg swelling. No cough. No fever. Patient has orthopnea and exertional dyspnea. Patient does have known history of A. fib. Patient does not use oxygen at home. (Rad Soto) - Related Data Home Medications Medication Instructions Recorded Confirmed Baclofen 10 mg PO HS 09/03/19 10/29/21 Apixaban [Eliquis] 5 mg PO BID 09/19/20 10/29/21 Magnesium Oxide [Mag-Ox] 400 mg PO DAILY 05/13/21 10/29/21 Potassium Chloride ER [K-Dur 20] 20 meq PO BID 07/07/21 10/29/21 HYDROcodone/APAP 5-325MG [[place] 1 tab PO Q4HR PRN 10/29/21 10/29/21 5-325] Sertraline [Zoloft] 50 mg PO DAILY 10/29/21 10/29/21 Previous Rx's Medication Instructions Recorded ALPRAZolam [Xanax] 0.25 mg PO Q6HR PRN tab 11/02/21 Aspirin 81 mg PO DAILY tab 11/02/21 Atorvastatin [Lipitor] 40 mg PO DAILY@0700 tab 11/02/21 Famotidine [Pepcid] 20 mg PO DAILY tab 11/02/21 Furosemide [Lasix] 40 mg PO BID@0700,1900 tab 11/02/21 Metoprolol Tartrate [Lopressor] 25 mg PO BID@0700,1900 tab 11/02/21 Nitroglycerin Sl Tabs [Nitrostat] 0.4 mg SUBLINGUAL Q5M PRN tab 11/02/21 Spironolactone [Aldactone] 12.5 mg PO DAILY tab 11/02/21 Allergies Allergy/AdvReac Type Severity Reaction Status Date / Time Poultry [[place]] Allergy Anaphylaxis Verified 05/08/23 00:37 Sulfa (Sulfonamide Allergy Anaphylaxis Verified 05/08/23 00:37 Antibiotics) walnut Allergy Anaphylaxis Verified 05/08/23 00:37 morphine AdvReac Nausea & Verified 05/08/23 00:37 Vomiting Review of Systems ROS Other: All systems not noted in ROS Statement are negative. <Nida Roblero - Last Filed: 05/08/23 00:01> ROS Other: All systems not noted in ROS Statement are negative. <Mitch Michel - Last Filed: 05/08/23 04:17> ROS Other: All systems not noted in ROS Statement are negative. Constitutional: Denies: fever Eyes: Denies: eye pain ENT: Denies: ear pain Respiratory: Reports: as per HPI, dyspnea Cardiovascular: Denies: chest pain Endocrine: Denies: fatigue Gastrointestinal: Denies: abdominal pain Genitourinary: Denies: urgency <Rad Soto - Last Filed: 05/08/23 07:39> ROS Statement: Those systems with pertinent positive or pertinent negative responses have been documented in the HPI. Past Medical History Past Medical History: Atrial Fibrillation, Hypertension Additional Past Medical History / Comment(s): Bilateral leg lymphedema, past cellulitis bilateral legs, arthritis in multiple joints, paroxysmal Afib. History of Any Multi-Drug Resistant Organisms: None Reported Past Surgical History: Bariatric Surgery, Joint Replacement Additional Past Surgical History / Comment(s): R shoulder, bilat knee replacement, bariatric surgery 2014 Past Anesthesia/Blood Transfusion Reactions: No Reported Reaction Past Psychological History: No Psychological Hx Reported Smoking Status: Never smoker Past Alcohol Use History: None Reported Past Drug Use History: None Reported - Past Family History Father Family Medical History: Cancer Additional Family Medical History / Comment(s): Father from prostate cancer. Mother Additional Family Medical History / Comment(s): Mother is alive with history of PFO. Brother(s) Additional Family Medical History / Comment(s): Patient has one brother with history of gout. Patient's 2 sisters one with no major medical problems and one with generalized osteoarthritis. Patient does not have any children. <Nida Roblero - Last Filed: 05/08/23 00:01> General Exam <Nida Roblero - Last Filed: 05/08/23 00:01> Limitations: no limitations General appearance: alert, in no apparent distress Head exam: Present: normocephalic Eye exam: Present: normal appearance Neck exam: Present: normal inspection Respiratory exam: Present: decreased breath sounds Cardiovascular Exam: Present: tachycardia, irregular rhythm Extremities exam: Present: pedal edema Neurological exam: Present: alert Psychiatric exam: Present: normal affect, normal mood Skin exam: Present: normal color <Rad Soto - Last Filed: 05/08/23 07:39> - General Exam Comments Initial Comments: Visual Physical Exam Vital signs reviewed General: Well-appearing, nontoxic, no acute distress. Head: Normocephalic, atraumatic Eyes: PERRLA, EOMI ENT: Airway patent Chest: Nonlabored breathing Skin: No visual rash, normal skin tone, bilateral lower extremities edematous Neuro: Alert and oriented 3 Musculoskeletal: No gross abnormalities (Nida Roblero) Course Vital Signs 05/08/23 00:37 Temperature 97.9 F Pulse Rate 117 H Respiratory 18 Rate Blood Pressure 130/75 O2 Sat by Pulse 97 Oximetry Medical Decision Making <Nida Roblero - Last Filed: 05/08/23 00:01> - Lab Data Result diagrams: 05/08/23 01:41 05/08/23 01:41 - EKG Data -: EKG Interpreted by Me (EKG is A. fib with RVR 104 QRS 112 QTC 390) <Mitch Michel - Last Filed: 05/08/23 04:17> - Lab Data Result diagrams: 05/08/23 01:41 05/08/23 01:41 <Rad Soto - Last Filed: 05/08/23 07:39> - Medical Decision Making I performed the quick note portion of the exam. Electronically signed by Nida Roblero PA-C (Nida Roblero) EKG interpreted by myself shows A. fib with rate of 104. QRS 112. QT 329. QTC 39. Normal axis. PVC present. Small inferior Q waves. Was pt. sent in by a medical professional or institution (, TYREE, VISUAL MERCHANDISING COORDINATOR, urgent care, hospital, or longterm...) When possible be specific @ -No Did you speak to anyone other than the patient for history (EMS, parent, family, police, friend...)? What history was obtained from this source @ -No Did you review nursing and triage notes (agree or disagree)? Why? @ -I reviewed and agree with nursing and triage notes Were old charts reviewed (outside hosp., previous admission, EMS record, old EKG, old radiological studies, urgent care reports/EKG's, longterm records)? Report findings @ -Previous chest x-ray reviewed Differential Diagnosis (chest pain, altered mental status, abdominal pain women, abdominal pain men, vaginal bleeding, weakness, fever, dyspnea, syncope, headache, dizziness, GI bleed, back pain, seizure, CVA, palpatations, mental health, musculoskeletal)? @ -Differential Dyspnea: Coronary syndrome, arrhythmia, tamponade, asthma, COPD, pulmonary embolism, pneumonia, pneumothorax, pulmonary effusion, anaphylaxis, diabetic ketoacidosis, flailed chest, pulmonary contusion, diaphragmatic rupture, anemia, neuromuscular, this is not meant to be an all-inclusive list. EKG interpreted by me (3pts min.). @ -As above X-rays interpreted by me (1pt min.). @ -Chest x-ray does show cardiomegaly with increased interstitial changes and trace effusions. CT interpreted by me (1pt min.). @ -None done U/S interpreted by me (1pt. min.). @ -None done What testing was considered but not performed or refused? (CT, X-rays, U/S, labs)? Why? @ -None What meds were considered but not given or refused? Why? @ -None Did you discuss the management of the patient with other professionals (professionals i.e. TYREE Bhardwaj, VISUAL MERCHANDISING COORDINATOR, lab, RT, psych nurse, social worker psychiatric, template worker, teacher, national insurance officer, dependency case manager)? Give summary @ -[facility] who will admit for Dr. Roldan, time Was smoking cessation discussed for >3mins.? @ -No Was critical care preformed (if so, how long)? @ -No Were there social determinants of health that impacted care today? How? (Homelessness, low income, unemployed, alcoholism, drug addiction, transportation, low edu. Level, literacy, decrease access to med. care, senior care, rehab)? @ -No Was there de-escalation of care discussed even if they declined (Discuss DNR or withdrawal of care, Hospice)? DNR status @ -No What co-morbidities impacted this encounter? (DM, HTN, Smoking, COPD, CAD, Cancer, CVA, ARF, Chemo, Hep., AIDS, mental health diagnosis, sleep apnea, morbid obesity)? @ -None Was patient admitted / discharged? Hospital course, mention meds given and route, prescriptions, significant lab abnormalities, going to OR and other pertinent info. @ -Patient made aware of plan. Patient will be admitted with cardiac consult. Admission orders written. Patient will be diuresed. Undiagnosed new problem with uncertain prognosis? @ -No Drug Therapy requiring intensive monitoring for toxicity (Heparin, Nitro, Insulin, Cardizem)? @ -No Were any procedures done? @ -No Diagnosis/symptom? @ -Congestive heart failure Acute, or Chronic, or Acute on Chronic? @ -Acute Uncomplicated (without systemic symptoms) or Complicated (systemic symptoms)? @ -default Side effects of treatment? @ -No Exacerbation, Progression, or Severe Exacerbation? @ -Exacerbation Poses a threat to life or bodily function? How? (Chest pain, [place], [place], pneumonia, PE, COPD, DKA, ARF, appy, cholecystitis, CVA, Diverticulitis, Homicidal, Suicidal, threat to staff... and all critical care pts) @ -No (Rad Soto) - Lab Data Lab Results 05/08/23 05/08/23 05/08/23 Range/Units 01:41 01:41 01:41 WBC 9.5 (3.8-10.6) k/uL RBC 4.32 (3.80-5.40) m/uL Hgb 13.2 (11.4-16.0) gm/dL Hct 41.4 (34.0-46.0) % MCV 95.8 (80.0-100.0) fL MCH 30.6 (25.0-35.0) pg MCHC 32.0 (31.0-37.0) g/dL RDW 13.4 (11.5-15.5) % Plt Count 209 (150-450) k/uL MPV 9.7 Sodium 139 (137-145) mmol/L Potassium 4.2 (3.5-5.1) mmol/L Chloride 107 (98-107) mmol/L Carbon Dioxide 24 (22-30) mmol/L Anion Gap 8 mmol/L BUN 19 H (7-17) mg/dL Creatinine 0.65 (0.52-1.04) mg/dL Est GFR (CKD-EPI)AfAm >90 (>60 ml/min/1.73 sqM) Est GFR (CKD-EPI)NonAf >90 (>60 ml/min/1.73 sqM) Glucose 118 H (74-99) mg/dL Calcium 8.7 (8.4-10.2) mg/dL Total Bilirubin 0.8 (0.2-1.3) mg/dL AST 87 H (14-36) U/L ALT 107 H (4-34) U/L Alkaline Phosphatase 72 (38-126) U/L Troponin I 0.025 (0.000-0.034) ng/mL NT-Pro-B Natriuret Pep 2070 pg/mL Total Protein 6.8 (6.3-8.2) g/dL Albumin 3.7 (3.5-5.0) g/dL Influenza Type A (PCR) (Not Detectd) Influenza Type B (PCR) (Not Detectd) RSV (PCR) (Not Detectd) SARS-CoV-2 (PCR) (Not Detectd) 05/08/23 Range/Units 01:41 WBC (3.8-10.6) k/uL RBC (3.80-5.40) m/uL Hgb (11.4-16.0) gm/dL Hct (34.0-46.0) % MCV (80.0-100.0) fL MCH (25.0-35.0) pg MCHC (31.0-37.0) g/dL RDW (11.5-15.5) % Plt Count (150-450) k/uL MPV Sodium (137-145) mmol/L Potassium (3.5-5.1) mmol/L Chloride (98-107) mmol/L Carbon Dioxide (22-30) mmol/L Anion Gap mmol/L BUN (7-17) mg/dL Creatinine (0.52-1.04) mg/dL Est GFR (CKD-EPI)AfAm (>60 ml/min/1.73 sqM) Est GFR (CKD-EPI)NonAf (>60 ml/min/1.73 sqM) Glucose (74-99) mg/dL Calcium (8.4-10.2) mg/dL Total Bilirubin (0.2-1.3) mg/dL AST (14-36) U/L ALT (4-34) U/L Alkaline Phosphatase (38-126) U/L Troponin I (0.000-0.034) ng/mL NT-Pro-B Natriuret Pep pg/mL Total Protein (6.3-8.2) g/dL Albumin (3.5-5.0) g/dL Influenza Type A (PCR) Not Detected (Not Detectd) Influenza Type B (PCR) Not Detected (Not Detectd) RSV (PCR) Not Detected (Not Detectd) SARS-CoV-2 (PCR) Not Detected (Not Detectd) Disposition <Nida Roblero - Last Filed: 05/08/23 00:01> <Mitch Michel - Last Filed: 05/08/23 04:17> Is patient prescribed a controlled substance at d/c from ED?: No Time of Disposition: 07:39 <Rad Soto - Last Filed: 05/08/23 07:39> Clinical Impression: Congestive heart failure Disposition: ADMITTED IP TO THIS HOSP Referrals: Zain Roldan MD [STAFF PHYSICIAN] - 1-2 days
[2023-05-08 02:00] LABS: HCT 41.4 % (34.0-46.0); HGB 13.2 gm/dL (11.4-16.0); MCH 30.6 pg (25.0-35.0); MCV 95.8 fL (80.0-100.0); Mean Platelet Volume 9.7; Platelet Count 209 k/uL (150-450); RBC 4.32 m/uL (3.80-5.40); RDW 13.4 % (11.5-15.5); WBC 9.5 k/uL (3.8-10.6)
[2023-05-08 02:44] LABS: ALT 107 U/L (4-34); AST 87 U/L (14-36); African American GFR (CKD) >90 (>60 ml/min/1.73 sqM); Albumin 3.7 g/dL (3.5-5.0); Alkaline Phosphatase 72 U/L (38-126); Anion Gap 8 mmol/L; Blood Urea Nitrogen 19 mg/dL (7-17); Calcium 8.7 mg/dL (8.4-10.2); Carbon Dioxide 24 mmol/L (22-30); Chloride 107 mmol/L (98-107); Glucose 118 mg/dL (74-99); Non-African American GFR(CKD) >90 (>60 ml/min/1.73 sqM); Potassium 4.2 mmol/L (3.5-5.1); Sodium 139 mmol/L (137-145); Total Bilirubin 0.8 mg/dL (0.2-1.3); Total Protein 6.8 g/dL (6.3-8.2)
[2023-05-08 02:50] LABS: NT-Pro-B-Type Natriuretic Pept 2070 pg/mL
--- NOTE | 2023-05-08 02:51 | XR ---
EXAM: XR Chest, 1 View CLINICAL HISTORY: ITS.REASON XR Reason: dyspnea TECHNIQUE: Frontal view of the chest. COMPARISON: 09/25/2019 FINDINGS: Lungs: Multi subsegmental retrocardiac dense opacities. Diffuse hazy appearance of the pulmonary parenchyma. Prominent ill-defined bronchovascular markings. Pleural space: Subtle pleural thickening. No pneumothorax. Heart: Unremarkable. No cardiomegaly. Mediastinum: Prominent cardiomediastinal silhouette. Bones/joints: Degenerative mild dextroconvex thoracic scoliosis. No acute fracture. IMPRESSION: Probable interval development mild to moderate congestive edema with basal atelectasis and trace pleural effusion. Diagnostic consideration may include unusual pneumonia.
[2023-05-08] MEDS ORDERED: ASPIRIN 325 MG TAB PO STA (07:41)
[2023-05-08] MEDS ORDERED: NITROGLYCERIN OINT 1 INCH/GM PACKET TOPICAL SCH (07:45)
[2023-05-08] MEDS: FUROSEMIDE 10 MG/ML 4 ML VIAL IV SCH ×3 (08:31→23:38)
[2023-05-08] MEDS ORDERED: ATORVASTATIN 10 MG TAB PO SCH (09:00)
--- NOTE | 2023-05-08 09:41 | P.CRDCN ---
History of Present Illness History of present illness: HISTORY OF PRESENT ILLNESS: This is a 67-year-old female with a past medical history significant for atrial fibrillation and hyperlipidemia. Patient follows in the office with Dr. Leiva has not been to the office since November 2021. We have been asked to see the patipatti t in consultation for congestive heart failure. Patient examined at the bedside. Patient presented to the hospital for chief complaint of shortness of breath. He shouldn't states she has not been taking her medications for approximately 2 weeks as she ran out and has been unable to get to a physician's office secondary to immobility issues. The patient was found to be in acute heart failure was started on IV Lasix. She denies chest pain or pressure. She continues to report shortness of breath this morning although improving. Bedside telemetry reveals atrial fibrillation with a heart in the low 100s. * EKG reveals atrial fibrillation with a heart rate of 104. * Chest xray probable interval development [id number] congestive edema with basal atelectasis and trace pleural effusion. * Laboratory data: Troponin negative 1. ProBNP 2069. * Current home cardiac medications include Lasix of unknown dose, Lipitor 10 mg daily, and Eliquis 5 mg twice a day * Most recent echocardiogram obtained in October 2021 revealed ejection fraction 30-35%, mild MR * Cardiac catheterization history: October 2021 revealing appearance of spontaneous coronary dissection of the distal apical LAD and left dominant system. Medical management was recommended. REVIEW OF SYSTEMS: At the time of my exam: CONSTITUTIONAL: Denies fever or chills. HEENT: Denies blurred vision, vision changes, or eye pain. Denies hemoptysis CARDIOVASCULAR: Denies chest pain. Denies orthopnea. Denies PND. Denies palpitations RESPIRATORY: Denies shortness of breath. GASTROINTESTINAL: Denies abdominal pain. Denies nausea or vomiting. HEMATOLOGIC: Denies bleeding disorders. GENITOURINARY: Denies any blood in urine. SKIN: Denies pruitis. Denies rash. PHYSICAL EXAM: VITAL SIGNS: Reviewed. GENERAL: Well-developed in no acute distress. HEENT: Head is normocephalic. Pupils are equal, round. Sclerae anicteric. Mucous membranes of the mouth are moist. Neck supple. 1 cm JVD noted. LUNGS: Respirations even and unlabored. Lungs diminished with bibasilar crackles HEART: Irregular rate and rhythm. S1 and S2 heard. ABDOMEN: Soft. Nondistended. Nontender. EXTREMITIES: Normal range of motion. No clubbing or cyanosis. Peripheral pulses intact. 3+ bilateral lower extremity edema NEUROLOGIC: Awake and alert. Oriented x 3. ASSESSMENT: Shortness of breath Acute on chronic heart failure with reduced EF, 30-35% in 2021 Persistent atrial fibrillation Hyperlipidemia History of spontaneous coronary dissection of LAD, October 2021 Cardiomyopathy, nonischemic, 30-35% Medication noncompliance secondary to transportation issues Morbid obesity: BMI 53.2 PLAN: Obtain 2-D echo to assess cardiac structure and function Continue IV Lasix 40 mg every 8 hours Daily weights, accurate I&O, and monitoring of kidney function Add metoprolol tartrate 25 mg 3 times a day Continue telemetry monitoring Add Losartan 25 mg at night Check d-dimer Recommend transfer to [address] [place] [address] with telemetry monitoring Further recommendations pending patient's course Nurse practitioner note has been reviewed by physician. Signing provider agrees with the documented findings, assessment, and plan of care. Past Medical History Past Medical History: Atrial Fibrillation, Hypertension Additional Past Medical History / Comment(s): Bilateral leg lymphedema, past cellulitis bilateral legs, arthritis in multiple joints, paroxysmal Afib. History of Any Multi-Drug Resistant Organisms: None Reported Past Surgical History: Bariatric Surgery, Joint Replacement Additional Past Surgical History / Comment(s): R shoulder, bilat knee replacement, bariatric surgery 2014 Past Anesthesia/Blood Transfusion Reactions: No Reported Reaction Past Psychological History: No Psychological Hx Reported Smoking Status: Never smoker Past Alcohol Use History: None Reported Past Drug Use History: None Reported - Past Family History Father Family Medical History: Cancer Additional Family Medical History / Comment(s): Father from prostate cancer. Mother Additional Family Medical History / Comment(s): Mother is alive with history of PFO. Brother(s) Additional Family Medical History / Comment(s): Patient has one brother with history of gout. Patient's 2 sisters one with no major medical problems and one with generalized osteoarthritis. Patient does not have any children. Medications and Allergies Home Medications Medication Instructions Recorded Confirmed Type Baclofen 10 mg PO HS 09/03/19 05/08/23 History Apixaban [Eliquis] 5 mg PO BID 09/19/20 05/08/23 History Magnesium Oxide [Mag-Ox] 400 mg PO DAILY 05/13/21 05/08/23 History Potassium Chloride ER [K-Dur 20] 20 meq PO BID 07/07/21 05/08/23 History Sertraline [Zoloft] 50 mg PO HS 10/29/21 05/08/23 History Atorvastatin [Lipitor] 10 mg PO DAILY 05/08/23 05/08/23 History Furosemide [Lasix] 60 mg PO BID 05/08/23 05/08/23 History Allergies Allergy/AdvReac Type Severity Reaction Status Date / Time Poultry [[place]] Allergy Anaphylaxis Verified 05/08/23 00:37 Sulfa (Sulfonamide Allergy Anaphylaxis Verified 05/08/23 00:37 Antibiotics) [place] Allergy Anaphylaxis Verified 05/08/23 00:37 morphine AdvReac Nausea & Verified 05/08/23 00:37 Vomiting Physical Exam Vitals: Vital Signs Temp Pulse Resp BP Pulse Ox 05/08/23 08:23 98.7 F 93 20 124/104 99 05/08/23 00:37 97.9 F 117 H 18 130/75 97 Intake and Output 05/07/23 05/08/23 05/08/23 22:59 06:59 14:59 Other: Weight 158.757 kg Results 05/08/23 01:41 05/08/23 01:41 Cardiac Enzymes 05/08/23 05/08/23 Range/Units 01:41 01:41 AST 87 H (14-36) U/L Troponin I 0.025 (0.000-0.034) ng/mL CBC 05/08/23 Range/Units 01:41 WBC 9.5 (3.8-10.6) k/uL RBC 4.32 (3.80-5.40) m/uL Hgb 13.2 (11.4-16.0) gm/dL Hct 41.4 (34.0-46.0) % Plt Count 209 (150-450) k/uL Comprehensive Metabolic Panel 05/08/23 Range/Units 01:41 Sodium 139 (137-145) mmol/L Potassium 4.2 (3.5-5.1) mmol/L Chloride 107 (98-107) mmol/L Carbon Dioxide 24 (22-30) mmol/L BUN 19 H (7-17) mg/dL Creatinine 0.65 (0.52-1.04) mg/dL Glucose 118 H (74-99) mg/dL Calcium 8.7 (8.4-10.2) mg/dL AST 87 H (14-36) U/L ALT 107 H (4-34) U/L Alkaline Phosphatase 72 (38-126) U/L Total Protein 6.8 (6.3-8.2) g/dL Albumin 3.7 (3.5-5.0) g/dL Current Medications Generic Name Dose Route Start Last Admin Trade Name Freq PRN Reason Stop Dose Admin Aspirin 325 mg 05/09/23 09:00 Aspirin 325 Mg Tab PO DAILY VINAY Furosemide 40 mg 05/08/23 08:00 05/08/23 08:31 Furosemide 10 Mg/Ml 4 Ml Vial IV 40 mg Q8HR VINAY Administration Nitroglycerin 1 inch 05/08/23 07:45 05/08/23 08:32 Nitroglycerin Oint 1 Inch/Gm Packet TOPICAL 05/09/23 07:46 1 inch Q6HR VINAY Administration Intake and Output 05/07/23 05/08/23 05/08/23 22:59 06:59 14:59 Other: Weight 158.757 kg 05/08/23 01:41 05/08/23 01:41
--- NOTE | 2023-05-08 10:40 | P.HPIM ---
History of Present Illness 67-year-old pleasant female came in with complains of shortness of breath orthopnea hasn't been going on for last few days. Patient does have history of atrial fibrillation and congestive heart failure with EF of 30-35% and November. Patient had doesn't take Lasix at home. Patient denied any chest pain and EKG showed atrial fibrillation with heart rate which is well controlled but patient is in chronic atrial fibrillation chest x-ray showed pulmonary edema and BNP isn't 2006. Patient is obese female never diagnosed with sleep apnea does have extensive peripheral edema. REVIEW OF SYSTEMS: CONSTITUTIONAL: No fever, no malaise, no fatigue. HEENT: No recent visual problems or hearing problems. Denied any sore throat. CARDIOVASCULAR: No chest pain, no palpitations, no syncope. PULMONARY: no hemoptysis. GASTROINTESTINAL: No diarrhea, no nausea, no vomiting, no abdominal pain. NEUROLOGICAL: No headaches, no weakness, no numbness. HEMATOLOGICAL: Denies any bleeding or petechiae. GENITOURINARY: Denies any burning micturition, frequency, or urgency. MUSCULOSKELETAL/RHEUMATOLOGICAL: Denies any joint pain, swelling, or any muscle pain. ENDOCRINE: Denies any polyuria or polydipsia. The rest of the 14-point review of systems is negative. PHYSICAL EXAMINATION: GENERAL: The patient is alert and oriented x3, not in any acute distress. Obese female HEENT: Pupils are round and equally reacting to light. EOMI. No scleral icterus. No conjunctival pallor. Normocephalic, atraumatic. No pharyngeal erythe ma. No thyromegaly. CARDIOVASCULAR: S1 and S2 present. No murmurs, rubs, or gallops. Irregularly i rregular rhythm PULMONARY: Diffuse bilateral crackles ABDOMEN: Soft, nontender, nondistended, normoactive bowel sounds. No palpable organomegaly. MUSCULOSKELETAL: No joint swelling or deformity. EXTREMITIES: No cyanosis, clubbing, extensive bilateral pedal edema NEUROLOGICAL: Gross neurological examination did not reveal any focal deficits. SKIN: No rashes. Assessment and plan -That his heart failure chronic systolic dysfunction with acute exacerbation, patient is receiving 40 mg IV 3 times a day of Lasix which will be continued, patient will need Willson catheter for accurate I&Os -Elevated liver enzymes secondary to possible hepatic condition will repeat the liver enzymes again tomorrow -Chronic atrial fibrillation continue with present dose of beta kobe and anticoagulation -Hypertension DVT prophylaxis: Continue with Eliquis Past Medical History Past Medical History: Atrial Fibrillation, Hypertension Additional Past Medical History / Comment(s): Bilateral leg lymphedema, past cellulitis bilateral legs, arthritis in multiple joints, paroxysmal Afib. History of Any Multi-Drug Resistant Organisms: None Reported Past Surgical History: Bariatric Surgery, Joint Replacement Additional Past Surgical History / Comment(s): R shoulder, bilat knee replacement, bariatric surgery 2014 Past Anesthesia/Blood Transfusion Reactions: No Reported Reaction Past Psychological History: No Psychological Hx Reported Smoking Status: Never smoker Past Alcohol Use History: None Reported Past Drug Use History: None Reported - Past Family History Father Family Medical History: Cancer Additional Family Medical History / Comment(s): Father from prostate cancer. Mother Additional Family Medical History / Comment(s): Mother is alive with history of PFO. Brother(s) Additional Family Medical History / Comment(s): Patient has one brother with history of gout. Patient's 2 sisters one with no major medical problems and one with generalized osteoarthritis. Patient does not have any children. Medications and Allergies Home Medications Medication Instructions Recorded Confirmed Type Baclofen 10 mg PO HS 09/03/19 05/08/23 History Apixaban [Eliquis] 5 mg PO BID 09/19/20 05/08/23 History Magnesium Oxide [Mag-Ox] 400 mg PO DAILY 05/13/21 05/08/23 History Potassium Chloride ER [K-Dur 20] 20 meq PO BID 07/07/21 05/08/23 History Sertraline [Zoloft] 50 mg PO HS 10/29/21 05/08/23 History Atorvastatin [Lipitor] 10 mg PO DAILY 05/08/23 05/08/23 History Furosemide [Lasix] 60 mg PO BID 05/08/23 05/08/23 History Allergies Allergy/AdvReac Type Severity Reaction Status Date / Time Poultry [[place]] Allergy Anaphylaxis Verified 05/08/23 00:37 Sulfa (Sulfonamide Allergy Anaphylaxis Verified 05/08/23 00:37 Antibiotics) walnut Allergy Anaphylaxis Verified 05/08/23 00:37 morphine AdvReac Nausea & Verified 05/08/23 00:37 Vomiting Physical Exam Vitals: Vital Signs Temp Pulse Resp BP Pulse Ox 05/08/23 10:06 101 H 22 116/94 01/04/24 08:23 98.7 F 93 20 124/104 99 05/08/23 00:37 97.9 F 117 H 18 130/75 97 Intake and Output 05/07/23 05/08/23 05/08/23 22:59 06:59 14:59 Other: Weight 158.757 kg Results CBC & Chem 7: 05/08/23 01:41 05/08/23 01:41 Labs: Abnormal Lab Results - Last 24 Hours (Table) 05/08/23 Range/Units 01:41 BUN 19 H (7-17) mg/dL Glucose 118 H (74-99) mg/dL AST 87 H (14-36) U/L ALT 107 H (4-34) U/L
[2023-05-08] MEDS: APIXABAN 5 MG TAB PO SCH ×2 (10:55→20:51)
[2023-05-08] MEDS: METOPROLOL TARTRATE 25 MG TAB PO SCH ×3 (10:55→20:52)
--- NOTE | 2023-05-08 11:29 | CA ---
Transthoracic Echo Report Name: Beatriz Pean Age: 67 Gender: F : 1955 Exam Date: 05/08/2023 10:15 Exam Location: [facility] Ht (in): 68 Wt (lb): 350 Ordering Physician: Rad Soto DO Attending/Referring Phys: Urban Planning Teacher Jeff Saucedo Procedure CPT: Indications: Heart failure Cardiac Hx: Technical Quality: Very technically difficult study Contrast 1: Definity Total Dose (mL): 2 Contrast 2: Total Dose (mL): MEASUREMENTS (Male / Female) Normal Values 2D ECHO LV Diastolic Diameter PLAX 5.1 cm 4.2 - 5.9 / 3.9 - 5.3 cm LV Systolic Diameter PLAX 3.9 cm IVS Diastolic Thickness 1.0 cm 0.6 - 1.0 / 0.6 - 0.9 cm LVPW Diastolic Thickness 1.2 cm 0.6 - 1.0 / 0.6 - 0.9 cm LV Relative Wall Thickness 0.4 RV Internal Dim ED PLAX 4.4 cm LV Diastolic Volume MOD BP 61.3 cm??? 67 - 155 / 56 - 104 cm??? LV Systolic Volume MOD BP 29.4 cm??? 22 - 58 / 19 - 49 cm??? LV Ejection Fraction MOD BP 52.0 % >= 55 % LV Cardiac Index MOD BP 1093.6 cm???/min???m??? LV Diastolic Volume MOD 4C 78.2 cm??? LV Systolic Volume MOD 4C 35.0 cm??? LV Ejection Fraction MOD 4C 55.3 % LV Cardiac Index MOD 4C 1483.4 cm???/min???m??? LV Diastolic Length 4C 5.6 cm LV Systolic Length 4C 5.5 cm LV Diastolic Volume MOD 2C 46.9 cm??? LV Systolic Volume MOD 2C 22.8 cm??? LV Ejection Fraction MOD 2C 51.4 % LV Cardiac Index MOD 2C 827.3 cm???/min???m??? LV Diastolic Length 2C 5.5 cm LV Systolic Length 2C 5.1 cm LA Volume 64.1 cm??? 18 - 58 / 22 - 52 cm??? LA Volume Index 22.5 cm???/m??? 16 - 28 cm???/m??? DOPPLER AV Peak Velocity 99.7 cm/s AV Peak Gradient 4.0 mmHg LVOT Peak Velocity 57.2 cm/s LVOT Peak Gradient 1.3 mmHg LVOT Velocity Time Integral 10.5 cm MV Peak Velocity 116.2 cm/s MV Peak Gradient 5.4 mmHg MV Mean Velocity 53.5 cm/s MV Mean Gradient 1.5 mmHg MV Velocity Time Integral 27.2 cm MR Peak Velocity 379.7 cm/s MR Peak Gradient 57.7 mmHg Mitral E Point Velocity 110.1 cm/s Mitral A Point Velocity 37.8 cm/s Mitral E to A Ratio 2.9 MV Deceleration Time 166.0 ms TR Peak Velocity 231.8 cm/s TR Peak Gradient 21.5 mmHg Right Ventricular Systolic Press 26.5 mmHg FINDINGS Left Ventricle Normal LV size and wall thickness. Left ventricular ejection fraction is estimated at 25-30 %. There is global hypokinesia noted. Echo contrast was used to optimize image quality Right Ventricle Normal right ventricular size. RVSP= 26mmHg. Right Atrium Mild right atrial dilatation. Left Atrium Moderately increased left atrial volume. LA volume index= 25ml/m2 Mitral Valve Structurally normal mitral valve. Mild MR. Aortic Valve Aortic valve not well visualized. No aortic valve stenosis or regurgitation. Tricuspid Valve Structurally normal tricuspid valve. Mild TR. Pulmonic Valve Pulmonic valve not well visualized. Pericardium Not well visualized. Aorta Aortic root and proximal ascending aorta not well visualized. CONCLUSIONS Technically very difficult and limited study. Limited views. Suboptimal Doppler global decrease in contractility ejection fraction 25-30%. Doppler quality suboptimal no pericardial effusion Previewed by: Dr. Oly Gonzalez MD (Electronically Signed) Final Date: 08 May 2023 11:28
--- NOTE | 2023-05-08 14:41 | CT ---
EXAMINATION TYPE: CT chest angio for PE DATE OF EXAM: 05/08/2023 COMPARISON: NONE HISTORY: sob and elevated d-dimer CT DLP: 546.4 mGycm. Automated Exposure Control for Dose Reduction was Utilized. CONTRAST: CTA scan of the thorax is performed with IV Contrast, patient injected with 100 mL of Isovue 300, pul monary embolism protocol. MIP Images are created on CT scanner and reviewed. FINDINGS: Suboptimal study as there is artifact related to patient's large body habitus and respirato ry motion compromises LUNGS: Small to borderline moderate sized bilateral pleural effusions with associated compressive ate lectasis. No pneumothorax seen bilaterally. MEDIASTINUM: Most dense contrast in the SVC. Heterogeneity and diminished bolus in the periphery. No central pulmonary embolism. Heart size upper limits of normal. No pericardial effusion is seen. Moder ate left atrial and left ventricular dilatation. Moderate right atrial dilatation. OTHER: Suboptimal evaluation of the upper abdomen. Multilevel spurring in the spine. IMPRESSION: 1. Suboptimal study, no central acute pulmonary embolism. Cannot entirely exclude smaller peripheral pulmonary emboli in this patient. 2. Small to moderate-sized bilateral pleural effusions. Correlate for suspected CHF exacerbation/flui d overload state.
[2023-05-08] MEDS: POTASSIUM CHLORIDE ER 20 MEQ TAB.ER PO SCH (20:51)
[2023-05-08] MEDS: LOSARTAN 25 MG TAB PO SCH (20:52)
[2023-05-08] MEDS: SERTRALINE 50 MG TAB PO SCH (20:52)
[2023-05-08] MEDS ORDERED: LOSARTAN 50 MG TAB PO SCH (21:00)
[2023-05-09 08:13] LABS: ALT 71 U/L (4-34); AST 44 U/L (14-36); African American GFR (CKD) >90 (>60 ml/min/1.73 sqM); Albumin 3.6 g/dL (3.5-5.0); Alkaline Phosphatase 64 U/L (38-126); Anion Gap 8 mmol/L; Blood Urea Nitrogen 19 mg/dL (7-17); Calcium 8.7 mg/dL (8.4-10.2); Carbon Dioxide 30 mmol/L (22-30); Chloride 102 mmol/L (98-107); Glucose 102 mg/dL (74-99); Non-African American GFR(CKD) 86 (>60 ml/min/1.73 sqM); Potassium 3.8 mmol/L (3.5-5.1); Sodium 140 mmol/L (137-145); Total Bilirubin 0.9 mg/dL (0.2-1.3); Total Protein 6.7 g/dL (6.3-8.2)
[2023-05-09] MEDS: POTASSIUM CHLORIDE ER 20 MEQ TAB.ER PO SCH (08:30)
[2023-05-09] MEDS: FUROSEMIDE 10 MG/ML 4 ML VIAL IV SCH ×3 (08:30→20:25)
[2023-05-09] MEDS: METOPROLOL TARTRATE 25 MG TAB PO SCH (08:30)
[2023-05-09] MEDS: APIXABAN 5 MG TAB PO SCH ×2 (08:31→20:26)
[2023-05-09] MEDS: MAGNESIUM OXIDE 400 MG TAB PO SCH (08:31)
[2023-05-09] MEDS: ATORVASTATIN 20 MG TAB PO SCH (08:31)
[2023-05-09] MEDS ORDERED: METOPROLOL TARTRATE 25 MG TAB PO STA (08:47)
[2023-05-09] MEDS ORDERED: ASPIRIN 325 MG TAB PO SCH (09:00)
[2023-05-09] MEDS: SPIRONOLACTONE 25 MG TAB PO SCH (09:57)
--- NOTE | 2023-05-09 12:43 | P.PN ---
Subjective Progress Note Date: 05/09/23 HISTORY OF PRESENT ILLNESS: This is a 67-year-old female with a past medical history significant for atrial fibrillation and hyperlipidemia. Patient follows in the office with Dr. Leiva has not been to the office since November 2021. We have been asked to see the patient in consultation for congestive heart failure. Patient examined at the bedside. Patient presented to the hospital for chief complaint of shortness of breath. He shouldn't states she has not been taking her medications for approximately 2 weeks as she ran out and has been unable to get to a physician's office secondary to immobility issues. The patient was found to be in acute heart failure was started on IV Lasix. She denies chest pain or pressure. She continues to report shortness of breath this morning although improving. Bedside telemetry reveals atrial fibrillation with a heart in the low 100s. * EKG reveals atrial fibrillation with a heart rate of 104. * Chest xray probable interval development [id number] congestive edema with basal atelectasis and trace pleural effusion. * Laboratory data: Troponin negative 1. ProBNP 2069. * Current home cardiac medications include Lasix of unknown dose, Lipitor 10 mg daily, and Eliquis 5 mg twice a day * Most recent echocardiogram obtained in October 2021 revealed ejection fraction 30-35%, mild MR * Cardiac catheterization history: October 2021 revealing appearance of spontaneous coronary dissection of the distal apical LAD and left dominant system. Me dical management was recommended. 05/09 Patient is seen today in follow-up in the emergency center waiting for a bed on the cardiac stepdown unit. Patient is currently maintaining pulse ox 96% on 2 L nasal cannula. Heart rate is in the 80s and 90s, blood pressure 123/68. Monit or is atrial fibrillation with slightly increased heart rate. Patient has been maintained on IV Lasix 40 mg every 8 hours, Lopressor 25 mg 3 times daily starting yesterday. Patient was also started on losartan. Echocardiogram reveals EF of 25-30%. Limited views. CTA of the chest was suboptimal study no central acute pulmonary embolism. Cannot exclude small peripheral pulmonary emboli. Small to moderate-sized bilateral pleural effusions. Correlate for suspected heart failure exacerbation or fluid overload state. PHYSICAL EXAM: VITAL SIGNS: Reviewed. GENERAL: Well-developed in no acute distress. HEENT: Head is normocephalic. Pupils are equal, round. Sclerae anicteric. Mucous membranes of the mouth are moist. Neck supple. 1 cm JVD noted. LUNGS: Respirations even and unlabored. Lungs diminished with bibasilar crackles HEART: Irregular rate and rhythm. S1 and S2 heard. ABDOMEN: Soft. Nondistended. Nontender. EXTREMITIES: No clubbing or cyanosis. Peripheral pulses intact. 3+ bilateral lower extremity edema NEUROLOGIC: Awake and alert. Oriented x 3. ASSESSMENT: Shortness of breath Acute on chronic heart failure with reduced EF, 30-35% in 2021 Persistent atrial fibrillation Hyperlipidemia History of spontaneous coronary dissection of LAD, October 2021 Cardiomyopathy, nonischemic, 30-35% Medication noncompliance secondary to transportation issues Morbid obesity: BMI 53.2 PLAN: Discontinue Nitropaste Decreased frequency of IV Lasix to twice daily and transitioned to oral tomorrow at 80 mg twice daily Daily weights, accurate I&O, and monitoring of kidney function Continue metoprolol tartrate and increase to 50 mg 3 times a day Continue Losartan 25 mg at night Start patient on Aldactone 25 mg daily and discontinue potassium. Nurse practitioner note has been reviewed by physician. Signing provider agrees with the documented findings, assessment, and plan of care. Objective - Vital Signs Vital signs: Vital Signs Temp 98 F 05/09/23 08:00 Pulse 85 05/09/23 11:04 Resp 17 05/09/23 11:04 BP 98/72 05/09/23 11:04 Pulse Ox 96 05/09/23 11:04 FiO2 Intake & Output 05/08/23 05/09/23 05/09/23 18:59 06:59 18:59 Output Total 3100 1600 Balance -3100 -1600 Weight 158.757 kg Output: Urine 3100 1600 Uretheral (Willson) 3100 Other: Voiding Method Indwelling Catheter - Labs CBC & Chem 7: 05/08/23 01:41 05/09/23 07:45 Labs: Abnormal Lab Results - Last 24 Hours (Table) 05/09/23 Range/Units 07:45 BUN 19 H (7-17) mg/dL Glucose 102 H (74-99) mg/dL AST 44 H (14-36) U/L ALT 71 H (4-34) U/L
[2023-05-09] MEDS: METOPROLOL TARTRATE 50 MG TAB PO SCH ×2 (15:44→20:26)
[2023-05-09] MEDS: SERTRALINE 50 MG TAB PO SCH (20:25)
[2023-05-09] MEDS: LOSARTAN 25 MG TAB PO SCH (20:26)
--- NOTE | 2023-05-10 05:32 | P.PN ---
Subjective Progress Note Date: 05/09/23 67-year-old pleasant female came in with complains of shortness of breath orthopnea hasn't been going on for last few days. Patient does have history of atrial fibrillation and congestive heart failure with EF of 30-35% and November 2021. Patient had doesn't take Lasix at home. Patient denied any chest pain and EKG showed atrial fibrillation with heart rate which is well controlled but patient is in chronic atrial fibrillation chest x-ray showed pulmonary edema and BNP isn't 2006. Patient is obese female never diagnosed with sleep apnea does have extensive peripheral edema. 05/09/2023 Patient is seen in follow-up today with cardiology following patient maintained on IV Lasix and has had significant diuresis overnight. Patient continues with significant lower extremity swelling although reports improvement from when she initially presented. There are some reddened areas bilaterally noted on the front of the shins and will monitor closely for any signs of cellulitis. Patient reports she frequently gets cellulitis of the lower extremities due to her continued ongoing severe edema. Patient is not very mobile and lives with her mother and sister at home. Patient with significant weakness and decreased mobility will have PT/OT therapy evaluate the patient. Case management consulted as well for possible ECF. Patient is currently afebrile maintained on 2 L of oxygen via nasal cannula with no reported worsening shortness of breath. Patient denies chest pain or palpitations. Patient is tolerating diet with no reported nausea or vomiting noted. Review of systems: Constitutional: No reports of fatigue, fever, or chills Cardiovascular: No reports of chest pain or palpitations Respiratory: No reports of worsening shortness of breath, no cough GI: No reports of nausea, vomiting, or diarrhea : No reports of dysuria or retention Neurovascular: reports of significant generalized weakness and immobility All medications have been reviewed PHYSICAL EXAMINATION: GENERAL: The patient is alert and oriented x3, not in any acute distress. Morbidly Obese female , appears older than stated age HEENT: Pupils are round and equally reacting to light. EOMI. No scleral icterus. No conjunctival pallor. Normocephalic, atraumatic. No pharyngeal erythema. No thyromegaly. CARDIOVASCULAR: S1 and S2 present. No murmurs, rubs, or gallops. Irregularly irregular rhythm PULMONARY: Diffuse bilateral crackles noted at the bases and diminished bilaterally ABDOMEN: Soft, obese. nontender, nondistended, normoactive bowel sounds. No palpable organomegaly. MUSCULOSKELETAL: No joint swelling or deformity. EXTREMITIES: No cyanosis, clubbing, extensive bilateral pedal edema , nonpitting but extremely edematous of bilateral lower extremities as well, mild redness noted bilaterally on shins with no open skin or signs of cellulitis at this time NEUROLOGICAL: Gross neurological examination did not reveal any focal deficits. Diffusely weak SKIN: No rashes. Assessment and plan: -Congestive heart failure chronic systolic dysfunction with acute exacerbation, patient is receiving 80 mg IV Lasix twice daily and will be transitioned oral Lasix per cardiology. Continue with indwelling Willson catheter with significant diuresis noted overnight -Acute hypoxic respiratory failure secondary to above, currently on 2 L via nasal cannula, wean FiO2 as tolerated -Elevated liver enzymes secondary to possible hepatic congestion, follow-up labs trending down -Chronic atrial fibrillation, continue with present dose of beta kobe and anticoagulation -Hypertension history -Morbid obesity with BMI 53.2 -Gait dysfunction and immobility with generalized weakness -GI prophylaxis -DVT prophylaxis: Continue with Eliquis Plan: Continue IV diuresis today and we'll transition to oral Lasix tomorrow Patient with significant weakness and immobility, will have PT/OT therapy evaluate patient case management consulted as patient will likely require ECF. Patient will also require 3 night hospitalization secondary to Medicare guidelines Patient currently maintained on 2-3 L via nasal cannula and recommend to wean FiO2 as tolerated Will follow-up on repeat labs and monitor kidney functions and electrolytes closely. The impression and plan of care has been dictated by Latesha Bansal, Nurse Practitioner as directed. Dr. Annette MD I have performed a history and examination and MDM of this patient, discussed the same with the dictator, and agree with the dictator's assessment and plan as written ,documented as a scribe. Based on total visit time, I have performed more than 50% of the visit. Objective - Vital Signs Vital signs: Vital Signs Temp 98.9 F 05/08/23 15:31 Pulse 87 05/09/23 03:42 Resp 18 05/09/23 03:42 BP 113/63 05/09/23 03:42 Pulse Ox 96 05/09/23 03:42 FiO2 Intake & Output 05/08/23 05/09/23 05/09/23 18:59 06:59 18:59 Output Total 3100 Balance -3100 Weight 158.757 kg Output: Urine 3100 Uretheral (Willson) 3100 - Labs CBC & Chem 7: 05/08/23 01:41 05/09/23 07:45 Labs: Abnormal Lab Results - Last 24 Hours (Table) 05/08/23 05/09/23 Range/Units 10:18 07:45 D-Dimer 1.47 H (<0.60) mg/L FEU BUN 19 H (7-17) mg/dL Glucose 102 H (74-99) mg/dL AST 44 H (14-36) U/L ALT 71 H (4-34) U/L
[2023-05-10] MEDS: APIXABAN 5 MG TAB PO SCH ×2 (07:59→20:59)
[2023-05-10] MEDS: FUROSEMIDE 80 MG TAB PO SCH ×2 (07:59→16:04)
[2023-05-10] MEDS: SPIRONOLACTONE 25 MG TAB PO SCH (08:00)
[2023-05-10] MEDS: MAGNESIUM OXIDE 400 MG TAB PO SCH (08:00)
[2023-05-10] MEDS: ATORVASTATIN 20 MG TAB PO SCH (08:00)
[2023-05-10] MEDS: METOPROLOL TARTRATE 50 MG TAB PO SCH ×3 (08:01→21:00)
[2023-05-10 09:40] LABS: BUN/Creat Ratio 23.38 Ratio (12.00-20.00); Blood Urea Nitrogen 18.7 mg/dL (9.0-27.0); Calcium 8.5 mg/dL (8.7-10.3); Carbon Dioxide 27.9 mmol/L (21.6-31.8); Chloride 102 mmol/L (96-109); Glucose 101 mg/dL (70-110); Potassium 3.9 mmol/L (3.5-5.5); Sodium 141 mmol/L (135-145)
[2023-05-10 12:30] VITALS: BMI 53.3
--- NOTE | 2023-05-10 15:29 | P.PN ---
Subjective Progress Note Date: 05/10/23 The patient is a 67-year-old female is admitted to the hospital with heart failure exacerbation. She has been diuresed throughout her admission. At the time of my examination the patient was resting comfortably flat in bed. No orthopnea. GENERAL: Well-appearing, well-nourished and in no acute distress. NECK: Supple without JVD or thyromegaly. LUNGS: Breath sounds diminished to auscultation bilaterally. Respiration equal and unlabored. No wheezes, rales or rhonchi. HEART: Irregular rate and rhythm without murmurs, rubs or gallops. S1 and S2 heard. EXTREMITIES: Normal range of motion, no edema. No clubbing or cyanosis. Peripheral pulses intact and strong. TELEMETRY: Persistent atrial fibrillation, rate controlled IMPRESSION: Shortness of breath Acute on chronic heart failure exacerbation, systolic Persistent A. fib Hyperlipidemia History of SCAD Nonischemic cardiomyopathy, EF 30-35% History of medication noncompliance secondary to transportation issues Morbid obesity BMI 53 PLAN: Continue current medication regimen Patient may be discharged from the cardiac standpoint Follow-up with primary fabrication engineer Dr Leiva I am dictating on behalf of Dr Keaton Zaman's history/physical and assessment/plan. Objective - Vital Signs Vital signs: Vital Signs Temp 97.8 F 05/10/23 12:20 Pulse 84 05/10/23 12:20 Resp 16 05/10/23 12:20 BP 107/70 05/10/23 12:20 Pulse Ox 100 05/10/23 12:20 FiO2 Intake & Output 05/09/23 05/10/23 05/10/23 18:59 06:59 18:59 Intake Total 236 Output Total 2200 800 1100 Balance -1963 Weight 158.757 kg 159 kg 159 kg Intake: Oral 236 Output: Urine 2200 800 1100 Uretheral (Willson) 1100 Other: Voiding Method Indwelling Catheter Indwelling Catheter # Voids 1 - Labs CBC & Chem 7: 05/08/23 01:41 05/10/23 06:22 Labs: Abnormal Lab Results - Last 24 Hours (Table) 05/10/23 Range/Units 06:22 BUN/Creatinine Ratio 23.38 H (12.00-20.00) Ratio Calcium 8.5 L (8.7-10.3) mg/dL
--- NOTE | 2023-05-10 15:37 | P.PN ---
Subjective Progress Note Date: 05/10/23 67-year-old pleasant female came in with complains of shortness of breath orthopnea hasn't been going on for last few days. Patient does have history of atrial fibrillation and congestive heart failure with EF of 30-35% and November 2021. Patient had doesn't take Lasix at home. Patient denied any chest pain and EKG showed atrial fibrillation with heart rate which is well controlled but patient is in chronic atrial fibrillation chest x-ray showed pulmonary edema and BNP isn't 2006. Patient is obese female never diagnosed with sleep apnea does have extensive peripheral edema. 05/09/2023 Patient is seen in follow-up today with cardiology following patient maintained on IV Lasix and has had significant diuresis overnight. Patient continues with significant lower extremity swelling although reports improvement from when she initially presented. There are some reddened areas bilaterally noted on the front of the shins and will monitor closely for any signs of cellulitis. Patient reports she frequently gets cellulitis of the lower extremities due to her continued ongoing severe edema. Patient is not very mobile and lives with her mother and sister at home. Patient with significant weakness and decreased mobility will have PT/OT therapy evaluate the patient. Case management consulted as well for possible ECF. Patient is currently afebrile maintained on 2 L of oxygen via nasal cannula with no reported worsening shortness of breath. Patient denies chest pain or palpitations. Patient is tolerating diet with no reported nausea or vomiting noted. 05/10/2023 Patient is evaluated today resting in bed. Has been transitioned to oral lasix. Electrolytes have normalized. Was found to have elevated D-dimer 1.47 underwent CTA which was negative for pulmonary embolism. Patient does complain of nasal congestion and also nausea. Patient continues on 3L of oxygen. Review of systems: Constitutional: No reports of fatigue, fever, or chills Cardiovascular: No reports of chest pain or palpitations Respiratory: No reports of worsening shortness of breath, no cough GI: No reports of nausea, vomiting, or diarrhea : No reports of dysuria or retention Neurovascular: reports of significant generalized weakness and immobility All medications have been reviewed PHYSICAL EXAMINATION: GENERAL: The patient is alert and oriented x3, not in any acute distress. Morbidly Obese female , appears older than stated age HEENT: Pupils are round and equally reacting to light. EOMI. No scleral icterus. No conjunctival pallor. Normocephalic, atraumatic. No pharyngeal erythema. No thyromegaly. CARDIOVASCULAR: S1 and S2 present. No murmurs, rubs, or gallops. Irregularly irregular rhythm PULMONARY: Diffuse bilateral crackles noted at the bases and diminished bilaterally ABDOMEN: Soft, obese. nontender, nondistended, normoactive bowel sounds. No palpable organomegaly. MUSCULOSKELETAL: No joint swelling or deformity. EXTREMITIES: No cyanosis, clubbing, extensive bilateral pedal edema , nonpitting but extremely edematous of bilateral lower extremities as well, mild redness noted bilaterally on shins with no open skin or signs of cellulitis at this time NEUROLOGICAL: Gross neurological examination did not reveal any focal deficits. Diffusely weak SKIN: No rashes. Assessment and plan: -Congestive heart failure chronic systolic dysfunction with acute exacerbation, Transitioned to oral lasix. Continue with indwelling Willson catheter with significant diuresis noted overnight -Acute hypoxic respiratory failure secondary to above, currently on 2 L via nasal cannula, wean FiO2 as tolerated -Elevated liver enzymes secondary to possible hepatic congestion, follow-up labs trending down -Chronic atrial fibrillation, continue with present dose of beta kobe and anticoagulation -Hypertension history -Morbid obesity with BMI 53.2 -Gait dysfunction and immobility with generalized weakness -GI prophylaxis -DVT prophylaxis: Continue with Eliquis Plan: Transitioned to oral lasix Check urinalysis. Patient with significant weakness and immobility, PT and OT recommending [facility] on discharge. case management consulted as patient will likely require ECF. Patient will also require 3 night hospitalization secondary to Medicare guidelines Patient currently maintained on 2-3 L via nasal cannula and recommend to wean FiO2 as tolerated Will follow-up on repeat labs and monitor kidney functions and electrolytes closely. The impression and plan of care has been dictated by Michelle Tai, Nurse Practitioner as directed. Dr. Annette MD I have performed a history and physical examination and medical decision making of this patient, discussed the same with the dictator, and agree with the dictators assessment and plan as written, documented as a scribe. Based on total visit time, I have performed more than 50% of this visit. Objective - Vital Signs Vital signs: Vital Signs Temp 97.8 F 05/10/23 12:20 Pulse 84 05/10/23 12:20 Resp 16 05/10/23 12:20 BP 107/70 05/10/23 12:20 Pulse Ox 100 05/10/23 12:20 FiO2 Intake & Output 05/09/23 05/10/23 05/10/23 18:59 06:59 18:59 Intake Total 236 Output Total 2200 800 1100 Balance -1963800 -1100 Weight 158.757 kg 159 kg 159 kg Intake: Oral 236 Output: Urine 2200 800 1100 Uretheral (Willson) 1100 Other: Voiding Method Indwelling Catheter Indwelling Catheter # Voids 1 - Labs CBC & Chem 7: 05/08/23 01:41 05/10/23 06:22 Labs: Abnormal Lab Results - Last 24 Hours (Table) 05/10/23 Range/Units 06:22 BUN/Creatinine Ratio 23.38 H (12.00-20.00) Ratio Calcium 8.5 L (8.7-10.3) mg/dL Assessment and Plan Time with Patient: Less than 30
[2023-05-10 15:54] LABS: Amorphous Sediment,Urine Rare /hpf; Appearance,Urine Turbid (Clear); Bacteria,Urine Few /hpf; Bilirubin,Urine Negative (Negative); Blood,Urine Large (Negative); Color,Urine Light Orange; Glucose,Urine (UA) Negative (Negative); Ketones,Urine Negative (Negative); Leukocyte Esterase,Urine Large (Negative); Mucus,Urine Rare /hpf; Nitrite,Urine Positive (Negative); PH, Urine 8.5 (5.0-8.0); Protein,Urine 2+ (Negative); RBC,Urine >182 /hpf (0-5); Specific Gravity,Urine 1.019 (1.001-1.035); Urobilinogen,Urine <2.0 mg/dL (<2.0); WBC,Urine 12 /hpf (0-5)
[2023-05-10] MEDS: LOSARTAN 25 MG TAB PO SCH (20:13)
[2023-05-10] MEDS: SERTRALINE 50 MG TAB PO SCH (20:59)
[2023-05-11] MEDS: APIXABAN 5 MG TAB PO SCH ×2 (08:48→21:15)
[2023-05-11] MEDS: SPIRONOLACTONE 25 MG TAB PO SCH (08:48)
[2023-05-11] MEDS: ATORVASTATIN 20 MG TAB PO SCH (08:48)
[2023-05-11] MEDS: METOPROLOL TARTRATE 50 MG TAB PO SCH ×3 (08:48→21:15)
[2023-05-11] MEDS: MAGNESIUM OXIDE 400 MG TAB PO SCH (08:48)
[2023-05-11] MEDS: FUROSEMIDE 80 MG TAB PO SCH ×2 (08:48→16:19)
[2023-05-11 09:54] LABS: BUN/Creat Ratio 16.56 Ratio (12.00-20.00); Blood Urea Nitrogen 14.9 mg/dL (9.0-27.0); Glucose 91 mg/dL (70-110)
[2023-05-11 09:55] LABS: Calcium 8.8 mg/dL (8.7-10.3); Carbon Dioxide 30.5 mmol/L (21.6-31.8); Chloride 100 mmol/L (96-109); Potassium 4.6 mmol/L (3.5-5.5); Sodium 140 mmol/L (135-145)
[2023-05-11 10:05] LABS: Basophils # (A) 0.07 X 10*3/uL (0.00-0.10); Basophils % (A) 0.8 %; Eosinophils # (A) 0.27 X 10*3/uL (0.04-0.35); Eosinophils % (A) 3.1 %; HCT 40.1 % (37.2-46.3); HGB 12.8 g/dL (12.0-15.0); Lymphocytes # (A) 1.97 X 10*3/uL (0.90-5.00); Lymphocytes % (A) 22.6 %; MCH 30.4 pg (27.0-32.0); MCHC 31.9 g/dL (32.0-37.0); MCV 95.2 FL (80.0-97.0); Mean Platelet Volume 12.1 FL (9.5-12.2); Monocytes # (A) 0.83 X 10*3/uL (0.20-1.00); Monocytes % (A) 9.5 %; NRBC Per 100 WBC 0 X 10*3/uL (0.00-0.01); Neutrophils # (A) 5.55 X 10*3/uL (1.80-7.70); Neutrophils % (A) 63.7 %; Platelet Count 223 X 10*3/uL (140-440); RBC 4.21 X 10*6/uL (4.10-5.20); RDW 13.3 % (11.5-14.5); WBC 8.72 X 10*3/uL (4.50-10.00)
[2023-05-11] MEDS: FAMOTIDINE 20 MG TAB PO SCH (11:08)
--- NOTE | 2023-05-11 14:33 | P.PN ---
Subjective Progress Note Date: 05/11/23 67-year-old pleasant female came in with complains of shortness of breath orthopnea hasn't been going on for last few days. Patient does have history of atrial fibrillation and congestive heart failure with EF of 30-35% and November 2021. Patient had doesn't take Lasix at home. Patient denied any chest pain and EKG showed atrial fibrillation with heart rate which is well controlled but patient is in chronic atrial fibrillation chest x-ray showed pulmonary edema and BNP isn't 2006. Patient is obese female never diagnosed with sleep apnea does have extensive peripheral edema. 05/09/2023 Patient is seen in follow-up today with cardiology following patient maintained on IV Lasix and has had significant diuresis overnight. Patient continues with significant lower extremity swelling although reports improvement from when she initially presented. There are some reddened areas bilaterally noted on the front of the shins and will monitor closely for any signs of cellulitis. Patient reports she frequently gets cellulitis of the lower extremities due to her continued ongoing severe edema. Patient is not very mobile and lives with her mother and sister at home. Patient with significant weakness and decreased mobility will have PT/OT therapy evaluate the patient. Case management consulted as well for possible ECF. Patient is currently afebrile maintained on 2 L of oxygen via nasal cannula with no reported worsening shortness of breath. Patient denies chest pain or palpitations. Patient is tolerating diet with no reported nausea or vomiting noted. 05/10/2023 Patient is evaluated today resting in bed. Has been transitioned to oral lasix. Electrolytes have normalized. Was found to have elevated D-dimer 1.47 underwent CTA which was negative for pulmonary embolism. Patient does complain of nasal congestion and also nausea. Patient continues on 3L of oxygen. 05/11/2023 Patient is evaluated resting in bed sleeping. Continues on oral lasix BID. Continues on 3L of oxygen which likely can be weaned down as oxygen saturations are 98%. Indwelling catheter was placed on admission for urinary retention which appears as purulent with sediment in the serrano bag. A urinalysis was done which was positive for acute UTI and patient has been started on IV ceftriaxone. Patient will need to undergo voiding trial with placement of new IDC fails the trial of void. Losartan will be held. Patient will need ELDER on discharge. Review of systems: Constitutional: No reports of fatigue, fever, or chills Cardiovascular: No reports of chest pain or palpitations Respiratory: No reports of worsening shortness of breath, no cough GI: No reports of nausea, vomiting, or diarrhea : No reports of dysuria or retention Neurovascular: reports of significant generalized weakness and immobility All medications have been reviewed PHYSICAL EXAMINATION: GENERAL: The patient is alert and oriented x3, not in any acute distress. Morbidly Obese female , appears older than stated age HEENT: Pupils are round and equally reacting to light. EOMI. No scleral icterus. No conjunctival pallor. Normocephalic, atraumatic. No pharyngeal erythema. No thyromegaly. CARDIOVASCULAR: S1 and S2 present. No murmurs, rubs, or gallops. Irregularly irregular rhythm PULMONARY: Diffuse bilateral crackles noted at the bases and diminished bilaterally ABDOMEN: Soft, obese. nontender, nondistended, normoactive bowel sounds. No palpable organomegaly. MUSCULOSKELETAL: No joint swelling or deformity. EXTREMITIES: No cyanosis, clubbing, extensive bilateral pedal edema , nonpitting but extremely edematous of bilateral lower extremities as well, mild redness noted bilaterally on shins with no open skin or signs of cellulitis at this time NEUROLOGICAL: Gross neurological examination did not reveal any focal deficits. Diffusely weak SKIN: No rashes. Assessment and plan: -Congestive heart failure chronic systolic dysfunction with acute exacerbation, Transitioned to oral lasix. Continue with indwelling Serrano catheter with significant diuresis noted overnight -Acute hypoxic respiratory failure secondary to above, currently on 2 L via nasal cannula, wean FiO2 as tolerated -Acute urinary tract infection likely catheter associated -Elevated liver enzymes secondary to possible hepatic congestion, follow-up labs trending down -Chronic atrial fibrillation, continue with present dose of beta kobe and anticoagulation -Hypertension history -Morbid obesity with BMI 53.2 -Gait dysfunction and immobility with generalized weakness -GI prophylaxis -DVT prophylaxis: Continue with Eliquis Plan: Transitioned to oral lasix IV ceftriaxone added and urine culture pending. Patient with significant weakness and immobility, PT and OT recommending [facility] on discharge. case management consulted as patient will likely require ECF. Patient will also require 3 night hospitalization secondary to Medicare guidelines Patient currently maintained on 2-3 L via nasal cannula and recommend to wean FiO2 as tolerated Will follow-up on repeat labs and monitor kidney functions and electrolytes closely. The impression and plan of care has been dictated by Michelle Tai, Nurse Practitioner as directed. Dr. Annette MD I have performed a history and physical examination and medical decision making of this patient, discussed the same with the dictator, and agree with the dictators assessment and plan as written, documented as a scribe. Based on total visit time, I have performed more than 50% of this visit. Objective - Vital Signs Vital signs: Vital Signs Temp 97.9 F 05/11/23 07:28 Pulse 90 05/11/23 07:28 Resp 17 05/11/23 07:28 BP 118/79 05/11/23 07:28 Pulse Ox 98 05/11/23 07:28 FiO2 Intake & Output 05/10/23 05/11/23 05/11/23 18:59 06:59 18:59 Output Total 2500 2000 Balance -2500 -2000 Weight 159 kg 158.5 kg Output: Urine 2500 2000 Uretheral (Serrano) 1100 Other: Voiding Method Indwelling Catheter # Voids 1 - Labs CBC & Chem 7: 05/11/23 05:51 05/11/23 05:51 Labs: Abnormal Lab Results - Last 24 Hours (Table) 05/10/23 05/10/23 Range/Units 06:22 15:15 BUN/Creatinine Ratio 23.38 H (12.00-20.00) Ratio Calcium 8.5 L (8.7-10.3) mg/dL Urine Appearance Turbid H (Clear) Urine pH 8.5 H (5.0-8.0) Urine Protein 2+ H (Negative) Urine Blood Large H (Negative) Urine Nitrite Positive H (Negative) Ur Leukocyte Esterase Large H (Negative) Urine RBC >182 H (0-5) /hpf Urine WBC 12 H (0-5) /hpf Amorphous Sediment Rare H (None) /hpf Urine Bacteria Few H (None) /hpf Urine Mucus Rare H (None) /hpf Assessment and Plan Time with Patient: Less than 30
[2023-05-11] MEDS ORDERED: ACETAMINOPHEN TAB 325 MG TAB PO PRN (16:38)
[2023-05-11] MEDS: traMADol 50 MG TAB PO PRN (17:03)
[2023-05-11] MEDS: SERTRALINE 50 MG TAB PO SCH (21:15)
[2023-05-12] MEDS: MAGNESIUM OXIDE 400 MG TAB PO SCH (09:10)
[2023-05-12] MEDS: SPIRONOLACTONE 25 MG TAB PO SCH (09:10)
[2023-05-12] MEDS: FUROSEMIDE 80 MG TAB PO SCH ×2 (09:10→16:44)
[2023-05-12] MEDS: ATORVASTATIN 20 MG TAB PO SCH (09:10)
[2023-05-12] MEDS: METOPROLOL TARTRATE 50 MG TAB PO SCH ×3 (09:10→20:23)
[2023-05-12] MEDS: APIXABAN 5 MG TAB PO SCH ×2 (09:10→20:23)
[2023-05-12] MEDS: FAMOTIDINE 20 MG TAB PO SCH (09:10)
[2023-05-12] MEDS: LIDOCAINE 4% PATCH TOPICAL SCH (09:11)
--- NOTE | 2023-05-12 14:32 | P.PN ---
Subjective Progress Note Date: 05/12/23 67-year-old pleasant female came in with complains of shortness of breath orthopnea hasn't been going on for last few days. Patient does have history of atrial fibrillation and congestive heart failure with EF of 30-35% and November 2021. Patient had doesn't take Lasix at home. Patient denied any chest pain and EKG showed atrial fibrillation with heart rate which is well controlled but patient is in chronic atrial fibrillation chest x-ray showed pulmonary edema and BNP isn't 2006. Patient is obese female never diagnosed with sleep apnea does have extensive peripheral edema. 05/09/2023 Patient is seen in follow-up today with cardiology following patient maintained on IV Lasix and has had significant diuresis overnight. Patient continues with significant lower extremity swelling although reports improvement from when she initially presented. There are some reddened areas bilaterally noted on the front of the shins and will monitor closely for any signs of cellulitis. Patient reports she frequently gets cellulitis of the lower extremities due to her continued ongoing severe edema. Patient is not very mobile and lives with her mother and sister at home. Patient with significant weakness and decreased mobility will have PT/OT therapy evaluate the patient. Case management consulted as well for possible ECF. Patient is currently afebrile maintained on 2 L of oxygen via nasal cannula with no reported worsening shortness of breath. Patient denies chest pain or palpitations. Patient is tolerating diet with no reported nausea or vomiting noted. 05/10/2023 Patient is evaluated today resting in bed. Has been transitioned to oral lasix. Electrolytes have normalized. Was found to have elevated D-dimer 1.47 underwent CTA which was negative for pulmonary embolism. Patient does complain of nasal congestion and also nausea. Patient continues on 3L of oxygen. 05/11/2023 Patient is evaluated resting in bed sleeping. Continues on oral lasix BID. Continues on 3L of oxygen which likely can be weaned down as oxygen saturations are 98%. Indwelling catheter was placed on admission for urinary retention which appears as purulent with sediment in the serrano bag. A urinalysis was done which was positive for acute UTI and patient has been started on IV ceftriaxone. Patient will need to undergo voiding trial with placement of new IDC fails the trial of void. Losartan will be held. Patient will need ELDER on discharge. 05/12/2023 Patient is seen in follow-up today and has been transitioned oral Lasix with cardiology following. Patient was started on IV ceftriaxone and preliminary cultures for urine showing gram-negative bacilli awaiting on finalized cultures which will not be at least resulted until this evening. Patient was evaluated by physical therapy recommending rehab and patient is agreeable. Case management following and has submitted for insurance authorization. Patient is currently afebrile with no reported chest pain or palpitations. On exam patient was noted to be off oxygen and will monitor closely and follow up on repeat vital signs. Encouraged increase activity as tolerated and continue to elevate lower extremities while at rest. Review of systems: Constitutional: No reports of fatigue, fever, or chills Cardiovascular: No reports of chest pain or palpitations Respiratory: No reports of worsening shortness of breath, no cough GI: No reports of nausea, vomiting, or diarrhea : No reports of dysuria or retention Neurovascular: reports of significant generalized weakness and immobility All medications have been reviewed PHYSICAL EXAMINATION: GENERAL: The patient is alert and oriented x3, well-developed, well-nourished, appears older than stated age HEENT: Pupils are round and equally reacting to light. EOMI. No scleral icterus. No conjunctival pallor. Normocephalic, atraumatic. No pharyngeal erythema. No thyromegaly. CARDIOVASCULAR: S1 and S2 present. No murmurs, rubs, or gallops. Irregularly irregular rhythm PULMONARY: Diffuse bilateral crackles noted at the bases and diminished bilaterally ABDOMEN: Soft, obese. nontender, nondistended, normoactive bowel sounds. No palpable organomegaly. MUSCULOSKELETAL: No joint swelling or deformity. EXTREMITIES: No cyanosis, clubbing, extensive bilateral pedal edema , nonpitting but extremely edematous of bilateral lower extremities as well, mild redness noted bilaterally on shins with no open skin or signs of cellulitis at this time NEUROLOGICAL: Gross neurological examination did not reveal any focal deficits. Diffusely weak SKIN: No rashes. Assessment: -Congestive heart failure chronic systolic dysfunction with acute exacerbation, Transitioned to oral lasix. Continue with indwelling Serrano catheter with significant diuresis noted overnight -Acute hypoxic respiratory failure secondary to above, currently on 2 L via nasal cannula, wean FiO2 as tolerated -Acute urinary tract infection likely catheter associated -Elevated liver enzymes secondary to possible hepatic congestion, follow-up labs trending down -Chronic atrial fibrillation, continue with present dose of beta kobe and anticoagulation -Hypertension history -Morbid obesity with BMI 53.2 -Gait dysfunction and immobility with generalized weakness -GI prophylaxis -DVT prophylaxis: Continue with Eliquis Plan: Transitioned to oral lasix IV ceftriaxone added and urine culture pending. Preliminary culture showing gram-negative bacilli Patient with significant weakness and immobility, PT and OT recommending [facility] on discharge. case management following and has submitted for insurance authorization which is pending. Patient requires 3 night hospitalization secondary to Medicare guide lines Patient currently maintained on 2-3 L via nasal cannula and recommend to wean FiO2 as tolerated Will follow-up on repeat labs and monitor kidney functions and electrolytes closely. Possible discharge planning in the next 24-48 hours The impression and plan of care has been dictated by Latesha Bansal, Nurse Practitioner as directed. Dr. Eusebio MD I have performed a history and examination and MDM of this patient, discussed the same with the dictator, and agree with the dictator's assessment and plan as written ,documented as a scribe. Based on total visit time, I have performed more than 50% of the visit. Objective - Vital Signs Vital signs: Vital Signs Temp 97.3 F L 05/12/23 07:15 Pulse 65 05/12/23 07:15 Resp 18 05/12/23 07:15 BP 95/58 05/12/23 07:15 Pulse Ox 98 05/12/23 07:15 FiO2 Intake & Output 05/11/23 05/12/23 05/12/23 18:59 06:59 18:59 Output Total 1550 218 Balance -1550 -218 Weight 158.5 kg Output: Urine 1550 Post Void Residual 218 Other: Voiding Method Indwelling Catheter Bedpan Diaper External Catheter # Voids 1 6 - Labs CBC & Chem 7: 05/11/23 05:51 05/11/23 05:51 Labs: Abnormal Lab Results - Last 24 Hours (Table) 05/11/23 Range/Units 05:51 MCHC 31.9 L (32.0-37.0) g/dL Microbiology - Last 24 Hours (Table) 05/10/23 15:15 Urine Culture - Preliminary Urine,Voided Gram Neg Bacilli
[2023-05-12] MEDS: SERTRALINE 50 MG TAB PO SCH (20:23)
[2023-05-13] MEDS: ATORVASTATIN 20 MG TAB PO SCH (08:12)
[2023-05-13] MEDS: MAGNESIUM OXIDE 400 MG TAB PO SCH (08:12)
[2023-05-13] MEDS: FAMOTIDINE 20 MG TAB PO SCH (08:13)
[2023-05-13] MEDS: FUROSEMIDE 80 MG TAB PO SCH (08:13)
[2023-05-13] MEDS: SPIRONOLACTONE 25 MG TAB PO SCH (08:13)
[2023-05-13] MEDS: METOPROLOL TARTRATE 50 MG TAB PO SCH ×2 (08:13→20:27)
[2023-05-13] MEDS: APIXABAN 5 MG TAB PO SCH ×2 (08:13→20:27)
[2023-05-13] MEDS: LIDOCAINE 4% PATCH TOPICAL SCH (08:20)
--- NOTE | 2023-05-13 13:10 | P.PN ---
Subjective Progress Note Date: 05/13/23 67-year-old pleasant female came in with complains of shortness of breath orthopnea hasn't been going on for last few days. Patient does have history of atrial fibrillation and congestive heart failure with EF of 30-35% and November 2021. Patient had doesn't take Lasix at home. Patient denied any chest pain and EKG showed atrial fibrillation with heart rate which is well controlled but patient is in chronic atrial fibrillation chest x-ray showed pulmonary edema and BNP isn't 2006. Patient is obese female never diagnosed with sleep apnea does have extensive peripheral edema. 05/09/2023 Patient is seen in follow-up today with cardiology following patient maintained on IV Lasix and has had significant diuresis overnight. Patient continues with significant lower extremity swelling although reports improvement from when she initially presented. There are some reddened areas bilaterally noted on the front of the shins and will monitor closely for any signs of cellulitis. Patient reports she frequently gets cellulitis of the lower extremities due to her continued ongoing severe edema. Patient is not very mobile and lives with her mother and sister at home. Patient with significant weakness and decreased mobility will have PT/OT therapy evaluate the patient. Case management consulted as well for possible ECF. Patient is currently afebrile maintained on 2 L of oxygen via nasal cannula with no reported worsening shortness of breath. Patient denies chest pain or palpitations. Patient is tolerating diet with no reported nausea or vomiting noted. 05/10/2023 Patient is evaluated today resting in bed. Has been transitioned to oral lasix. Electrolytes have normalized. Was found to have elevated D-dimer 1.47 underwent CTA which was negative for pulmonary embolism. Patient does complain of nasal congestion and also nausea. Patient continues on 3L of oxygen. 05/11/2023 Patient is evaluated resting in bed sleeping. Continues on oral lasix BID. Continues on 3L of oxygen which likely can be weaned down as oxygen saturations are 98%. Indwelling catheter was placed on admission for urinary retention which appears as purulent with sediment in the serrano bag. A urinalysis was done which was positive for acute UTI and patient has been started on IV ceftriaxone. Patient will need to undergo voiding trial with placement of new IDC fails the trial of void. Losartan will be held. Patient will need ELDER on discharge. 05/12/2023 Patient is seen in follow-up today and has been transitioned oral Lasix with cardiology following. Patient was started on IV ceftriaxone and preliminary cultures for urine showing gram-negative bacilli awaiting on finalized cultures which will not be at least resulted until this evening. Patient was evaluated by physical therapy recommending rehab and patient is agreeable. Case management following and has submitted for insurance authorization. Patient is currently afebrile with no reported chest pain or palpitations. On exam patient was noted to be off oxygen and will monitor closely and follow up on repeat vital signs. Encouraged increase activity as tolerated and continue to elevate lower extremities while at rest. 05/13/2023 Patient is seen in follow-up this morning currently sitting up in the chair has been transitioned oral Lasix and reports feeling some lightheadedness and dizziness and is maintained on Lasix 80 mg twice daily. Will adjust and also obtain orthostatic vital signs. Patient being seen and evaluated by physical therapy recommending rehab and patient is agreeable. Currently awaiting insurance authorization which was submitted pending with case management following. Patient is afebrile and maintained on ceftriaxone and urine culture showing Proteus mirabilis with sensitivities and we'll transition to oral antibiotics on discharge. Patient denies any pain or burning with frequency of urination. Encouraged increase activity as tolerated Review of systems: Constitutional: No reports of fatigue, fever, or chills, reports feeling some dizziness and lightheadedness on occasion Cardiovascular: No reports of chest pain or palpitations Respiratory: No reports of worsening shortness of breath, no cough GI: No reports of nausea, vomiting, or diarrhea : No reports of dysuria or retention Neurovascular: reports of significant generalized weakness and immobility All medications have been reviewed PHYSICAL EXAMINATION: GENERAL: The patient is alert and oriented x3, well-developed, well-nourished, appears older than stated age HEENT: Pupils are round and equally reacting to light. EOMI. No scleral icterus. No conjunctival pallor. Normocephalic, atraumatic. No pharyngeal erythema. No thyromegaly. CARDIOVASCULAR: S1 and S2 present. No murmurs, rubs, or gallops. Irregularly irregular rhythm PULMONARY: Diffuse bilateral crackles noted at the bases and diminished bilaterally ABDOMEN: Soft, obese. nontender, nondistended, normoactive bowel sounds. No palpable organomegaly. MUSCULOSKELETAL: No joint swelling or deformity. EXTREMITIES: No cyanosis, clubbing, extensive bilateral pedal edema , nonpitting of bilateral lower extremities as well and sagging skin with significant improvement in edema, mild redness noted bilaterally on shins with no open skin or signs of cellulitis at this time NEUROLOGICAL: Gross neurological examination did not reveal any focal deficits. Diffusely weak SKIN: No rashes. Assessment: -Congestive heart failure chronic systolic dysfunction with acute exacerbation -Acute hypoxic respiratory failure secondary to above, currently on 2 L via nasal cannula, wean FiO2 as tolerated improving -Acute urinary tract infection, present on admission likely catheter associated with Proteus mirabilis and the cultures -Elevated liver enzymes secondary to possible hepatic congestion, follow-up labs trending down -Chronic atrial fibrillation, continue with present dose of beta kobe and anticoagulation -Hypertension history -Morbid obesity with BMI 53.2 -Gait dysfunction and immobility with generalized weakness -GI prophylaxis -DVT prophylaxis: Continue with Eliquis Plan: Transitioned to oral lasix . Patient was taking 80 mg twice daily although reports to feeling somewhat dizzy and lightheaded when getting up and will adjust the medications and also obtain orthostatic vital signs Patient continues on IV ceftriaxone and urine culture finalized showing Proteus mirabilis with sensitivities and will continue on oral Ceftin on discharge Patient with significant weakness and immobility, PT and OT recommending ELDER on discharge. case management following and has submitted for insurance authorization which is pending. Patient requires 3 night hospitalization secondary to Medicare guidelines Patient currently maintained on 2-3 L via nasal cannula and recommend to wean FiO2 as tolerated Will follow-up on repeat labs and monitor kidney functions and electrolytes closely. Possible discharge planning in the next 24-48 hours The impression and plan of care has been dictated by Latesha Bansal, Nurse Practitioner as directed. Dr. Eusebio MD I have performed a history and examination and MDM of this patient, discussed the same with the dictator, and agree with the dictator's assessment and plan as written ,documented as a scribe. Based on total visit time, I have performed more than 50% of the visit. Objective - Vital Signs Vital signs: Vital Signs Temp 97.7 F 05/13/23 06:56 Pulse 67 05/13/23 07:40 Resp 17 05/13/23 07:40 BP 93/68 05/13/23 06:56 Pulse Ox 97 05/13/23 06:56 FiO2 Intake & Output 05/12/23 05/13/23 05/13/23 18:59 06:59 18:59 Output Total 700 Balance -700 Weight 157.4 kg Output: Urine 700 Other: Voiding Method Bedpan External Catheter External Catheter Diaper External Catheter # Voids 2 - Labs CBC & Chem 7: 05/11/23 05:51 05/11/23 05:51 Labs: Microbiology - Last 24 Hours (Table) 05/10/23 15:15 Urine Culture - Final Urine,Voided Proteus mirabilis
[2023-05-13] MEDS: FUROSEMIDE 40 MG TAB PO SCH (16:52)
[2023-05-13] MEDS: SERTRALINE 50 MG TAB PO SCH (20:27)
[2023-05-14] MEDS: traMADol 50 MG TAB PO PRN (05:58)
[2023-05-14 09:07] VITALS: BP 108/76; PULSE 69; RESP 18; TEMP 97.5
[2023-05-14] MEDS: SPIRONOLACTONE 25 MG TAB PO SCH (09:53)
[2023-05-14] MEDS: FAMOTIDINE 20 MG TAB PO SCH (09:53)
[2023-05-14] MEDS: ATORVASTATIN 20 MG TAB PO SCH (09:53)
[2023-05-14] MEDS: MAGNESIUM OXIDE 400 MG TAB PO SCH (09:53)
[2023-05-14] MEDS: METOPROLOL TARTRATE 50 MG TAB PO SCH (09:53)
[2023-05-14] MEDS: FUROSEMIDE 40 MG TAB PO SCH (09:53)
[2023-05-14] MEDS: APIXABAN 5 MG TAB PO SCH (09:53)
[2023-05-14] MEDS: LIDOCAINE 4% PATCH TOPICAL SCH (09:55)
--- NOTE | 2023-05-14 12:46 | P.DS ---
Providers Date of admission: 05/08/23 09:48 Expected date of discharge: 05/14/23 Attending physician: Jose Cleveland Consults: 05/08/23 07:41 Consult Physician Routine Consulting Provider: Jareth Roberts Consult Reason/Comments: chf Do you want consulting provider notified?: Yes Primary care physician: Alvaro Roldan [facility] Course: Final diagnosis -Congestive heart failure chronic systolic dysfunction with acute exacerbation -Acute hypoxic respiratory failure secondary to above -Acute urinary tract infection, present on admission likely catheter associated with Proteus mirabilis and the cultures -Elevated liver enzymes secondary to possible hepatic congestion, follow-up labs trending down -Chronic atrial fibrillation, continue with present dose of beta kobe and anticoagulation -Hypertension history -Morbid obesity with BMI 53.2 -Gait dysfunction and immobility with generalized weakness -GI prophylaxis -DVT prophylaxis Discharge disposition Patient is being discharged in a stable condition with guarded prognosis to [facility] . Patient will follow-up with Dr. Alvaro Roldan in the outpatient setting upon discharge. Patient is to continue with oral Ceftin twice daily for 1 week and close outpatient follow-up with cardiology as scheduled. Total time taken is greater than 35 minutes. Hospital course This is a 67-year-old female who was recently admitted with CHF exacerbation with significant volume overload also with some acute urinary tract infection with cultures finalizing showing Proteus with sensitivities. Patient also with significant weakness seen and evaluated by physical therapy recommending rehab and patient is agreeable patient did require 3 night hospitalization secondary to Medicare guidelines as well as insurance authorization. Insurance authorization was approved and [facility] Patient follow-up with cardiology outpatient. Recommend repeat BMP and magnesium in 2-3 days to monitor kidney functions and electrolytes. Currently no reports of chest pain, shortness of breath, or palpitations. Patient is afebrile. No reports of nausea or vomiting and patient is tolerating diet. Patient will be going to [facility] today. Guarded prognosis Physical exam: Gen: This is a 67-year-old female is awake, alert and oriented 3, well- developed, well-nourished, morbidly obese HEENT: Head is atraumatic, normocephalic. Pupils equal, round. Sclerae is anicteric. NECK: Supple. No JVD. No lymphadenopathy. No thyromegaly. LUNGS: Diminished breath sounds bilaterally otherwise Clear to auscultation. No wheezes or rhonchi. No intercostal retractions. HEART: Regular rate and rhythm. No murmur. ABDOMEN: Soft. Obese Bowel sounds are present. No masses. No tenderness. EXTREMITIES: No pedal edema. No calf tenderness. Bilateral lower extremity edema with swelling and noted sagging of the skin with significant improvement in the swelling NEUROLOGICAL: Patient is awake, alert and oriented x3. Cranial nerves 2 through 12 are grossly intact. Please refer to medication reconciliation sheet for a list of medications. The impression and plan of care has been dictated by Latesha Bansal, Nurse Practitioner as directed. Dr. Eusebio MD I have performed a history and examination and MDM of this patient, discussed the same with the dictator, and agree with the dictator's assessment and plan as written ,documented as a scribe. Based on total visit time, I have performed more than 50% of the visit. Patient Condition at Discharge: Fair Plan - Discharge Summary Discharge Rx Participant: No New Discharge Prescriptions: New Famotidine [Pepcid] 20 mg PO DAILY tab Acetaminophen Tab [Tylenol] 650 mg PO Q6HR PRN tab PRN Reason: Fever And/ Or Pain cefUROXime axetiL [Ceftin] 500 mg PO BID 7 Days #14 tab Spironolactone [Aldactone] 25 mg PO DAILY tab Furosemide [Lasix] 80 mg PO BID@0900,1600 tab Lidocaine 4% Patch 1 patch TOPICAL DAILY patch Metoprolol Tartrate [Lopressor] 50 mg PO TID tab Continue Magnesium Oxide [Mag-Ox] 400 mg PO DAILY Apixaban [Eliquis] 5 mg PO BID Potassium Chloride ER [K-Dur 20] 20 meq PO BID Sertraline [Zoloft] 50 mg PO HS Atorvastatin [Lipitor] 10 mg PO DAILY Discontinued Baclofen 10 mg PO HS Furosemide [Lasix] 60 mg PO BID Discharge Medication List Apixaban [Eliquis] 5 mg PO BID 09/19/20 [History] Magnesium Oxide [Mag-Ox] 400 mg PO DAILY 05/13/21 [History] Potassium Chloride ER [K-Dur 20] 20 meq PO BID 07/07/21 [History] Sertraline [Zoloft] 50 mg PO HS 10/29/21 [History] Atorvastatin [Lipitor] 10 mg PO DAILY 05/08/23 [History] Acetaminophen Tab [Tylenol] 650 mg PO Q6HR PRN tab 05/13/23 [Rx] Famotidine [Pepcid] 20 mg PO DAILY tab 05/13/23 [Rx] Furosemide [Lasix] 80 mg PO BID@0900,1600 tab 05/13/23 [Rx] Lidocaine 4% Patch 1 patch TOPICAL DAILY patch 05/13/23 [Rx] Metoprolol Tartrate [Lopressor] 50 mg PO TID tab 05/13/23 [Rx] Spironolactone [Aldactone] 25 mg PO DAILY tab 05/13/23 [Rx] cefUROXime axetiL [Ceftin] 500 mg PO BID 7 Days #14 tab 05/13/23 [Rx] Follow up Appointment(s)/Referral(s): Francisco Javier Leiva MD [STAFF PHYSICIAN] - 1 Week Alvaro Roldan MD [Primary Care Provider] - 1 Week Ambulatory/Diagnostic Orders: Basic Metabolic Panel [LAB.AMB] Time Frame: 3 Days, Location: None Selected Activity/Diet/Wound Care/Special Instructions: Ready repeat labs in 2-3 days to monitor kidney functions Patient is going to ECF Activity as tolerated Follow-up with primary care provider on discharge Follow-up with cardiology outpatient Continue antibiotics for the next 7 days to complete the course Continue to elevate lower extremities while at rest Continue heart healthy diet Discharge Disposition: TRANSFER TO SNF/ECF
--- NOTE | 2023-05-16 16:55 | CDI ---
Documentation Clarification Form Date: 05/16/2023 04:32:22 PM From: Jossy Mcgee Admit Date: 05/08/2023 09:48:00 AM Patient Name: Beatriz Pnea Visit Number: [id number] Discharge Date: 05/14/2023 02:35:00 PM ATTENTION: The Clinical Documentation Specialists (CDI) and [facility] Coding Staff appreciate your assistance in clarifying documentation. Please respond to the clarification below the line at the bottom and electronically sign. The CDI & [facility] Coding staff will review the response and follow-up if needed. Please note: Queries are made part of the Legal Health Record. If you have any questions, please contact the author of this message via ITS. Dr. Huey Bryant Conflicting documentation has been found in the medical record. As attending physician, please provide clarification. Per your Progress Note 05/11/23: Acute urinary tract infection likely catheter associated Discharge Summary Per Dr Kaplan 05/14/23: Acute urinary tract infection, present on admission likely catheter associated with Proteus mirabilis History/Risk Factors: Patient is a 67 year old female with a history of atrial fibrillation, hypertension, systolic CHF, morbid obesity, non-ischemic cardiomyopathy, history of cellulitis, bariatric surgery, and bilateral knee replacements Clinical Indicators: presented with dyspnea, had not been taking her medication including Lasix for the past week, legs are swollen. Is not on home oxygen. Diagnosed with Acute CHF exacerbation. Patient was found to have urine retention on admit 05/08/23 and had a serrano catheter placed, and per nursing assessment urine was clear, pale, and yellow. Progress note 05/11/23- indwelling cath was placed on admission for urinary retention which appears as purulent with sediment in the serrano bag. Urinalysis and cultures were done on 05/10/23- positive for UTI and proteus mirabilis Treatment: 05/11/23 started on IV ceftriaxone Please clarify which diagnosis is most appropriate: [ x ] Acute Urinary Tract Infection serrano catheter associated- Present on Admission [ ] Acute Urinary Tract Infection serrano catheter associated- Not Present on Admission [ ] Acute Urinary Tract Infection prior to catheter insertion- Present on Admission [ ] Other (please specify) [ ] Unable to determine MTDD
== END 2023-05-14 14:35 | DRG 291 ==
LOC: EC 23:47 → SUPCPDRO 23:47 → 6NMEDSUR 05-08 07:42 → 3SCARD 05-08 09:28 → OBSVTOIN 05-08 09:48 → 3SCARD 05-08 14:02 → 4SSUR 05-09 12:05
PROVIDERS: ADMIT Internal Medicine; ATTEND Internal Medicine
DX: I11.0 Hypertensive heart disease with heart failure (principal); I50.23 Acute on chronic systolic (congestive) heart failure; J96.01 Acute respiratory failure with hypoxia; T83.511A Infection and inflammatory reaction due to indwelling urethral catheter, initial encounter; N39.0 Urinary tract infection, site not specified; J98.11 Atelectasis; Z68.43 Body mass index [BMI] 50.0-59.9, adult; I48.19 Other persistent atrial fibrillation; B96.4 Proteus (mirabilis) (morganii) as the cause of diseases classified elsewhere; R33.9 Retention of urine, unspecified; K76.1 Chronic passive congestion of liver; Z91.148 Patient's other noncompliance with medication regimen for other reason; E66.01 Morbid (severe) obesity due to excess calories; I49.3 Ventricular premature depolarization; I42.8 Other cardiomyopathies; E78.5 Hyperlipidemia, unspecified; Z96.653 Presence of artificial knee joint, bilateral; Z88.2 Allergy status to sulfonamides; Z88.5 Allergy status to narcotic agent; Z98.84 Bariatric surgery status; Z79.899 Other long term (current) drug therapy; Z79.82 Long term (current) use of aspirin; Z79.01 Long term (current) use of anticoagulants; Z11.52 Encounter for screening for COVID-19; Z71.3 Dietary counseling and surveillance
CPT/HCPCS: 36415; 71045; 71275; 80048; 80053; 81001; 83880; 84484; 85025; 85027; 85379; 87077; 87086; 87186; 87636; 93005; 93306; 94760; 96374; 96376; 99285

== ENCOUNTER → 2024-09-07 | Outpatient (CLI) | payer MEDICARE ==
[2024-09-07 13:32] VITALS: BP 119/61; PULSE 86; RESP 16; TEMP 97.9; BMI 55.8
--- NOTE | 2024-09-07 15:36 | P.BASOAP ---
Subjective Progress Note Date: 09/07/24 Principal diagnosis: Morbid obesity 68-year-old female known to our service. Underwent laparoscopic band placement many years ago. Was has high as 400 pounds. Was able to get down to around 200 pounds at 1 point. Patient has had a variety of health issues and has been nonambulatory for at least the last 1 year. Stays at [facility]. Current weight 367. BMI 55.9. Patient interested in the Lap-Band adjustment. Denies nausea or vomiting. No nighttime cough. Objective - Vital Signs Vital signs: Vital Signs Temp 97.9 F 09/07/24 13:25 Pulse 86 09/07/24 13:25 Resp 16 09/07/24 13:25 BP 119/61 09/07/24 13:25 Pulse Ox FiO2 Intake & Output 09/06/24 09/07/24 09/07/24 18:59 06:59 18:59 Weight 166.667 kg - Exam Abdomen: Soft, nontender, nondistended Assessment/Plan (1) Morbid obesity Narrative/Plan: Patient interested in Lap-Band adjustment. Will add fluid to the band. The patient's band was accessed. Approximately 1 cc present in the band. 1 additional cc was added for a total of 2 cc. Plan: Date: 09/07/24 Initial Weight: 166.667 kg Initial BMI: 55.8 Current Weight: 166.667 kg Current BMI: 55.8 Type of Surgery: Adjustable Gastric Banding Total Volume in Band: 2 Previous Volume: 1 Volume Removed: Volume Added: 1 Band Size:
== END ==
LOC: BARWHC3 13:05
PROVIDERS: ATTEND Surgery
DX: E66.01 Morbid (severe) obesity due to excess calories (principal); Z91.014 Allergy to mammalian meats; Z91.018 Allergy to other foods; Z88.2 Allergy status to sulfonamides; Z88.5 Allergy status to narcotic agent; Z68.43 Body mass index [BMI] 50.0-59.9, adult; Z87.891 Personal history of nicotine dependence
CPT/HCPCS: 43999

== ENCOUNTER → 2024-11-09 | Outpatient (CLI) | payer MEDICARE ==
[2024-11-09 13:28] VITALS: BP 124/78; PULSE 67; TEMP 97.7; BMI 57.9
--- NOTE | 2024-11-09 14:04 | P.BASOAP ---
Subjective Progress Note Date: 11/09/24 Principal diagnosis: Morbid obesity Patient returns for recheck. Last seen in September. Had 1 cc added for a total of 2 cc at the time. Has had good restriction since then. She has lost 9 pounds. Appetite well-controlled. No GERD. No vomiting. Objective - Vital Signs Vital signs: Vital Signs Temp 97.7 F 11/09/24 13:26 Pulse 67 11/09/24 13:26 Resp BP 124/78 11/09/24 13:26 Pulse Ox FiO2 Intake & Output 11/08/24 11/09/24 11/09/24 18:59 06:59 18:59 Weight 162.84 kg - Exam Physical exam: General: Well-developed, well-nourished HEENT: Normocephalic, sclerae nonicteric Abdomen: Nontender, nondistended Extremities: No edema Neuro: Alert and oriented Assessment/Plan (1) Morbid obesity Narrative/Plan: Patient doing fairly well. Recent adjustment seems to have taken well. Continue at 2 cc for now. Recheck 3 months. Plan: Date: 11/09/24 Initial Weight: 166.667 kg Initial BMI: 59.3 Current Weight: 162.84 kg Current BMI: 57.9 Type of Surgery: Total Volume in Band: 2 Previous Volume: Volume Removed: Volume Added: Band Size:
== END | disposition home or self-care (01) ==
LOC: BARWHC3 12:52
PROVIDERS: ATTEND Surgery
DX: E66.01 Morbid (severe) obesity due to excess calories (principal); Z68.43 Body mass index [BMI] 50.0-59.9, adult; Z88.2 Allergy status to sulfonamides; Z88.5 Allergy status to narcotic agent; Z91.018 Allergy to other foods; Z87.891 Personal history of nicotine dependence
CPT/HCPCS: 43999

== ENCOUNTER 2024-12-02 02:26 | Emergency (ER) | payer MEDICARE ==
[2024-12-02 02:34] VITALS: TEMP 98.2
--- NOTE | 2024-12-02 02:43 | ED ---
General Adult HPI - General Chief complaint: Weakness Stated complaint: Altered Mental Time Seen by Provider: 12/02/24 02:29 Source: patient, EMS, RN notes reviewed, old records reviewed Mode of arrival: EMS Limitations: altered mental status - History of Present Illness Initial comments: 68-year-old presenting from the senior living with concern for urinary tract infection and mild confusion. Patient alert and oriented x 3 at the time my evaluation. She is on oxygen at baseline and has had a slight increase in her oxygen utilization at 4 L currently. Patient also reports a mild cough. Patient denies chest pain or abdominal pain. Patient is nonambulatory at baseline. - Related Data Home Medications Medication Instructions Recorded Confirmed Magnesium Oxide [Mag-Ox] 400 mg PO DAILY 05/13/21 11/11/24 Atorvastatin [Lipitor] 10 mg PO DAILY 05/08/23 11/11/24 Gabapentin [Neurontin] 100 mg PO TID 09/07/24 11/11/24 Hydrocodone/Acetaminophen 1 tab PO Q8H 09/07/24 11/11/24 [Hydrocodone/Acetaminophen 7.5-325] Melatonin 3 mg PO DAILY 09/07/24 Omeprazole 20 mg PO 09/07/24 Apixaban [Eliquis] 5 mg PO DAILY 11/11/24 11/11/24 Baclofen 10 mg PO QID 11/11/24 11/11/24 Butalb/Acetaminophen/Caffeine 1 each PO 11/11/24 [Fioricet 50-300-40 mg Capsule] DULoxetine HCL [Cymbalta] 30 mg PO DAILY 11/11/24 11/11/24 Potassium Chloride [Potassium 20 meq PO BID 11/11/24 11/11/24 Chloride ER (K-Dur GEQ)] Spironolactone [Aldactone] 25 mg PO BID 11/11/24 11/11/24 Previous Rx's Medication Instructions Recorded Furosemide [Lasix] 40 mg PO BID@0900,1600 #0 tab 05/14/23 Metoprolol Tartrate [Lopressor] 25 mg PO BID tab 05/14/23 Cephalexin [Keflex] 500 mg PO TID 10 Days #30 cap 12/02/24 Allergies Allergy/AdvReac Type Severity Reaction Status Date / Time turkey Allergy Unknown Unknown Verified 05/10/23 09:12 Sulfa (Sulfonamide Allergy Anaphylaxis Verified 05/08/23 00:37 Antibiotics) walnut Allergy Anaphylaxis Verified 05/08/23 00:37 morphine AdvReac Nausea & Verified 05/08/23 00:37 Vomiting Review of Systems ROS Statement: Those systems with pertinent positive or pertinent negative responses have been documented in the HPI. ROS Other: All systems not noted in ROS Statement are negative. Past Medical History Past Medical History: Atrial Fibrillation, Hypertension Additional Past Medical History / Comment(s): Bilateral leg lymphedema, past cellulitis bilateral legs, arthritis in multiple joints, paroxysmal Afib. History of Any Multi-Drug Resistant Organisms: None Reported Past Surgical History: Bariatric Surgery, Joint Replacement Additional Past Surgical History / Comment(s): R shoulder, bilat knee replacement, bariatric surgery 2014 Past Anesthesia/Blood Transfusion Reactions: No Reported Reaction Past Psychological History: Depression Smoking Status: Former smoker Past Alcohol Use History: None Reported Past Drug Use History: None Reported - Past Family History Father Family Medical History: Cancer Additional Family Medical History / Comment(s): Father from prostate cancer. Mother Additional Family Medical History / Comment(s): Mother is alive with history of PFO. Brother(s) Additional Family Medical History / Comment(s): Patient has one brother with history of gout. Patient's 2 sisters one with no major medical problems and one with generalized osteoarthritis. Patient does not have any children. General Exam Limitations: altered mental status General appearance: in no apparent distress, lethargic Head exam: Present: atraumatic, normocephalic Eye exam: Present: normal appearance Respiratory exam: Present: decreased breath sounds. Absent: respiratory distress Cardiovascular Exam: Present: regular rate, irregular rhythm GI/Abdominal exam: Present: soft. Absent: distended, tenderness Extremities exam: Present: pedal edema (Bilateral erythema) Neurological exam: Present: alert, oriented X3, CN II-XII intact. Absent: motor sensory deficit Skin exam: Present: warm, dry, intact Course Vital Signs 12/02/24 12/02/24 02:28 04:05 Temperature 98.2 F Pulse Rate 92 76 Respiratory 18 18 Rate Blood Pressure 107/75 99/65 O2 Sat by Pulse 99 100 Oximetry Medical Decision Making - Medical Decision Making Was pt. sent in by a medical professional or institution (, PA, PEST CONTROL SPECIALIST, urgent care, hospital, or senior living...) When possible be specific @ -Sent in from senior living with increased confusion concern for UTI Did you speak to anyone other than the patient for history (EMS, parent, family, police, friend...)? What history was obtained from this source @ -No Did you review nursing and triage notes (agree or disagree)? Why? @ -I reviewed and agree with nursing and triage notes Were old charts reviewed (outside hosp., previous admission, EMS record, old EKG, old radiological studies, urgent care reports/EKG's, senior living records)? Report findings @ -No old charts were reviewed Differential Altered Mental Status: Hypoglycemia, DKA, hypercapnia, ETOH, overdose, CO poisoning, trauma, myxedema coma, HTN encephalopathy, infection, encephalitis, psychosis, intercranial hem orrhage, hepatic encephalopathy, meningitis, CVA, this is not meant to be an all-inclusive list EKG interpreted by me (3pts min.). @Atrial fibrillation with PVC rate of 90, QRS duration 99, QTc [address] segment elevation. X-rays interpreted by me (1pt min.). @ -Chest x-ray negative for consolidative pneumonia no acute findings CT interpreted by me (1pt min.). @ -None done U/S interpreted by me (1pt. min.). @ -None done What testing was considered but not performed or refused? (CT, X-rays, U/S, labs)? Why? @ -None What meds were considered but not given or refused? Why? @ -None Did you discuss the management of the patient with other professionals (professionals i.e. , PA, PEST CONTROL SPECIALIST, lab, RT, psych nurse, child welfare social worker, furnace tender, teacher, animal control officer, casework specialist)? Give summary @ -No Was smoking cessation discussed for >3mins.? @ -No Was critical care preformed (if so, how long)? @ -No Were there social determinants of health that impacted care today? How? (Homelessness, low income, unemployed, alcoholism, drug addiction, transportation, low edu. Level, literacy, decrease access to med. care, shelter, rehab)? @ -No Was there de-escalation of care discussed even if they declined (Discuss DNR or withdrawal of care, Hospice)? DNR status @ -No What co-morbidities impacted this encounter? (DM, HTN, Smoking, COPD, CAD, Cancer, CVA, ARF, Chemo, Hep., AIDS, mental health diagnosis, sleep apnea, morbid obesity)? @Atrial fibrillation, morbid obesity Was patient admitted / discharged? Hospital course, mention meds given and route, prescriptions, significant lab abnormalities, going to OR and other pertinent info. @68-year-old female sent in for evaluation of confusion and possible UTI. The patient is A/O x 3 without specific complaint. She has a normal CBC, normal CMP, normal venous blood gas. Negative lactic acid. Urinalysis is positive for infection. Patient started on ceftriaxone in the emergency department and will be put placed on oral antibiotics awaiting culture results. Patient is stable for discharge back to the senior living at this time. Undiagnosed new problem with uncertain prognosis? @ -No Drug Therapy requiring intensive monitoring for toxicity (Heparin, Nitro, Insulin, Cardizem)? @ -No Were any procedures done? @ -No Diagnosis/symptom? @ -[UTI Acute, or Chronic, or Acute on Chronic? @ -Acute Uncomplicated (without systemic symptoms) or Complicated (systemic symptoms)? @ -Complicated Side effects of treatment? @ -[No Exacerbation, Progression, or Severe Exacerbation? @ -No Poses a threat to life or bodily function? How? (Chest pain, USA, VT, pneumonia, PE, COPD, DKA, ARF, appy, cholecystitis, CVA, Diverticulitis, Homicidal, Suici jordyn, threat to staff... and all critical care pts) @Low risk at this time - Lab Data Result diagrams: 12/02/24 02:44 12/02/24 02:44 Lab Results 12/02/24 12/02/24 12/02/24 Range/Units 02:44 02:44 02:44 WBC 9.04 (4.50-10.00) 10*3/uL RBC 4.73 (4.10-5.20) 10*6/uL Hgb 14.8 (12.0-15.0) g/dL Hct 43.8 (37.2-46.3) % MCV 92.6 (80.0-97.0) fL MCH 31.3 (27.0-32.0) pg MCHC 33.8 (32.0-37.0) g/dL Plt Count 209 (140-440) 10*3/uL MPV 11.5 (9.5-12.2) fL Immature Gran % (Auto) 0.2 % Neutrophils % 77.2 % Lymphocytes % 11.3 % Monocytes % 9.4 % Eosinophils % 1.1 % Basophils % 0.8 % Immature Gran # 0.02 (0.00-0.04) 10*3/uL Neutrophils # 6.98 (1.80-7.70) 10*3/uL Lymphocytes # 1.02 (0.90-5.00) 10*3/uL Monocytes # 0.85 (0.20-1.00) 10*3/uL Eosinophils # 0.10 (0.04-0.35) 10*3/uL Basophils # 0.07 (0.00-0.10) 10*3/uL PT 12.6 H (10.0-12.5) sec INR 1.2 H (<1.2) APTT 30.5 H (22.0-30.0) sec VBG pH (7.31-7.41) VBG pCO2 (37-51) mmHg VBG HCO3 (24-28) mmol/L Sodium 136 L (137-145) mmol/L Potassium 4.1 (3.5-5.1) mmol/L Chloride 100 (98-107) mmol/L Carbon Dioxide 27 (22-30) mmol/L Anion Gap 9 mmol/L BUN 15 (7-17) mg/dL Creatinine 0.58 (0.52-1.04) mg/dL Est GFR (CKD-EPI)AfAm >90 (>60 ml/min/1.73 sqM) Est GFR (CKD-EPI)NonAf >90 (>60 ml/min/1.73 sqM) Glucose 140 H (74-99) mg/dL Plasma Lactic Acid Oleg (0.7-2.0) mmol/L Calcium 8.7 (8.4-10.2) mg/dL Magnesium 1.9 (1.6-2.3) mg/dL Total Bilirubin 1.1 (0.2-1.3) mg/dL AST 25 (14-36) U/L ALT 10 (4-34) U/L Alkaline Phosphatase 78 (38-126) U/L NT-Pro-B Natriuret Pep 1380 pg/mL Total Protein 6.4 (6.3-8.2) g/dL Albumin 3.5 (3.5-5.0) g/dL Urine Color Urine Appearance (Clear) Urine pH (5.0-8.0) Ur Specific [place] (1.001-1.035) Urine Protein (Negative) Urine Glucose (UA) (Negative) Urine Ketones (Negative) Urine Blood (Negative) Urine Nitrite (Negative) Urine Bilirubin (Negative) Urine Urobilinogen (<2.0) mg/dL Ur Leukocyte Esterase (Negative) Urine RBC (0-5) /hpf Urine WBC (0-5) /hpf Urine WBC Clumps (None) /hpf Urine Bacteria (None) /hpf 12/02/24 12/02/24 12/02/24 Range/Units 02:44 02:44 03:06 WBC (4.50-10.00) 10*3/uL RBC (4.10-5.20) 10*6/uL Hgb (12.0-15.0) g/dL Hct (37.2-46.3) % MCV (80.0-97.0) fL MCH (27.0-32.0) pg MCHC (32.0-37.0) g/dL Plt Count (140-440) 10*3/uL MPV (9.5-12.2) fL Immature Gran % (Auto) % Neutrophils % % Lymphocytes % % Monocytes % % Eosinophils % % Basophils % % Immature Gran # (0.00-0.04) 10*3/uL Neutrophils # (1.80-7.70) 10*3/uL Lymphocytes # (0.90-5.00) 10*3/uL Monocytes # (0.20-1.00) 10*3/uL Eosinophils # (0.04-0.35) 10*3/uL Basophils # (0.00-0.10) 10*3/uL PT (10.0-12.5) sec INR (<1.2) APTT (22.0-30.0) sec VBG pH 7.44 H (7.31-7.41) VBG pCO2 43 (37-51) mmHg VBG HCO3 29 H (24-28) mmol/L Sodium (137-145) mmol/L Potassium (3.5-5.1) mmol/L Chloride (98-107) mmol/L Carbon Dioxide (22-30) mmol/L Anion Gap mmol/L BUN (7-17) mg/dL Creatinine (0.52-1.04) mg/dL Est GFR (CKD-EPI)AfAm (>60 ml/min/1.73 sqM) Est GFR (CKD-EPI)NonAf (>60 ml/min/1.73 sqM) Glucose (74-99) mg/dL Plasma Lactic Acid Oleg 1.6 (0.7-2.0) mmol/L Calcium (8.4-10.2) mg/dL Magnesium (1.6-2.3) mg/dL Total Bilirubin (0.2-1.3) mg/dL AST (14-36) U/L ALT (4-34) U/L Alkaline Phosphatase (38-126) U/L NT-Pro-B Natriuret Pep pg/mL Total Protein (6.3-8.2) g/dL Albumin (3.5-5.0) g/dL Urine Color Light Yellow Urine Appearance Turbid H (Clear) Urine pH 7.0 (5.0-8.0) Ur Specific [place] 1.016 (1.001-1.035) Urine Protein 1+ H (Negative) Urine Glucose (UA) Negative (Negative) Urine Ketones Negative (Negative) Urine Blood Moderate H (Negative) Urine Nitrite Negative (Negative) Urine Bilirubin Negative (Negative) Urine Urobilinogen 2.0 (<2.0) mg/dL Ur Leukocyte Esterase Large H (Negative) Urine RBC 72 H (0-5) /hpf Urine WBC >182 H (0-5) /hpf Urine WBC Clumps Many H (None) /hpf Urine Bacteria Moderate H (None) /hpf Disposition Clinical Impression: Morbid obesity, UTI (urinary tract infection) Disposition: HOME SELF-CARE Condition: Fair Instructions (If sedation given, give patient instructions): Urinary Tract Infection in Women (ED) Prescriptions: Cephalexin [Keflex] 500 mg PO TID 10 Days #30 cap Is patient prescribed a controlled substance at d/c from ED?: No Referrals: Denise Barney DO [Primary Care Provider] - 1-2 days Time of Disposition: 04:48
[2024-12-02 03:07] LABS: Basophils # (A) 0.07 10*3/uL (0.00-0.10); Basophils % (A) 0.8 %; Eosinophils # (A) 0.10 10*3/uL (0.04-0.35); Eosinophils % (A) 1.1 %; HCT 43.8 % (37.2-46.3); HGB 14.8 g/dL (12.0-15.0); Lymphocytes # (A) 1.02 10*3/uL (0.90-5.00); Lymphocytes % (A) 11.3 %; MCH 31.3 pg (27.0-32.0); MCHC 33.8 g/dL (32.0-37.0); MCV 92.6 fL (80.0-97.0); Monocytes # (A) 0.85 10*3/uL (0.20-1.00); Monocytes % (A) 9.4 %; Neutrophils # (A) 6.98 10*3/uL (1.80-7.70); Neutrophils % (A) 77.2 %; Platelet Count 209 10*3/uL (140-440); RBC 4.73 10*6/uL (4.10-5.20); RDW 13.0 % (11.5-14.5); VBG HCO3 29.0 mmol/L (24-28); VBG PCO2 43.0 mmHg (37-51); VBG PH 7.44 (7.31-7.41); WBC 9.04 10*3/uL (4.50-10.00)
[2024-12-02 03:24] LABS: INR 1.2 (<1.2); Partial Thromboplastin Time 30.5 sec (22.0-30.0); Prothrombin Time 12.6 sec (10.0-12.5)
[2024-12-02 03:37] LABS: ALT 10 U/L (4-34); African American GFR (CKD) >90 (>60 ml/min/1.73 sqM); Albumin 3.5 g/dL (3.5-5.0); Anion Gap 9 mmol/L; Blood Urea Nitrogen 15 mg/dL (7-17); Calcium 8.7 mg/dL (8.4-10.2); Carbon Dioxide 27 mmol/L (22-30); Chloride 100 mmol/L (98-107); Glucose 140 mg/dL (74-99); Non-African American GFR(CKD) >90 (>60 ml/min/1.73 sqM); Sodium 136 mmol/L (137-145); Total Protein 6.4 g/dL (6.3-8.2)
[2024-12-02 03:39] LABS: AST 25 U/L (14-36); Magnesium 1.9 mg/dL (1.6-2.3); Potassium 4.1 mmol/L (3.5-5.1)
[2024-12-02 03:40] LABS: Alkaline Phosphatase 78 U/L (38-126)
[2024-12-02 03:45] LABS: NT-Pro-B-Type Natriuretic Pept 1380 pg/mL
--- NOTE | 2024-12-02 04:11 | XR ---
EXAM: XR Chest, 1 View CLINICAL HISTORY: ITS.REASON XR Reason: AMS TECHNIQUE: Frontal view of the chest. COMPARISON: X-ray dated 05/08/2023. FINDINGS: Lungs: Chronic lung markings are seen bilaterally. No consolidation. Pleural space: Unremarkable. No pneumothorax. Heart: Mild enlargement of the cardiac silhouette. Mediastinum: Unremarkable. Normal mediastinal contour. Bones/joints: Degenerative changes are seen within the spine and shoulders. No acute fracture. Vasculature: Calcifications overlie the aorta. IMPRESSION: No acute findings in the chest.
[2024-12-02 04:30] LABS: Bacteria,Urine Moderate /hpf; Bilirubin,Urine Negative (Negative); Blood,Urine Moderate (Negative); Color,Urine Light Yellow; Glucose,Urine (UA) Negative (Negative); Ketones,Urine Negative (Negative); Leukocyte Esterase,Urine Large (Negative); Nitrite,Urine Negative (Negative); PH, Urine 7.0 (5.0-8.0); Protein,Urine 1+ (Negative); RBC,Urine 72 /hpf (0-5); Specific Gravity,Urine 1.016 (1.001-1.035); Urobilinogen,Urine 2.0 mg/dL (<2.0); WBC,Urine >182 /hpf (0-5)
[2024-12-02] MEDS: cefTRIAXone IN SWFI 1,000 MG/10 ML SYRINGE IVP STA (04:52)
[2024-12-02 06:40] VITALS: BP 102/64; PULSE 84; RESP 18
== END 2024-12-02 06:40 | disposition home or self-care (01) ==
LOC: EC 02:26
DX: N39.0 Urinary tract infection, site not specified (principal); E66.01 Morbid (severe) obesity due to excess calories; I48.0 Paroxysmal atrial fibrillation; Z68.42 Body mass index [BMI] 45.0-49.9, adult; Z87.891 Personal history of nicotine dependence; Z88.2 Allergy status to sulfonamides; Z88.5 Allergy status to narcotic agent; Z88.8 Allergy status to other drugs, medicaments and biological substances
CPT/HCPCS: 36415; 93005; 83880; 80053; 82803; 83605; 83735; 85025; 85610; 85730; 81001; 87040; 87086; 71045; 99285; 96374; 51701; J0696